=== PATIENT | male | born 1945 | race Caucasian/White ===

== ENCOUNTER 2017-08-29 02:26 | Inpatient (IN) | payer OTHER, BC ==
--- OUTSIDE RECORDS SUMMARY | 2017-08-29 02:30 | XMS REPORT | Clinical Summary ---
:1945 Author Organization [facility] Address [address] [place] [address] Phone Care Team Providers Name Role Phone Unavailable Primary Care Provider Unavailable Allergies Active Allergy Reactions Severity Noted Date Comments Latex Itching, Rash Medium 02/16/2013 Current Medications Prescription Sig. Disp. Refills Start Date End Date Status spironolactone Take 25 mg by Active (ALDACTONE) 25 MG mouth daily. tablet levothyroxine Take 50 mcg by Active (SYNTHROID, mouth Every LEVOTHROID) 50 MCG morning on an tablet empty stomach. atorvastatin Take 40 mg by Active (LIPITOR) 40 MG mouth daily. tablet amiodarone Take 200 mg by Active (PACERONE) 200 MG mouth daily. tablet gabapentin Take 100 mg by Active (NEURONTIN) 100 MG mouth 2 (two) capsule times daily Pt takes only once daily, prescribed twice daily. furosemide (LASIX) Take 1 tablet 30 tablet 1 10/07/2016 Active 20 MG tablet (20 mg total) 8 by mouth daily. latanoprost Place 1 drop Active (XALATAN) 0.005 % into both eyes ophthalmic solution nightly. metoprolol Take 50 mg by Active (LOPRESSOR) 50 MG mouth 2 (two) tablet times daily Pt states only takes once daily, prescribed twice daily . UNKNOWN Eye Ointment Active Daily to Both Eyes every Evening . UNKNOWN Dry Eyes Drops Active to Both Eyes 3 times daily . aspirin 81 MG EC Take 1 tablet 360 tablet 0 12/11/2016 Active tablet (81 mg total) 8 by mouth daily. finasteride Take 1 tablet 90 tablet 3 12/11/2016 Active (PROSCAR) 5 mg (5 mg total) by 8 tablet mouth daily. tamsulosin (FLOMAX) Take 1 capsule 90 capsule 3 12/11/2016 Active 0.4 mg Cp24 24 hr (0.4 mg total) capsule by mouth daily. warfarin (COUMADIN) Take 1 tablet 90 tablet 3 12/11/2016 Active 5 MG tablet (5 mg total) by 8 mouth every evening. furosemide (LASIX) Take 40 mg by Discontinued 40 MG tablet mouth daily . 7 metoprolol Take 50 mg by Discontinued (LOPRESSOR) 50 MG mouth 2 (two) 7 tablet times daily. aspirin 81 MG Take 81 mg by Discontinued chewable tablet mouth daily. 7 rivaroxaban Take 20 mg by Discontinued (XARELTO) 20 mg Tab mouth daily. 7 tablet metoprolol Take 1 tablet 90 tablet 1 10/07/2016 Discontinued (LOPRESSOR) 50 MG (50 mg total) 7 tablet by mouth 3 (three) times daily. pantoprazole Take 1 tablet 30 tablet 1 10/07/2016 Discontinued (PROTONIX) 40 MG (40 mg total) 7 tablet by mouth daily. apixaban (ELIQUIS) Take 2.5 mg by Discontinued 2.5 mg Tab tablet mouth daily. 7 erythromycin nightly. Discontinued (SPECTRO-ERYTHROMYC 7 IN) 5 mg/gram (0.5 %) ophthalmic ointment Active Problems Problem Noted Date Atrial fibrillation (HCC) 12/10/2016 A-fib (HCC) 12/10/2016 Anemia 09/29/2016 Acute renal failure (ARF) (HCC) 09/29/2016 Iron deficiency anemia due to chronic blood loss 09/29/2016 Acute upper GI bleed 09/29/2016 CAD (coronary artery disease) 02/17/2013 Chest pain 02/15/2013 SOB (shortness of breath) 02/15/2013 Encounters Date Type Specialty Care Team Description 02/05/2017 [facility] Cardiology Vidal Dunbar Atrial Encounter fibrillation, unspecified type (HCC) 02/05/2017 Orders Only Lab iVdal Dunbar Atrial MD fibrillation, unspecified type (HCC) (Primary Dx) 02/04/2017 Outside Orders Central Scheduling Vidal Dunbar Atrial MD fibrillation, unspecified type (HCC) (Primary Dx) 12/10/2016 - Hospital Cardiology Vidal Dunbar, Acute kidney 12/11/2016 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 Procedure Pass 12/10/2016 Surgery Vidal Dunbar, LEFT ATRIAL MD APPENDAGE CLOSURE W/ IMPLANT MCR - IP PROC ONLY 12/10/2016 Procedure Pass 12/08/2016 Hospital Vidal Dunbar, Encounter MD 11/19/2016 Hospital Vidal Dunbar, Acute renal Encounter MD failure, unspecified acute renal failure type (HCC) 11/19/2016 Anesthesia Event Garland Mendoza AA 11/19/2016 Orders Only General Internal Medicine 10/06/2016 Anesthesia Event Gastroenterology Latoya Metz MD 10/06/2016 Procedure Pass Gastroenterology 10/06/2016 Surgery Gastroenterology Julia Sage ENTEROSCOPY,BALLOO Mena N OVERTUBE SMALL INTESTINE-UPPER 10/03/2016 Procedure Pass Gastroenterology 10/03/2016 Surgery Gastroenterology Curtis Rey ENDOSCOPY,CAPSULE MD Suze 10/02/2016 Procedure Pass Gastroenterology 10/02/2016 Surgery GastroenterCurtis Marshall COLONOSCOPY MD Suze 10/01/2016 Anesthesia Event Gastroenterology Kulwant Hudson MD 09/29/2016 - Hospital General Internal Dewey, Juan R Atrial 10/08/2016 Encounter Medicine MD Araseli fibrillation, Nishant Akins, unspecified type MD (HCC) (Primary Dx);Acute renal failure, unspecified acute renal failure type (HCC);Acute upper GI bleed;Iron deficiency anemia due to chronic blood loss 09/29/2016 Anesthesia Event GastroenterLatoya Narayan MD 09/29/2016 Procedure Pass Gastroenterology 09/29/2016 Surgery GastroenterCurtis Marshall UPPER ENDOSCOPY MD Suze 09/29/2016 Orders Only General Internal Medicine after 08/28/2016 Family History Medical History Relation Name Comments Cancer Brother lung Cancer Father lung Relation Name Status Comments Brother Father Social History Tobacco Use Types Packs/Day Years Used Date Never Smoker Smokeless Tobacco: Never Used Alcohol Use Drinks/Week oz/Week Comments No Sex Assigned at Date Recorded Not on file Last Filed Vital Signs Vital Sign Reading Time Taken Blood Pressure 99/66 02/05/2017 3:35 PM WET MACHINE TENDER Pulse 94 02/05/2017 3:35 PM WET MACHINE TENDER Temperature 36.6 C (97.9 F) 12/11/2016 4:57 PM CDT Respiratory Rate 18 02/05/2017 3:35 PM WET MACHINE TENDER Oxygen Saturation 99% 02/05/2017 3:35 PM WET MACHINE TENDER Inhaled Oxygen Concentration - - Weight 117.7 kg (259 lb 8 oz) 12/11/2016 9:00 AM CDT Height 180.3 cm (5' 11") 12/10/2016 8:12 AM CDT Body Mass Index 36.19 12/11/2016 9:00 AM CDT Plan of Treatment Not on file Implants Implanted Type Area Vibrator Operator Device Expiration Model / Identifier Date Serial / Lot Watchman Cardiovascular [place] 04/09/2019 [id number] / Implanted: Qty: 1 on 12/10/2016 by Vidal Dunbar MD [employer] / [id number] Promus Premier HEMLOCK 05/23/2015 [id number] / Implanted: Qty: 1 on 12/12/2014 [employer] / [id number] Procedures Procedure Name Priority Date/Time Associated Diagnosis Comments LEFT ATRIAL APPENDAGE 12/10/2016 10:04 AM Atrial flutter, CLOSURE W/ IMPLANT CDT unspecified type (HCC) MCR - IP PROC ONLY Case Notes POP6 WATCHMAN /CV ANES /VICTORIANO DURING ENTEROSCOPY,BALLOON OVERTUBE SMALL 10/06/2016 10:57 AM CDT gi bleed INTESTINE-UPPER ENTEROSCOPY,COAGULATION 10/06/2016 10:57 AM CDT gi bleed ENDOSCOPY,CAPSULE 10/03/2016 10:00 AM CDT GI BLEED COLONOSCOPY 10/02/2016 9:00 AM CDT GI BLEED UPPER ENDOSCOPY 09/29/2016 2:01 PM CDT GI BLEED Case Notes EGD WITH ANES Special Needs EGD WITH ANES after 08/28/2016 Results ECHOCARDIOGRAM REPORT - SCAN (02/26/2017 7:50 AM)Only the most recent of3 resultswithin the time period is included.Transesophageal echo (02/05/2017 2: 43 PM)Only the most recent of3 resultswithin the time period is included. Component Value Ref Range Ejection Fraction Specimen Performing Laboratory [facility] ECHO HEARTLAB MKCKESSON CPACS Narrative Transesophageal Echocardiography Report (VICTORIANO) Demographics Patient Name SHEFALI HERNANDEZ Date of Study02/05/2017 MAGO [id number] Male Visit Number [id number] Unknown [id number] Room Number Number Date of Birth1945Referring PhysicianManjinder Drake MD Age71 year(s)Manager Sales Training Interpreting Betsy Mcdermott MD Physician Fellow IVANNA Fan Procedure Type of Study VICTORIANO procedure:TRANSESOPHAGEAL ECHO (Routine) Height: 71 inches Weight: 117.48 kg (259 lbs) BSA: 2.35 m^2 BMI: 36.12 kg/m^2 BP: 113/70 mmHg VICTORIANO Performed By: the attending and the fellow Type of Anesthesia: Moderate sedation Summary Normal overall left ventricular systolic function. LA is enlarged but severity assessment is unreliable due to know VICTORIANO sector size limitation. LA appendage procedures consistent with prior LA appendage exclusion device implantation (device-Watchman) . No residual LA-to-LA appendage communications visualized. Mild mitral regurgitation. A trace of aortic regurgitation. Lipomatous hypertrophy of the interatrial septum is present. IV saline contrast injection was negative for a PFO (patent foramen ovale) at rest . Grade 3 plaque (atheroma < 5) . Signature Findings Technical Quality: Technically adequate exam. Rhythm/BPAtrial fibrillation with controlled ventricular response. Left Ventricle Normal left ventricular chamber size. Normal wall thickness. Normal overall left ventricular systolic function. No apparent segmental wall motion abnormalities. Left AtriumLA is enlarged but severity assessment is unreliable due to know VICTORIANO sector size limitation. LA appendage procedures consistent with prior LA appendage exclusion device implantation (device-Watchman) . No residual LA-to-LA appendage communications visualized. Right VentricleRV is not well visualized. Right Atrium RA cavity size is normal . Atrial SeptumLipomatous hypertrophy of the interatrial septum is present. IV saline contrast injection was negative for a PFO (patent foramen ovale) at rest . Aortic Valve A trace of aortic regurgitation. Normal AoV structure. Mitral Valve Mild mitral regurgitation. Normal MV structure. Tricuspid ValveNormal TV structure and function by available views and Doppler. Pulmonic Valve Normal PV structure and function by limited views and Doppler. AortaGrade 3 plaque (atheroma < 5) . PericardiumNo pericardial effusion is visualized. IVC/SVC/PA/PV/PleuralThe pulmonary veins appear normal. Procedure Note Interface, External Ris In - 02/05/2017 4:52 PM WET MACHINE TENDER Transesophageal Echocardiography Report (VICTORIANO) Demographics Patient Name SHEFALI HERNANDEZ Date of Study 02/05/2017 MAGO Gender Male Visit Number [id number] Race Unknown Room Number Number Date of 1945 Referring Physician Manjinder Drake MD Age 71 year(s) Manager Sales Training Interpreting Betsy Mcdermott MD Physician Fellow IVANNA Fan Procedure Type of Study VICTORIANO procedure:TRANSESOPHAGEAL ECHO (Routine) Height: 71 inches Weight: 117.48 kg (259 lbs) BSA: 2.35 m^2 BMI: 36.12 kg/m^2 BP: 113/70 mmHg VICTORIANO Performed By: the attending and the fellow Type of Anesthesia: Moderate sedation Summary Normal overall left ventricular systolic function. LA is enlarged but severity assessment is unreliable due to know VICTORIANO sector size limitation. LA appendage procedures consistent with prior LA appendage exclusion device implantation (device-Watchman) . No residual LA-to-LA appendage communications visualized. Mild mitral regurgitation. A trace of aortic regurgitation. Lipomatous hypertrophy of the interatrial septum is present. IV saline contrast injection was negative for a PFO (patent foramen ovale) at rest . Grade 3 plaque (atheroma < 5) . Signature Findings Technical Quality: Technically adequate exam. Rhythm/BP Atrial fibrillation with controlled ventricular response. Left Ventricle Normal left ventricular chamber size. Normal wall thickness. Normal overall left ventricular systolic function. No apparent segmental wall motion abnormalities. Left Atrium LA is enlarged but severity assessment is unreliable due to know VICTORIANO sector size limitation. LA appendage procedures consistent with prior LA appendage exclusion device implantation (device-Watchman) . No residual LA-to-LA appendage communications visualized. Right Ventricle RV is not well visualized. Right Atrium RA cavity size is normal . Atrial Septum Lipomatous hypertrophy of the interatrial septum is present. IV saline contrast injection was negative for a PFO (patent foramen ovale) at rest . Aortic Valve A trace of aortic regurgitation. Normal AoV structure. Mitral Valve Mild mitral regurgitation. Normal MV structure. Tricuspid Valve Normal TV structure and function by available views and Doppler. Pulmonic Valve Normal PV structure and function by limited views and Doppler. Aorta Grade 3 plaque (atheroma < 5) . Pericardium No pericardial effusion is visualized. IVC/SVC/PA/PV/Pleural The pulmonary veins appear normal. PT/aPTT (02/05/2017 11:38 AM)Only the most recent of2 resultswithin the time period is included. Component Value Ref Range Protime 30.3 (H) 11.7 - 14.7 seconds INR 2.9 <=5.9 PTT 41.5 (H) 22.5 - 36.0 seconds Specimen Performing Laboratory Blood [facility] [address] [address] Narrative RECOMMENDED COUMADIN/WARFARIN INR THERAPY RANGES STANDARD DOSE: 2.0 - 3.0 Includes: PROPHYLAXIS for venous thrombosis, systemic embolization; TREATMENT for venous thrombosis and/or pulmonary embolus. HIGH RISK: Target INR is 2.5-3.5 for patients with mechanical heart valves. CBC (Hemogram only) (02/05/2017 11:38 AM)Only the most recent of2 resultswithin the time period is included. Component Value Ref Range WBC 7.0 3.5 - 10.5 K/L RBC 5.09 4.63 - 6.08 M/L Hemoglobin 12.5 (L) 13.7 - 17.5 GM/DL Hematocrit 41.6 40.1 - 51.0 % MCV 81.7 79.0 - 92.2 fL MCH 24.6 (L) 25.7 - 32.2 pg MCHC 30.0 (L) 32.3 - 36.5 GM/DL RDW 21.0 (H) 11.6 - 14.4 % Platelets 218 150 - 450 K/CU MM MPV 10.8 9.4 - 12.4 fL nRBC 0 0 - 0 /100 WBC Specimen Performing Laboratory Blood [address] [address] Basic Metabolic Panel (02/05/2017 11:38 AM)Only the most recent of13 resultswithin the time period is included. Component Value Ref Range Sodium 142 136 - 145 meq/L Potassium 4.5 3.5 - 5.1 meq/L Chloride 106 98 - 107 meq/L CO2 28 22 - 29 meq/L BUN 14 7 - 21 mg/dL Creatinine 1.45 (H) 0.57 - 1.25 mg/dL Glucose 99 70 - 105 mg/dL Calcium 8.9 8.4 - 10.2 mg/dL EGFR 48Comment: ESTIMATED GFR IS NOT ACCURATE mL/min/1.73 sq m CREATININE CLEARANCE IN PREDICTING GLOMERULAR FILTRATION RATE. ESTIMATED GFR IS NOT APPLICABLE FOR DIALYSIS PATIENTS. Specimen Performing Laboratory Blood [address] [address] RHYTHM STRIP - SCAN (12/19/2016 1:30 PM)Only the most recent of4 resultswithin the time period is included.CARDIAC CATH REPORT - SCAN (12/14/2016 3:50 PM) TRANSFUSION SERVICE REPORT - SCAN (12/13/2016 5:42 PM)Only the most recent of3 resultswithin the time period is included.Prepare Leuko-Red RBC (12/12/2016 11: 54 PM)Only the most recent of3 resultswithin the time period is included. Component Value Ref Range CROSSMATCH COMPATIBLE Unit ABO O Pos UNIT NUMBER [id number] Status TRANSFUSED Blood Bank Product RED BLOOD CELLS PRODUCT CODE S3624D11 CROSSMATCH COMPATIBLE Unit ABO O Pos UNIT NUMBER [id number] Status TRANSFUSED Blood Bank Product RED BLOOD CELLS PRODUCT CODE X2335F12 Specimen Performing Laboratory Other [facility] [place] CBC with platelet count + automated diff (12/11/2016 5:45 PM)Only the most recent of14 resultswithin the time period is included. Component Value Ref Range WBC 6.3 3.5 - 10.5 K/L RBC 3.84 (L) 4.63 - 6.08 M/L Hemoglobin 9.6 (L) 13.7 - 17.5 GM/DL Hematocrit 31.6 (L) 40.1 - 51.0 % MCV 82.3 79.0 - 92.2 fL MCH 25.0 (L) 25.7 - 32.2 pg MCHC 30.4 (L) 32.3 - 36.5 GM/DL RDW 18.0 (H) 11.6 - 14.4 % Platelets 176 150 - 450 K/CU MM MPV 10.1 9.4 - 12.4 fL nRBC 0 0 - 0 /100 WBC % Neutros 72 % % Lymphs 15 % % Monos 10 % % Eos 2 % % Baso 1 % # Neutros 4.56 1.78 - 5.38 K/L # Lymphs 0.96 (L) 1.32 - 3.57 K/L # Monos 0.60 0.30 - 0.82 K/L # Eos 0.14 0.04 - 0.54 K/L # Baso 0.05 0.01 - 0.08 K/L Immature Granulocytes-Relative 0 0 - 1 % Specimen Performing Laboratory Blood - Arm, [address] [address] CBC with platelet count + automated diff (12/11/2016 5:45 PM)Only the most recent of14 resultswithin the time period is included. Specimen Performing Laboratory Blood Narrative The following orders were created for panel order CBC with platelet count + automated diff. Procedure Abnormality Status --------- ------ CBC with platelet count ...[[id number]]AbnormalFinal result Please view results for these tests on the individual orders. Transfuse Leuko-Red RBC (12/11/2016 4:59 PM)Only the most recent of7 resultswithin the time period is included.XR chest 1 view portable / bedside ( 11:17 AM) Specimen Performing Laboratory GE RIS Narrative FINAL REPORT Chest one view compared to February 15, 2013 Discussion: Bilateral lung granulomas and mediastinal calcified nodes are noted. Heart size normal. No focal infiltrate or convincing cardiac failure. No effusion or pneumothorax. Signed: Yandel Duke MD Report Verified Date/Time:12/11/2016 11:49:16 Reading Location: [facility] Radiology Reading Room Procedure Note Interface, External Ris In - 12/11/2016 11:51 AM CDT FINAL REPORT Chest one view compared to February 15, 2013 Discussion: Bilateral lung granulomas and mediastinal calcified nodes are noted. Heart size normal. No focal infiltrate or convincing cardiac failure. No effusion or pneumothorax. Signed: Yandel Duke MD Report Verified Date/Time: 12/11/2016 11:49:16 Reading Location: [facility] Radiology Reading Room Limited 2D Echocardiogram (12/11/2016 8:30 AM) Component Value Ref Range Ejection Fraction Specimen Performing Laboratory [facility] ECHO HEARTLAB MKCKESSON CPACS Narrative Transthoracic Echocardiography Report (TTE) Demographics Patient Name Gayle HERNANDEZ of Study 12/11/2016 MAGO [id number] GenderMale Visit Number [id number] Race Unknown [id number] Number [id number] Number Date of Birth1945 Referring Physician IVANNA Cortez Age71 year(s) Manager Sales Training Anahy Armstrong [facility] AnalystAlex ZadeInterpreting Marshal Mata MD Physician Procedure Type of Study TTE procedure:LIMITED 2D ECHOCARDIOGRAM (STAT) Clinical History HGB 7.6 HCT 26.5 % A-fib CHF CAD HTN Cancer ARF s/p LIZ closure (12/10/2016) Height: 70.87 inches Weight: 114 kg (251.33 lbs) BSA: 2.32 m^2 BMI: 35.19 kg/m^2 HR: 58 bpm BP: 131/59 mmHg Summary Limited 2D echo, to assess pericardial effusion. The left ventricle is chamber size (by PSLAX dimension) is normal (male - LVIDd 4.2-5.8cm) . Mild concentric LV hypertrophy. All of the LV segments contract normally . LVEF by quantitative assessment is normal (55-60%) , Normal right ventricle structure and function. Aortic root size (SInus of Valsalva diameter) is normal . No pericardial effusion is visualized. Signature Findings Technical Quality: Technically adequate exam. Left Ventricle The left ventricle is chamber size (by PSLAX dimension) is normal (male - LVIDd 4.2-5.8cm) . Mild concentric LV hypertrophy. All of the LV segments contract normally . LVEF by quantitative assessment is normal (55-60%) , Left AtriumLA size is severely (>48 ml/m2) . Right VentricleNormal right ventricle structure and function. Right Atrium Normal right atrium. Aortic Valve Mild AoV cusp thickening. Mild AoV cusp calcification. Mitral Valve Mild MV leaflet thickening. Mild mitral annular calcification. Tricuspid ValveTV structure is normal. Pulmonic Valve PV is not well visualized. AortaAortic root size (SInus of Valsalva diameter) is normal . PericardiumNo pericardial effusion is visualized. IVC/SVC/PA/PV/PleuralThe estimated RA pressure by IVC dynamics 0-5mmHg . Chambers/Structures Left Atrium LA Dimension: 4.74 cm LA Area: 36.4 cm^2 LA Volume: 143.45 ml LA Vol. Index: 62 ml/m^2 Left Ventricle LVIDd: 5.55 cm LVEDV 2D:150.72 ml LV Septum Diastolic: 1.15 cm LV PW Diastolic: 1.12 cm Aorta Ao Root S of Mago.: 3.31 cm Procedure Note Interface, External Ris In - 12/11/2016 11:03 AM CDT Transthoracic Echocardiography Report (TTE) Demographics Patient Name SHEFALI HERNANDEZ Date of Study 12/11/2016 MAGO Gender Male Visit Number [id number] Race Unknown Room Number C631 Number Date of 1945 Referring Physician IVANNA Cortez Age 71 year(s) Manager Sales Training Anahy Armstrong, [facility] Business Support Administrator Harinder Jennings Interpreting Marshla Mata MD Physician Procedure Type of Study TTE procedure:LIMITED 2D ECHOCARDIOGRAM (STAT) Clinical History HGB 7.6 HCT 26.5 % A-fib CHF CAD HTN Cancer ARF s/p LIZ closure (12/10/2016) Height: 70.87 inches Weight: 114 kg (251.33 lbs) BSA: 2.32 m^2 BMI: 35.19 kg/m^2 HR: 58 bpm BP: 131/59 mmHg Summary Limited 2D echo, to assess pericardial effusion. The left ventricle is chamber size (by PSLAX dimension) is normal (male - LVIDd 4.2-5.8cm) . Mild concentric LV hypertrophy. All of the LV segments contract normally . LVEF by quantitative assessment is normal (55-60%) , Normal right ventricle structure and function. Aortic root size (SInus of Valsalva diameter) is normal . No pericardial effusion is visualized. Signature Findings Technical Quality: Technically adequate exam. Left Ventricle The left ventricle is chamber size (by PSLAX dimension) is normal (male - LVIDd 4.2-5.8cm) . Mild concentric LV hypertrophy. All of the LV segments contract normally . LVEF by quantitative assessment is normal (55-60%) , Left Atrium LA size is severely (>48 ml/m2) . Right Ventricle Normal right ventricle structure and function. Right Atrium Normal right atrium. Aortic Valve Mild AoV cusp thickening. Mild AoV cusp calcification. Mitral Valve Mild MV leaflet thickening. Mild mitral annular calcification. Tricuspid Valve TV structure is normal. Pulmonic Valve PV is not well visualized. Aorta Aortic root size (SInus of Valsalva diameter) is normal . Pericardium No pericardial effusion is visualized. IVC/SVC/PA/PV/Pleural The estimated RA pressure by IVC dynamics 0-5mmHg . Chambers/Structures Left Atrium LA Dimension: 4.74 cm LA Area: 36.4 cm^2 LA Volume: 143.45 ml LA Vol. Index: 62 ml/m^2 Left Ventricle LVIDd: 5.55 cm LVEDV 2D:150.72 ml LV Septum Diastolic: 1.15 cm LV PW Diastolic: 1.12 cm Aorta Ao Root S of Mago.: 3.31 cm Daily Prothrombin time/INR while on warfarin (12/11/2016 3:41 AM)Only the most recent of5 resultswithin the time period is included. Component Value Ref Range Protime 15.9 (H) 11.7 - 14.7 seconds INR 1.3 <=5.9 Specimen Performing Laboratory Blood - Arm, Left [address] [address] Narrative RECOMMENDED COUMADIN/WARFARIN INR THERAPY RANGES STANDARD DOSE: 2.0 - 3.0 Includes: PROPHYLAXIS for venous thrombosis, systemic embolization; TREATMENT for venous thrombosis and/or pulmonary embolus. HIGH RISK: Target INR is 2.5-3.5 for patients with mechanical heart valves. While on warfarin. POC ACTIVATED CLOTTING TIME (12/10/2016 1:00 PM)Only the most recent of2 resultswithin the time period is included. Component Value Ref Range Activated Clotting Time 131Comment: TESTED AT [address] [place] [id number] Specimen Performing Laboratory Blood [address] [address] ECG 12 lead (12/10/2016 9:51 AM)Only the most recent of3 resultswithin the time period is included. Specimen Performing Laboratory GE MUSE Narrative Ventricular Rate 51 BPM Atrial Rate 51 BPM P-R Interval 276 ms QRS Duration 96 ms Q-T Interval 496 ms QTC Calculation(Bazett) 457 ms P Logan 46 degrees R Logan -11 degrees T Logan 67 degrees Sinus bradycardia with 1st degree A-V block with Premature supraventricular complexes Moderate voltage criteria for LVH, may be normal variant Nonspecific T wave abnormality Abnormal ECG When compared with ECG of 19-NOV-2016 13:21, No significant change was found Confirmed by MD LATONYA, IHAB ([id number]) on 12/10/2016 2:42:03 PM Procedure Note Interface, External Ris In - 12/10/2016 2:42 PM CDT Ventricular Rate 51 BPM Atrial Rate 51 BPM P-R Interval 276 ms QRS Duration 96 ms Q-T Interval 496 ms QTC Calculation(Bazett) 457 ms P Logan 46 degrees R Logan -11 degrees T Logan 67 degrees Sinus bradycardia with 1st degree A-V block with Premature supraventricular complexes Moderate voltage criteria for LVH, may be normal variant Nonspecific T wave abnormality Abnormal ECG When compared with ECG of 19-NOV-2016 13:21, No significant change was found Confirmed by MD LATONYA, IHAB ([id number]) on 12/10/2016 2:42:03 PM Type and screen, automated (12/10/2016 9:20 AM)Only the most recent of4 resultswithin the time period is included. Component Value Ref Range ABO/RH AUTOMATED (BEAKER) O POSITIVE Ab Scrn NEGATIVE Specimen Performing Laboratory Blood [address] [address] Magnesium (12/10/2016 9:20 AM)Only the most recent of10 resultswithin the time period is included. Component Value Ref Range Magnesium 2.1 1.6 - 2.6 mg/dL Specimen Performing Laboratory Blood [address] [address] Comprehensive metabolic panel (11/19/2016 1:12 PM) Component Value Ref Range Protein, Total 7.2 6.0 - 8.3 gm/dL Albumin 3.7 3.5 - 5.0 g/dL Alkaline Phosphatase 88 40 - 150 U/L Total Bilirubin 0.8 0.2 - 1.2 mg/dL Sodium 142 136 - 145 meq/L Potassium 4.7 3.5 - 5.1 meq/L Chloride 109 (H) 98 - 107 meq/L CO2 24 22 - 29 meq/L BUN 12 7 - 21 mg/dL Creatinine 1.33 (H) 0.57 - 1.25 mg/dL Glucose 92 70 - 105 mg/dL Calcium 9.0 8.4 - 10.2 mg/dL AST 17 5 - 34 U/L ALT 22 6 - 55 U/L EGFR 53Comment: ESTIMATED GFR IS NOT ACCURATE mL/min/1.73 sq m CREATININE CLEARANCE IN PREDICTING GLOMERULAR FILTRATION RATE. ESTIMATED GFR IS NOT APPLICABLE FOR DIALYSIS PATIENTS. Specimen Performing Laboratory Blood [address] [address] EKG-SCANNED (10/09/2016 10:40 AM)Phosphorus (10/08/2016 7:22 AM)Only the most recent of9 resultswithin the time period is included. Component Value Ref Range Phosphorus 3.8Comment: Specimen slightly hemolyzed 2.3 - 4.7 mg/dL Specimen Performing Laboratory Blood - Arm, [address] [address] REPORT OF PROCEDURE - ENDOSCOPY URL (10/06/2016 6:21 PM)Only the most recent of3 resultswithin the time period is included.Vitamin B12 and Folate (2016 11:28 AM)Only the most recent of2 resultswithin the time period is included. Component Value Ref Range Vitamin B12 346 213 - 816 pg/mL Folate 7.9 >=7.0 ng/mL Specimen Performing Laboratory Blood - Arm, [address] [address] Narrative Effective 02/14/2014: Folate Reference Range Change New: >=7.0Previous: >=5.4 C-Reactive Protein (10/03/2016 5:37 AM) Component Value Ref Range CRP 1.01 (H) 0.00 - 0.50 mg/dL Specimen Performing Laboratory Blood [address] [address] Sedimentation rate (10/03/2016 5:37 AM) Component Value Ref Range Sed Rate 38 0 - 40 mm/HR Specimen Performing Laboratory Blood [facility] [address] [address] [address] abdomen & pelvis - enterography (10/02/2016 3:40 PM) Specimen Performing Laboratory GE [facility] Narrative FINAL REPORT CT enterography DATED 10/02/2016 CLINICAL INFORMATION:Small Bowel Bleeding TECHNIQUE:Axial images of the abdomen and pelvis were obtained from diaphragm to the pubic symphysis with GI and intravenous contrast. This exam was performed according to our departmental dose-optimization program, which includes automated exposure control, adjustment of the mA and/or kV according to patient size and/or use of interactive reconstruction technique. COMMENT: Liver and spleen are normal in size. No focal lesion seen in the liver. There is wedge-shaped perfusion defect in the spleen suggesting splenic infarction. Gallbladder is contracted. No gallstone or biliary dilatation is noted. Pancreas and adrenals are unremarkable. Both kidneys are normal in size and functioning. No hydronephrosis, solid or cystic mass is seen in either kidney. The small bowel is normal in caliber. No small bowel dilatation or wall thickening is noted. Diverticular disease is seen in the large bowel. The sigmoid colon is redundant. No diverticulitis is apparent. Appendix is unremarkable. Atherosclerotic calcification is seen in the abdominal aorta splenic, superior mesenteric, and bilateral iliac arteries. The superior mesenteric, splenic, and portal veins are patent. No AV malformation is seen in the mesentery. No mass, adenopathy or ascites is present. IMPRESSION: 1. Diverticulosis without diverticulitis. 2. Splenic infarction. 3. Atherosclerotic disease in the abdominal aorta and branch vessels. Signed: Collin Cruz MD Report Verified Date/Time:10/02/2016 16:56:34 Reading Location: [address] Body Reading Room Procedure Note Interface, External Ris In - 10/02/2016 4:58 PM CDT FINAL REPORT CT enterography DATED 10/02/2016 CLINICAL INFORMATION: Small Bowel Bleeding TECHNIQUE: Axial images of the abdomen and pelvis were obtained from diaphragm to the pubic symphysis with GI and intravenous contrast. This exam was performed according to our departmental dose-optimization program, which includes automated exposure control, adjustment of the mA and/or kV according to patient size and/or use of interactive reconstruction technique. COMMENT: Liver and spleen are normal in size. No focal lesion seen in the liver. There is wedge-shaped perfusion defect in the spleen suggesting splenic infarction. Gallbladder is contracted. No gallstone or biliary dilatation is noted. Pancreas and adrenals are unremarkable. Both kidneys are normal in size and functioning. No hydronephrosis, solid or cystic mass is seen in either kidney. The small bowel is normal in caliber. No small bowel dilatation or wall thickening is noted. Diverticular disease is seen in the large bowel. The sigmoid colon is redundant. No diverticulitis is apparent. Appendix is unremarkable. Atherosclerotic calcification is seen in the abdominal aorta splenic, superior mesenteric, and bilateral iliac arteries. The superior mesenteric, splenic, and portal veins are patent. No AV malformation is seen in the mesentery. No mass, adenopathy or ascites is present. IMPRESSION: 1. Diverticulosis without diverticulitis. 2. Splenic infarction. 3. Atherosclerotic disease in the abdominal aorta and branch vessels. Signed: Collin Cruz MD Report Verified Date/Time: 10/02/2016 16:56:34 Reading Location: [address] Body Reading Room Manual Differential (10/01/2016 5:25 AM) Component Value Ref Range Total Counted WBC Morphology Normal Platelet Morphology Normal Anisocytosis 1+ few Polychromasia 1+ few Tear Drop Cells 1+ few Specimen Performing Laboratory Blood [address] [address] Peripheral Blood Smear - Path Review (10/01/2016 5:25 AM) Component Value Ref Range RBC Morphology Anisocytosis Polychromasia Poikilocytosis WBC Morphology Unremarkable Platelet Morphology Comment: Normal morphology Pathologist Review Cell counts confirmed. RBCs show normocytic normochromic anemia with mild anisopoikilocytosis. No schistocytes are seen. WBCs are unremarkable. Platelets are adequate with rare giant platelets. Pathologist: Radha Velez M.D. (electronic signature) Specimen Performing Laboratory Blood [address] [address] Reticulocyte count (10/01/2016 5:25 AM)Only the most recent of2 resultswithin the time period is included. Component Value Ref Range % Retic 5.8 (H) 0.4 - 2.9 % Specimen Performing Laboratory Blood [facility] [address] [address] [address] brain without IV contrast (09/30/2016 6:15 PM) Specimen Performing Laboratory GE RIS Narrative FINAL REPORT CT, BRAIN, WITHOUT CONTRAST INDICATION: double vision TECHNIQUE: Noncontrast axial imaging was obtained from the vertex to the skull base. Axial images were reconstructed using a bone algorithm. DOSE REDUCTION: Dose modulation, iterative reconstruction, and/or weight-based adjustment of the mA/kV was utilized to reduce the radiation dose to as low as reasonably achievable. COMPARISON: None. FINDINGS: Cerebral parenchyma: Mild volume loss. 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 No acute disruption of the skinner-white distinction. No parenchymal hemorrhage. Midline structures: Normally positioned. Cerebellum and brainstem: Normal. Ventricles: Normal volume. Extra-axial spaces: Unremarkable. Calvarium and skull base: Intact. Paranasal sinuses and mastoid air cells: Scattered mucosal thickening. Orbital contents: Included portions unremarkable. Additional findings: Severe, circumferential atherosclerotic disease in the proximal intracranial internal carotid and vertebral arteries. IMPRESSION: Chronic involutional changes without acute intracranial abnormality. If there is persistent clinical concern for intracranial pathology, MR examination is recommended for further characterization. Signed: JR Castro Robert MD Report Verified Date/Time:09/30/2016 18:33:54 Reading Location: [address] Reading Room Procedure Note Interface, External Ris In - 09/30/2016 6:36 PM CDT FINAL REPORT CT, BRAIN, WITHOUT CONTRAST INDICATION: double vision TECHNIQUE: Noncontrast axial imaging was obtained from the vertex to the skull base. Axial images were reconstructed using a bone algorithm. DOSE REDUCTION: Dose modulation, iterative reconstruction, and/or weight-based adjustment of the mA/kV was utilized to reduce the radiation dose to as low as reasonably achievable. COMPARISON: None. FINDINGS: Cerebral parenchyma: Mild volume loss. 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 No acute disruption of the skinner-white distinction. No parenchymal hemorrhage. Midline structures: Normally positioned. Cerebellum and brainstem: Normal. Ventricles: Normal volume. Extra-axial spaces: Unremarkable. Calvarium and skull base: Intact. Paranasal sinuses and mastoid air cells: Scattered mucosal thickening. Orbital contents: Included portions unremarkable. Additional findings: Severe, circumferential atherosclerotic disease in the proximal intracranial internal carotid and vertebral arteries. IMPRESSION: Chronic involutional changes without acute intracranial abnormality. If there is persistent clinical concern for intracranial pathology, MR examination is recommended for further characterization. Signed: JR Matthew, Naldo MAS Report Verified Date/Time: 09/30/2016 18:33:54 Reading Location: [address] Reading Room doppler (09/30/2016 5:31 PM) Specimen Performing Laboratory [facility] Narrative FINAL REPORT Ultrasound of the Abdomen and Doppler evaluation Clinical History:Portal hypertension Discussion: Sonographic evaluation of the abdomen is performed. In addition, color Doppler and spectral wave form analysis evaluations of the abdominal vasculature are performed. Liver: Measures 18.2 cm in length at the right midclavicular line. No mass.Main portal vein diameter measures 1 cm. Mildly increased echogenicity. Biliary tree:Common duct measures 4 mm.No biliary dilatation. Gallbladder: Nonmobile 5 mm polypoid echogenic structure within the gallbladder lumen, possibly a polyp.No wall thickening, and no pericholecystic fluid. Negativesonographic Olmedo's sign. Pancreas: Not well seen.. Ascites:None seen Spleen:Measures 13.1 cm in length. Kidneys: Right kidney measures 10.2 x 4.8 x 5.2 cm.Left kidney measures 11.8 x 5.9 x 5.7 cm.Normal cortical echogenicity.No mass.No shadowing calculus.No hydronephrosis. IVC/Aorta:Segments partially seen.Unremarkable Doppler: The peak systolic velocity of the main portal vein is measures 27.7 cm/sec, within normal limits. The main portal, right portal, and left portal veins demonstrate normal direction of flow, hepatopetal. The splenic vein is visualized at the portal venous confluence and demonstrates normal direction of flow, hepatopetal. The proper hepatic and left hepatic arteries demonstrate normal arterial wave forms. The right hepatic artery is not seen. The resistive indices of the proper and left hepatic arteries are minimally elevated, measuring 0.77 and 0.68. Segments of the right hepatic, middle hepatic, and left hepatic veins visualized demonstrate flow and phasic venous waveforms. Impression: 1. Hepatomegaly and mildly increased echogenicity of the hepatic parenchyma, a nonspecific finding which can be seen in steatosis. 2. The right hepatic artery is not assessed on this exam. The resistive indices of the proper and left hepatic arteries are minimally elevated as above. Otherwise, hepatic vasculature is within normal limits. The portal and hepatic veins are patent. 3. Spleen is enlarged measuring 13.1 cm. 4. The 5 mm polypoid structure in the gallbladder may represent a gallbladder polyp. Suggest follow-up ultrasound in six months to ensure stability. Signed: Yogi Villanueva MD Report Verified Date/Time:09/30/2016 18:54:08 Reading Location: [facility] C013Y CT Body Reading Room Procedure Note Interface, External Ris In - 09/30/2016 6:56 PM CDT FINAL REPORT Ultrasound of the Abdomen and Doppler evaluation Clinical History: Portal hypertension Discussion: Sonographic evaluation of the abdomen is performed. In addition, color Doppler and spectral wave form analysis evaluations of the abdominal vasculature are performed. Liver: Measures 18.2 cm in length at the right midclavicular line. No mass. Main portal vein diameter measures 1 cm. Mildly increased echogenicity. Biliary tree: Common duct measures 4 mm. No biliary dilatation. Gallbladder: Nonmobile 5 mm polypoid echogenic structure within the gallbladder lumen, possibly a polyp. No wall thickening, and no pericholecystic fluid. Negativesonographic Olmedo's sign. Pancreas: Not well seen.. Ascites: None seen Spleen: Measures 13.1 cm in length. Kidneys: Right kidney measures 10.2 x 4.8 x 5.2 cm. Left kidney measures 11.8 x 5.9 x 5.7 cm. Normal cortical echogenicity. No mass. No shadowing calculus. No hydronephrosis. IVC/Aorta: Segments partially seen. Unremarkable Doppler: The peak systolic velocity of the main portal vein is measures 27.7 cm/sec, within normal limits. The main portal, right portal, and left portal veins demonstrate normal direction of flow, hepatopetal. The splenic vein is visualized at the portal venous confluence and demonstrates normal direction of flow, hepatopetal. The proper hepatic and left hepatic arteries demonstrate normal arterial wave forms. The right hepatic artery is not seen. The resistive indices of the proper and left hepatic arteries are minimally elevated, measuring 0.77 and 0.68. Segments of the right hepatic, middle hepatic, and left hepatic veins visualized demonstrate flow and phasic venous waveforms. Impression: 1. Hepatomegaly and mildly increased echogenicity of the hepatic parenchyma, a nonspecific finding which can be seen in steatosis. 2. The right hepatic artery is not assessed on this exam. The resistive indices of the proper and left hepatic arteries are minimally elevated as above. Otherwise, hepatic vasculature is within normal limits. The portal and hepatic veins are patent. 3. Spleen is enlarged measuring 13.1 cm. 4. The 5 mm polypoid structure in the gallbladder may represent a gallbladder polyp. Suggest follow-up ultrasound in six months to ensure stability. Signed: Yogi Villanueva MD Report Verified Date/Time: 09/30/2016 18:54:08 Reading Location: [facility] C013Y CT Body Reading Room abdomen complete (09/30/2016 5:31 PM) Specimen Performing Laboratory [facility] Narrative FINAL REPORT Ultrasound of the Abdomen and Doppler evaluation Clinical History:Portal hypertension Discussion: Sonographic evaluation of the abdomen is performed. In addition, color Doppler and spectral wave form analysis evaluations of the abdominal vasculature are performed. Liver: Measures 18.2 cm in length at the right midclavicular line. No mass.Main portal vein diameter measures 1 cm. Mildly increased echogenicity. Biliary tree:Common duct measures 4 mm.No biliary dilatation. Gallbladder: Nonmobile 5 mm polypoid echogenic structure within the gallbladder lumen, possibly a polyp.No wall thickening, and no pericholecystic fluid. Negativesonographic Olmedo's sign. Pancreas: Not well seen.. Ascites:None seen Spleen:Measures 13.1 cm in length. Kidneys: Right kidney measures 10.2 x 4.8 x 5.2 cm.Left kidney measures 11.8 x 5.9 x 5.7 cm.Normal cortical echogenicity.No mass.No shadowing calculus.No hydronephrosis. IVC/Aorta:Segments partially seen.Unremarkable Doppler: The peak systolic velocity of the main portal vein is measures 27.7 cm/sec, within normal limits. The main portal, right portal, and left portal veins demonstrate normal direction of flow, hepatopetal. The splenic vein is visualized at the portal venous confluence and demonstrates normal direction of flow, hepatopetal. The proper hepatic and left hepatic arteries demonstrate normal arterial wave forms. The right hepatic artery is not seen. The resistive indices of the proper and left hepatic arteries are minimally elevated, measuring 0.77 and 0.68. Segments of the right hepatic, middle hepatic, and left hepatic veins visualized demonstrate flow and phasic venous waveforms. Impression: 1. Hepatomegaly and mildly increased echogenicity of the hepatic parenchyma, a nonspecific finding which can be seen in steatosis. 2. The right hepatic artery is not assessed on this exam. The resistive indices of the proper and left hepatic arteries are minimally elevated as above. Otherwise, hepatic vasculature is within normal limits. The portal and hepatic veins are patent. 3. Spleen is enlarged measuring 13.1 cm. 4. The 5 mm polypoid structure in the gallbladder may represent a gallbladder polyp. Suggest follow-up ultrasound in six months to ensure stability. Signed: Yogi Villanueva MD Report Verified Date/Time:09/30/2016 18:54:08 Reading Location: [address] Body Reading Room Procedure Note Interface, External Ris In - 09/30/2016 6:56 PM CDT FINAL REPORT Ultrasound of the Abdomen and Doppler evaluation Clinical History: Portal hypertension Discussion: Sonographic evaluation of the abdomen is performed. In addition, color Doppler and spectral wave form analysis evaluations of the abdominal vasculature are performed. Liver: Measures 18.2 cm in length at the right midclavicular line. No mass. Main portal vein diameter measures 1 cm. Mildly increased echogenicity. Biliary tree: Common duct measures 4 mm. No biliary dilatation. Gallbladder: Nonmobile 5 mm polypoid echogenic structure within the gallbladder lumen, possibly a polyp. No wall thickening, and no pericholecystic fluid. Negativesonographic Olmedo's sign. Pancreas: Not well seen.. Ascites: None seen Spleen: Measures 13.1 cm in length. Kidneys: Right kidney measures 10.2 x 4.8 x 5.2 cm. Left kidney measures 11.8 x 5.9 x 5.7 cm. Normal cortical echogenicity. No mass. No shadowing calculus. No hydronephrosis. IVC/Aorta: Segments partially seen. Unremarkable Doppler: The peak systolic velocity of the main portal vein is measures 27.7 cm/sec, within normal limits. The main portal, right portal, and left portal veins demonstrate normal direction of flow, hepatopetal. The splenic vein is visualized at the portal venous confluence and demonstrates normal direction of flow, hepatopetal. The proper hepatic and left hepatic arteries demonstrate normal arterial wave forms. The right hepatic artery is not seen. The resistive indices of the proper and left hepatic arteries are minimally elevated, measuring 0.77 and 0.68. Segments of the right hepatic, middle hepatic, and left hepatic veins visualized demonstrate flow and phasic venous waveforms. Impression: 1. Hepatomegaly and mildly increased echogenicity of the hepatic parenchyma, a nonspecific finding which can be seen in steatosis. 2. The right hepatic artery is not assessed on this exam. The resistive indices of the proper and left hepatic arteries are minimally elevated as above. Otherwise, hepatic vasculature is within normal limits. The portal and hepatic veins are patent. 3. Spleen is enlarged measuring 13.1 cm. 4. The 5 mm polypoid structure in the gallbladder may represent a gallbladder polyp. Suggest follow-up ultrasound in six months to ensure stability. Signed: Yogi Villanueva MD Report Verified Date/Time: 09/30/2016 18:54:08 Reading Location: [address] Body Reading Room testicular (scrotum) (09/30/2016 4:49 PM) Specimen Performing Laboratory [facility] Narrative FINAL REPORT Scrotal ultrasound. Clinical History: Right testicular swelling Discussion: Sonographic evaluation of the scrotal contents is performed. In addition, color Doppler and spectral waveform analysis evaluations of the scrotal contents are obtained. The testes have homogeneous echotexture, without focal mass. The right testis measures 4.4 x 2.2 x 2.5. The left testis measures 3.9 x 2.1 x 2.2. On color Doppler evaluation, there is symmetric blood flow to both testes. The right epididymis measures 1 x 1.9 x 1.1 cm. The left epididymis is not seen . Large bilateral hydroceles. Small amount of debris is seen within the right-sided hydrocele. Impression: Large mildly complex bilateral hydroceles. No intratesticular or extratesticular mass. Signed: Yogi Villanueva MD Report Verified Date/Time:09/30/2016 18:57:44 Reading Location: [facility] C0[place] CT Body Reading Room Procedure Note Interface, External Ris In - 09/30/2016 6:59 PM CDT FINAL REPORT Scrotal ultrasound. Clinical History: Right testicular swelling Discussion: Sonographic evaluation of the scrotal contents is performed. In addition, color Doppler and spectral waveform analysis evaluations of the scrotal contents are obtained. The testes have homogeneous echotexture, without focal mass. The right testis measures 4.4 x 2.2 x 2.5. The left testis measures 3.9 x 2.1 x 2.2. On color Doppler evaluation, there is symmetric blood flow to both testes. The right epididymis measures 1 x 1.9 x 1.1 cm. The left epididymis is not seen . Large bilateral hydroceles. Small amount of debris is seen within the right-sided hydrocele. Impression: Large mildly complex bilateral hydroceles. No intratesticular or extratesticular mass. Signed: Yogi Villanueva MD Report Verified Date/Time: 09/30/2016 18:57:44 Reading Location: [facility] C013Y CT Body Reading Room (09/29/2016 5:17 PM) Component Value Ref Range TSH 2.79 0.35 - 4.94 uIU/mL Specimen Performing Laboratory Blood [address] [address] POC-Glucose meter (09/29/2016 5:12 PM)Only the most recent of2 resultswithin the time period is included. Component Value Ref Range POC-Glucose Meter 98Comment: TESTED AT [address] 70 - 110 mg/dL [address] Specimen Performing Laboratory Blood [address] [address] 2D Echo W/Doppler(CW/PW/Color) (09/29/2016 10:23 AM) Specimen Performing Laboratory [facility] Echocardiography Laboratory [address] [place] [address] Voice:[phone] Transthoracic Echocardiogram Pat.Name:SHEFALI HERNANDEZ.ID:[id number] St.Date: 09/29/2016Refer.MD:JUAN R DEWEY Exam Time: 10:23:00 AM Study Type:Echo Complete Height:72inWeight: 257lb BSA: 2.37 m2 DOBAge:1945,71Y Sex: MALEBP:146/54 HR:54 bpmSonogrphr: Dayan Gonzalez [facility] Pat. Stat.:Inpatient Room:7212 Reason for Study:Acute Chest Pain / Suspected CAD History / Clinical:Anemia, Atrial fibrillation/flutter, Congestive Heart Failure, Coronary artery disease, Hyperlipidemia, Hypertension, Myocardial infarction, Shortness of breath, Sleep Apnea Procedures:2D ECHO W/ DOPPLER (CW/PW/COLOR), M-mode, Definity contrast done Race: SUMMARY: LV endocardium is adequately visualized withIV contrast. Left ventricular chamber size (by vol index) is normal (male - LVED vol - 34-74 ml/m2). The following segment(s) appears hypokinetic: basal inferior.. The other segments contract normally. LVEF by quantitative assessment is normal (55-60%). LA size is moderately enlarged. The right ventricular chamber size and systolic function are within normal limits. Unable to estimate peak systolic PA pressure; inadequate TR velocity signal. Aortic root size (Sinus of Valsalva diameter) is normal. No pericardial effusion is visualized. The estimated RA pressure by IVC dynamics 0-5 mmHg. FINDINGS: LV: Global LV systolic function is normal. Left ventricular chambersize (by vol index) is normal (male - LVED vol - 34-74ml/m2). Mild concentric LV hypertrophy. LVEF by quantitativeassessment is normal (55-60%). Grade 1 diastolicdysfunction (impaired relaxation and low- normal LApressure). LV endocardium is adequately visualized with IVcontrast. The following segment(s) appears hypokinetic: basalinferior.. The other segments contract normally. LA: LA size is moderately enlarged. RV: The right ventricular chamber size and systolic function are withinnormal limits. RA: RA cavity size is normal. AV: Mild AoV cusp thickening. MV: Mild MV leaflet thickening. Mild mitral regurgitation. Mild mitralannular calcification. TV: A trace of tricuspid regurgitation. Unable to estimate peak systolicPA pressure; inadequate TR velocity signal. PV: Normal PV structure appears normal by available views. AO: Aortic root size (Sinus of Valsalva diameter) is normal. Pericard: No pericardial effusion is visualized. Systemic Veins: The estimated RA pressure by IVC dynamics 0-5 mmHg. Comparison: No prior exam available for comparison. MEASUREMENTS: 2D LV Sng Plane LV Ad 36.9 cm2(9.5-22.3)* LngAxd 8.64 cm [id number] ml (65-193) Index56.6 ml/m2 LA Sng Plane LA Vol 110 mlIndex 46.3 ml/m2 LA Area 30.6 cm2(8.8-23.4)* LVOT Stroke Vol & Cardiac Out LVOT 2.1 cm Parasternal Long [place] Ao An2.1 cm (1.4-2.6) LVPWd 1.14 cm Ao Rtd3.66 cm LA Ds 4.84 cm (2.3-3.9)* IVSd1.18 cmLV Wmn1.16 cm LVIDd 5.45 cm (4.3-5.1)* DOPPLER LVOT Stroke Vol & Cardiac Out LVOT VTI20.9 cmLVOT CO 3.89 l/min LVOT SV 72.3 mlLVOT CI 1.64 l/min/m2 Aortic Valve SVi (LVOT)30.5 Signed 09/29/2016 05:36 PM Jerzy Stokes M.D. Procedure Note Interface, External Ris In - 09/29/2016 5:36 PM CDT Echocardiography Laboratory [address] [place] [address] Voice: [phone] Transthoracic Echocardiogram Pat.Name: SHEFALI HERNANDEZ Pat.ID: [id number] St.Date: 09/29/2016 Refer.MD: JUAN R DEWEY Exam Time: 10:23:00 AM Study Type:Echo Complete Height: 72in Weight: 257lb BSA: 2.37 m2 Age: 2 1945,71Y Sex: MALE BP: 146/54 HR: 54 bpm Sonogrphr: Dayan Gonzalez [facility] Pat. Stat.:Inpatient Room: [facility] Reason for Study:Acute Chest Pain / Suspected CAD History / Clinical:Anemia, Atrial fibrillation/flutter, Congestive Heart Failure, Coronary artery disease, Hyperlipidemia, Hypertension, Myocardial infarction, Shortness of breath, Sleep Apnea Procedures:2D ECHO W/ DOPPLER (CW/PW/COLOR), M-mode, Definity contrast done Race: SUMMARY: LV endocardium is adequately visualized with IV contrast. Left ventricular chamber size (by vol index) is normal (male - LVED vol - 34-74 ml/m2). The following segment(s) appears hypokinetic: basal inferior.. The other segments contract normally. LVEF by quantitative assessment is normal (55-60%). LA size is moderately enlarged. The right ventricular chamber size and systolic function are within normal limits. Unable to estimate peak systolic PA pressure; inadequate TR velocity signal. Aortic root size (Sinus of Valsalva diameter) is normal. No pericardial effusion is visualized. The estimated RA pressure by IVC dynamics 0-5 mmHg. FINDINGS: LV: Global LV systolic function is normal. Left ventricular chamber size (by vol index) is normal (male - LVED vol - 34-74 ml/m2). Mild concentric LV hypertrophy. LVEF by quantitative assessment is normal (55-60%). Grade 1 diastolic dysfunction (impaired relaxation and low-normal LA pressure). LV endocardium is adequately visualized with IV contrast. The following segment(s) appears hypokinetic: basal inferior.. The other segments contract normally. LA: LA size is moderately enlarged. RV: The right ventricular chamber size and systolic function are within normal limits. RA: RA cavity size is normal. AV: Mild AoV cusp thickening. MV: Mild MV leaflet thickening. Mild mitral regurgitation. Mild mitral annular calcification. TV: A trace of tricuspid regurgitation. Unable to estimate peak systolic PA pressure; inadequate TR velocity signal. PV: Normal PV structure appears normal by available views. AO: Aortic root size (Sinus of Valsalva diameter) is normal. Pericard: No pericardial effusion is visualized. Systemic Veins: The estimated RA pressure by IVC dynamics 0-5 mmHg. Comparison: No prior exam available for comparison. MEASUREMENTS: 2D LV Sng Plane LV Ad 36.9 cm2 (9.5-22.3)* LngAxd 8.64 cm LVEDV 134 ml (65-193) Index 56.6 ml/m2 LA Sng Plane LA Vol 110 ml Index 46.3 ml/m2 LA Area 30.6 cm2 (8.8-23.4)* LVOT Stroke Vol & Cardiac Out LVOT 2.1 cm Parasternal Long [place] Ao An 2.1 cm (1.4-2.6) LVPWd 1.14 cm Ao Rtd 3.66 cm LA Ds 4.84 cm (2.3-3.9)* IVSd 1.18 cm LV Wmn 1.16 cm LVIDd 5.45 cm (4.3-5.1)* DOPPLER LVOT Stroke Vol & Cardiac Out LVOT VTI 20.9 cm LVOT CO 3.89 l/min LVOT SV 72.3 ml LVOT CI 1.64 l/min/m2 Aortic Valve SVi (LVOT) 30.5 Signed 09/29/2016 05:36 PM Jerzy Stokes M.D. Troponin I (09/29/2016 9:54 AM)Only the most recent of2 resultswithin the time period is included. Component Value Ref Range Troponin I 0.01 0.00 - 0.03 ng/mL Specimen Performing Laboratory Blood [address] [address] Narrative Effective 02/14/2014: Reference Range Change New: 0.00-0.03 Previous 0.00-0.15 Troponin I (TnI) levels must be interpreted in the context of the presenting symptoms and the clinical findings. Elevated TnI levels indicate myocardial damage, but are not specific for ischemic heart disease. Elevated TnI levels are seen in patients with other cardiac conditions (including myocarditis and congestive heart failure), and slight TnI elevations occur in patients with other conditions, including sepsis, renal failure, acidosis, acute neurological disease, and persistent tachyarrhythmia. Creatine Kinase (CK), Total and MB (09/29/2016 9:54 AM)Only the most recent of2 resultswithin the time period is included. Component Value Ref Range Total CK 35 29 - 200 U/L CK-MB 0.7 0.0 - 6.6 ng/mL MB Relative Index 2.0 % Specimen Performing Laboratory Blood [address] [address] Narrative Effective 02/14/2014: CK-MB Reference Range Change New: 0.0-6.6Previous: 0.0-4.9 CK-MB Reference Range: <6.7Normal 6.7-10.0Borderline >10.0 Abnormal Heparin Assay - Low Molecular Weight (09/29/2016 9:50 AM) Component Value Ref Range Anti 10A-Lovenox >2.00 (HH) 0.60 - 2.00 u/ml Specimen Performing Laboratory Blood [address] [address] Narrative Effective 02/04/2016: Reference Range Change New: 0.60-2.00Previous: 0.60-1.99 Anti-Factor 10A Level (Heparin Assay for Low Molecular Weight Heparin) Monitoring Guidelines: Blood samples should be obtained 4 hours post subcutaneous injection (time of Peak level) Therapeutic Peak Levels: 0.6-1.0 units/mLtwice daily enoxaparin 1.0-2.0 units/mLonce daily enoxaparin aPTT (09/29/2016 9:50 AM) Component Value Ref Range PTT 38.8 (H) 22.5 - 36.0 seconds Specimen Performing Laboratory Blood [address] [address] Haptoglobin (09/29/2016 5:01 AM) Component Value Ref Range Haptoglobin 196 14 - 258 mg/dL Specimen Performing Laboratory Blood [address] [address] Narrative Effective 02/14/2014: Reference Range Change New: 14-258 Previous: 36-195 Iron, TIBC, % sat. (without ferritin) (09/29/2016 1:55 AM) Component Value Ref Range Iron 26 (L) 40 - 160 ug/dL TIBC 373 250 - 450 ug/dL Iron % Saturation 7 (L) 20 - 55 % Specimen Performing Laboratory Blood - Line, Venous [address] [address] Lactic acid, venous, whole blood (09/29/2016 1:55 AM) Component Value Ref Range Lactate, Venous 1.5 0.5 - 2.2 mmol/L Specimen Performing Laboratory Blood - Line, Venous [address] [address] Narrative Effective 08/01/2015: Units/Reference Range Change New: 0.5-2.2 mmol/LPrevious: 5-20 mg/dL Lactate dehydrogenase (LDH) (09/29/2016 1:55 AM) Component Value Ref Range LDH 187 125 - 220 U/L Specimen Performing Laboratory Blood - Line, Venous [address] [address] Ferritin (09/29/2016 1:55 AM) Component Value Ref Range Ferritin 15 5 - 275 ng/mL Specimen Performing Laboratory Blood - Line, Venous [address] [address] Narrative Effective 02/14/2014: Reference Range Change New: Male 5-275Previous: Male 22-322 Female 5-275Female 10-291 Hepatic function panel (09/29/2016 1:55 AM) Component Value Ref Range Protein, Total 6.2 6.0 - 8.3 gm/dL Albumin 3.4 (L) 3.5 - 5.0 g/dL Total Bilirubin 0.8 0.2 - 1.2 mg/dL Bilirubin, Direct 0.4 0.1 - 0.5 mg/dL Alkaline Phosphatase 64 40 - 150 U/L AST 12 5 - 34 U/L ALT 17 6 - 55 U/L Specimen Performing Laboratory Blood - Line, Venous [address] [address] after 08/28/2016
--- OUTSIDE RECORDS SUMMARY | 2017-08-29 02:31 | XMS REPORT ---
:1945 [facility] Organization [facility] Address [address] [place] [id number] Care Team Providers Name Role Phone BOLA CHAPMAN Unavailable Unavailable JEFERSON DEWEY Unavailable Unavailable Problems This patient has no known problems. Allergies, Adverse Reactions, Alerts This patient has no known allergies or adverse reactions. Medications This patient has no known medications. Results Test Description Test Time Test Comments Text Results Atomic Results Result Comments CBC (HEMOGRAM ONLY) 2017-02-05 12:21:00 Test Item Value Reference Range Comments WHITE BLOOD CELL COUNT (BEAKER) (test pnqe=407) 7.0 K/ L 3.5-10.5 RED BLOOD CELL COUNT (BEAKER) (test towh=558) 5.09 M/ L 4.63-6.08 HEMOGLOBIN (BEAKER) (test uedr=562) 12.5 GM/DL 13.7-17.5 HEMATOCRIT (BEAKER) (test liqq=173) 41.6 % 40.1-51.0 MEAN CORPUSCULAR VOLUME (BEAKER) (test utuz=218) 81.7 fL 79.0-92.2 MEAN CORPUSCULAR HEMOGLOBIN (BEAKER) (test aghc=068) 24.6 pg 25.7-32.2 MEAN CORPUSCULAR HEMOGLOBIN CONC (BEAKER) (test thcw=415) 30.0 GM/DL 32.3- 36.5 RED CELL DISTRIBUTION WIDTH (BEAKER) (test zwko=956) 21.0 % 11.6-14.4 PLATELET COUNT (BEAKER) (test samy=978) 218 K/CU MM 150-450 MEAN PLATELET VOLUME (BEAKER) (test lbkc=459) 10.8 fL 9.4-12.4 NUCLEATED RED BLOOD CELLS (BEAKER) (test nqje=922) 0 /100 WBC 0-0 BASIC METABOLIC [id number] 12:20:00 Test Item Value Reference Range Comments SODIUM (BEAKER) (test 142 meq/L 136-145 suae=286) POTASSIUM (BEAKER) (test 4.5 meq/L 3.5-5.1 bxsx=951) CHLORIDE (BEAKER) (test 106 meq/L 98-107 fmya=047) CO2 (BEAKER) (test 28 meq/L 22-29 aapf=109) BLOOD UREA NITROGEN 14 mg/dL 7-21 (BEAKER) (test ipvr=163) CREATININE (BEAKER) (test 1.45 mg/dL 0.57-1.25 vaqg=116) GLUCOSE RANDOM (BEAKER) 99 mg/dL 70-105 (test dwjj=462) CALCIUM (BEAKER) (test 8.9 mg/dL 8.4-10.2 aoos=353) EGFR (BEAKER) (test 48 mL/min/1.73 sq m ESTIMATED GFR IS NOT jefo=5511) ACCURATE CREATININE CLEARANCE IN PREDICTING GLOMERULAR FILTRATION RATE. ESTIMATED GFR IS NOT APPLICABLE FOR DIALYSIS PATIENTS. [id number] 12:12:00 Test Item Value Reference Range Comments PROTIME (BEAKER) (test xtax=604) 30.3 seconds 11.7-14.7 INR (BEAKER) (test kzjb=447) 2.9 <=5.9 PARTIAL THROMBOPLASTIN TIME (BEAKER) (test 41.5 seconds 22.5-36.0 lkcu=989) RECOMMENDED COUMADIN/WARFARIN INR THERAPY RANGESSTANDARD DOSE: 2.0 - 3.0 Includes: PROPHYLAXIS forvenous thrombosis, systemic embolization; TREATMENT for venous thrombosis and/or pulmonary embolus.HIGH RISK: Target INR is 2.5-3.5 for patients with mechanical heart valves.CBC W/PLT COUNT & AUTO [id number] 17:54:00 Test Item Value Reference Range Comments WHITE BLOOD CELL COUNT (BEAKER) (test yrbh=282) 6.3 K/ L 3.5-10.5 RED BLOOD CELL COUNT (BEAKER) (test wuux=687) 3.84 M/ L 4.63-6.08 HEMOGLOBIN (BEAKER) (test fzpl=924) 9.6 GM/DL 13.7-17.5 HEMATOCRIT (BEAKER) (test ubql=501) 31.6 % 40.1-51.0 MEAN CORPUSCULAR VOLUME (BEAKER) (test eoaf=228) 82.3 fL 79.0-92.2 MEAN CORPUSCULAR HEMOGLOBIN (BEAKER) (test 25.0 pg 25.7-32.2 oogf=269) MEAN CORPUSCULAR HEMOGLOBIN CONC (BEAKER) (test 30.4 GM/DL 32.3-36.5 fvud=745) RED CELL DISTRIBUTION WIDTH (BEAKER) (test 18.0 % 11.6-14.4 ffpe=878) PLATELET COUNT (BEAKER) (test uisg=633) 176 K/CU MM 150-450 MEAN PLATELET VOLUME (BEAKER) (test fbqx=300) 10.1 fL 9.4-12.4 NUCLEATED RED BLOOD CELLS (BEAKER) (test 0 /100 WBC 0-0 bsuo=800) NEUTROPHILS RELATIVE PERCENT (BEAKER) (test 72 % pbzq=566) LYMPHOCYTES RELATIVE PERCENT (BEAKER) (test 15 % zasr=352) MONOCYTES RELATIVE PERCENT (BEAKER) (test 10 % hrim=534) EOSINOPHILS RELATIVE PERCENT (BEAKER) (test 2 % kdvv=198) BASOPHILS RELATIVE PERCENT (BEAKER) (test 1 % lita=991) NEUTROPHILS ABSOLUTE COUNT (BEAKER) (test 4.56 K/ L 1.78-5.38 mruh=316) LYMPHOCYTES ABSOLUTE COUNT (BEAKER) (test 0.96 K/ L 1.32-3.57 kbyr=837) MONOCYTES ABSOLUTE COUNT (BEAKER) (test 0.60 K/ L 0.30-0.82 wuwp=073) EOSINOPHILS ABSOLUTE COUNT (BEAKER) (test 0.14 K/ L 0.04-0.54 ewyu=012) BASOPHILS ABSOLUTE COUNT (BEAKER) (test 0.05 K/ L 0.01-0.08 wzkl=105) IMMATURE GRANULOCYTES-RELATIVE PERCENT (BEAKER) 0 % 0-1 (test ksuu=5229) RAD, CHEST, 1 VIEW, NON [id number] 11:49:00Reason for exam:->SOBShould this be performed at the bedside?->YesFINAL REPORT Chest one view compared to February 15, 2013 Discussion: Bilateral lung granulomas and mediastinal calcified nodes are noted. Heart size normal. No focal infiltrate or convincing cardiac failure. No effusion or pneumothorax. Signed: Nisbet, Yandel MDReport Verified Date/Time: 12/11/2016 11:49:16 Reading Location: [facility] Radiology Reading Room BASIC METABOLIC [id number] 04:31: 00 Test Item Value Reference Range Comments SODIUM (BEAKER) (test 141 meq/L 136-145 jxku=634) POTASSIUM (BEAKER) (test 3.8 meq/L 3.5-5.1 kxqk=588) CHLORIDE (BEAKER) (test 108 meq/L 98-107 fvec=598) CO2 (BEAKER) (test 24 meq/L 22-29 hzlc=693) BLOOD UREA NITROGEN 13 mg/dL 7-21 (BEAKER) (test ldvz=605) CREATININE (BEAKER) (test 1.33 mg/dL 0.57-1.25 bris=324) GLUCOSE RANDOM (BEAKER) 106 mg/dL 70-105 (test vnby=057) CALCIUM (BEAKER) (test 8.2 mg/dL 8.4-10.2 advr=806) EGFR (BEAKER) (test 53 mL/min/1.73 sq m ESTIMATED GFR IS NOT gvga=8503) ACCURATE CREATININE CLEARANCE IN PREDICTING GLOMERULAR FILTRATION RATE. ESTIMATED GFR IS NOT APPLICABLE FOR DIALYSIS PATIENTS. PROTHROMBIN [id number] 04:22:00 Test Item Value Reference Range Comments PROTIME (BEAKER) (test lzun=302) 15.9 seconds 11.7-14.7 INR (BEAKER) (test ialv=165) 1.3 <=5.9 RECOMMENDED COUMADIN/WARFARIN INR THERAPY RANGESSTANDARD DOSE: 2.0 - 3.0 Includes: PROPHYLAXIS forvenous thrombosis, systemic embolization; TREATMENT for venous thrombosis and/or pulmonary embolus.HIGH RISK: Target INR is 2.5-3.5 for patients with mechanical heart valves.While on warfarin.CBC (HEMOGRAM ONLY) 2016-12-11 04:21:00 Test Item Value Reference Range Comments WHITE BLOOD CELL COUNT (BEAKER) (test tywc=467) 6.0 K/ L 3.5-10.5 RED BLOOD CELL COUNT (BEAKER) (test umyl=698) 3.25 M/ L 4.63-6.08 HEMOGLOBIN (BEAKER) (test lbkc=196) 7.6 GM/DL 13.7-17.5 HEMATOCRIT (BEAKER) (test hlkw=799) 26.5 % 40.1-51.0 MEAN CORPUSCULAR VOLUME (BEAKER) (test inls=870) 81.5 fL 79.0-92.2 MEAN CORPUSCULAR HEMOGLOBIN (BEAKER) (test 23.4 pg 25.7-32.2 qila=629) MEAN CORPUSCULAR HEMOGLOBIN CONC (BEAKER) (test 28.7 GM/DL 32.3-36.5 ekyc=581) RED CELL DISTRIBUTION WIDTH (BEAKER) (test 18.0 % 11.6-14.4 wbcr=969) PLATELET COUNT (BEAKER) (test cbwk=345) 172 K/CU MM 150-450 MEAN PLATELET VOLUME (BEAKER) (test vhyu=413) 11.3 fL 9.4-12.4 NUCLEATED RED BLOOD CELLS (BEAKER) (test 0 /100 WBC 0-0 zeaw=270) PROTHROMBIN [id number] 21:03:00 Test Item Value Reference Range Comments PROTIME (BEAKER) (test aqfd=418) 15.9 seconds 11.7-14.7 INR (BEAKER) (test jkbc=825) 1.3 <=5.9 RECOMMENDED COUMADIN/WARFARIN INR THERAPY RANGESSTANDARD DOSE: 2.0 - 3.0 Includes: PROPHYLAXIS forvenous thrombosis, systemic embolization; TREATMENT for venous thrombosis and/or pulmonary embolus.HIGH RISK: Target INR is 2.5-3.5 for patients with mechanical heart valves.[id number] 13:06:00 Test Item Value Reference Range Comments ACTIVATED CLOTTING TIME 131 sec TESTED AT [place] [address] [facility] (test kpiq=729) [place] [address] [id number] 12:52:00 Test Item Value Reference Range Comments ACTIVATED CLOTTING TIME 274 sec TESTED AT [place] [address] [place] [facility] (test xqtb=789) [place] [address] [id number] 10:29:00 Test Item Value Reference Range Comments MAGNESIUM (BEAKER) (test majk=148) 2.1 mg/dL 1.6-2.6 BASIC METABOLIC [id number] 10:29:00 Test Item Value Reference Range Comments SODIUM (BEAKER) (test 143 meq/L 136-145 xayp=331) POTASSIUM (BEAKER) (test 3.5 meq/L 3.5-5.1 vhgz=337) CHLORIDE (BEAKER) (test 106 meq/L 98-107 sjtf=242) CO2 (BEAKER) (test 29 meq/L 22-29 oszv=980) BLOOD UREA NITROGEN 12 mg/dL 7-21 (BEAKER) (test oemb=069) CREATININE (BEAKER) (test 1.47 mg/dL 0.57-1.25 rsyi=943) GLUCOSE RANDOM (BEAKER) 95 mg/dL 70-105 (test bsbp=422) CALCIUM (BEAKER) (test 8.7 mg/dL 8.4-10.2 vxfr=945) EGFR (BEAKER) (test 47 mL/min/1.73 sq m ESTIMATED GFR IS NOT hjse=0423) ACCURATE CREATININE CLEARANCE IN PREDICTING GLOMERULAR FILTRATION RATE. ESTIMATED GFR IS NOT APPLICABLE FOR DIALYSIS PATIENTS. CBC W/PLT COUNT & AUTO [id number] 10:04:00 Test Item Value Reference Range Comments WHITE BLOOD CELL COUNT (BEAKER) (test tuxj=418) 6.5 K/ L 3.5-10.5 RED BLOOD CELL COUNT (BEAKER) (test slxf=198) 3.74 M/ L 4.63-6.08 HEMOGLOBIN (BEAKER) (test ojxg=304) 8.6 GM/DL 13.7-17.5 HEMATOCRIT (BEAKER) (test xqzk=192) 30.1 % 40.1-51.0 MEAN CORPUSCULAR VOLUME (BEAKER) (test bise=804) 80.5 fL 79.0-92.2 MEAN CORPUSCULAR HEMOGLOBIN (BEAKER) (test 23.0 pg 25.7-32.2 ygnr=351) MEAN CORPUSCULAR HEMOGLOBIN CONC (BEAKER) (test 28.6 GM/DL 32.3-36.5 qfds=391) RED CELL DISTRIBUTION WIDTH (BEAKER) (test 17.8 % 11.6-14.4 hkqm=144) PLATELET COUNT (BEAKER) (test pddy=520) 225 K/CU MM 150-450 MEAN PLATELET VOLUME (BEAKER) (test hmkf=020) 10.9 fL 9.4-12.4 NUCLEATED RED BLOOD CELLS (BEAKER) (test 0 /100 WBC 0-0 urqx=374) NEUTROPHILS RELATIVE PERCENT (BEAKER) (test 71 % kjex=943) LYMPHOCYTES RELATIVE PERCENT (BEAKER) (test 19 % gxhl=724) MONOCYTES RELATIVE PERCENT (BEAKER) (test 7 % eqay=642) EOSINOPHILS RELATIVE PERCENT (BEAKER) (test 2 % rchu=899) BASOPHILS RELATIVE PERCENT (BEAKER) (test 1 % eahx=631) NEUTROPHILS ABSOLUTE COUNT (BEAKER) (test 4.56 K/ L 1.78-5.38 mwvq=059) LYMPHOCYTES ABSOLUTE COUNT (BEAKER) (test 1.25 K/ L 1.32-3.57 ocdi=269) MONOCYTES ABSOLUTE COUNT (BEAKER) (test 0.47 K/ L 0.30-0.82 wdvr=620) EOSINOPHILS ABSOLUTE COUNT (BEAKER) (test 0.11 K/ L 0.04-0.54 hjsf=706) BASOPHILS ABSOLUTE COUNT (BEAKER) (test 0.05 K/ L 0.01-0.08 nnls=148) IMMATURE GRANULOCYTES-RELATIVE PERCENT (BEAKER) 0 % 0-1 (test qufg=9234) BASIC METABOLIC [id number] 13:40:00 Test Item Value Reference Range Comments SODIUM (BEAKER) (test 140 meq/L 136-145 ltxe=635) POTASSIUM (BEAKER) (test 3.4 meq/L 3.5-5.1 qbzi=931) CHLORIDE (BEAKER) (test 107 meq/L 98-107 kcem=411) CO2 (BEAKER) (test 24 meq/L 22-29 vcyy=486) BLOOD UREA NITROGEN 15 mg/dL 7-21 (BEAKER) (test nokk=959) CREATININE (BEAKER) (test 1.39 mg/dL 0.57-1.25 crlv=523) GLUCOSE RANDOM (BEAKER) 114 mg/dL 70-105 (test nhas=940) CALCIUM (BEAKER) (test 8.7 mg/dL 8.4-10.2 wgkc=622) EGFR (BEAKER) (test 50 mL/min/1.73 sq m ESTIMATED GFR IS NOT ztgh=2875) ACCURATE CREATININE CLEARANCE IN PREDICTING GLOMERULAR FILTRATION RATE. ESTIMATED GFR IS NOT APPLICABLE FOR DIALYSIS PATIENTS. COMPREHENSIVE METABOLIC [id number] 14:02:00 Test Item Value Reference Range Comments TOTAL PROTEIN (BEAKER) 7.2 gm/dL 6.0-8.3 (test lewy=739) ALBUMIN (BEAKER) (test 3.7 g/dL 3.5-5.0 tnpw=6437) ALKALINE PHOSPHATASE 88 U/L 40-150 (BEAKER) (test wffz=844) BILIRUBIN TOTAL (BEAKER) 0.8 mg/dL 0.2-1.2 (test mjar=718) SODIUM (BEAKER) (test 142 meq/L 136-145 hetq=505) POTASSIUM (BEAKER) (test 4.7 meq/L 3.5-5.1 ibdm=234) CHLORIDE (BEAKER) (test 109 meq/L 98-107 shrz=480) CO2 (BEAKER) (test 24 meq/L 22-29 sork=664) BLOOD UREA NITROGEN 12 mg/dL 7-21 (BEAKER) (test ialq=787) CREATININE (BEAKER) (test 1.33 mg/dL 0.57-1.25 bvzc=678) GLUCOSE RANDOM (BEAKER) 92 mg/dL 70-105 (test pbvg=494) CALCIUM (BEAKER) (test 9.0 mg/dL 8.4-10.2 tqzc=369) AST (SGOT) (BEAKER) (test 17 U/L 5-34 whno=040) ALT (SGPT) (BEAKER) (test 22 U/L 6-55 acxh=687) EGFR (BEAKER) (test 53 mL/min/1.73 sq m ESTIMATED GFR IS NOT tpir=2769) ACCURATE CREATININE CLEARANCE IN PREDICTING GLOMERULAR FILTRATION RATE. ESTIMATED GFR IS NOT APPLICABLE FOR DIALYSIS PATIENTS. PROTHROMBIN [id number] 13:39:00 Test Item Value Reference Range Comments PROTIME (BEAKER) (test yife=869) 15.2 seconds 11.7-14.7 INR (BEAKER) (test ikgl=508) 1.2 <=5.9 RECOMMENDED COUMADIN/WARFARIN INR THERAPY RANGESSTANDARD DOSE: 2.0 - 3.0 Includes: PROPHYLAXIS forvenous thrombosis, systemic embolization; TREATMENT for venous thrombosis and/or pulmonary embolus.HIGH RISK: Target INR is 2.5-3.5 for patients with mechanical heart valves.CBC W/PLT COUNT & AUTO [id number] 13:26:00 Test Item Value Reference Range Comments WHITE BLOOD CELL COUNT (BEAKER) (test wbet=580) 6.1 K/ L 3.5-10.5 RED BLOOD CELL COUNT (BEAKER) (test gone=588) 4.02 M/ L 4.63-6.08 HEMOGLOBIN (BEAKER) (test iete=377) 9.5 GM/DL 13.7-17.5 HEMATOCRIT (BEAKER) (test axls=993) 33.9 % 40.1-51.0 MEAN CORPUSCULAR VOLUME (BEAKER) (test womn=613) 84.3 fL 79.0-92.2 MEAN CORPUSCULAR HEMOGLOBIN (BEAKER) (test 23.6 pg 25.7-32.2 wegc=484) MEAN CORPUSCULAR HEMOGLOBIN CONC (BEAKER) (test 28.0 GM/DL 32.3-36.5 uggs=901) RED CELL DISTRIBUTION WIDTH (BEAKER) (test 17.3 % 11.6-14.4 nkpa=671) PLATELET COUNT (BEAKER) (test gqcw=539) 192 K/CU MM 150-450 MEAN PLATELET VOLUME (BEAKER) (test tafg=537) 11.1 fL 9.4-12.4 NUCLEATED RED BLOOD CELLS (BEAKER) (test 0 /100 WBC 0-0 stkc=080) NEUTROPHILS RELATIVE PERCENT (BEAKER) (test 70 % yylj=885) LYMPHOCYTES RELATIVE PERCENT (BEAKER) (test 20 % ibmc=890) MONOCYTES RELATIVE PERCENT (BEAKER) (test 8 % oxqe=055) EOSINOPHILS RELATIVE PERCENT (BEAKER) (test 2 % oved=688) BASOPHILS RELATIVE PERCENT (BEAKER) (test 0 % mhjf=723) NEUTROPHILS ABSOLUTE COUNT (BEAKER) (test 4.26 K/ L 1.78-5.38 uvzv=296) LYMPHOCYTES ABSOLUTE COUNT (BEAKER) (test 1.22 K/ L 1.32-3.57 wzen=631) MONOCYTES ABSOLUTE COUNT (BEAKER) (test 0.49 K/ L 0.30-0.82 lusp=141) EOSINOPHILS ABSOLUTE COUNT (BEAKER) (test 0.12 K/ L 0.04-0.54 wbta=237) BASOPHILS ABSOLUTE COUNT (BEAKER) (test 0.02 K/ L 0.01-0.08 jjxw=338) IMMATURE GRANULOCYTES-RELATIVE PERCENT (BEAKER) 0 % 0-1 (test jqkk=9228) CBC W/PLT COUNT & AUTO [id number] 07:51:00 Test Item Value Reference Range Comments WHITE BLOOD CELL COUNT (BEAKER) (test egia=037) 6.1 K/ L 4.0-10.0 RED BLOOD CELL COUNT (BEAKER) (test dxig=475) 2.60 M/ L 4.20-5.80 HEMOGLOBIN (BEAKER) (test cfko=974) 7.7 GM/DL 13.0-16.8 HEMATOCRIT (BEAKER) (test evlh=219) 23.8 % 40.0-50.0 MEAN CORPUSCULAR VOLUME (BEAKER) (test xnyf=130) 91.5 fL 82.0-98.0 MEAN CORPUSCULAR HEMOGLOBIN (BEAKER) (test 29.7 pg 27.0-33.0 nioy=725) MEAN CORPUSCULAR HEMOGLOBIN CONC (BEAKER) (test 32.4 GM/DL 32.0-36.0 vsbr=303) RED CELL DISTRIBUTION WIDTH (BEAKER) (test 16.9 % 10.3-14.2 oetb=372) PLATELET COUNT (BEAKER) (test cygq=717) 172 K/CU MM 150-430 MEAN PLATELET VOLUME (BEAKER) (test punp=611) 8.7 fL 6.5-10.5 NUCLEATED RED BLOOD CELLS (BEAKER) (test 0 /100 WBC 0-0 rmoq=038) NEUTROPHILS RELATIVE PERCENT (BEAKER) (test 74 % tqvs=617) LYMPHOCYTES RELATIVE PERCENT (BEAKER) (test 15 % kxxx=783) MONOCYTES RELATIVE PERCENT (BEAKER) (test 9 % ezfr=336) EOSINOPHILS RELATIVE PERCENT (BEAKER) (test 2 % thbp=178) BASOPHILS RELATIVE PERCENT (BEAKER) (test 0 % wxpt=763) NEUTROPHILS ABSOLUTE COUNT (BEAKER) (test 4.50 K/ L 1.80-8.00 atwi=980) LYMPHOCYTES ABSOLUTE COUNT (BEAKER) (test 0.89 K/ L 1.48-4.50 lcjg=295) MONOCYTES ABSOLUTE COUNT (BEAKER) (test 0.53 K/ L 0.00-1.30 xxrj=851) EOSINOPHILS ABSOLUTE COUNT (BEAKER) (test 0.13 K/ L 0.00-0.50 qypr=853) BASOPHILS ABSOLUTE COUNT (BEAKER) (test 0.01 K/ L 0.00-0.20 ikrr=137) [id number] 07:48:00 Test Item Value Reference Range Comments MAGNESIUM (BEAKER) (test 1.9 mg/dL 1.6-2.6 Specimen slightly hemolyzed tjaq=485) [id number] 07:48:00 Test Item Value Reference Range Comments PHOSPHORUS (BEAKER) (test 3.8 mg/dL 2.3-4.7 Specimen slightly hemolyzed pdns=543) BASIC METABOLIC [id number] 07:48:00 Test Item Value Reference Range Comments SODIUM (BEAKER) (test 137 meq/L 136-145 upum=257) POTASSIUM (BEAKER) (test 4.1 meq/L 3.5-5.1 Specimen slightly fhkq=160) hemolyzed CHLORIDE (BEAKER) (test 105 meq/L 98-107 zcrg=533) CO2 (BEAKER) (test 25 meq/L 22-29 mgdy=713) BLOOD UREA NITROGEN 14 mg/dL 7-21 (BEAKER) (test wljw=498) CREATININE (BEAKER) (test 1.30 mg/dL 0.57-1.25 Specimen slightly komr=442) hemolyzed GLUCOSE RANDOM (BEAKER) 102 mg/dL 70-105 (test wihy=945) CALCIUM (BEAKER) (test 8.1 mg/dL 8.4-10.2 ivme=408) EGFR (BEAKER) (test 54 mL/min/1.73 sq m ESTIMATED GFR IS NOT piiy=3638) ACCURATE CREATININE CLEARANCE IN PREDICTING GLOMERULAR FILTRATION RATE. ESTIMATED GFR IS NOT APPLICABLE FOR DIALYSIS PATIENTS. CBC W/PLT COUNT & AUTO [id number] 07:00:00 Test Item Value Reference Range Comments WHITE BLOOD CELL COUNT (BEAKER) (test xdwg=273) 6.6 K/ L 4.0-10.0 RED BLOOD CELL COUNT (BEAKER) (test wcqk=934) 2.63 M/ L 4.20-5.80 HEMOGLOBIN (BEAKER) (test rvta=847) 7.7 GM/DL 13.0-16.8 HEMATOCRIT (BEAKER) (test famc=437) 24.0 % 40.0-50.0 MEAN CORPUSCULAR VOLUME (BEAKER) (test ikew=502) 91.5 fL 82.0-98.0 MEAN CORPUSCULAR HEMOGLOBIN (BEAKER) (test 29.3 pg 27.0-33.0 lcgy=600) MEAN CORPUSCULAR HEMOGLOBIN CONC (BEAKER) (test 32.1 GM/DL 32.0-36.0 ppdr=538) RED CELL DISTRIBUTION WIDTH (BEAKER) (test 17.2 % 10.3-14.2 oyck=338) PLATELET COUNT (BEAKER) (test jeti=530) 184 K/CU MM 150-430 MEAN PLATELET VOLUME (BEAKER) (test pkuo=140) 8.6 fL 6.5-10.5 NUCLEATED RED BLOOD CELLS (BEAKER) (test 0 /100 WBC 0-0 mjsk=333) NEUTROPHILS RELATIVE PERCENT (BEAKER) (test 70 % lxvf=526) LYMPHOCYTES RELATIVE PERCENT (BEAKER) (test 21 % jnex=698) MONOCYTES RELATIVE PERCENT (BEAKER) (test 7 % otva=940) EOSINOPHILS RELATIVE PERCENT (BEAKER) (test 2 % taiq=156) BASOPHILS RELATIVE PERCENT (BEAKER) (test 0 % zugh=011) NEUTROPHILS ABSOLUTE COUNT (BEAKER) (test 4.58 K/ L 1.80-8.00 rqew=265) LYMPHOCYTES ABSOLUTE COUNT (BEAKER) (test 1.40 K/ L 1.48-4.50 fyan=963) MONOCYTES ABSOLUTE COUNT (BEAKER) (test 0.46 K/ L 0.00-1.30 tecd=745) EOSINOPHILS ABSOLUTE COUNT (BEAKER) (test 0.11 K/ L 0.00-0.50 cgwj=749) BASOPHILS ABSOLUTE COUNT (BEAKER) (test 0.01 K/ L 0.00-0.20 lutr=325) [id number] 06:57:00 Test Item Value Reference Range Comments PHOSPHORUS (BEAKER) (test xzeb=947) 4.3 mg/dL 2.3-4.7 [id number] 06:57:00 Test Item Value Reference Range Comments MAGNESIUM (BEAKER) (test weix=486) 2.0 mg/dL 1.6-2.6 BASIC METABOLIC [id number] 06:57:00 Test Item Value Reference Range Comments SODIUM (BEAKER) (test 139 meq/L 136-145 zfgf=832) POTASSIUM (BEAKER) (test 4.3 meq/L 3.5-5.1 ksbb=723) CHLORIDE (BEAKER) (test 108 meq/L 98-107 meav=692) CO2 (BEAKER) (test 25 meq/L 22-29 virf=259) BLOOD UREA NITROGEN 13 mg/dL 7-21 (BEAKER) (test pujo=494) CREATININE (BEAKER) (test 1.34 mg/dL 0.57-1.25 snlp=023) GLUCOSE RANDOM (BEAKER) 93 mg/dL 70-105 (test wmdj=570) CALCIUM (BEAKER) (test 8.3 mg/dL 8.4-10.2 otal=800) EGFR (BEAKER) (test 52 mL/min/1.73 sq m ESTIMATED GFR IS NOT zily=0419) ACCURATE CREATININE CLEARANCE IN PREDICTING GLOMERULAR FILTRATION RATE. ESTIMATED GFR IS NOT APPLICABLE FOR DIALYSIS PATIENTS. [id number] 06:47:00 Test Item Value Reference Range Comments PHOSPHORUS (BEAKER) (test tbuy=851) 3.0 mg/dL 2.3-4.7 [id number] 06:47:00 Test Item Value Reference Range Comments MAGNESIUM (BEAKER) (test idgo=802) 1.9 mg/dL 1.6-2.6 BASIC METABOLIC [id number] 06:47:00 Test Item Value Reference Range Comments SODIUM (BEAKER) (test 141 meq/L 136-145 fntv=240) POTASSIUM (BEAKER) (test 4.3 meq/L 3.5-5.1 gucu=052) CHLORIDE (BEAKER) (test 109 meq/L 98-107 vkja=761) CO2 (BEAKER) (test 25 meq/L 22-29 eiqu=898) BLOOD UREA NITROGEN 13 mg/dL 7-21 (BEAKER) (test eoes=157) CREATININE (BEAKER) (test 1.14 mg/dL 0.57-1.25 yixk=532) GLUCOSE RANDOM (BEAKER) 90 mg/dL 70-105 (test rwit=555) CALCIUM (BEAKER) (test 8.4 mg/dL 8.4-10.2 qfhv=960) EGFR (BEAKER) (test 63 mL/min/1.73 sq m ESTIMATED GFR IS NOT odsv=0551) ACCURATE CREATININE CLEARANCE IN PREDICTING GLOMERULAR FILTRATION RATE. ESTIMATED GFR IS NOT APPLICABLE FOR DIALYSIS PATIENTS. CBC W/PLT COUNT & AUTO [id number] 06:42:00 Test Item Value Reference Range Comments WHITE BLOOD CELL COUNT (BEAKER) (test cfzi=691) 6.5 K/ L 4.0-10.0 RED BLOOD CELL COUNT (BEAKER) (test dvce=723) 2.63 M/ L 4.20-5.80 HEMOGLOBIN (BEAKER) (test asob=750) 8.0 GM/DL 13.0-16.8 HEMATOCRIT (BEAKER) (test aeah=761) 24.6 % 40.0-50.0 MEAN CORPUSCULAR VOLUME (BEAKER) (test kqaj=473) 93.5 fL 82.0-98.0 MEAN CORPUSCULAR HEMOGLOBIN (BEAKER) (test 30.2 pg 27.0-33.0 krnz=560) MEAN CORPUSCULAR HEMOGLOBIN CONC (BEAKER) (test 32.4 GM/DL 32.0-36.0 syxr=475) RED CELL DISTRIBUTION WIDTH (BEAKER) (test 16.2 % 10.3-14.2 zike=071) PLATELET COUNT (BEAKER) (test xoxi=155) 195 K/CU MM 150-430 MEAN PLATELET VOLUME (BEAKER) (test qhjl=515) 8.5 fL 6.5-10.5 NUCLEATED RED BLOOD CELLS (BEAKER) (test 0 /100 WBC 0-0 yfar=519) NEUTROPHILS RELATIVE PERCENT (BEAKER) (test 70 % ubad=688) LYMPHOCYTES RELATIVE PERCENT (BEAKER) (test 19 % euza=235) MONOCYTES RELATIVE PERCENT (BEAKER) (test 8 % mghk=870) EOSINOPHILS RELATIVE PERCENT (BEAKER) (test 2 % djlt=421) BASOPHILS RELATIVE PERCENT (BEAKER) (test 1 % iyxp=601) NEUTROPHILS ABSOLUTE COUNT (BEAKER) (test 4.52 K/ L 1.80-8.00 sjno=169) LYMPHOCYTES ABSOLUTE COUNT (BEAKER) (test 1.26 K/ L 1.48-4.50 fujw=109) MONOCYTES ABSOLUTE COUNT (BEAKER) (test 0.53 K/ L 0.00-1.30 dlow=199) EOSINOPHILS ABSOLUTE COUNT (BEAKER) (test 0.14 K/ L 0.00-0.50 tvbf=257) BASOPHILS ABSOLUTE COUNT (BEAKER) (test 0.04 K/ L 0.00-0.20 iftp=709) 0.00CBC W/PLT COUNT & AUTO [id number] 07:36:00 Test Item Value Reference Range Comments WHITE BLOOD CELL COUNT (BEAKER) (test fwhl=646) 5.4 K/ L 4.0-10.0 RED BLOOD CELL COUNT (BEAKER) (test shcf=723) 2.55 M/ L 4.20-5.80 HEMOGLOBIN (BEAKER) (test ndsj=664) 7.6 GM/DL 13.0-16.8 HEMATOCRIT (BEAKER) (test ffsq=273) 23.6 % 40.0-50.0 MEAN CORPUSCULAR VOLUME (BEAKER) (test iged=601) 92.8 fL 82.0-98.0 MEAN CORPUSCULAR HEMOGLOBIN (BEAKER) (test 29.8 pg 27.0-33.0 pgsf=868) MEAN CORPUSCULAR HEMOGLOBIN CONC (BEAKER) (test 32.1 GM/DL 32.0-36.0 mybk=536) RED CELL DISTRIBUTION WIDTH (BEAKER) (test 16.2 % 10.3-14.2 pleg=354) PLATELET COUNT (BEAKER) (test gshv=835) 182 K/CU MM 150-430 MEAN PLATELET VOLUME (BEAKER) (test orsb=084) 8.6 fL 6.5-10.5 NUCLEATED RED BLOOD CELLS (BEAKER) (test 0 /100 WBC 0-0 ffeb=620) NEUTROPHILS RELATIVE PERCENT (BEAKER) (test 66 % yubb=750) LYMPHOCYTES RELATIVE PERCENT (BEAKER) (test 24 % xsfk=747) MONOCYTES RELATIVE PERCENT (BEAKER) (test 7 % tpvo=209) EOSINOPHILS RELATIVE PERCENT (BEAKER) (test 3 % javq=878) BASOPHILS RELATIVE PERCENT (BEAKER) (test 1 % yfvu=484) NEUTROPHILS ABSOLUTE COUNT (BEAKER) (test 3.51 K/ L 1.80-8.00 izia=016) LYMPHOCYTES ABSOLUTE COUNT (BEAKER) (test 1.29 K/ L 1.48-4.50 sauk=675) MONOCYTES ABSOLUTE COUNT (BEAKER) (test 0.37 K/ L 0.00-1.30 jvhx=903) EOSINOPHILS ABSOLUTE COUNT (BEAKER) (test 0.15 K/ L 0.00-0.50 ayzj=187) BASOPHILS ABSOLUTE COUNT (BEAKER) (test 0.04 K/ L 0.00-0.20 wbek=248) [id number] 06:57:00 Test Item Value Reference Range Comments PHOSPHORUS (BEAKER) (test vpwv=453) 3.4 mg/dL 2.3-4.7 [id number] 06:57:00 Test Item Value Reference Range Comments MAGNESIUM (BEAKER) (test sbol=011) 1.8 mg/dL 1.6-2.6 BASIC METABOLIC [id number] 06:57:00 Test Item Value Reference Range Comments SODIUM (BEAKER) (test 138 meq/L 136-145 tpek=106) POTASSIUM (BEAKER) (test 3.6 meq/L 3.5-5.1 jvnr=155) CHLORIDE (BEAKER) (test 107 meq/L 98-107 kikt=248) CO2 (BEAKER) (test 25 meq/L 22-29 lmyb=074) BLOOD UREA NITROGEN 18 mg/dL 7-21 (BEAKER) (test oxym=952) CREATININE (BEAKER) (test 1.18 mg/dL 0.57-1.25 kxdm=965) GLUCOSE RANDOM (BEAKER) 86 mg/dL 70-105 (test jroe=181) CALCIUM (BEAKER) (test 8.0 mg/dL 8.4-10.2 fmwk=531) EGFR (BEAKER) (test 61 mL/min/1.73 sq m ESTIMATED GFR IS NOT sksu=7712) ACCURATE CREATININE CLEARANCE IN PREDICTING GLOMERULAR FILTRATION RATE. ESTIMATED GFR IS NOT APPLICABLE FOR DIALYSIS PATIENTS. VITAMIN B12 AND [id number] 19:40:00 Test Item Value Reference Range Comments VITAMIN B12 (BEAKER) (test hlhn=691) 346 pg/mL 213-816 FOLATE (BEAKER) (test lbjg=131) 7.9 ng/mL >=7.0 Effective 02/14/2014: Folate Reference Range ChangeNew: >=7.0 Previous: & gt;=5.4CBC W/PLT COUNT & AUTO [id number] 07:29:00 Test Item Value Reference Range Comments WHITE BLOOD CELL COUNT (BEAKER) (test juyj=064) 5.8 K/ L 4.0-10.0 RED BLOOD CELL COUNT (BEAKER) (test dimg=715) 2.27 M/ L 4.20-5.80 HEMOGLOBIN (BEAKER) (test pdqf=587) 6.8 GM/DL 13.0-16.8 HEMATOCRIT (BEAKER) (test mgfq=220) 21.7 % 40.0-50.0 MEAN CORPUSCULAR VOLUME (BEAKER) (test txlp=779) 95.6 fL 82.0-98.0 MEAN CORPUSCULAR HEMOGLOBIN (BEAKER) (test 29.9 pg 27.0-33.0 ybun=362) MEAN CORPUSCULAR HEMOGLOBIN CONC (BEAKER) (test 31.3 GM/DL 32.0-36.0 hhjp=632) RED CELL DISTRIBUTION WIDTH (BEAKER) (test 15.6 % 10.3-14.2 ofeu=828) PLATELET COUNT (BEAKER) (test iogu=597) 184 K/CU MM 150-430 MEAN PLATELET VOLUME (BEAKER) (test cetk=397) 8.5 fL 6.5-10.5 NUCLEATED RED BLOOD CELLS (BEAKER) (test 0 /100 WBC 0-0 inpe=835) NEUTROPHILS RELATIVE PERCENT (BEAKER) (test 62 % qwvg=220) LYMPHOCYTES RELATIVE PERCENT (BEAKER) (test 25 % ilbw=573) MONOCYTES RELATIVE PERCENT (BEAKER) (test 10 % asdo=244) EOSINOPHILS RELATIVE PERCENT (BEAKER) (test 3 % gpfy=226) BASOPHILS RELATIVE PERCENT (BEAKER) (test 1 % kxjn=524) NEUTROPHILS ABSOLUTE COUNT (BEAKER) (test 3.59 K/ L 1.80-8.00 rhda=565) LYMPHOCYTES ABSOLUTE COUNT (BEAKER) (test 1.44 K/ L 1.48-4.50 nkkg=493) MONOCYTES ABSOLUTE COUNT (BEAKER) (test 0.61 K/ L 0.00-1.30 ykid=613) EOSINOPHILS ABSOLUTE COUNT (BEAKER) (test 0.17 K/ L 0.00-0.50 bmic=420) BASOPHILS ABSOLUTE COUNT (BEAKER) (test 0.04 K/ L 0.00-0.20 pzkz=460) [id number] 06:56:00 Test Item Value Reference Range Comments PHOSPHORUS (BEAKER) (test swxx=030) 3.8 mg/dL 2.3-4.7 [id number] 06:56:00 Test Item Value Reference Range Comments MAGNESIUM (BEAKER) (test rfxc=786) 1.9 mg/dL 1.6-2.6 BASIC METABOLIC [id number] 06:56:00 Test Item Value Reference Range Comments SODIUM (BEAKER) (test 141 meq/L 136-145 onyr=223) POTASSIUM (BEAKER) (test 3.3 meq/L 3.5-5.1 umdi=708) CHLORIDE (BEAKER) (test 106 meq/L 98-107 cbfz=341) CO2 (BEAKER) (test 26 meq/L 22-29 gpyv=375) BLOOD UREA NITROGEN 16 mg/dL 7-21 (BEAKER) (test wurg=622) CREATININE (BEAKER) (test 1.32 mg/dL 0.57-1.25 kfdv=745) GLUCOSE RANDOM (BEAKER) 77 mg/dL 70-105 (test omyg=417) CALCIUM (BEAKER) (test 8.1 mg/dL 8.4-10.2 vrbp=595) EGFR (BEAKER) (test 53 mL/min/1.73 sq m ESTIMATED GFR IS NOT hsya=3971) ACCURATE CREATININE CLEARANCE IN PREDICTING GLOMERULAR FILTRATION RATE. ESTIMATED GFR IS NOT APPLICABLE FOR DIALYSIS PATIENTS. SEDIMENTATION [id number] 09:54:00 Test Item Value Reference Range Comments SEDIMENTATION RATE, ERYTHROCYTE (BEAKER) (test 38 mm/HR 0-40 qqvd=963) CBC W/PLT COUNT & AUTO [id number] 07:58:00 Test Item Value Reference Range Comments WHITE BLOOD CELL COUNT (BEAKER) (test mdyt=946) 5.7 K/ L 4.0-10.0 RED BLOOD CELL COUNT (BEAKER) (test grei=635) 2.40 M/ L 4.20-5.80 HEMOGLOBIN (BEAKER) (test pube=964) 7.5 GM/DL 13.0-16.8 HEMATOCRIT (BEAKER) (test gydz=733) 22.9 % 40.0-50.0 MEAN CORPUSCULAR VOLUME (BEAKER) (test enky=367) 95.4 fL 82.0-98.0 MEAN CORPUSCULAR HEMOGLOBIN (BEAKER) (test 31.2 pg 27.0-33.0 cokz=469) MEAN CORPUSCULAR HEMOGLOBIN CONC (BEAKER) (test 32.7 GM/DL 32.0-36.0 dnqd=343) RED CELL DISTRIBUTION WIDTH (BEAKER) (test 15.9 % 10.3-14.2 mxtf=572) PLATELET COUNT (BEAKER) (test xfcx=216) 182 K/CU MM 150-430 MEAN PLATELET VOLUME (BEAKER) (test gjdr=432) 8.3 fL 6.5-10.5 NUCLEATED RED BLOOD CELLS (BEAKER) (test 0 /100 WBC 0-0 sxhs=344) NEUTROPHILS RELATIVE PERCENT (BEAKER) (test 71 % gmym=327) LYMPHOCYTES RELATIVE PERCENT (BEAKER) (test 17 % gsrv=251) MONOCYTES RELATIVE PERCENT (BEAKER) (test 9 % jwhi=897) EOSINOPHILS RELATIVE PERCENT (BEAKER) (test 3 % mptp=734) BASOPHILS RELATIVE PERCENT (BEAKER) (test 1 % niph=614) NEUTROPHILS ABSOLUTE COUNT (BEAKER) (test 4.00 K/ L 1.80-8.00 iyxr=350) LYMPHOCYTES ABSOLUTE COUNT (BEAKER) (test 0.96 K/ L 1.48-4.50 jlzn=914) MONOCYTES ABSOLUTE COUNT (BEAKER) (test 0.51 K/ L 0.00-1.30 nwxs=029) EOSINOPHILS ABSOLUTE COUNT (BEAKER) (test 0.15 K/ L 0.00-0.50 rkej=974) BASOPHILS ABSOLUTE COUNT (BEAKER) (test 0.03 K/ L 0.00-0.20 ipha=898) [id number] 07:38:00 Test Item Value Reference Range Comments PHOSPHORUS (BEAKER) (test gtgp=278) 3.2 mg/dL 2.3-4.7 [id number] 07:38:00 Test Item Value Reference Range Comments MAGNESIUM (BEAKER) (test korq=008) 1.7 mg/dL 1.6-2.6 BASIC METABOLIC [id number] 07:38:00 Test Item Value Reference Range Comments SODIUM (BEAKER) (test 138 meq/L 136-145 wwmr=055) POTASSIUM (BEAKER) (test 3.5 meq/L 3.5-5.1 zjcf=627) CHLORIDE (BEAKER) (test 104 meq/L 98-107 yvgu=832) CO2 (BEAKER) (test 25 meq/L 22-29 gxue=811) BLOOD UREA NITROGEN 12 mg/dL 7-21 (BEAKER) (test qnua=026) CREATININE (BEAKER) (test 1.30 mg/dL 0.57-1.25 pxml=763) GLUCOSE RANDOM (BEAKER) 85 mg/dL 70-105 (test jtlw=453) CALCIUM (BEAKER) (test 8.1 mg/dL 8.4-10.2 qepw=221) EGFR (BEAKER) (test 54 mL/min/1.73 sq m ESTIMATED GFR IS NOT wcof=6122) ACCURATE CREATININE CLEARANCE IN PREDICTING GLOMERULAR FILTRATION RATE. ESTIMATED GFR IS NOT APPLICABLE FOR DIALYSIS PATIENTS. C-REACTIVE [id number] 07:38:00 Test Item Value Reference Range Comments C-REACTIVE PROTEIN (BEAKER) (test wfhy=681) 1.01 mg/dL 0.00-0.50 CBC W/PLT COUNT & AUTO [id number] 08:08:00 Test Item Value Reference Range Comments WHITE BLOOD CELL COUNT (BEAKER) (test untq=179) 6.3 K/ L 4.0-10.0 RED BLOOD CELL COUNT (BEAKER) (test anim=394) 2.44 M/ L 4.20-5.80 HEMOGLOBIN (BEAKER) (test xsbz=205) 7.4 GM/DL 13.0-16.8 HEMATOCRIT (BEAKER) (test vajr=710) 23.2 % 40.0-50.0 MEAN CORPUSCULAR VOLUME (BEAKER) (test vxhf=372) 95.1 fL 82.0-98.0 MEAN CORPUSCULAR HEMOGLOBIN (BEAKER) (test 30.2 pg 27.0-33.0 zswz=526) MEAN CORPUSCULAR HEMOGLOBIN CONC (BEAKER) (test 31.8 GM/DL 32.0-36.0 rzyp=738) RED CELL DISTRIBUTION WIDTH (BEAKER) (test 15.7 % 10.3-14.2 xkqm=258) PLATELET COUNT (BEAKER) (test ynsv=036) 193 K/CU MM 150-430 MEAN PLATELET VOLUME (BEAKER) (test dtjb=770) 8.3 fL 6.5-10.5 NUCLEATED RED BLOOD CELLS (BEAKER) (test 0 /100 WBC 0-0 zssf=894) NEUTROPHILS RELATIVE PERCENT (BEAKER) (test 75 % rtsa=867) LYMPHOCYTES RELATIVE PERCENT (BEAKER) (test 15 % lemp=374) MONOCYTES RELATIVE PERCENT (BEAKER) (test 7 % hjeo=056) EOSINOPHILS RELATIVE PERCENT (BEAKER) (test 2 % irhp=629) BASOPHILS RELATIVE PERCENT (BEAKER) (test 0 % vuwa=367) NEUTROPHILS ABSOLUTE COUNT (BEAKER) (test 4.68 K/ L 1.80-8.00 gkdy=206) LYMPHOCYTES ABSOLUTE COUNT (BEAKER) (test 0.96 K/ L 1.48-4.50 nxqv=687) MONOCYTES ABSOLUTE COUNT (BEAKER) (test 0.46 K/ L 0.00-1.30 ohli=843) EOSINOPHILS ABSOLUTE COUNT (BEAKER) (test 0.14 K/ L 0.00-0.50 qins=600) BASOPHILS ABSOLUTE COUNT (BEAKER) (test 0.02 K/ L 0.00-0.20 mxmw=264) [id number] 07:08:00 Test Item Value Reference Range Comments PHOSPHORUS (BEAKER) (test ugik=775) 2.3 mg/dL 2.3-4.7 [id number] 07:08:00 Test Item Value Reference Range Comments MAGNESIUM (BEAKER) (test rrto=021) 1.8 mg/dL 1.6-2.6 BASIC METABOLIC [id number] 07:08:00 Test Item Value Reference Range Comments SODIUM (BEAKER) (test 141 meq/L 136-145 fggp=668) POTASSIUM (BEAKER) (test 3.9 meq/L 3.5-5.1 gipi=672) CHLORIDE (BEAKER) (test 108 meq/L 98-107 qbzw=573) CO2 (BEAKER) (test 23 meq/L 22-29 txlu=519) BLOOD UREA NITROGEN 16 mg/dL 7-21 (BEAKER) (test fnzh=489) CREATININE (BEAKER) (test 1.20 mg/dL 0.57-1.25 uznj=259) GLUCOSE RANDOM (BEAKER) 111 mg/dL 70-105 (test orqp=172) CALCIUM (BEAKER) (test 8.4 mg/dL 8.4-10.2 ttqz=458) EGFR (BEAKER) (test 60 mL/min/1.73 sq m ESTIMATED GFR IS NOT vvly=8697) ACCURATE CREATININE CLEARANCE IN PREDICTING GLOMERULAR FILTRATION RATE. ESTIMATED GFR IS NOT APPLICABLE FOR DIALYSIS PATIENTS. PERIPHERAL BLOOD SMEAR - PATHOLOGIST [id number] 15:04:00 Test Item Value Reference Range Comments RBC MORPHOLOGY (BEAKER) Anisocytosis (test bgym=9710) RBC MORPHOLOGY (BEAKER) Polychromasia (test naer=23280) RBC MORPHOLOGY (BEAKER) Poikilocytosis (test jcol=44293) WBC MORPHOLOGY (BEAKER) Unremarkable (test kzvg=2943) PLT MORPHOLOGY (BEAKER) Normal morphology (test gkpl=7093) PERIPHERAL SMR REVIEW Cell counts confirmed. RBCs (BEAKER) (test show normocytic tluf=5904) normochromic anemia with mild anisopoikilocytosis. No schistocytes are seen. WBCs are unremarkable. Platelets are adequate with rare giant platelets. [id number] Radha Velez, (BEAKER) (test M.D. (electronic signature) mppy=8829) CBC W/PLT COUNT & AUTO [id number] 09:05:00 Test Item Value Reference Range Comments WHITE BLOOD CELL COUNT (BEAKER) (test rplm=503) 7.3 K/ L 4.0-10.0 RED BLOOD CELL COUNT (BEAKER) (test kgld=671) 2.71 M/ L 4.20-5.80 HEMOGLOBIN (BEAKER) (test zsvr=265) 8.6 GM/DL 13.0-16.8 HEMATOCRIT (BEAKER) (test svdp=543) 25.4 % 40.0-50.0 MEAN CORPUSCULAR VOLUME (BEAKER) (test fywu=036) 93.7 fL 82.0-98.0 MEAN CORPUSCULAR HEMOGLOBIN (BEAKER) (test 31.6 pg 27.0-33.0 pduq=146) MEAN CORPUSCULAR HEMOGLOBIN CONC (BEAKER) (test 33.7 GM/DL 32.0-36.0 glzi=758) RED CELL DISTRIBUTION WIDTH (BEAKER) (test 15.4 % 10.3-14.2 qlid=618) PLATELET COUNT (BEAKER) (test ilzu=453) 149 K/CU MM 150-430 MEAN PLATELET VOLUME (BEAKER) (test cpeb=493) 9.0 fL 6.5-10.5 NUCLEATED RED BLOOD CELLS (BEAKER) (test 0 /100 WBC 0-0 wzct=750) NEUTROPHILS RELATIVE PERCENT (BEAKER) (test 66 % dqrz=789) LYMPHOCYTES RELATIVE PERCENT (BEAKER) (test 23 % yipb=247) MONOCYTES RELATIVE PERCENT (BEAKER) (test 8 % lxyr=478) EOSINOPHILS RELATIVE PERCENT (BEAKER) (test 2 % ymlj=022) BASOPHILS RELATIVE PERCENT (BEAKER) (test 0 % pkhp=378) NEUTROPHILS ABSOLUTE COUNT (BEAKER) (test 4.81 K/ L 1.80-8.00 vuml=620) LYMPHOCYTES ABSOLUTE COUNT (BEAKER) (test 1.67 K/ L 1.48-4.50 yipk=150) MONOCYTES ABSOLUTE COUNT (BEAKER) (test 0.59 K/ L 0.00-1.30 ozns=111) EOSINOPHILS ABSOLUTE COUNT (BEAKER) (test 0.18 K/ L 0.00-0.50 acpt=047) BASOPHILS ABSOLUTE COUNT (BEAKER) (test 0.02 K/ L 0.00-0.20 hfxe=421) 0.00(MANUAL DIFFERENTIAL)2016-10-01 09:05:00 Test Item Value Reference Range Comments TOTAL COUNTED (BEAKER) (test oekr=4319) WBC MORPHOLOGY (BEAKER) (test jnsh=909) Normal PLT MORPHOLOGY (BEAKER) (test jpji=387) Normal ANISOCYTOSIS (BEAKER) (test yeic=124) 1+ few POLYCHROMATOPHILLIC RBCS(BEAKER) (test atjp=349) 1+ few TEAR DROP CELLS (BEAKER) (test pmqv=761) 1+ few [id number] 07:22:00 Test Item Value Reference Range Comments MAGNESIUM (BEAKER) (test 2.1 mg/dL 1.6-2.6 Specimen slightly hemolyzed dtkl=693) [id number] 07:22:00 Test Item Value Reference Range Comments PHOSPHORUS (BEAKER) (test 3.3 mg/dL 2.3-4.7 Specimen slightly hemolyzed azqv=215) BASIC METABOLIC [id number] 07:22:00 Test Item Value Reference Range Comments SODIUM (BEAKER) (test 141 meq/L 136-145 gtbv=586) POTASSIUM (BEAKER) (test 4.3 meq/L 3.5-5.1 Specimen slightly hzdb=944) hemolyzed CHLORIDE (BEAKER) (test 109 meq/L 98-107 bxlk=825) CO2 (BEAKER) (test 21 meq/L 22-29 mcbs=966) BLOOD UREA NITROGEN 17 mg/dL 7-21 (BEAKER) (test dccj=613) CREATININE (BEAKER) (test 1.35 mg/dL 0.57-1.25 Specimen slightly kqxr=380) hemolyzed GLUCOSE RANDOM (BEAKER) 99 mg/dL 70-105 (test fmkj=989) CALCIUM (BEAKER) (test 8.3 mg/dL 8.4-10.2 ybqt=983) EGFR (BEAKER) (test 52 mL/min/1.73 sq m ESTIMATED GFR IS NOT saco=9399) ACCURATE CREATININE CLEARANCE IN PREDICTING GLOMERULAR FILTRATION RATE. ESTIMATED GFR IS NOT APPLICABLE FOR DIALYSIS PATIENTS. RETICULOCYTE [id number] 07:21:00 Test Item Value Reference Range Comments RETICULOCYTE COUNT PCT (BEAKER) (test rrnf=146) 5.8 % 0.4-2.9 CBC W/PLT COUNT & AUTO [id number] 03:48:00 Test Item Value Reference Range Comments WHITE BLOOD CELL COUNT (BEAKER) (test flnk=472) 6.3 K/ L 4.0-10.0 RED BLOOD CELL COUNT (BEAKER) (test bzfn=792) 2.67 M/ L 4.20-5.80 HEMOGLOBIN (BEAKER) (test lvse=527) 8.4 GM/DL 13.0-16.8 HEMATOCRIT (BEAKER) (test avmy=798) 24.9 % 40.0-50.0 MEAN CORPUSCULAR VOLUME (BEAKER) (test kdcj=876) 93.3 fL 82.0-98.0 MEAN CORPUSCULAR HEMOGLOBIN (BEAKER) (test 31.6 pg 27.0-33.0 zmuz=425) MEAN CORPUSCULAR HEMOGLOBIN CONC (BEAKER) (test 33.9 GM/DL 32.0-36.0 uszc=379) RED CELL DISTRIBUTION WIDTH (BEAKER) (test 16.6 % 10.3-14.2 mxta=675) PLATELET COUNT (BEAKER) (test dnoe=786) 183 K/CU MM 150-430 MEAN PLATELET VOLUME (BEAKER) (test uqpm=736) 8.2 fL 6.5-10.5 NUCLEATED RED BLOOD CELLS (BEAKER) (test 0 /100 WBC 0-0 loyx=224) NEUTROPHILS RELATIVE PERCENT (BEAKER) (test 69 % jxob=154) LYMPHOCYTES RELATIVE PERCENT (BEAKER) (test 18 % zpeb=718) MONOCYTES RELATIVE PERCENT (BEAKER) (test 10 % gsnj=164) EOSINOPHILS RELATIVE PERCENT (BEAKER) (test 2 % zkdw=902) BASOPHILS RELATIVE PERCENT (BEAKER) (test 1 % vksp=640) NEUTROPHILS ABSOLUTE COUNT (BEAKER) (test 4.34 K/ L 1.80-8.00 xjkf=964) LYMPHOCYTES ABSOLUTE COUNT (BEAKER) (test 1.15 K/ L 1.48-4.50 uegu=344) MONOCYTES ABSOLUTE COUNT (BEAKER) (test 0.65 K/ L 0.00-1.30 ylfq=782) EOSINOPHILS ABSOLUTE COUNT (BEAKER) (test 0.14 K/ L 0.00-0.50 unuw=956) BASOPHILS ABSOLUTE COUNT (BEAKER) (test 0.03 K/ L 0.00-0.20 mtis=419) [id number] 18:03:00 Test Item Value Reference Range Comments THYROID STIMULATING HORMONE (BEAKER) (test 2.79 uIU/mL 0.35-4.94 mlqg=167) POCT-GLUCOSE [id number] 17:47:00 Test Item Value Reference Range Comments POC-GLUCOSE METER (BEAKER) 98 mg/dL 70-110 TESTED AT [facility] [address] [facility] (test nfzz=5614) [facility] [address] HEPARIN ASSAY - LOW MOLECULAR [id number] 12:53:00 Test Item Value Reference Range Comments LOVENOX-ANTI 10A (BEAKER) (test vtbj=5865) > u/ml 0.60-2.00 Effective 02/04/2016: Reference Range ChangeNew: 0.60-2.00 Previous: 0.60- 1.99Anti-Factor 10A Level(Heparin Assay for Low Molecular Weight Heparin) Monitoring Guidelines: Blood samples should be obtained 4 hours post subcutaneous injection (time of Peak level) Therapeutic Peak Levels: 0.6-1.0 units/mL twice daily enoxaparin 1.0-2.0 units/mL once daily enoxaparinPOCT-GLUCOSE [id number] 11:47:00 Test Item Value Reference Range Comments POC-GLUCOSE METER (BEAKER) 103 mg/dL 70-110 TESTED AT [facility] [address] [facility] (test iylx=8558) [facility] [address] PROTHROMBIN TIME/[id number] 11:16:00 Test Item Value Reference Range Comments PROTIME (BEAKER) (test tfha=213) 28.4 seconds 11.7-14.7 INR (BEAKER) (test fhzt=719) 2.7 <=5.9 RECOMMENDED COUMADIN/WARFARIN INR THERAPY RANGESSTANDARD DOSE: 2.0 - 3.0 Includes: PROPHYLAXIS forvenous thrombosis, systemic embolization; TREATMENT for venous thrombosis and/or pulmonary embolus.HIGH RISK: Target INR is 2.5-3.5 for patients with mechanical heart valves.[id number] 11:16:00 Test Item Value Reference Range Comments PARTIAL THROMBOPLASTIN TIME (BEAKER) (test 38.8 seconds 22.5-36.0 iwgt=465) CREATINE KINASE (CK), TOTAL AND [id number] 10:35:00 Test Item Value Reference Range Comments CREATINE KINASE TOTAL (BEAKER) (test njav=548) 35 U/L 29-200 CREATINE KINASE-MB (BEAKER) (test eoxs=600) 0.7 ng/mL 0.0-6.6 CREATINE KINASE-MB INDEX (BEAKER) (test jdmb=523) 2.0 % Effective 02/14/2014: CK-MB Reference Range ChangeNew: 0.0-6.6 Previous: 0.0- 4.9CK-MB Reference Range:<6.7 Normal6.7-10.0 Borderline>10.0 AbnormalTROPONIN [id number] 10:35:00 Test Item Value Reference Range Comments TROPONIN I (BEAKER) (test magg=270) 0.01 ng/mL 0.00-0.03 Effective 02/14/2014: Reference Range ChangeNew: 0.00-0.03 Previous 0.00- 0.15Troponin I (TnI) levels must be interpreted in the context of the presenting symptoms and the clinical findings. Elevated TnI levels indicate myocardial damage, but are not specific for ischemic heart disease. Elevated TnI levels are seen in patients with other cardiac conditions (including myocarditis and congestive heartfailure), and slight TnI elevations occur in patients with other conditions, including sepsis, renalfailure, acidosis, acute neurological disease, and persistent tachyarrhythmia.LACTATE DEHYDROGENASE (LDH) 2016-09-29 07:14:00 Test Item Value Reference Range Comments LACTATE DEHYDROGENASE (BEAKER) (test misx=726) 187 U/L 125-220 [id number] 06:53:00 Test Item Value Reference Range Comments HAPTOGLOBIN (BEAKER) (test oojl=583) 196 mg/dL 14-258 Effective 02/14/2014: Reference Range ChangeNew: 14-258 Previous: 36-195CBC W/ PLT COUNT & AUTO [id number] 05:30:00 Test Item Value Reference Range Comments WHITE BLOOD CELL COUNT (BEAKER) (test ango=848) 7.1 K/ L 4.0-10.0 RED BLOOD CELL COUNT (BEAKER) (test boim=720) 2.22 M/ L 4.20-5.80 HEMOGLOBIN (BEAKER) (test lnut=831) 6.9 GM/DL 13.0-16.8 HEMATOCRIT (BEAKER) (test ndoq=574) 20.8 % 40.0-50.0 MEAN CORPUSCULAR VOLUME (BEAKER) (test gyli=558) 93.9 fL 82.0-98.0 MEAN CORPUSCULAR HEMOGLOBIN (BEAKER) (test 31.2 pg 27.0-33.0 yjfd=690) MEAN CORPUSCULAR HEMOGLOBIN CONC (BEAKER) (test 33.2 GM/DL 32.0-36.0 eujh=501) RED CELL DISTRIBUTION WIDTH (BEAKER) (test 15.2 % 10.3-14.2 tcyy=344) PLATELET COUNT (BEAKER) (test aano=217) 184 K/CU MM 150-430 MEAN PLATELET VOLUME (BEAKER) (test tmrg=192) 8.0 fL 6.5-10.5 NUCLEATED RED BLOOD CELLS (BEAKER) (test 0 /100 WBC 0-0 bstu=187) NEUTROPHILS RELATIVE PERCENT (BEAKER) (test 74 % sfdi=811) LYMPHOCYTES RELATIVE PERCENT (BEAKER) (test 17 % lqqe=794) MONOCYTES RELATIVE PERCENT (BEAKER) (test 8 % xwhv=951) EOSINOPHILS RELATIVE PERCENT (BEAKER) (test 1 % aznm=482) BASOPHILS RELATIVE PERCENT (BEAKER) (test 1 % aepa=017) NEUTROPHILS ABSOLUTE COUNT (BEAKER) (test 5.21 K/ L 1.80-8.00 qrrx=937) LYMPHOCYTES ABSOLUTE COUNT (BEAKER) (test 1.22 K/ L 1.48-4.50 beur=572) MONOCYTES ABSOLUTE COUNT (BEAKER) (test 0.55 K/ L 0.00-1.30 qfjx=774) EOSINOPHILS ABSOLUTE COUNT (BEAKER) (test 0.05 K/ L 0.00-0.50 jzvm=202) BASOPHILS ABSOLUTE COUNT (BEAKER) (test 0.04 K/ L 0.00-0.20 simc=331) [id number] 03:21:00 Test Item Value Reference Range Comments FERRITIN (BEAKER) (test zfrg=661) 15 ng/mL 5-275 Effective 02/14/2014: Reference Range ChangeNew: Male 5-275 Previous: Male 22-322 Female 5-275 Female 10-291VITAMIN B12 AND [id number] 03:21:00 Test Item Value Reference Range Comments VITAMIN B12 (BEAKER) (test vloi=445) 322 pg/mL 213-816 FOLATE (BEAKER) (test dyzb=221) 7.5 ng/mL >=7.0 Effective 02/14/2014: Folate Reference Range ChangeNew: >=7.0 Previous: & gt;=5.4IRON, TIBC, % SAT. (WITHOUT FERRITIN)2016-09-29 02:47:00 Test Item Value Reference Range Comments IRON (BEAKER) (test qtbf=296) 26 ug/dL 40-160 TOTAL IRON BINDING CAPACITY (BEAKER) (test 373 ug/dL 250-450 peay=563) IRON % SATURATION (2) (BEAKER) (test aqwt=4639) 7 % 20-55 [id number] 02:30:00 Test Item Value Reference Range Comments PHOSPHORUS (BEAKER) (test msbr=237) 3.7 mg/dL 2.3-4.7 [id number] 02:30:00 Test Item Value Reference Range Comments MAGNESIUM (BEAKER) (test xbny=691) 2.1 mg/dL 1.6-2.6 LACTIC ACID, VENOUS, WHOLE [id number] 02:28:00 Test Item Value Reference Range Comments LACTATE BLOOD VENOUS (2) (BEAKER) (test 1.5 mmol/L 0.5-2.2 fbbg=3973) Effective 08/01/2015: Units/Reference Range ChangeNew: 0.5-2.2 mmol/L Previous: 5 -20 mg/dLPT/[id number] 02:27:00 Test Item Value Reference Range Comments PROTIME (BEAKER) (test ywxd=821) 34.3 seconds 11.7-14.7 INR (BEAKER) (test wuns=407) 3.4 <=5.9 PARTIAL THROMBOPLASTIN TIME (BEAKER) (test 33.0 seconds 22.5-36.0 igfv=150) RECOMMENDED COUMADIN/WARFARIN INR THERAPY RANGESSTANDARD DOSE: 2.0 - 3.0 Includes: PROPHYLAXIS forvenous thrombosis, systemic embolization; TREATMENT for venous thrombosis and/or pulmonary embolus.HIGH RISK: Target INR is 2.5-3.5 for patients with mechanical heart valves.PROTHROMBIN TIME/[id number] 02:26: 00 Test Item Value Reference Range Comments PROTIME (BEAKER) (test avfh=850) 34.3 seconds 11.7-14.7 INR (BEAKER) (test dlgs=341) 3.4 <=5.9 RECOMMENDED COUMADIN/WARFARIN INR THERAPY RANGESSTANDARD DOSE: 2.0 - 3.0 Includes: PROPHYLAXIS forvenous thrombosis, systemic embolization; TREATMENT for venous thrombosis and/or pulmonary embolus.HIGH RISK: Target INR is 2.5-3.5 for patients with mechanical heart valves.CREATINE KINASE (CK), TOTAL AND [id number] 02:23:00 Test Item Value Reference Range Comments CREATINE KINASE TOTAL (BEAKER) (test prpj=756) 44 U/L 29-200 CREATINE KINASE-MB (BEAKER) (test swtq=862) 0.6 ng/mL 0.0-6.6 CREATINE KINASE-MB INDEX (BEAKER) (test dtct=854) 1.4 % Effective 02/14/2014: CK-MB Reference Range ChangeNew: 0.0-6.6 Previous: 0.0- 4.9CK-MB Reference Range:<6.7 Normal6.7-10.0 Borderline>10.0 AbnormalTROPONIN [id number] 02:23:00 Test Item Value Reference Range Comments TROPONIN I (BEAKER) (test dxmg=685) 0.01 ng/mL 0.00-0.03 Effective 02/14/2014: Reference Range ChangeNew: 0.00-0.03 Previous 0.00- 0.15Troponin I (TnI) levels must be interpreted in the context of the presenting symptoms and the clinical findings. Elevated TnI levels indicate myocardial damage, but are not specific for ischemic heart disease. Elevated TnI levels are seen in patients with other cardiac conditions (including myocarditis and congestive heartfailure), and slight TnI elevations occur in patients with other conditions, including sepsis, renalfailure, acidosis, acute neurological disease, and persistent tachyarrhythmia.HEPATIC FUNCTION [id number] 02:17:00 Test Item Value Reference Range Comments TOTAL PROTEIN (BEAKER) (test wfzt=700) 6.2 gm/dL 6.0-8.3 ALBUMIN (BEAKER) (test igsz=0926) 3.4 g/dL 3.5-5.0 BILIRUBIN TOTAL (BEAKER) (test xenp=792) 0.8 mg/dL 0.2-1.2 BILIRUBIN DIRECT (BEAKER) (test jwbk=236) 0.4 mg/dL 0.1-0.5 ALKALINE PHOSPHATASE (BEAKER) (test vfhy=717) 64 U/L 40-150 AST (SGOT) (BEAKER) (test hivi=895) 12 U/L 5-34 ALT (SGPT) (BEAKER) (test ecst=876) 17 U/L 6-55 BASIC METABOLIC [id number] 02:17:00 Test Item Value Reference Range Comments SODIUM (BEAKER) (test 141 meq/L 136-145 dwsd=007) POTASSIUM (BEAKER) (test 3.6 meq/L 3.5-5.1 mzuw=241) CHLORIDE (BEAKER) (test 108 meq/L 98-107 kfga=841) CO2 (BEAKER) (test 23 meq/L 22-29 vrwt=839) BLOOD UREA NITROGEN 20 mg/dL 7-21 (BEAKER) (test qptr=102) CREATININE (BEAKER) (test 1.37 mg/dL 0.57-1.25 ehey=006) GLUCOSE RANDOM (BEAKER) 91 mg/dL 70-105 (test fcyh=339) CALCIUM (BEAKER) (test 8.4 mg/dL 8.4-10.2 nmww=033) EGFR (BEAKER) (test 51 mL/min/1.73 sq m ESTIMATED GFR IS NOT vsul=3167) ACCURATE CREATININE CLEARANCE IN PREDICTING GLOMERULAR FILTRATION RATE. ESTIMATED GFR IS NOT APPLICABLE FOR DIALYSIS PATIENTS. RETICULOCYTE [id number] 02:12:00 Test Item Value Reference Range Comments RETICULOCYTE COUNT PCT (BEAKER) (test rspy=974) 6.2 % 0.4-2.9 CBC W/PLT COUNT & AUTO [id number] 02:10:00 Test Item Value Reference Range Comments WHITE BLOOD CELL COUNT (BEAKER) (test jieb=567) 8.0 K/ L 4.0-10.0 RED BLOOD CELL COUNT (BEAKER) (test ntwl=565) 2.35 M/ L 4.20-5.80 HEMOGLOBIN (BEAKER) (test orqr=158) 7.4 GM/DL 13.0-16.8 HEMATOCRIT (BEAKER) (test tgvb=437) 22.2 % 40.0-50.0 MEAN CORPUSCULAR VOLUME (BEAKER) (test wckm=553) 94.2 fL 82.0-98.0 MEAN CORPUSCULAR HEMOGLOBIN (BEAKER) (test 31.3 pg 27.0-33.0 poin=771) MEAN CORPUSCULAR HEMOGLOBIN CONC (BEAKER) (test 33.2 GM/DL 32.0-36.0 fcwm=798) RED CELL DISTRIBUTION WIDTH (BEAKER) (test 15.1 % 10.3-14.2 hcvq=277) PLATELET COUNT (BEAKER) (test ylhj=200) 200 K/CU MM 150-430 MEAN PLATELET VOLUME (BEAKER) (test opug=023) 7.9 fL 6.5-10.5 NUCLEATED RED BLOOD CELLS (BEAKER) (test 0 /100 WBC 0-0 uqea=437) NEUTROPHILS RELATIVE PERCENT (BEAKER) (test 74 % tbxw=573) LYMPHOCYTES RELATIVE PERCENT (BEAKER) (test 18 % xbom=114) MONOCYTES RELATIVE PERCENT (BEAKER) (test 8 % puzv=921) EOSINOPHILS RELATIVE PERCENT (BEAKER) (test 1 % vema=801) BASOPHILS RELATIVE PERCENT (BEAKER) (test 0 % eszc=671) NEUTROPHILS ABSOLUTE COUNT (BEAKER) (test 5.88 K/ L 1.80-8.00 rpeo=938) LYMPHOCYTES ABSOLUTE COUNT (BEAKER) (test 1.42 K/ L 1.48-4.50 ibop=526) MONOCYTES ABSOLUTE COUNT (BEAKER) (test 0.62 K/ L 0.00-1.30 yxhp=825) EOSINOPHILS ABSOLUTE COUNT (BEAKER) (test 0.05 K/ L 0.00-0.50 cylu=163) BASOPHILS ABSOLUTE COUNT (BEAKER) (test 0.02 K/ L 0.00-0.20 lakk=807)
[2017-08-29 03:21] LABS: Absolute Lymphocytes (CBC) 0.9 K/uL (0.7-4.9); Absolute Monocytes 0.6 K/uL (0.1-1.3); Absolute Neutrophil 7.1 K/uL (1.8-8.0); Basophils % 0.7 % (0-1.3); Hematocrit 35.4 % (39.6-49.0); Lymphocytes % 10.2 % (15.3-44.8); MCH 27.1 pg (27.0-35.0); MCV 84.3 fL (80-100); MPV 9.4 fL (7.6-11.3); Monocytes % 7.2 % (3.3-12.3)
--- NOTE | 2017-08-29 03:23 | ER ---
Nurse's Notes [facility] Name: Hunter Lassiter Age: 72 yrs Sex: Male : 1945 Arrival Date: 08/29/2017 Time: 02:44 Bed 3 Private MD: Diagnosis: Dyspnea;Obesity, unspecified;Unspecified combined systolic (congestive) and diastolic (congestive) heart failure Presentation: 08/29 02:44 Presenting complaint: EMS states: SHORTNESS OF BREATH. Transition of care: patient was bp not received from another setting of care. Onset of symptoms is unknown. Risk Assessment: Do you want to hurt yourself or someone else? Patient reports no desire to harm self or others. Initial Sepsis Screen: Does the patient meet any 2 criteria? No. Patient's initial sepsis screen is negative. Does the patient have a suspected source of infection? No. Patient's initial sepsis screen is negative. Care prior to arrival: Glucose check: 106 Oxygen administered. via nasal cannula. 02:44 Method Of Arrival: EMS: [facility] bp 02:44 Acuity: TALIB 2 bp Triage Assessment: 03:00 Respiratory: Reports shortness of breath Onset: The symptoms/episode began/occurred at bp an unknown time. the patient has moderate shortness of breath. 03:00 General: Appears distressed, comfortable, obese, Behavior is cooperative, appropriate bp for age, anxious. Historical: - Allergies: 02:49 NKA; bp - Home Meds: 02:49 furosemide 40 mg Oral tab 1 tab once daily [Active]; levothyroxine 50 mcg tab 1 tab bp once daily [Active]; metoprolol tartrate 50 mg Oral tab 1 tab 2 times per day [Active]; atorvastatin 40 mg Oral tab 1 tab once daily [Active]; amiodarone 200 mg Oral tab 1 tab once daily [Active]; gabapentin 100 mg oral cap [Active]; spironolactone 25 mg Oral tab 1 tab 2 times per day [Active]; Eliquis 2.5 mg oral tab 1 tab 2 times per day [Active]; - PMHx: 02:49 Hypothyroidism; Hypertension; High Cholesterol; Atrial Fib; bp - Immunization history:: Adult Immunizations up to date. - Social history:: Smoking status: Patient/guardian denies using tobacco. - Ebola Screening: : Patient negative for fever greater than or equal to 101.5 degrees Fahrenheit, and additional compatible Ebola Virus Disease symptoms Patient denies exposure to infectious person Patient denies travel to an Ebola-affected area in the 21 days before illness onset No symptoms or risks identified at this time. Screenin:58 Abuse screen: Denies threats or abuse. Denies injuries from another. Nutritional bp screening: No deficits noted. Tuberculosis screening: No symptoms or risk factors identified. Fall Risk None identified. Assessment: 02:59 General: Appears distressed, comfortable, obese, Behavior is cooperative, appropriate bp for age, anxious. Pain: Denies pain. Neuro: Level of Consciousness is awake, alert, obeys commands, Oriented to person, place, time, situation, Appropriate for age. Cardiovascular: Rhythm is sinus rhythm. Respiratory: Airway is patent Respiratory effort is even, unlabored, Respiratory pattern is regular, symmetrical, Breath sounds are clear. GI: No signs and/or symptoms were reported involving the gastrointestinal system. : No signs and/or symptoms were reported regarding the genitourinary system. EENT: No deficits noted. Derm: No deficits noted. Musculoskeletal: Circulation, motion, and sensation intact. Range of motion: intact in all extremities. 04:00 Reassessment: ADMIT MD AT B/S. bp 05:00 Reassessment: ALL CURRENT ORDERS COMPLETED, ADMIT IN PROCESS, VS STABLE ON MONITOR. bp 06:00 Reassessment: PT TO CT. ADMIT PROCESSED, XFER PENDING FOR DAY SHIFT. bp 07:01 Reassessment: Patient appears in no apparent distress at this time. Patient and/or hb family updated on plan of care and expected duration. Pain level reassessed. Patient is alert, oriented x 3, equal unlabored respirations, skin warm/dry/pink. 07:34 Reassessment: Admission ordered, room assignment 408, attempted to call report to hb floor, receiving nurse unavailable. Vital Signs: 02:49 BP 146 / 76; Pulse 66; Resp 16; Temp 97.6; Pulse Ox 97% ; Weight 127.01 kg; bp 04:00 BP 134 / 98; Pulse 68; Resp 18; Pulse Ox 98% on NC; bp 05:30 BP 126 / 77; Pulse 73; Resp 18; Pulse Ox 96% on NC; bp 06:00 BP 126 / 83; Pulse 102; Resp 16; Pulse Ox 97% on NC; bp 07:36 BP 124 / 82; Pulse 100; Resp 20; Pulse Ox 98% on 2 lpm NC; Pain 0/10; hb ED Course: 02:44 Patient arrived in ED. bp 02:45 Triage completed. bp 02:50 Arm band placed on. bp 02:57 Elan Murillo, RN is Primary Nurse. bp 02:57 Inserted saline lock: 22 gauge in left forearm, using aseptic technique. Blood bp collected. 03:00 Patient has correct armband on for positive identification. Placed in gown. Bed in low bp position. Call light in reach. Side rails up X2. 03:03 Tony Orta MD is Attending Physician. hao 03:08 X-ray completed. Portable x-ray completed in exam room. Patient tolerated procedure kc2 well. 03:09 XRAY Chest (1 view) In Process Unspecified. EDMS 03:22 April Wick MD is Hospitalizing Provider. hao 05:[address] via stretcher. kw1 06:21 No provider procedures requiring assistance completed. Patient admitted, IV remains in bp place. 06:29 CT completed. Patient tolerated procedure well. Patient moved back from CT. kw1 Administered Medications: No medications were administered Outcome: 03:23 Decision to Hospitalize by Provider. hao 08:00 Admitted to Med/surg accompanied by nurse, via stretcher, room 408, with oxygen, with hb chart, Report called to RICCO Nunez 08:00 Condition: stable 08:00 Instructed on the need for admit, Demonstrated understanding of instructions. 08:35 Patient left the ED. hb Signatures: Dispatcher [employer] EDPR Tony Orta MD MD cha Baxter, Heather, RN RN hb Carr, Kelsie kc2 Elan Murillo RN RN Landy Chang kw1 Corrections: (The following items were deleted from the chart) 06:23 00:00 Respiratory: Reports shortness of breath Onset: The symptoms/episode bp began/occurred at an unknown time. the patient has moderate shortness of breath bp 06:23 00:00 General: Appears distressed, bp bp
--- NOTE | 2017-08-29 03:23 | EDPHYS ---
Physician Documentation [facility] Name: Hunter Lassiter Age: 72 yrs Sex: Male : 1945 Arrival Date: 08/29/2017 Time: 02:44 Bed 3 Private MD: ED Physician Tony Orta HPI: 08/29 03:18 This 72 yrs old Male presents to ER via EMS with complaints of Shortness Of hao Breath. 03:18 The patient has shortness of breath with light activity. Onset: The symptoms/episode hao began/occurred just prior to arrival, this morning. Duration: The symptoms are continuous, and are steadily getting worse. The patient's shortness of breath has no apparent modifying factors. Associated signs and symptoms: The patient has no apparent associated signs or symptoms. Severity of symptoms: At their worst the symptoms were mild moderate in the emergency department the symptoms have improved moderately. The patient has experienced similar episodes in the past, multiple times. Historical: - Allergies: 02:49 NKA; bp - Home Meds: 02:49 furosemide 40 mg Oral tab 1 tab once daily [Active]; levothyroxine 50 mcg tab 1 tab bp once daily [Active]; metoprolol tartrate 50 mg Oral tab 1 tab 2 times per day [Active]; atorvastatin 40 mg Oral tab 1 tab once daily [Active]; amiodarone 200 mg Oral tab 1 tab once daily [Active]; gabapentin 100 mg oral cap [Active]; spironolactone 25 mg Oral tab 1 tab 2 times per day [Active]; Eliquis 2.5 mg oral tab 1 tab 2 times per day [Active]; - PMHx: 02:49 Hypothyroidism; Hypertension; High Cholesterol; Atrial Fib; bp - Immunization history:: Adult Immunizations up to date. - Social history:: Smoking status: Patient/guardian denies using tobacco. - Ebola Screening: : Patient negative for fever greater than or equal to 101.5 degrees Fahrenheit, and additional compatible Ebola Virus Disease symptoms Patient denies exposure to infectious person Patient denies travel to an Ebola-affected area in the 21 days before illness onset No symptoms or risks identified at this time. ROS: 03:19 Constitutional: Negative for fever, chills, and weight loss, Eyes: Negative for injury, hao pain, redness, and discharge, ENT: Negative for injury, pain, and discharge, Neck: Negative for injury, pain, and swelling, Cardiovascular: Negative for chest pain, palpitations, and edema, Abdomen/GI: Negative for abdominal pain, nausea, vomiting, diarrhea, and constipation, Back: Negative for injury and pain, : Negative for injury, bleeding, discharge, and swelling, MS/Extremity: Negative for injury and deformity, Skin: Negative for injury, rash, and discoloration, Neuro: Negative for headache, weakness, numbness, tingling, and seizure, Psych: Negative for depression, anxiety, suicide ideation, homicidal ideation, and hallucinations, Allergy/Immunology: Negative for hives, rash, and allergies, Endocrine: Negative for neck swelling, polydipsia, polyuria, polyphagia, and marked weight changes, Hematologic/Lymphatic: Negative for swollen nodes, abnormal bleeding, and unusual bruising. 03:19 Respiratory: Positive for cough, shortness of breath, at rest. Exam: 03:19 Constitutional: This is a well developed, well nourished patient who is awake, alert, hao and in no acute distress. Head/Face: Normocephalic, atraumatic. Eyes: Pupils equal round and reactive to light, extra-ocular motions intact. Lids and lashes normal. Conjunctiva and sclera are non-icteric and not injected. Cornea within normal limits. Periorbital areas with no swelling, redness, or edema. ENT: Nares patent. No nasal discharge, no septal abnormalities noted. Tympanic membranes are normal and external auditory canals are clear. Oropharynx with no redness, swelling, or masses, exudates, or evidence of obstruction, uvula midline. Mucous membranes moist. Neck: Trachea midline, no thyromegaly or masses palpated, and no cervical lymphadenopathy. Supple, full range of motion without nuchal rigidity, or vertebral point tenderness. No Meningismus. Chest/axilla: Normal chest wall appearance and motion. Nontender with no deformity. No lesions are appreciated. Cardiovascular: Regular rate and rhythm with a normal S1 and S2. No gallops, murmurs, or rubs. Normal PMI, no JVD. No pulse deficits. Respiratory: Lungs have equal breath sounds bilaterally, clear to auscultation and percussion. No rales, rhonchi or wheezes noted. No increased work of breathing, no retractions or nasal flaring. Abdomen/GI: Soft, non-tender, with normal bowel sounds. No distension or tympany. No guarding or rebound. No evidence of tenderness throughout. Back: No spinal tenderness. No costovertebral tenderness. Full range of motion. Male : Normal genitalia with no discharge or lesions. Skin: Warm, dry with normal turgor. Normal color with no rashes, no lesions, and no evidence of cellulitis. MS/ Extremity: Pulses equal, no cyanosis. Neurovascular intact. Full, normal range of motion. Neuro: Awake and alert, GCS 15, oriented to person, place, time, and situation. Cranial nerves II-XII grossly intact. Motor strength 5/5 in all extremities. Sensory grossly intact. Cerebellar exam normal. Normal gait. Psych: Awake, alert, with orientation to person, place and time. Behavior, mood, and affect are within normal limits. 03:21 Musculoskeletal/extremity: DVT Exam: No signs of deep vein thrombosis. no pain, no hao swelling, no tenderness, negative Homans' sign noted on exam, no appreciated bluish discoloration, no erythema, no increased warmth. Vital Signs: 02:49 BP 146 / 76; Pulse 66; Resp 16; Temp 97.6; Pulse Ox 97% ; Weight 127.01 kg; bp 04:00 BP 134 / 98; Pulse 68; Resp 18; Pulse Ox 98% on NC; bp 05:30 BP 126 / 77; Pulse 73; Resp 18; Pulse Ox 96% on NC; bp 06:00 BP 126 / 83; Pulse 102; Resp 16; Pulse Ox 97% on NC; bp 07:36 BP 124 / 82; Pulse 100; Resp 20; Pulse Ox 98% on 2 lpm NC; Pain 0/10; hb MDM: 03:03 Patient medically screened. hao 03:20 Data reviewed: vital signs, nurses notes, lab test result(s), EKG, radiologic studies, hao plain films. 08/29 02:50 Order name: Basic Metabolic Panel; Complete Time: 05:36 bp 08/29 02:50 Order name: BNP; Complete Time: 05:36 bp 08/29 02:50 Order name: CBC with Diff; Complete Time: 05:36 bp 08/29 02:50 Order name: Ckmb; Complete Time: 05:36 bp 08/29 02:50 Order name: CPK; Complete Time: 05:36 bp 06/02 02:50 Order name: LFT's; Complete Time: 05:36 bp 02 02:50 Order name: Magnesium; Complete Time: 05:36 bp 02 02:50 Order name: PT-INR; Complete Time: 05:36 bp 02 02:50 Order name: Ptt, Activated; Complete Time: 05:36 bp 02 02:50 Order name: Troponin (emerg Dept Use Only); Complete Time: 05:36 bp 02 02:50 Order name: D-Dimer; Complete Time: 05:36 bp 02 03:18 Order name: Blood Culture Adult (2[facility] 08/29 03:21 Order name: ABG: room air; Complete Time: 05:36 hao 08/29 06:57 Order name: Urine Dipstick--Ancillary (enter results) em1 08/29 02:50 Order name: XRAY Chest (1 view) bp 08/29 02:50 Order name: EKG; Complete Time: 02:51 bp 08/29 02:50 Order name: Cardiac monitoring; Complete Time: 02:58 bp 08/29 02:50 Order name: EKG - Nurse/Tech; Complete Time: 03:29 bp 02 02:50 Order name: IV Saline Lock; Complete Time: 02:58 bp 08/29 02:50 Order name: Labs collected and sent; Complete Time: 02:58 bp 02 02:50 Order name: O2 Per Protocol; Complete Time: 02:58 bp 08/29 02:50 Order name: O2 Sat Monitoring; Complete Time: 02:58 bp 08/29 02:50 Order name: Urine Dipstick-Ancillary (obtain specimen); Complete Time: 06:55 bp 02 03:27 Order name: CONS Physician Consult EDMS 08/29 05:38 Order name: CT Chest For PE Angio [facility] 08/29 07:23 Order name: Urine Dipstick-Ancillary EDMS Administered Medications: No medications were administered Disposition: 08/29/17 03:23 Hospitalization ordered by April Wick for Observation. Preliminary diagnosis are Dyspnea, Obesity, unspecified, Unspecified combined systolic (congestive) and diastolic (congestive) heart failure. - Bed requested for Telemetry/MedSurg (Inpatient). - Status is Observation. hb - Condition is Fair. - Problem is new. - Symptoms have improved. UTI on Admission? No Signatures: Dispatcher [employer] EDMS Landy Mancini RN RN Tony Russo MD MD cha Baxter, Heather, RICCO RN Elan Murillo RN RN bp Corrections: (The following items were deleted from the chart) 03:27 03:23 Hospitalization Ordered by April Wick MD for Observation. Preliminary hao diagnosis is Dyspnea; Obesity, unspecified. Bed requested for Telemetry/MedSurg (Inpatient). Status is Observation. Condition is Fair. Problem is new. Symptoms have improved. UTI on Admission? No. hao 06:13 03:27 08/29/2017 03:23 Hospitalization Ordered by April Wick MD for Observation. kl Preliminary diagnosis is Dyspnea; Obesity, unspecified; Unspecified combined systolic (congestive) and diastolic (congestive) heart failure. Bed requested for Telemetry/MedSurg (Inpatient). Status is Observation. Condition is Fair. Problem is new. Symptoms have improved. UTI on Admission? No. hao 08:35 06:13 08/29/2017 03:23 Hospitalization Ordered by April Wick MD for Observation. hb Preliminary diagnosis is Dyspnea; Obesity, unspecified; Unspecified combined systolic (congestive) and diastolic (congestive) heart failure. Bed requested for Telemetry/MedSurg (Inpatient). Status is Observation. Condition is Fair. Problem is new. Symptoms have improved. UTI on Admission? No. jessica
[2017-08-29 03:26] LABS: Protime INR 1.24
[2017-08-29 03:39] LABS: Potassium 4.1 mEq/L (3.6-5.0)
[2017-08-29 03:45] LABS: Albumin 3.4 g/dL (3.2-5.5); Bilirubin Direct 0.2 mg/dL (0-0.2); Bilirubin Total 1.1 mg/dL (0.3-1.2); Magnesium 1.9 mg/dL (1.8-2.5)
[2017-08-29 03:46] LABS: Arterial Blood Carboxyhemoglob 1.4 % (0-1.5); Blood Gas Oxyhemoglobin 91.6 % (94-97); Blood O2 Saturation 93.9 % (92-98.5)
[2017-08-29 03:48] LABS: CKMB Creatine Kinase MB 1.1 ng/ml (0.3-4.0)
[2017-08-29] MEDS ORDERED: FUROSEMIDE 40 MG/4 ML VIAL IV ONE (04:20)
--- NOTE | 2017-08-29 04:33 | P.HP ---
Certification for Inpatient Patient admitted to: Observation With expected LOS: <2 Midnights Practitioner: I am a practitioner with admitting privileges, knowledge of patient current condition, hospital course, and medical plan of care. Services: Services provided to patient in accordance with Admission requirements found in Title 42 Section 412.3 of the Code of Federal Regulations Patient History Date of Service: 08/29/17 Reason for admission: dyspnea History of Present Illness: Mr Lassiter is a 72 years old male with history of A.Fib, DVT s/p IVC filter placement, anticoagulated with Eliquis, Severe pulmonary HTN, CAD, chronic combined systolic and diastolic CHF, came to ED complaining of SOB. His symptoms started yesterday morning, and were worsening during the day. He denied any chest pain, fever or chills. He states that has chronic dry cough, and has not been changed recently. His SOB got worse with ambulation. At arrival the patient is afebrile, O2 Sat is 97% on RA. CXR with possible venous congestion, formal reading is pending. Allergies No Known Allergies Allergy (Uncoded 12/16/16 17:47) Unknown Unable to obtain Allergy (Uncoded 09/29/16 00:20) Unknown Home Medications: Atorvastatin Calcium [Lipitor] 40 mg PO BEDTIME 10/25/14 Furosemide [Lasix*] 20 mg PO DAILY 10/25/14 Metoprolol Succinate [Toprol Xl*] 50 mg PO BID 10/25/14 Amiodarone HCl [Pacerone] 200 mg PO BID 05/28/16 Levothyroxine [Synthroid*] 50 mcg PO DAILY 05/28/16 Ondansetron HCl [Zofran] 4 mg PO Q6H #50 tablet 05/31/16 traMADol HCL [Ultram] 50 mg PO Q6H PRN #60 tab 05/31/16 Finasteride [Proscar] 5 mg PO DAILY 12/17/16 Gabapentin [Neurontin] 100 mg PO DAILY 12/17/16 Spironolactone 25 mg PO DAILY 12/17/16 Tamsulosin [Flomax] 0.4 mg PO BEDTIME 12/17/16 Warfarin Sodium 5 mg PO DAILY 12/17/16 Cefuroxime [Ceftin] 250 mg PO BID #14 tab 12/18/16 Metronidazole [Flagyl] 500 mg PO Q8H #21 tablet 12/18/16 - Past Medical/Surgical History Diabetic: No -: MT -: HYPERLIPIDEMIA -: HTN -: Atrial fibrillation -: History all of presumed sleep apnea -: DVT -: HEART STENT X4 -: IVC filter placement - Family History Father -: Cancer Brother -: Cancer - Social History Smoking Status: Never smoker Alcohol use: No CD- Drugs: No Caffeine use: No Place of Residence: Home Review of Systems 10-point ROS is otherwise unremarkable Physical Examination - Physical Exam General: Alert, In no apparent distress HEENT: Atraumatic, PERRLA, Mucous membr. moist/pink, EOMI, Sclerae nonicteric Neck: Supple, 2+ carotid pulse no bruit, No LAD, Without JVD or thyroid abnormality Respiratory: Diminished, Crackles/rales (bibasilar rales) Cardiovascular: Regular rate/rhythm, Normal S1 S2 Gastrointestinal: Normal bowel sounds, No tenderness Musculoskeletal: No tenderness, Swelling (LE edema 1+ bilateral) Integumentary: No rashes Neurological: Normal speech, Normal strength at 5/5 x4 extr, Normal tone, Normal affect Lymphatics: No axilla or inguinal lymphadenopathy - Studies Laboratory Data (last 24 hrs) 08/29/17 03:00: PT 14.7 H, INR 1.24, APTT 28.2 08/29/17 03:00: WBC 8.9, Hgb 11.4 L, Hct 35.4 L, Plt Count 176 08/29/17 03:00: B-Natriuretic Peptide 200 H 08/29/17 03:00: Sodium 138, Potassium 4.1, BUN 13, Creatinine 1.25 H, Glucose 113, Magnesium 1.9, Total Bilirubin 1.1, AST 22, ALT 23, Alkaline Phosphatase 73 Assessment and Plan - Problems (Diagnosis) (1) Acute on chronic combined systolic (congestive) and diastolic (congestive) heart failure Current Visit: Yes Status: Acute (2) Presence of IVC filter Onset Date: 12/18/16 Current Visit: No Status: Acute (3) Atrial fibrillation Onset Date: 12/18/16 Current Visit: No Status: Chronic Qualifiers: Atrial fibrillation type: paroxysmal Qualified Code(s): I48.0 - Paroxysmal atrial fibrillation (4) Pulmonary hypertension, moderate to severe Current Visit: No Status: Chronic (5) Sleep apnea Current Visit: No Status: Chronic Qualifiers: Sleep apnea type: unspecified type Qualified Code(s): G47.30 - Sleep apnea , unspecified - Plan #1 acute combined chronic systolic and diastolic CHF: Will give IV Lasix, will order new ECHO, cardiology consult. #2 history of A.Fib: current EKG shows normal SR at 66 bpm. He is on amiodarone and beta blockers at home. #3 history of DVT: S/P IVC filter, anticoagulated, PE at this point is unlikely. #4 severe pulmonary HTN: will consult propellant charge loader for evaluation and recommendations. - Advance Directives Does patient have a Living Will: No Does patient have a Durable POA for Healthcare: No - Code Status/Comfort Care Code Status Assessed: Yes Code Status: Full Code
--- NOTE | 2017-08-29 06:46 | EKG ---
Test Date: 2017-08-29 Test Time: 03:29:07 Dialysis Biomed Technician: DEWEY MEASUREMENT RESULTS: Intervals: Rate: 68 OR: 312 QRSD: 88 QT: 462 QTc: 491 [place]: P: 56 OR: 312 QRS: -7 T: 31 INTERPRETIVE STATEMENTS: Sinus rhythm with 1st degree AV block Cannot rule out Anterior infarct, age undetermined Abnormal ECG Compared to ECG 12/16/2016 13:58:45 Possible myocardial infarct finding now present Sinus bradycardia no longer present Left ventricular hypertrophy no longer present Prolonged QT interval no longer present Electronically Signed On 08-29-17 06:45:39 CDT by Eduardo Rocha
[2017-08-29 07:23] LABS: Urine Blood NEGATIVE (NEG); Urine Glucose NEGATIVE (NEG); Urine Protein NEGATIVE (NEG); Urine Specific Gravity 1.015 (1.005-1.030)
[2017-08-29] MEDS ORDERED: ONDANSETRON 4 MG/2 ML VIAL IV PRN (08:46)
[2017-08-29] MEDS ORDERED: ACETAMINOPHEN 500 MG TAB PO PRN (08:46)
[2017-08-29] MEDS ORDERED: APIXABAN 2.5 MG TABLET PO SCH (09:00)
[2017-08-29] MEDS ORDERED: APIXABAN 5 MG TABLET PO SCH (10:00)
--- NOTE | 2017-08-29 10:18 | RAD REPORT ---
EXAM DESCRIPTION: CT - Chest For Pe Angio - 08/29/2017 6:33 am CLINICAL HISTORY: Dyspnea, shortness of breath A preliminary written report was provided at the time of the study, and the report was reviewed prio r to final dictation. COMPARISON: CT April 2016 and April 2015 TECHNIQUE: Dynamically enhanced 3 mm thick images of the chest were obtained during administration o f approximately 150mL Isovue 370 IV contrast. Coronal and oblique reconstruction images were generate d and reviewed. Exam utilizes a protocol to evaluate the pulmonary arterial tree. All CT scans are performed using dose optimization technique as appropriate and may include automated exposure control or mA/KV adjustment according to patient size. FINDINGS: No pulmonary emboli are identified. Far peripheral branch assessment is limited secondary to motion motion. Likelihood of far peripheral pulmonary embolism is felt to be low. The aorta as imaged shows no acute or suspicious finding. No pericardial thickening or effusion. Small bilateral pleural effusions are present. Lung base atelectasis is present. Interstitial marking s overall are prominent and may well be from a mild CHF or volume overload. Numerous granulomatous ca lcifications are present. No pneumothorax. No large pleural based mass. In the anterior lower right l jorge alberto field a lobulated low-density mass is present approximately 5.9 x 3.1 cm. Margins are irregular. Anterior calcification is present though this is probably an unrelated granuloma contained within the overall mass. This is not a new finding but does measure larger when comparing back to April. No mediastinal or hilar suspicious masses. No chest wall masses or abnormal axillary lymphadenopathy. Prominent coronary artery calcifications are present. Mild bilateral gynecomastia is seen. Prominent disc and bony degenerative changes are present. IMPRESSION: No pulmonary emboli identified. Far peripheral branch assessment is limited due to motio n. Likelihood of far peripheral embolic disease is felt to be low. Approximately 5.9 x 3.1 centimeter irregular mass in the anterior lower right lung field. This is not new from prior imaging but does measure larger in transverse dimension.It is unknown if there has be en a full workup of this finding. Malignancy cannot be excluded in the presence of growth and PET-CT imaging may be helpful to assess metabolic activity. Small bilateral pleural effusions and suspected failure.
--- NOTE | 2017-08-29 10:36 | RAD REPORT ---
EXAM DESCRIPTION: RAD - Chest Single View - 08/29/2017 3:10 am CLINICAL HISTORY: Shortness of breath COMPARISON: November 2016 TECHNIQUE: AP portable chest image was obtained 0259 hours . FINDINGS: No peripheral mass or consolidation. Heart size is upper normal. Vasculature and lung andrew ings are mildly prominent. Trachea is midline. No pneumothorax or large pleural effusion. No gross amy ny abnormality seen. No acute aortic findings suspected. Multiple small calcified granulomas are pres ent and stable. IMPRESSION: Limited portable imaging. Mild failure or volume overload suspected.
[2017-08-29] MEDS: METOPROLOL TAR 50 MG TAB PO SCH ×2 (10:58→21:04)
[2017-08-29] MEDS: AMIODARONE HCL 200 MG TAB PO SCH (10:59)
[2017-08-29] MEDS: FUROSEMIDE 40 MG/4 ML VIAL IV SCH ×2 (10:59→17:37)
--- NOTE | 2017-08-29 11:11 | P.CNS ---
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 history of snoring excessive daytime somnolence history of congestive heart failure coronary artery disease no prior smoking history no history of alcohol abuse Allergies No Allergy Information Allergy (Uncoded 08/29/17 08:39) Unknown No Known Allergies Allergy (Uncoded 12/16/16 17:47) Unknown Unable to obtain Allergy (Uncoded 09/29/16 00:20) Unknown - Past Medical/Surgical History Diabetic: No -: AR -: HYPERLIPIDEMIA -: HTN -: Atrial fibrillation -: History all of presumed sleep apnea -: DVT -: HEART STENT X4 -: IVC filter placement - Family History Father Medical History: Cancer Brother Medical History: Cancer - Social History Smoking Status: Never smoker Alcohol use: No CD- Drugs: No Caffeine use: No Place of Residence: Home Review of Systems 10-point ROS is otherwise unremarkable Respiratory: Shortness of Breath Physical Examination Temp Pulse Resp BP Pulse Ox 97.6 F 100 H 20 124/82 08/29/17 02:49 08/29/17 10:59 08/29/17 07:36 08/29/17 10:59 General: Alert, Oriented x3 HEENT: Atraumatic Neck: Supple Respiratory: Clear to auscultation bilaterally Cardiovascular: No edema, Regular rate/rhythm, Normal S1 S2 Gastrointestinal: Normal bowel sounds, Soft and benign Musculoskeletal: No clubbing Integumentary: No rashes, No breakdown Laboratory Data (last 24 hrs) 08/29/17 03:00: PT 14.7 H, INR 1.24, APTT 28.2 08/29/17 03:00: WBC 8.9, Hgb 11.4 L, Hct 35.4 L, Plt Count 176 08/29/17 03:00: B-Natriuretic Peptide 200 H 08/29/17 03:00: Sodium 138, Potassium 4.1, BUN 13, Creatinine 1.25 H, Glucose 113, Magnesium 1.9, Total Bilirubin 1.1, AST 22, ALT 23, Alkaline Phosphatase 73 - Problems (1) CHF exacerbation Onset Date: 02/12/15 Current Visit: No Status: Acute Plan: Patient is 72 years of age admitted with 3 day history of shortness of breath suspect he has CHF exacerbation oxygenation satisfactory no evidence of sepsis no thromboemboli he is already anti coagulated patient has is oblong shaped mass in the right lung which did not present for the past few years maybe slightly increased in size I suspect is a loculated effusion patient has never smoked no prior history of malignancies although he has had a GI bleed before a DVT and IVC filter placed mild renal insufficiency probably has underlying sleep apnea and needs a sleep study as an outpatient previous echo shows severe pulmonary hypertension I suspect is secondary will need to repeat his echo takes 40 mg of Lasix at home continue with b.i.d. Lasix abnormalities to be followed up by serial CT scans Qualifiers: Heart failure type: combined systolic and diastolic Qualified Code(s): I50.43 - Acute on chronic combined systolic (congestive) and diastolic ( congestive) heart failure
--- NOTE | 2017-08-29 11:37 | CON ---
Identification: He is a 72-year-old man. Chief Complaint: Shortness of breath. History Of Present Illness: Mr. Lassiter has severe underlying chronic medical problems. He is short o f breath nearly all the time, but he has noticed that he is usually able to walk about 50 feet withou t trouble; now, he gets short of breath at 25 feet. He has some orthopnea. It is mostly dyspnea on exertion. There does not seem to be pain, pressure, or tightness. He is known to have depressed eje ction fraction. The last time we measured it was 6 years ago, so not very recent at all, but the eje ction fraction then was in the 40s. He is known to have lung disease with pulmonary hypertension ronnie t has not been tested in our hospital recently. He is known to have paroxysmal AFib. He is in sinus rhythm presently. About 3 months ago, he had a stroke. Also about 3 months ago, he had a WATCHMAN device placed in the left atrial appendage. He was initially on Coumadin and then about a month ago, he was switched to Eliquis 2.5 b.i.d., which would actually be an under dosing. Based on his weight , creatinine clearance, and age, his dose should be 5 b.i.d. We will make that change presently. He has been on amiodarone for more than [address] 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 He has not been on any particular medicines for his lungs. He does not u se tobacco. He had stents put in his heart, but it was more than 10 years ago. Medications: His outpatient medications have been metoprolol, amiodarone, Eliquis, Lasix, and amioda leonardo. He has had numerous medication changes. He finds them confusing, thus difficult to relay all the recent change. He does not think, he has had any more chest pain in the last several months. He does not think, he has had any bleeding. At one point, he had GI bleeding, it was treated with some kind of electrocaut phillip procedure and since then, he has been able to tolerate anticoagulants without GI bleeding. His m ost recent EKG showed sinus rhythm that was from today in the emergency room. He is completely unawa re how much he has AFib. The usual thing that people do after a WATCHMAN device is to have complete anticoagulation for 4 months, after which time they will get a transesophageal echo or a cardiac CT t o make sure the device has seated properly and is appropriately occluding the left atrial appendage, so the patient can be switched to aspirin, Plavix, and then later aspirin alone. He has not followed through with that. He thinks it may be just 3 months since he did put the WATCHMAN device. Physical Examination: General: He is alert, oriented, pleasant, appears to be older than his stated age of 71 years, very obese, not in respiratory distress now. Lungs: Reveal crackles. Heart: Reveals a regular rate and rhythm. No significant murmur. Pulmonic component of the second heart tone does not seem to be particularly loud. There is no diastolic murmur. Abdomen: Soft. Extremities: mild edema. The EKG shows sinus rhythm, no infarction, injury or ischemia. Impression: The patient has pulmonary edema, which showed on x-ray and physical exam. More diuresis will help him breathe better. We will have him continue taking the amiodarone for now to keep him i n sinus rhythm. The issue is whether he has pulmonary toxicity or not is probably incompletely evalu ated, but we do not have any records from that. It is probably all up at [facility] and they have elected to keep him on amiodarone, so I think it is prudent for us to continue that presently. I thi nk the only thing he really needs to get well enough to be discharged and resume care with his outpat ient physicians is diuresis. SAMMY/KATELYN Voice ID: [id number] Report ID: [id number]
[2017-08-29] MEDS: SPIRONOLACTONE 25 MG TABLET PO SCH (13:34)
[2017-08-29] MEDS: CLOPIDOGREL 75 MG TABLET PO SCH (13:34)
[2017-08-29] MEDS: TAMSULOSIN 0.4 MG SR CAP PO SCH (13:34)
[2017-08-29] MEDS: Enoxaparin 120 MG/0.8 ML SYR SQ SCH (17:36)
[2017-08-29] MEDS: ATORVASTATIN 80 MG TAB PO SCH (21:04)
[2017-08-30] MEDS: LEVOTHYROXINE SOD 0.05 MG TABLET PO SCH (05:43)
[2017-08-30 05:57] LABS: Absolute Lymphocytes (CBC) 1.4 K/uL (0.7-4.9); Absolute Monocytes 0.8 K/uL (0.1-1.3); Absolute Neutrophil 4.3 K/uL (1.8-8.0); Basophils % 1.2 % (0-1.3); Hematocrit 36.1 % (39.6-49.0); Lymphocytes % 20.4 % (15.3-44.8); MCH 27.5 pg (27.0-35.0); MCV 83.7 fL (80-100); MPV 9.1 fL (7.6-11.3); Monocytes % 11.5 % (3.3-12.3); RBC Red Blood Cell Count 4.32 M/uL (4.33-5.43)
[2017-08-30 06:24] LABS: Potassium 3.8 mEq/L (3.6-5.0)
[2017-08-30] MEDS ORDERED: POTASSIUM CL SA 10 MEQ TAB PO ONE (06:50)
[2017-08-30] MEDS: Enoxaparin 120 MG/0.8 ML SYR SQ SCH (09:00)
[2017-08-30] MEDS ORDERED: TAMSULOSIN 0.4 MG SR CAP PO SCH (09:00)
[2017-08-30] MEDS: SPIRONOLACTONE 25 MG TABLET PO SCH (09:11)
[2017-08-30] MEDS: METOPROLOL TAR 50 MG TAB PO SCH ×2 (09:11→21:30)
[2017-08-30] MEDS: TAMSULOSIN 0.4 MG SR CAP PO SCH (09:11)
[2017-08-30] MEDS: AMIODARONE HCL 200 MG TAB PO SCH (09:12)
[2017-08-30] MEDS: CLOPIDOGREL 75 MG TABLET PO SCH (09:12)
[2017-08-30] MEDS: FUROSEMIDE 40 MG/4 ML VIAL IV SCH ×2 (09:12→18:35)
--- NOTE | 2017-08-30 11:29 | PN ---
Mr. Lassiter is breathing much better. He has had a significant diuresis. Dr. Wren is interested i n , not let him go home tomorrow. I think that is fine. Alternatively, he could be discha rged and do outpatient testing. A lung biopsy apparently is planned tomorrow and the patient is stay ing and we will do an echocardiogram tomorrow as well to see what his PA pressure is. I think the pa tient is very symptomatic when he is in AFib. His amiodarone is not controlling the AFib he is in AFib at the time of this dictation and I think he should have an AFib ablation, perhaps a co mplete AV node ablation and a pacemaker and/or defibrillator. We will get an echo tomorrow, probably a lung biopsy tomorrow and proceed from there. SAMMY/KATELYN Voice ID: [id number] Report ID: [id number]
--- NOTE | 2017-08-30 12:15 | RAD REPORT ---
EXAM DESCRIPTION: Rosemary Pa And Lat (2 Views)08/30/2017 11:52 am CLINICAL HISTORY: Cough COMPARISON: August 29 FINDINGS: Mild bilateral pulmonary opacities have resolved. Calcified lung granulomas are seen. . Th e heart is mildly enlarged IMPRESSION: Resolution mild CHF
--- NOTE | 2017-08-30 17:56 | PN ---
Subjective: The patient currently lying in bed. He looks comfortable. He did have orthostatic epis ode downstairs when he was going to have x-ray. No chest pain. No abdominal pain. No palpitation. He is little bit irritated about the plan of care. He does not believe he would need cardiac ablati on. Review of Systems: Otherwise, negative. Physical Examination: Current Vital Signs: Blood pressure 121/81, respiratory rate 16, pulse 93, temperature 97.3. General: The patient is alert and oriented x3. Does not look in any distress. HEENT: Atraumatic, normocephalic. PERRLA. Oral mucosa is moist. Neck: Supple. No JVD. No carotid bruits. Heart: Regular rate and rhythm. No gallop or murmur. Abdomen: Soft, nontender, no masses, obese. Positive bowel sounds. Chest: Decreased breath sound at bases. Extremities: No clubbing, cyanosis. No calf tenderness. He has trace edema. Neurologic: Grossly intact. Cranial exam 2 through 12 intact. Normal sensation. Normal reflexes. Normal muscle strength. Assessment And Plan: 1.Pulmonary edema secondary to acute on chronic congestive heart failure. Better continue Lasix 40 b.i.d. and aldactone. 2.Atrial fibrillation. Rate control with metoprolol 50 twice a day. Amiodarone [address] Rocha recommended? ablation to be done in [place], which apparently patient does not agree wit h. Echocardiogram to be done in the morning. 3.CAT scan with the right lung mass 5.9 x 3.1 cm. We will proceed with a CT-guided biopsy tomorrow to rule out malignancy. The patient's anticoagulation switched to Lovenox that will be held 12 hours before procedure today to proceed with biopsy tomorrow. 4.Pleural effusion most likely secondary to congestive heart failure. 5.Anemia, multifactorial, most likely secondary to chronic disease. 6.Renal insufficiency ? chronic versus acute secondary to diuresis. We will observe for now and may be decrease Lasix in a.m., if patient's renal insufficiency continues to get worse. ORVILLE/JAZIELL Voice ID: [id number] Report ID: [id number]
[2017-08-30] MEDS: ATORVASTATIN 80 MG TAB PO SCH (21:31)
--- NOTE | 2017-08-31 00:21 | P.PN ---
Date of Service: 08/30/17 The patient was in the commode when suddenly become unresponsive, pale and had agonal breathing, according to staff who was witnessed the episode. Code 99 was called. At arrival the patient was breathing in his own, and gradually become alert. Subsequently the patient become agitated, and did not allow us to perform physical exam, take vitals signs or do any lab test. This was probably a vasovagal episode. Early I was reported that the patient had documented orthostatic hypotension. Before I left the room, the patient was able to sit up and repositioned in the bed by himself.
[2017-08-31 06:09] VITALS: BMI 39.2
--- NOTE | 2017-08-31 08:52 | P.PN ---
Subjective Date of Service: 08/31/17 Primary Care Provider: none Chief Complaint: dyspnea Subjective: Other (Patient doing better this morning. Patient had orthostatics hypotension episode last night while going to the bathroom.) Physical Examination - Vital Signs Temperature: 97.0 F Blood Pressure: 141/77 Pulse: 81 Respirations: 20 Pulse Ox (%): 98 - Physical Exam General: Alert, In no apparent distress, Oriented x3, Cooperative HEENT: Atraumatic, Mucous membr. moist/pink Neck: Supple Respiratory: Clear to auscultation bilaterally, Normal air movement Cardiovascular: Irregular heart rate/rhythm (Atrial fibrillation, rate controlled) Gastrointestinal: Normal bowel sounds, Soft and benign, Non-distended, No tenderness, No masses, No rebound, No guarding Musculoskeletal: No erythema, No tenderness, No warmth Integumentary: No tenderness/swelling, No erythema, No warmth, No cyanosis Neurological: Normal speech, Normal strength at 5/5 x4 extr, Normal tone, Normal affect - Studies Medications List Reviewed: Yes Assessment & Plan - Problems (Diagnosis) (1) Pulmonary hypertension, moderate to severe Onset Date: 08/31/17 Current Visit: Yes Status: Chronic Plan: Will continue with diuresis. Patient be taught a 1500 cc per day fluid restriction. Case discussed with pulmonology and Cardiology. From a pulmonology as perspective no need for biopsy of lung mass. Patient will need repeat CT scan in 3 months to further assess the lung mass. From a cardiac standpoint patient will need to follow up with electrophysiology as an outpatient as the patient may require cardiac ablation. (2) CHF (congestive heart failure) Onset Date: 05/07/15 Current Visit: No Status: Acute Plan: Combined acute on chronic systolic and diastolic CHF noted. Will change Lasix IV to oral. Will continue 1500 cc per day fluid restriction. Will continue monitor closely. Patient had orthostatics changes last night. Will physical therapy ambulate. Once blood pressures are better stabilize in the patient can be discharged home. Case discussed with pulmonology and Cardiology. Patient may require home health and physical therapy at discharge. (3) Lung mass Current Visit: No Status: Chronic Plan: Case discussed with pulmonology. Patient will need repeat CT scan in 3 months. This is been present for over 2 years. No significant change noted as per pulmonology and radiology. If the patient requires biopsy in the future, this will have to be done at a higher level care center as recommended by radiology. Pulmonology recommends to repeat CT scan and monitor closely. (4) Atrial fibrillation Onset Date: 12/18/16 Current Visit: No Status: Chronic Plan: Case discussed with cardiology. Patient will continue with amiodarone and medication. Patient will continue with Eliquis 5 mg 1 pill twice daily. Patient will need to follow up with electrophysiology as an outpatient as the patient may require cardiac ablation. This be done as an outpatient. Qualifiers: Atrial fibrillation type: paroxysmal Qualified Code(s): I48.0 - Paroxysmal atrial fibrillation (5) Hypertension Current Visit: Yes Status: Chronic Plan: Will continue with medication. May need to adjust blood pressure medication Qualifiers: Hypertension type: essential hypertension Qualified Code(s): I10 - Essential (primary) hypertension (6) Obstructive sleep apnea Current Visit: Yes Status: Suspected Plan: Pulmonology recommends sleep study to be done as an outpatient as patient may require CPAP at night. (7) Chronic renal disease Current Visit: Yes Status: Chronic Plan: Mild renal disease noted. Diuretic therapy adjusted. This can be monitored closely as an outpatient. Qualifiers: Chronic kidney disease stage: stage 2 (mild) Qualified Code(s): N18.2 - Chronic kidney disease, stage 2 (mild) (8) Anemia Current Visit: Yes Status: Chronic Plan: This is likely of chronic disease. Patient with history of GI bleed in the past. Will monitor closely. Patient on chronic anti coagulation therapy Qualifiers: Anemia type: other cause Other causes of anemia: chronic disease, other Qualified Code(s): D63.8 - Anemia in other chronic diseases classified elsewhere (9) Hypothyroidism Current Visit: Yes Status: Chronic Plan: Will continue with his medication. Qualifiers: Hypothyroidism type: unspecified Qualified Code(s): E03.9 - Hypothyroidism , unspecified (10) Orthostatic hypotension Current Visit: Yes Status: Acute Plan: Will change IV Lasix to oral. What physical therapy ambulate. Will teach on orthostatic hypotension. May need to adjust blood pressure medication. Patient may be discharged once blood pressures are better stabilized. (11) Obesity Current Visit: Yes Status: Chronic Plan: Will teach on lifestyle modification education. Qualifiers: Obesity type: due to excess calories Obesity classification: adult class 2 (BMI 35 - 39.9) Serious obesity comorbidity presence: with serious comorbidity Body mass index: BMI 39.0-39.9 Qualified Code(s): E66.01 - Morbid (severe) obesity due to excess calories; Z68.39 - Body mass index (BMI) 39.0-39.9, adult Discharge Plan: Home Plan to discharge in: 24 Hours Time Spent Managing Pts Care (In Minutes): 55
[2017-08-31] MEDS ORDERED: FUROSEMIDE 40 MG TABLET PO SCH (09:00)
[2017-08-31] MEDS: METOPROLOL TAR 50 MG TAB PO SCH (09:06)
[2017-08-31] MEDS: CLOPIDOGREL 75 MG TABLET PO SCH (09:09)
[2017-08-31] MEDS: AMIODARONE HCL 200 MG TAB PO SCH (09:09)
[2017-08-31] MEDS: TAMSULOSIN 0.4 MG SR CAP PO SCH (09:09)
[2017-08-31] MEDS: APIXABAN 5 MG TABLET PO SCH ×2 (09:10→21:32)
[2017-08-31] MEDS: SPIRONOLACTONE 25 MG TABLET PO SCH (09:10)
[2017-08-31] MEDS: LEVOTHYROXINE SOD 0.05 MG TABLET PO SCH (09:10)
--- NOTE | 2017-08-31 12:39 | ECHO ---
HEIGHT: 5 ft 8 in WEIGHT: 258 lb 3.2 oz DATE OF STUDY: 08/31/[address]: Matt Wren MD 2-DIMENSIONAL: YES M.MODE: YES DOPPLER: YES COLOR FLOW: YES TDS: NO PORTABLE: NO DEFINITY: NO BUBBLE STUDY: NO DIAGNOSIS: CONGESTIVE HEART FAILURE, SEVERE PULMONARY HYPERTENSION CARDIAC HISTORY: CATHERIZATION: SURGERY: PROSTHETIC VALVE: PACEMAKER: MEASUREMENTS (cm) DIASTOLIC (NORMALS) SYSTOLIC (NORMALS) IVSd 1.4 (0.6-1.2) LA Diam 4.6 (1.9-4.0) LVEF 60-69% LVIDd 5.1 (3.5-5.7) LVIDs 2.8 (2.0-3.5) %FS 45% LVPWd 1.4 (0.6-1.2) Ao Diam 3.6 (2.0-3.7) 2 DIMENSIONAL ASSESSMENT: RIGHT ATRIUM: DILATED LEFT ATRIUM: DILATED RIGHT VENTRICLE: NORMAL LEFT VENTRICLE: LEFT VENTRICULAR HYPERTROPHY TRICUSPID VALVE: NORMAL MITRAL VALVE: NORMAL PULMONIC VALVE: NORMAL AORTIC VALVE: MILD SCLEROSIS PERICARDIAL EFFUSION: NONE AORTIC ROOT: NORMAL LEFT VENTRICULAR WALL MOTION: NORAML DOPPLER/COLOR FLOW: MILD AORTIC AND MITRAL REGURGITATION. NO AORTIC STENOSIS. COMMENTS: NORMAL LEFT VENTRICULAR EJECTION FRACTION. LEFT VENTRICULAR HYPERTROPHY. DILATED LEFT AND RIGHT ATRIUM. MILD AORTIC SCLEROSIS WITH NO AORTIC STENOSIS. UNABLE TO ESTIMATE RIGHT VENTRICULAR SYSTOLIC PRESSURE. MILD AORTIC AND MITRAL REGURGITATION. TECHNOLOGIST: Dennis MONTOYA
[2017-08-31] MEDS: METOPROLOL TAR 25 MG TAB PO SCH ×2 (14:00→21:00)
[2017-08-31] MEDS: ATORVASTATIN 80 MG TAB PO SCH (21:32)
[2017-09-01] MEDS: LEVOTHYROXINE SOD 0.05 MG TABLET PO SCH (05:25)
--- NOTE | 2017-09-01 08:25 | P.PN ---
Subjective Date of Service: 09/01/17 Primary Care Provider: none Chief Complaint: dyspnea Subjective: Other (Patient had episodes of orthostatics changes yesterday.) Physical Examination - Vital Signs Temperature: 97 F Blood Pressure: 119/64 Pulse: 97 Respirations: 14 Pulse Ox (%): 94 - Physical Exam General: Alert, In no apparent distress, Cooperative HEENT: Atraumatic Neck: Supple Respiratory: Clear to auscultation bilaterally, Normal air movement Cardiovascular: Irregular heart rate/rhythm (Atrial fibrillation, rate controlled) Gastrointestinal: Normal bowel sounds, Soft and benign, Non-distended Musculoskeletal: No erythema, No tenderness, No warmth Integumentary: No tenderness/swelling, No erythema, No warmth, No cyanosis Neurological: Normal speech, Normal strength at 5/5 x4 extr, Normal tone, Normal affect - Studies Medications List Reviewed: Yes Assessment & Plan - Problems (Diagnosis) (1) Pulmonary hypertension, moderate to severe Onset Date: 08/31/17 Current Visit: Yes Status: Chronic Plan: Case discussed at length with cardiology. Lasix adjusted yesterday due to orthostatics changes. Will discontinue Flomax. Will hold metoprolol if patient still orthostatics. Once orthostatics are stable then will discharge home. From a cardiology perspective, the patient will need to follow up with electrophysiology for cardiac ablation and pacemaker placement. From a pulmonology perspective the patient will need to have a repeat CT scan in 3 months to monitor lung mass. Radiology reported that the mass was close to the heart, therefore if a biopsy is needed in the future this will have to be done at a higher level of care center. This was discussed at length with the patient. (2) CHF (congestive heart failure) Onset Date: 05/07/15 Current Visit: No Status: Acute Plan: Combined acute on chronic systolic and diastolic CHF noted. Lasix was discontinue yesterday due to orthostatics changes. Patient on Aldactone. Will continue with above plan of care to maintain adequate blood pressure stability. Once stable the patient can be discharged home. (3) Lung mass Current Visit: No Status: Chronic Plan: Case discussed with pulmonology and radiology. Patient will need repeat CT scan in 3 months. There has been no significant change in the mass in over 2 years. Radiology mentioned that if a biopsy is required in the future this will have to be done at a higher level of care center since the mass is close to the heart. This was addressed in detail to the patient. Patient seems to understand. Had to address this multiple times to the patient. (4) Atrial fibrillation Onset Date: 12/18/16 Current Visit: No Status: Chronic Plan: Case discussed with cardiology. Patient will continue with amiodarone and anti coagulation therapy. This includes Eliquis 5 mg 1 pill twice daily. Patient will need to see electrophysiology as an outpatient for cardiac ablation and pacemaker placement. This will be done as an outpatient. This was addressed in detail multiple times with the patient. He seems to understand this. Cardiology also recommended that he choose only 1 tube bending machine operator to complete this process. Cardiology mentions that the patient has multiple cardiologists therefore making it difficult for him to complete the process of cardiac ablation. Qualifiers: Atrial fibrillation type: paroxysmal Qualified Code(s): I48.0 - Paroxysmal atrial fibrillation (5) Hypertension Current Visit: Yes Status: Chronic Plan: Medication had been adjusted. Will discontinue metoprolol since the patient is orthostatic. Once blood pressure stable then the patient can be discharged home. Qualifiers: Hypertension type: essential hypertension Qualified Code(s): I10 - Essential (primary) hypertension (6) Obstructive sleep apnea Current Visit: Yes Status: Suspected Plan: Pulmonology recommends sleep study to be done as an outpatient as patient may require CPAP at night. (7) Chronic renal disease Current Visit: Yes Status: Chronic Plan: Mild renal disease noted. Diuretic therapy adjusted. This can be monitored closely as an outpatient. Qualifiers: Chronic kidney disease stage: stage 2 (mild) Qualified Code(s): N18.2 - Chronic kidney disease, stage 2 (mild) (8) Anemia Current Visit: Yes Status: Chronic Plan: This is likely of chronic disease. Patient with history of GI bleed in the past. Will monitor closely. Patient on chronic anti coagulation therapy Qualifiers: Anemia type: other cause Other causes of anemia: chronic disease, other Qualified Code(s): D63.8 - Anemia in other chronic diseases classified elsewhere (9) Hypothyroidism Current Visit: Yes Status: Chronic Plan: Will continue with his medication. Qualifiers: Hypothyroidism type: unspecified Qualified Code(s): E03.9 - Hypothyroidism , unspecified (10) Orthostatic hypotension Current Visit: Yes Status: Acute Plan: Lasix has been discontinued. Metoprolol and Flomax also discontinued. Will continue to monitor blood pressure off medication. Once stable the patient can be discharged home. (11) Obesity Current Visit: Yes Status: Chronic Plan: Will teach on lifestyle modification education. Qualifiers: Obesity type: due to excess calories Obesity classification: adult class 2 (BMI 35 - 39.9) Serious obesity comorbidity presence: with serious comorbidity Body mass index: BMI 39.0-39.9 Qualified Code(s): E66.01 - Morbid (severe) obesity due to excess calories; Z68.39 - Body mass index (BMI) 39.0-39.9, adult Discharge Plan: Home Plan to discharge in: 24 Hours Time Spent Managing Pts Care (In Minutes): 55
[2017-09-01] MEDS ORDERED: FUROSEMIDE 40 MG TABLET PO SCH (09:00)
[2017-09-01] MEDS: APIXABAN 5 MG TABLET PO SCH ×2 (09:59→21:42)
[2017-09-01] MEDS: CLOPIDOGREL 75 MG TABLET PO SCH (09:59)
[2017-09-01] MEDS: AMIODARONE HCL 200 MG TAB PO SCH (09:59)
[2017-09-01] MEDS: SPIRONOLACTONE 25 MG TABLET PO SCH (09:59)
[2017-09-01] MEDS: SODIUM CHLORIDE 1 GM TAB PO SCH (17:55)
[2017-09-01] MEDS: ATORVASTATIN 80 MG TAB PO SCH (21:42)
--- NOTE | 2017-09-01 23:58 | PN ---
Date of Progress Note: 09/01/2017 History: Mr. Lassiter was admitted with hypotension. He has a history of congestive heart failure, atr ial fibrillation. He is status post Watchman's procedure. He apparently also takes Flomax for benig n prostatic hypertrophy. He remains on amiodarone. 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 Coleman at [facility] and Dr. Quintero in [place], but what is worth, he remains on amiodarone and still has lots of breakthrough atrial fi brillation. He was being diuresed gently while watching his blood pressure. My suggestion is that anyi lopes can go home from my standpoint. I think he needs to be on Lasix. I think we definitely need to st op his Flomax. Personally, I think his amiodarone needs to be stopped and he should probably have a more definitive treatment for his atrial fibrillation such as ablation and a pacemaker as he is still having breakthrough on amiodarone, for me that his amiodarone is causing all his problems. He was o ffered to follow up with me if he chose that he will hopefully be seen Dr. Quintero in the near future. The case was discussed with Dr. Mares. JULIO CESAR/KATELYN Voice ID: [id number] Report ID: [id number]
[2017-09-02] MEDS: LEVOTHYROXINE SOD 0.05 MG TABLET PO SCH (05:54)
[2017-09-02] MEDS: AMIODARONE HCL 200 MG TAB PO SCH (10:03)
[2017-09-02] MEDS: CLOPIDOGREL 75 MG TABLET PO SCH (10:03)
[2017-09-02] MEDS: SPIRONOLACTONE 25 MG TABLET PO SCH (10:03)
[2017-09-02] MEDS: APIXABAN 5 MG TABLET PO SCH ×2 (10:04→20:19)
[2017-09-02] MEDS: SODIUM CHLORIDE 1 GM TAB PO SCH ×2 (10:07→17:39)
--- NOTE | 2017-09-02 14:30 | RAD REPORT ---
EXAM DESCRIPTION: TORRI - ANTONELLA - 09/02/2017 2:02 pm CLINICAL HISTORY: Syncope, orthostatic hypotension COMPARISON: None. TECHNIQUE: Real-time sonographic evaluation of both carotid systems was performed. Doppler interroga tion was performed with waveform tracing bilaterally. FINDINGS: Normal high resistance waveforms are noted in both external carotid arteries. The common c arotid arteries and internal carotid arteries show normal low resistance waveforms. Calcified plaquing changes are present in each internal carotid artery. Plaquing changes do not appea r to significantly narrow a vessel lumen. Peak systolic and end diastolic velocity values and the ICA /CCA ratios are in the non-hemodynamically significant range. Antegrade flow seen in both vertebral arteries. Velocity values and ratios were recorded and are retained in the patient's imaging records. IMPRESSION: Bilateral bulb and ICA calcified plaquing changes are present. Currently plaquing changes do not cause a significant degree of stenosis. No evidence of a hemodynamically significant stenosis.
--- NOTE | 2017-09-02 14:50 | PN ---
Date of Progress Note: 09/02/2017 Subjective: The patient is seen and examined. Chart reviewed and case discussed with RN and Dr. Monroe gutierrez. The patient complaining about his blood pressure being low when he sits up or stands up. Review of Systems: Negative except as above. Medications: Reviewed. Physical Examination: Vital Signs: Temperature 97.4, heart rate 102, blood pressure 138/77, respirations 18, O2 100% on ro om air. Orthostatic vital signs; blood pressure sitting 107/63, blood pressure standing 57/49. General: Awake, alert, oriented x3, in no distress. Elderly male, morbidly obese. CV: S1, S2, irregularly irregular. Peripheral pulses present. Respiratory: Moving air well bilaterally. No wheezing. Gastrointestinal: Abdomen is soft, nontender, and nondistended. Positive bowel sounds. Extremities: No clubbing, cyanosis, edema. Neurologic: Nonfocal. Laboratory Data: Labs pending at this time. Blood cultures, no growth to date. Assessment And Plan: 1.Pulmonary hypertension, [id number]. 2.Acute on chronic systolic and diastolic heart failure. Lasix discontinued due to orthostatic marin ges. Continue Aldactone. 3.Lung mass, chronic. The patient will need repeat CT scan in 3 months. No significant change of t he mass over 2 years. If biopsy is required per Radiology, this will have to be done at a tertiary [facility] center as the mass is too close to the heart and unable to be performed here at this hospital. T he patient understands. 4.Atrial fibrillation with controlled ventricular rate. The patient is on Eliquis 5 mg twice a day. The patient will need to see hand potter and will probably need cardiac ablation and pacema ker placement. The patient has been going to multiple cardiologists, therefore unable to complete th is process of cardiac ablation. The patient was recommended to choose 1 safety relief valve technician and stick with one physician in order to complete the process because of the option of second opinion. 5.Essential hypertension. Medications adjusted due to orthostatic hypotension. Metoprolol has been discontinued. 6.Obstructive sleep apnea. The patient will need a sleep study done as an outpatient. May require CPAP at night. 7.Chronic kidney disease, stage 2. Continue to monitor creatinine. 8.Anemia of chronic disease. The patient does have a history of GI bleeding in the past. We will m onitor for any signs of acute bleed. Continue on chronic anticoagulation. The patient understands r isks versus benefit analysis. 9.Hypothyroidism. Continue medications. 10.Orthostatic hypotension. Lasix, metoprolol, and Flomax have been discontinued. The patient was started on salt tablets yesterday; however, still orthostatic. We will initiate fludrocortisone and monitor. The patient currently getting very dizzy and has a fall risk; however, declines going to a group home facility. 11.Obesity, BMI 39.3. Counseled. 12.Gastrointestinal and deep venous thrombosis prophylaxis with PPI and Eliquis. We will continue t o monitor closely. FROY Voice ID: [id number] Report ID: [id number]
[2017-09-02] MEDS: FLUDROCORTISONE 0.1 MG TAB PO SCH (17:39)
[2017-09-02] MEDS: ATORVASTATIN 80 MG TAB PO SCH (20:19)
[2017-09-03] MEDS: LEVOTHYROXINE SOD 0.05 MG TABLET PO SCH (06:00)
[2017-09-03] MEDS: SODIUM CHLORIDE 1 GM TAB PO SCH ×2 (09:36→19:15)
[2017-09-03] MEDS: AMIODARONE HCL 200 MG TAB PO SCH (09:36)
[2017-09-03] MEDS: APIXABAN 5 MG TABLET PO SCH ×2 (09:36→21:17)
[2017-09-03] MEDS: FLUDROCORTISONE 0.1 MG TAB PO SCH (09:36)
[2017-09-03] MEDS: CLOPIDOGREL 75 MG TABLET PO SCH (09:37)
[2017-09-03] MEDS: SPIRONOLACTONE 25 MG TABLET PO SCH (09:37)
[2017-09-03 20:05] LABS: Absolute Lymphocytes (CBC) 1.3 K/uL (0.7-4.9); Absolute Monocytes 0.6 K/uL (0.1-1.3); Basophils % 1.2 % (0-1.3); Eosinophils % 2.3 % (0-4.4); Hematocrit 37.4 % (39.6-49.0); Lymphocytes % 18.3 % (15.3-44.8); MCH 27.1 pg (27.0-35.0); MCV 83.9 fL (80-100); MPV 9.1 fL (7.6-11.3); Monocytes % 7.9 % (3.3-12.3); RBC Red Blood Cell Count 4.46 M/uL (4.33-5.43)
[2017-09-03 20:17] VITALS: O2SAT 97
[2017-09-03 20:19] LABS: Magnesium 2.2 mg/dL (1.8-2.5); Potassium 4.7 mEq/L (3.6-5.0)
[2017-09-03] MEDS: ATORVASTATIN 80 MG TAB PO SCH (21:17)
[2017-09-04] MEDS: LEVOTHYROXINE SOD 0.05 MG TABLET PO SCH (05:54)
[2017-09-04] MEDS: APIXABAN 5 MG TABLET PO SCH (09:39)
[2017-09-04] MEDS: CLOPIDOGREL 75 MG TABLET PO SCH (09:40)
[2017-09-04] MEDS: AMIODARONE HCL 200 MG TAB PO SCH (09:40)
[2017-09-04] MEDS: SODIUM CHLORIDE 1 GM TAB PO SCH (09:40)
[2017-09-04] MEDS: FLUDROCORTISONE 0.1 MG TAB PO SCH (09:40)
[2017-09-04 11:53] VITALS: BP 130/89; TEMP 97
--- NOTE | 2017-09-04 12:15 | P.DS ---
Admission Date: 08/30/17 Discharge Date: 09/04/17 Primary Care Provider: none Disposition: ROUTINE DISCHARGE Discharge Condition: GOOD Reason for Admission: dyspnea Consultations: Cardiology-Dr. Llanos Procedures: ECHO: Ejection fraction 60%. Normal left ventricular ejection fraction. Left ventricular hypertrophy. Dilated left and right atrium. Mild aortic sclerosis without stenosis. Carotid Doppler call mild plaque noted no significant stenosis noted. CT scan: FINDINGS: No pulmonary emboli are identified. Far peripheral branch assessment is limited secondary to motion motion. Likelihood of far peripheral pulmonary embolism is felt to be low. The aorta as imaged shows no acute or suspicious finding. No pericardial thickening or effusion. Small bilateral pleural effusions are present. Lung base atelectasis is present. Interstitial markings overall are prominent and may well be from a mild CHF or volume overload. Numerous granulomatous calcifications are present. No pneumothorax. No large pleural based mass. In the anterior lower right lung field a lobulated low-density mass is present approximately 5.9 x 3.1 cm. Margins are irregular. Anterior calcification is present though this is probably an unrelated granuloma contained within the overall mass. This is not a new finding but does measure larger when comparing back to April. No mediastinal or hilar suspicious masses. No chest wall masses or abnormal axillary lymphadenopathy. Prominent coronary artery calcifications are present. Mild bilateral gynecomastia is seen. Prominent disc and bony degenerative changes are present. IMPRESSION: No pulmonary emboli identified. Far peripheral branch assessment is limited due to motion. Likelihood of far peripheral embolic disease is felt to be low. Approximately 5.9 x 3.1 centimeter irregular mass in the anterior lower right lung field. This is not new from prior imaging but does measure larger in transverse dimension.It is unknown if there has been a full workup of this finding. Malignancy cannot be excluded in the presence of growth and PET-CT imaging may be helpful to assess metabolic activity. - Problems (1) Pulmonary hypertension, moderate to severe Onset Date: 08/31/17 Current Visit: Yes Status: Chronic (2) CHF (congestive heart failure) Onset Date: 05/07/15 Current Visit: No Status: Acute (3) Lung mass Current Visit: No Status: Chronic (4) Atrial fibrillation Onset Date: 12/18/16 Current Visit: No Status: Chronic Qualifiers: Atrial fibrillation type: paroxysmal Qualified Code(s): I48.0 - Paroxysmal atrial fibrillation (5) Hypertension Current Visit: Yes Status: Chronic Qualifiers: Hypertension type: essential hypertension Qualified Code(s): I10 - Essential (primary) hypertension (6) Obstructive sleep apnea Current Visit: Yes Status: Suspected (7) Chronic renal disease Current Visit: Yes Status: Chronic Qualifiers: Chronic kidney disease stage: stage 2 (mild) Qualified Code(s): N18.2 - Chronic kidney disease, stage 2 (mild) (8) Anemia Current Visit: Yes Status: Chronic Qualifiers: Anemia type: other cause Other causes of anemia: chronic disease, other Qualified Code(s): D63.8 - Anemia in other chronic diseases classified elsewhere (9) Hypothyroidism Current Visit: Yes Status: Chronic Qualifiers: Hypothyroidism type: unspecified Qualified Code(s): E03.9 - Hypothyroidism , unspecified (10) Orthostatic hypotension Current Visit: Yes Status: Acute (11) Obesity Current Visit: Yes Status: Chronic Qualifiers: Obesity type: due to excess calories Obesity classification: adult class 2 (BMI 35 - 39.9) Serious obesity comorbidity presence: with serious comorbidity Body mass index: BMI 39.0-39.9 Qualified Code(s): E66.01 - Morbid (severe) obesity due to excess calories; Z68.39 - Body mass index (BMI) 39.0-39.9, adult Brief History of Present Illness: 72-year-old male presented emergency room with shortness of breath. Patient with history of atrial fibrillation on chronic anti coagulation therapy , combined CHF, hypothyroidism. Hospital Course: Patient presented with shortness of breath. Patient with combined systolic and diastolic CHF. Ejection fraction was reviewed with cardiology. Medications have been adjusted due to orthostatic hypotension. At discharge, Patient will continue with Aldactone 25 mg 1 pill once daily. Patient has been taken off Lasix. Recommendation is to continue a 1500 cc per day fluid restriction. This may need to be adjusted if the patient is orthostatic. Patient will need a follow up with cardiology in 1-2 weeks to follow up this hospitalization. Patient has atrial fibrillation on chronic anti coagulation therapy. Patient will continue with amiodarone 200 mg daily and Eliquis 5 mg 1 pill twice daily. Patient evaluated by Cardiology. Recommendation is for the patient to follow up with cardiology. Cardiology recommends that the patient be evaluated as an outpatient by electrophysiology for cardiac ablation and possible pacemaker placement. This can be done as an outpatient. Patient had orthostatic hypotension during his stay. Medications have been adjusted. Patient will no longer take Flomax, Lasix, and metoprolol. At discharge patient will continue with Florinef 0.1 mg daily and sodium chloride 1 pill twice daily. Patient is to monitor blood pressures. Patient will need to move slowly to prevent orthostatics hypotension. Education has been provided. Patient has hypothyroidism. Patient continue with Levoxyl 50 mcg daily. Patient has abnormal lesion to the lung. This has not changed since 2015. This was reviewed with radiology and pulmonology. Recommendation is the patient follow up with pulmonology in 1-2 weeks. Patient will need repeat serial CT scan scans every 3 months to monitor closely. If the patient requires biopsy in the future this will have to be done at a higher level of care center. Vital Signs/Physical Exam: Temp Pulse Resp BP Pulse Ox 97 F 99 H 18 130/89 97 09/04/17 11:53 09/04/17 11:53 09/04/17 11:53 09/04/17 11:53 09/04/17 11:53 General: Alert, In no apparent distress, Oriented x3, Cooperative HEENT: Atraumatic Neck: Supple Respiratory: Clear to auscultation bilaterally, Normal air movement Cardiovascular: Irregular heart rate/rhythm (Atrial fibrillation, rate controlled) Gastrointestinal: Normal bowel sounds, Soft and benign, Non-distended, No tenderness, No masses, No rebound, No guarding Musculoskeletal: No erythema, No tenderness, No warmth Integumentary: No tenderness/swelling, No erythema, No warmth, No cyanosis Neurological: Normal speech, Normal strength at 5/5 x4 extr, Normal tone, Normal affect Lymphatics: No axilla or inguinal lymphadenopathy Laboratory Data at Discharge: WBC 7.1 K/uL (4.3-10.9) 09/03/17 19:38 Hgb 12.1 g/dL (13.6-17.9) L 09/03/17 19:38 Hct 37.4 % (39.6-49.0) L 09/03/17 19:38 Plt Count 202 K/uL (152-406) 09/03/17 19:38 PT 14.7 SECONDS (9.5-12.5) H 08/29/17 03:00 INR 1.24 08/29/17 03:00 APTT 28.2 SECONDS (24.3-36.9) 08/29/17 03:00 Sodium 137 mEq/L (135-145) 09/03/17 19:38 Potassium 4.7 mEq/L (3.6-5.0) 09/03/17 19:38 BUN 16 mg/dL (6-20) 09/03/17 19:38 Creatinine 1.18 mg/dL (0.61-1.24) 09/03/17 19:38 Glucose 113 mg/dL (65-120) 09/03/17 19:38 Magnesium 2.2 mg/dL (1.8-2.5) 09/03/17 19:38 Total Bilirubin 1.1 mg/dL (0.3-1.2) 08/29/17 03:00 AST 22 IU/L (10-42) 08/29/17 03:00 ALT 23 IU/L (10-60) 08/29/17 03:00 Alkaline Phosphatase 73 IU/L (42-121) 08/29/17 03:00 Troponin I < 0.03 ng/mL (<0.03) 08/30/17 00:51 B-Natriuretic Peptide 200 pg/ml (<=100) H 08/29/17 03:00 Home Medications: Amiodarone HCl [Cordarone*] 200 mg PO DAILY 08/29/17 Apixaban [Eliquis] 5 mg PO BID 08/29/17 Atorvastatin Calcium [Lipitor] 80 mg PO BEDTIME 08/29/17 Clopidogrel Bisulfate [Plavix*] 75 mg PO DAILY 08/29/17 Levothyroxine Sodium 50 mcg PO DAILY 08/29/17 Spironolactone [Aldactone*] 25 mg PO DAILY 08/29/17 Fludrocortisone [Florinef *] 0.1 mg PO DAILY #30 tab 09/04/17 Sodium Chloride Tab [Sodium Chloride*] 1 gm PO BIDWM #60 tab 09/04/17 New Medications: Fludrocortisone [Florinef *] 0.1 mg PO DAILY #30 tab Sodium Chloride Tab [Sodium Chloride*] 1 gm PO BIDWM #60 tab Patient Discharge Instructions: 1. Patient will need a follow up with his PCP in 1 week to follow up this hospitalization. 2. Patient presented with shortness of breath. Patient with combined CHF. Medications have been adjusted. Patient will no longer take Lasix due to orthostatic hypotension. Patient will continue with Aldactone 25 mg 1 pill once daily. Recommendation is to continue a 1500 cc per day fluid restriction. This may need to be adjusted if the patient is orthostatic. Patient will need a follow up with cardiology in 1-2 weeks to follow up this hospitalization. 3. Patient has atrial fibrillation on chronic anti coalition therapy. Patient will continue with amiodarone 200 mg daily and Eliquis 5 mg 1 pill twice daily. Recommendation is for the patient to follow up with cardiology. Cardiology recommends that the patient be evaluated as an outpatient by electrophysiology for cardiac ablation and possible pacemaker placement. This can be done as an outpatient. 4. Patient had orthostatic hypotension. Medications have been adjusted. Patient will no longer take Flomax, Lasix, and metoprolol. At discharge patient will continue with Florinef 0.1 mg daily and sodium chloride 1 pill twice daily. Patient is to monitor blood pressures. Patient will need to move slowly to prevent orthostatics hypotension. Education has been provided. 5. Patient has hypothyroidism. Patient continue with Levoxyl 50 mcg daily. 6. Patient has abnormal lesion to the lung. This has not changed since 2016. This was reviewed with radiology and pulmonology. Recommendation is the patient follow up with pulmonology in 1-2 weeks. Patient will need repeat serial CT scan scans every 3 months to monitor closely. If the patient requires biopsy in the future this will have to be done at a higher level of care center. Diet: AHA Activity: Fall precautions Time spent managing pt's care (in minutes): 55
--- NOTE | 2017-09-07 09:50 | PN ---
Date of Progress Note: 09/03/2017 Subjective: The patient is seen and examined. Chart reviewed and case discussed with RN. The patient feeling better. BP improved Review of Systems: Negative except as above. Medications: Reviewed. Physical Examination: Vital Signs: Temperature 97.1, heart rate 92, blood pressure 118/60, respirations 16, O2 97% on room air. General: Awake, alert, oriented x3, in no distress. Ill-appearing male. Obese , BMI 39.9. CV: S1, S2, irregularly irregular. Peripheral pulses present. No murmurs. Respiratory: Moving air well bilaterally. No wheezing. Gastrointestinal: Abdomen is soft, nontender, and nondistended. Positive bowel sounds. Extremities: No clubbing, cyanosis, edema. Neurologic: Nonfocal. Laboratory Data: The patient has refused labs for the past several days. Carotid artery ultrasound shows bilateral bulb and ICA calcified plaquing changes are present. Currently changes do not cause a significant degree of stenosis and no evidence of a hemodynamically significant stenosis. Assessment And Plan: A 72-year-old male with: 1. Pulmonary hypertension, [id number]. 2. Acute on chronic systolic and diastolic heart failure, improved. Continue Aldactone. No beta-jose c due to orthostatic hypotension. Lasix also discontinued. We will continue fluid restriction. Monitor I's and O's. 3. Pulmonary nodule. We will need repeat CT scan in 3 months. No significant change of the mass over 2 years. Biopsy is required per Radiology and have to be done at tertiary care center as the mass is too close to the heart and unable to be performed at this facility. The patient was understanding. 4. Atrial fibrillation with controlled ventricular rate. Continue Eliquis for anticoagulation. The patient needs to see small equipment operator for cardiac ablation and pacemaker placement and needs to choose. Was seen by 3 different cardiologists. Explained in detail. 5. Essential hypertension. Medications adjusted. Metoprolol discontinued. Stable. 6. Obstructive sleep apnea. The patient will need sleep study as an outpatient, may require CPAP at night. 7. Chronic kidney disease, stage 2. As the patient is refusing labs, unable to monitor the creatinine. Urine output is stable. 8. Anemia of chronic disease. Does have a history of GI bleed in the past. Continue chronic anticoagulation. No signs of bleeding. 9. Hypothyroidism. Continue medications. 10. Orthostatic hypotension, likely secondary to medication side effect. Metoprolol and Flomax have been discontinued. Lasix on hold. Fludrocortisone was added. Orthostatic blood pressure is improved. Continue to monitor. Refusing care home facility placement. 11. Obesity, BMI 39.9. 12. Gastrointestinal and deep venous thrombosis prophylaxis with PPI and Eliquis. Plan: Likely discharge in the a.m. once blood pressure is improved. /KATELYN Voice ID: [id number] Report ID: [id number] MTDD
== END 2017-09-04 14:18 | disposition home or self-care (01) | DRG 291 ==
LOC: ER 02:26 → ERHOLD 03:25 → 4TH 08:33 → OBSVTOIN 08-30 16:19
PROVIDERS: ADMIT Internal Medicine; ATTEND Internal Medicine
DX: I13.0 Hypertensive heart and chronic kidney disease with heart failure and stage 1 through stage 4 chronic kidney disease, or unspecified chronic kidney disease (principal); I50.43 Acute on chronic combined systolic (congestive) and diastolic (congestive) heart failure; N18.2 Chronic kidney disease, stage 2 (mild); G47.30 Sleep apnea, unspecified; I48.0 Paroxysmal atrial fibrillation; I27.20 Pulmonary hypertension, unspecified; E78.5 Hyperlipidemia, unspecified; I25.10 Atherosclerotic heart disease of native coronary artery without angina pectoris; D64.9 Anemia, unspecified; R91.8 Other nonspecific abnormal finding of lung field; E03.9 Hypothyroidism, unspecified; E66.01 Morbid (severe) obesity due to excess calories; Z68.39 Body mass index [BMI] 39.0-39.9, adult; I95.1 Orthostatic hypotension; G47.33 Obstructive sleep apnea (adult) (pediatric); Z79.01 Long term (current) use of anticoagulants; Z95.5 Presence of coronary angioplasty implant and graft; Z86.718 Personal history of other venous thrombosis and embolism
CPT/HCPCS: 36415; 71045; 71046; 71275; 80048; 80076; 81003; 82550; 82553; 82805; 83735; 83880; 84443; 84484; 85025; 85379; 85610; 85730; 87040; 93005; 93306; 93880; 94760; 99285; J1650; Q9967

== ENCOUNTER 2017-11-19 08:05 | Inpatient (IN) | payer OTHER, BC ==
--- OUTSIDE RECORDS SUMMARY | 2017-11-19 08:07 | XMS REPORT | Clinical Summary ---
:1945 Author Organization [facility] Address [address] [place] [address] Phone Care Team Providers Name Role Phone [...] takes only once daily, prescribed twice daily. latanoprost Place 1 drop Active (XALATAN) [...] 8 mouth every evening. furosemide (LASIX) Take 1 tablet 30 tablet 1 10/07/2016 20 MG tablet (20 mg total) 8 by mouth daily. metoprolol Take 1 tablet 90 tablet 1 [...] Noted Date Atrial fibrillation (HCC) 12/10/2016 A-fib ([facility]) 12/10/2016 Anemia 09/29/2016 Acute renal failure (ARF) ([facility]) 09/29/2016 Iron deficiency anemia due to chronic blood loss 09/29/2016 Acute upper GI bleed 09/29/2016 CAD (coronary artery disease) 02/17/2013 Chest pain 02/15/2013 SOB (shortness of breath) 02/15/2013 Encounters Date Type Specialty Care Team Description 02/05/2017 Hospital Encounter Cardiology Vidal Dunbar Atrial fibrillation, MD unspecified type (HCC) 02/05/2017 Orders Only Lab Vidal Dubnar Atrial fibrillation, MD unspecified type (HCC) (Primary Dx) 02/04/2017 Outside Orders Central Scheduling Vidal Dunbar Atrial fibrillation, MD unspecified type (HCC) (Primary Dx) 12/10/2016 - Hospital Encounter Cardiology Vidal Dunbar, Acute kidney failure 12/11/2016 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 Procedure Pass 12/10/2016 Surgery Vidal Dunbar LEFT ATRIAL APPENDAGE CLOSURE W/ IMPLANT MCR - IP PROC ONLY 12/10/2016 Procedure Pass 12/08/2016 Hospital Encounter Vidal Dunbar MD 11/19/2016 Hospital Encounter Vidal Dunbar, Acute renal failureMD unspecified acute renal failure type (HCC) 11/19/2016 Anesthesia Event Kelly Garland EDUARDO Caldera 11/19/2016 Orders Only General Internal Medicine after 11/18/2016 Family History Medical History Relation Name Comments Cancer Brother lung Cancer Father lung Relation Name Status Comments Brother Father Social History Tobacco Use Types Packs/Day Years Used Date Never Smoker Smokeless Tobacco: Never Used Alcohol Use Drinks/Week oz/Week Comments No Sex Assigned at Date Recorded Not on file Last Filed Vital Signs Vital Sign Reading Time Taken Blood Pressure 99/66 02/05/2017 3:35 PM [employer] Pulse 94 02/05/2017 3:35 PM [employer] Temperature 36.6 C (97.9 F) 12/11/2016 4:57 PM CDT Respiratory Rate 18 02/05/2017 3:35 PM [employer] Oxygen Saturation 99% 02/05/2017 3:35 PM [employer] Inhaled Oxygen Concentration - - Weight 117.7 kg (259 lb 8 oz) 12/11/2016 9:00 AM CDT Height 180.3 cm (5' 11") 12/10/2016 8:12 AM CDT Body Mass Index 36.19 12/11/2016 9:00 AM CDT Plan of Treatment Not on file Implants Implanted Type Area Client Relations Associate Device Expiration Model / Identifier Date Serial / Lot Watchman Cardiovascular TOWNSEND 04/09/2019 [id number] / Implanted: Qty: 1 on 12/10/2016 by Vidal Dunbar MD [employer] / [id number] Promus Premier TOWNSEND 05/23/2015 [id number] / Implanted: Qty: 1 on 12/12/2014 [employer] / [id number] Procedures Procedure Name Priority Date/Time Associated Diagnosis Comments LEFT ATRIAL APPENDAGE 12/10/2016 10:04 AM Atrial flutter, CLOSURE W/ IMPLANT CDT unspecified type (HCC) MCR - IP PROC ONLY Case Notes POP6 WATCHMAN /CV ANES /VICTORIANO DURING after 11/18/2016 Results ECHOCARDIOGRAM REPORT - SCAN (02/26/2017 7:50 AM)Only the most recent of3 resultswithin the time period is included.Transesophageal echo (02/05/2017 2: 43 PM)Only the most recent of2 resultswithin the time period is included. Component Value Ref Range Ejection Fraction Specimen Performing Laboratory [facility] MKCKESSON CPACS Narrative Transesophageal Echocardiography Report (VICTORIANO) Demographics Patient Name SHEFALI HERNANDEZ Date of Study02/05/2017 MAGO [id number] Male Visit Number [id number] Unknown [id number] Room Number Number Date of Birth1945Referring PhysicianManjinder Drake MD Age71 year(s)Nurse Private Duty Interpreting Betsy Mcdermott MD Physician Fellow IVANNA [...] External Ris In - 02/05/2017 4:52 PM [employer] Transesophageal Echocardiography Report (VICTORIANO) Demographics Patient Name SHEFALI HERNANDEZ Date of Study 02/05/2017 MAGO Gender Male Visit Number [id number] Race Unknown Room Number Number Date of 1945 Referring Physician Manjinder Drake MD Age 71 year(s) Nurse Private Duty Interpreting Betsy Mcdermott MD Physician Fellow IVANNA [...] pulmonary veins appear normal. PT/aPTT (02/05/2017 11:38 AM) Component Value Ref Range Protime 30.3 (H) 11.7 - 14.7 seconds INR 2.9 <=5.9 PTT 41.5 (H) 22.5 - 36.0 seconds Specimen Performing Laboratory Blood [facility] [address] [address] Narrative RECOMMENDED COUMADIN/WARFARIN INR THERAPY RANGES STANDARD [...] 0 /100 WBC Specimen Performing Laboratory Blood [address] [address] Basic Metabolic Panel (02/05/2017 11:38 AM)Only the most recent of4 resultswithin the [...] FOR DIALYSIS PATIENTS. Specimen Performing Laboratory Blood [address] [address] RHYTHM STRIP - SCAN (12/19/2016 1:30 PM)Only the most recent of2 resultswithin the time period is included.CARDIAC CATH REPORT - SCAN (12/14/2016 3:50 PM) TRANSFUSION SERVICE REPORT - SCAN (12/13/2016 5:42 PM)Only the most recent of3 resultswithin the time period is included.Prepare Leuko-Red RBC (12/12/2016 11: 54 PM) Component Value Ref Range CROSSMATCH COMPATIBLE Unit ABO O Pos UNIT NUMBER [id number] Status TRANSFUSED Blood Bank Product RED BLOOD CELLS PRODUCT CODE [id number] CROSSMATCH COMPATIBLE Unit ABO O Pos UNIT NUMBER [id number] Status TRANSFUSED Blood Bank Product RED BLOOD CELLS PRODUCT CODE [id number] Specimen Performing Laboratory Other [facility] CBC with platelet count + automated diff (12/11/2016 5:45 PM)Only the most recent of3 resultswithin the [...] % Specimen Performing Laboratory Blood - Arm, [address] [address] CBC with platelet count + automated diff (12/11/2016 5:45 PM)Only the most recent of3 resultswithin the time period is included. Specimen Performing Laboratory Blood Narrative The following orders were created for panel order CBC with platelet count + automated diff. Procedure Abnormality Status --------- ------ CBC with platelet count ...[[id number]]AbnormalFinal result Please view results for these tests on the individual orders. Transfuse Leuko-Red RBC (12/11/2016 4:59 PM)Only the most recent of3 resultswithin the time period is included.XR chest [...] MD Report Verified Date/Time:12/11/2016 11:49:16 Reading Location: [facility] Radiology Reading Room Procedure Note Interface, External Ris In - 12/11/2016 11:51 AM CDT FINAL REPORT Chest one view compared to February 15, 2013 Discussion: Bilateral lung granulomas and mediastinal calcified nodes are noted. Heart size normal. No focal infiltrate or convincing cardiac failure. No effusion or pneumothorax. Signed: Yandel Duke MD Report Verified Date/Time: 12/11/2016 11:49:16 Reading Location: [facility] Radiology Reading Room Limited 2D Echocardiogram (12/11/2016 8:30 AM) Component Value Ref Range Ejection Fraction Specimen Performing Laboratory [facility]CHO [facility]ART[facility]ESS[facility] CPACS Narrative Transthoracic Echocardiography Report (TTE) Demographics Patient Name Gayle HERNANDEZ of Study 12/11/2016 MAGO [id number] GenderMale Visit Number [id number] Race Unknown [id number] Number [id number] Number Date of Birth1945 Referring Physician IVANNA Cortez Age71 year(s) Nurse Private Duty Anahy Armstrong [facility] AnalystAlex ZadeInterpreting Marshal Mata MD Physician Procedure [...] Study 12/11/2016 MAGO Gender Male Visit Number [id number] Race Unknown Room Number C631 Number Date of 1945 Referring Physician IVANNA Cortez Age 71 year(s) Nurse Private Duty Anahy Armstrong, [facility] [employer] Harinder Jennings Interpreting Marshal Mata MD Physician Procedure Type of [...] warfarin (12/11/2016 3:41 AM)Only the most recent of3 resultswithin the time period is included. Component Value Ref Range Protime 15.9 (H) 11.7 - 14.7 seconds INR 1.3 <=5.9 Specimen Performing Laboratory Blood - Arm, Left [address] [address] Narrative RECOMMENDED COUMADIN/WARFARIN INR THERAPY RANGES STANDARD [...] Range Activated Clotting Time 131Comment: TESTED AT [address] sec [address] Specimen Performing Laboratory Blood [address] [place] [address] ECG 12 lead (12/10/2016 9:51 AM)Only the most recent of2 resultswithin the time period is included. Specimen Performing Laboratory GE MUSE Narrative Ventricular Rate 51 BPM Atrial Rate 51 BPM P-R Interval 276 ms QRS Duration 96 ms Q-T Interval 496 ms QTC Calculation(Bazett) 457 ms P [place] 46 degrees R [place] -11 degrees T [place] 67 degrees Sinus bradycardia with 1st degree [...] 496 ms QTC Calculation(Bazett) 457 ms P [place] 46 degrees R [place] -11 degrees T [place] 67 degrees Sinus bradycardia with 1st degree A-V block with Premature supraventricular complexes Moderate voltage criteria for LVH, may be normal variant Nonspecific T wave abnormality Abnormal ECG When compared with ECG of 19-NOV-2016 13:21, No significant change was found Confirmed by MD LATONYA, IHAB ([id number]) on 12/10/2016 2:42:03 PM Type and screen, automated (12/10/2016 9:20 AM)Only the most recent of2 resultswithin the time period is included. Component Value Ref Range ABO/RH AUTOMATED (BEAKER) O POSITIVE Ab Scrn NEGATIVE Specimen Performing Laboratory Blood [address] [address] Magnesium (12/10/2016 9:20 AM) Component Value Ref Range Magnesium 2.1 1.6 - 2.6 mg/dL Specimen Performing Laboratory Blood [address] [address] Comprehensive metabolic panel (11/19/2016 1:12 PM) Component [...] FOR DIALYSIS PATIENTS. Specimen Performing Laboratory Blood [facility] [address] [address] after 11/18/2016
--- OUTSIDE RECORDS SUMMARY | 2017-11-19 08:09 | XMS REPORT ---
:1945 [facility] Address [address] [place] [id number] Care Team Providers Name Role Phone BOLA [...] Comments WHITE BLOOD CELL COUNT (BEAKER) (test jgkq=366) 7.0 K/ L 3.5-10.5 RED BLOOD CELL COUNT (BEAKER) (test ozqi=877) 5.09 M/ L 4.63-6.08 HEMOGLOBIN (BEAKER) (test rrfr=209) 12.5 GM/DL 13.7-17.5 HEMATOCRIT (BEAKER) (test alhn=533) 41.6 % 40.1-51.0 MEAN CORPUSCULAR VOLUME (BEAKER) (test zbbq=815) 81.7 fL 79.0-92.2 MEAN CORPUSCULAR HEMOGLOBIN (BEAKER) (test ogbj=176) 24.6 pg 25.7-32.2 MEAN CORPUSCULAR HEMOGLOBIN CONC (BEAKER) (test wfsq=198) 30.0 GM/DL 32.3- 36.5 RED CELL DISTRIBUTION WIDTH (BEAKER) (test iada=545) 21.0 % 11.6-14.4 PLATELET COUNT (BEAKER) (test awxw=073) 218 K/CU MM 150-450 MEAN PLATELET VOLUME (BEAKER) (test uose=020) 10.8 fL 9.4-12.4 NUCLEATED RED BLOOD CELLS (BEAKER) (test vrqw=699) 0 /100 WBC 0-0 BASIC METABOLIC [id number] 12:20:00 Test Item Value Reference Range Comments SODIUM (BEAKER) (test 142 meq/L 136-145 qwgc=321) POTASSIUM (BEAKER) (test 4.5 meq/L 3.5-5.1 zahm=665) CHLORIDE (BEAKER) (test 106 meq/L 98-107 ebzm=745) CO2 (BEAKER) (test 28 meq/L 22-29 sutp=020) BLOOD UREA NITROGEN 14 mg/dL 7-21 (BEAKER) (test onzg=150) CREATININE (BEAKER) (test 1.45 mg/dL 0.57-1.25 fwvj=099) GLUCOSE RANDOM (BEAKER) 99 mg/dL 70-105 (test dsof=256) CALCIUM (BEAKER) (test 8.9 mg/dL 8.4-10.2 nqxr=450) EGFR (BEAKER) (test 48 mL/min/1.73 sq m ESTIMATED GFR IS NOT yqiw=5342) ACCURATE CREATININE CLEARANCE IN PREDICTING GLOMERULAR FILTRATION RATE. ESTIMATED GFR IS NOT APPLICABLE FOR DIALYSIS PATIENTS. PT/[id number] 12:12:00 Test Item Value Reference Range Comments PROTIME (BEAKER) (test boxx=241) 30.3 seconds 11.7-14.7 INR (BEAKER) (test ksyw=145) 2.9 <=5.9 PARTIAL THROMBOPLASTIN TIME (BEAKER) (test 41.5 seconds 22.5-36.0 pbdc=179) RECOMMENDED COUMADIN/WARFARIN INR THERAPY RANGESSTANDARD DOSE: 2.0 - 3.0 Includes: PROPHYLAXIS forvenous thrombosis, systemic embolization; TREATMENT for venous thrombosis and/or pulmonary embolus.HIGH RISK: Target INR is 2.5-3.5 for patients with mechanical heart valves.CBC W/PLT COUNT & AUTO [id number] 17:54:00 Test Item Value Reference Range Comments WHITE BLOOD CELL COUNT (BEAKER) (test udid=057) 6.3 K/ L 3.5-10.5 RED BLOOD CELL COUNT (BEAKER) (test npna=587) 3.84 M/ L 4.63-6.08 HEMOGLOBIN (BEAKER) (test ujuj=961) 9.6 GM/DL 13.7-17.5 HEMATOCRIT (BEAKER) (test wlzm=348) 31.6 % 40.1-51.0 MEAN CORPUSCULAR VOLUME (BEAKER) (test rmfy=634) 82.3 fL 79.0-92.2 MEAN CORPUSCULAR HEMOGLOBIN (BEAKER) (test 25.0 pg 25.7-32.2 gscl=235) MEAN CORPUSCULAR HEMOGLOBIN CONC (BEAKER) (test 30.4 GM/DL 32.3-36.5 srmu=971) RED CELL DISTRIBUTION WIDTH (BEAKER) (test 18.0 % 11.6-14.4 cvwf=583) PLATELET COUNT (BEAKER) (test srpb=350) 176 K/CU MM 150-450 MEAN PLATELET VOLUME (BEAKER) (test nhpr=923) 10.1 fL 9.4-12.4 NUCLEATED RED BLOOD CELLS (BEAKER) (test 0 /100 WBC 0-0 iiji=452) NEUTROPHILS RELATIVE PERCENT (BEAKER) (test 72 % jemy=741) LYMPHOCYTES RELATIVE PERCENT (BEAKER) (test 15 % sapk=019) MONOCYTES RELATIVE PERCENT (BEAKER) (test 10 % bzav=106) EOSINOPHILS RELATIVE PERCENT (BEAKER) (test 2 % zjmv=680) BASOPHILS RELATIVE PERCENT (BEAKER) (test 1 % qhlh=670) NEUTROPHILS ABSOLUTE COUNT (BEAKER) (test 4.56 K/ L 1.78-5.38 ywcy=007) LYMPHOCYTES ABSOLUTE COUNT (BEAKER) (test 0.96 K/ L 1.32-3.57 qwfd=349) MONOCYTES ABSOLUTE COUNT (BEAKER) (test 0.60 K/ L 0.30-0.82 eijs=496) EOSINOPHILS ABSOLUTE COUNT (BEAKER) (test 0.14 K/ L 0.04-0.54 eqgd=847) BASOPHILS ABSOLUTE COUNT (BEAKER) (test 0.05 K/ L 0.01-0.08 yevu=170) IMMATURE GRANULOCYTES-RELATIVE PERCENT (BEAKER) 0 % 0-1 (test idww=[id number]) RAD, CHEST, 1 VIEW, NON [id number] 11:49:00Reason for exam:->SOBShould this be performed at the bedside?->YesFINAL REPORT Chest one view compared to February 15, 2013 Discussion: Bilateral lung granulomas and mediastinal calcified nodes are noted. Heart size normal. No focal infiltrate or convincing cardiac failure. No effusion or pneumothorax. Signed: Nisbet, Yandel MDReport Verified Date/Time: 12/11/2016 11:49:16 Reading Location: [facility] Radiology Reading Room BASIC METABOLIC [id number] 04:31: 00 Test Item Value Reference Range Comments SODIUM (BEAKER) (test 141 meq/L 136-145 tesj=189) POTASSIUM (BEAKER) (test 3.8 meq/L 3.5-5.1 ygde=493) CHLORIDE (BEAKER) (test 108 meq/L 98-107 ekca=277) CO2 (BEAKER) (test 24 meq/L 22-29 tyye=238) BLOOD UREA NITROGEN 13 mg/dL 7-21 (BEAKER) (test hfnr=590) CREATININE (BEAKER) (test 1.33 mg/dL 0.57-1.25 rbcv=429) GLUCOSE RANDOM (BEAKER) 106 mg/dL 70-105 (test ajdd=721) CALCIUM (BEAKER) (test 8.2 mg/dL 8.4-10.2 alrw=995) EGFR (BEAKER) (test 53 mL/min/1.73 sq m ESTIMATED GFR IS NOT fdeo=0810) ACCURATE CREATININE CLEARANCE IN PREDICTING GLOMERULAR FILTRATION RATE. ESTIMATED GFR IS NOT APPLICABLE FOR DIALYSIS PATIENTS. PROTHROMBIN [id number] 04:22:00 Test Item Value Reference Range Comments PROTIME (BEAKER) (test ohcv=330) 15.9 seconds 11.7-14.7 INR (BEAKER) (test pnkj=786) 1.3 <=5.9 RECOMMENDED COUMADIN/WARFARIN INR THERAPY RANGESSTANDARD DOSE: 2.0 - 3.0 Includes: PROPHYLAXIS forvenous thrombosis, systemic embolization; TREATMENT for venous thrombosis and/or pulmonary embolus.HIGH RISK: Target INR is 2.5-3.5 for patients with mechanical heart valves.While on warfarin.CBC (HEMOGRAM ONLY) 2016-12-11 04:21:00 Test Item Value Reference Range Comments WHITE BLOOD CELL COUNT (BEAKER) (test wjoa=765) 6.0 K/ L 3.5-10.5 RED BLOOD CELL COUNT (BEAKER) (test fgch=135) 3.25 M/ L 4.63-6.08 HEMOGLOBIN (BEAKER) (test pksg=560) 7.6 GM/DL 13.7-17.5 HEMATOCRIT (BEAKER) (test hpuj=648) 26.5 % 40.1-51.0 MEAN CORPUSCULAR VOLUME (BEAKER) (test eeal=830) 81.5 fL 79.0-92.2 MEAN CORPUSCULAR HEMOGLOBIN (BEAKER) (test 23.4 pg 25.7-32.2 bevj=292) MEAN CORPUSCULAR HEMOGLOBIN CONC (BEAKER) (test 28.7 GM/DL 32.3-36.5 obbq=826) RED CELL DISTRIBUTION WIDTH (BEAKER) (test 18.0 % 11.6-14.4 xtqz=338) PLATELET COUNT (BEAKER) (test smvn=401) 172 K/CU MM 150-450 MEAN PLATELET VOLUME (BEAKER) (test ntrc=518) 11.3 fL 9.4-12.4 NUCLEATED RED BLOOD CELLS (BEAKER) (test 0 /100 WBC 0-0 jics=790) PROTHROMBIN [id number] 21:03:00 Test Item Value Reference Range Comments PROTIME (BEAKER) (test nxkp=091) 15.9 seconds 11.7-14.7 INR (BEAKER) (test zupj=145) 1.3 <=5.9 RECOMMENDED COUMADIN/WARFARIN INR THERAPY RANGESSTANDARD DOSE: 2.0 - 3.0 Includes: PROPHYLAXIS forvenous thrombosis, systemic embolization; TREATMENT for venous thrombosis and/or pulmonary embolus.HIGH RISK: Target INR is 2.5-3.5 for patients with mechanical heart valves.[id number] 13:06:00 Test Item Value Reference Range Comments ACTIVATED CLOTTING TIME 131 sec TESTED AT [place] [address] [email or web address] (test hdys=601) [place] [address] [id number] 12:52:00 Test Item Value Reference Range Comments ACTIVATED CLOTTING TIME 274 sec TESTED AT [place] [address] [facility] ([employer] (test inwt=308) [place] [address] [id number] 10:29:00 Test Item Value Reference Range Comments MAGNESIUM (BEAKER) (test zvpz=033) 2.1 mg/dL 1.6-2.6 BASIC METABOLIC [id number] 10:29:00 Test Item Value Reference Range Comments SODIUM (BEAKER) (test 143 meq/L 136-145 xupl=695) POTASSIUM (BEAKER) (test 3.5 meq/L 3.5-5.1 aarg=478) CHLORIDE (BEAKER) (test 106 meq/L 98-107 rorp=813) CO2 (BEAKER) (test 29 meq/L 22-29 oozm=521) BLOOD UREA NITROGEN 12 mg/dL 7-21 (BEAKER) (test buxr=869) CREATININE (BEAKER) (test 1.47 mg/dL 0.57-1.25 cvid=103) GLUCOSE RANDOM (BEAKER) 95 mg/dL 70-105 (test zbhq=923) CALCIUM (BEAKER) (test 8.7 mg/dL 8.4-10.2 bhvj=142) EGFR (BEAKER) (test 47 mL/min/1.73 sq m ESTIMATED GFR IS NOT dlyt=6706) ACCURATE CREATININE CLEARANCE IN PREDICTING GLOMERULAR FILTRATION RATE. ESTIMATED GFR IS NOT APPLICABLE FOR DIALYSIS PATIENTS. CBC W/PLT COUNT & AUTO [id number] 10:04:00 Test Item Value Reference Range Comments WHITE BLOOD CELL COUNT (BEAKER) (test jxzf=056) 6.5 K/ L 3.5-10.5 RED BLOOD CELL COUNT (BEAKER) (test icjb=040) 3.74 M/ L 4.63-6.08 HEMOGLOBIN (BEAKER) (test yuqn=307) 8.6 GM/DL 13.7-17.5 HEMATOCRIT (BEAKER) (test lsbv=823) 30.1 % 40.1-51.0 MEAN CORPUSCULAR VOLUME (BEAKER) (test kpwk=173) 80.5 fL 79.0-92.2 MEAN CORPUSCULAR HEMOGLOBIN (BEAKER) (test 23.0 pg 25.7-32.2 viyy=408) MEAN CORPUSCULAR HEMOGLOBIN CONC (BEAKER) (test 28.6 GM/DL 32.3-36.5 esfo=367) RED CELL DISTRIBUTION WIDTH (BEAKER) (test 17.8 % 11.6-14.4 nmzl=200) PLATELET COUNT (BEAKER) (test rsqx=209) 225 K/CU MM 150-450 MEAN PLATELET VOLUME (BEAKER) (test mjxw=984) 10.9 fL 9.4-12.4 NUCLEATED RED BLOOD CELLS (BEAKER) (test 0 /100 WBC 0-0 pipi=424) NEUTROPHILS RELATIVE PERCENT (BEAKER) (test 71 % uqkn=978) LYMPHOCYTES RELATIVE PERCENT (BEAKER) (test 19 % ttoj=525) MONOCYTES RELATIVE PERCENT (BEAKER) (test 7 % tpyk=931) EOSINOPHILS RELATIVE PERCENT (BEAKER) (test 2 % gnxl=778) BASOPHILS RELATIVE PERCENT (BEAKER) (test 1 % iuqq=301) NEUTROPHILS ABSOLUTE COUNT (BEAKER) (test 4.56 K/ L 1.78-5.38 cojq=884) LYMPHOCYTES ABSOLUTE COUNT (BEAKER) (test 1.25 K/ L 1.32-3.57 cmlf=704) MONOCYTES ABSOLUTE COUNT (BEAKER) (test 0.47 K/ L 0.30-0.82 ttwr=457) EOSINOPHILS ABSOLUTE COUNT (BEAKER) (test 0.11 K/ L 0.04-0.54 hszl=472) BASOPHILS ABSOLUTE COUNT (BEAKER) (test 0.05 K/ L 0.01-0.08 iyar=668) IMMATURE GRANULOCYTES-RELATIVE PERCENT (BEAKER) 0 % 0-1 (test gvmq=1497) BASIC METABOLIC [id number] 13:40:00 Test Item Value Reference Range Comments SODIUM (BEAKER) (test 140 meq/L 136-145 qtyj=996) POTASSIUM (BEAKER) (test 3.4 meq/L 3.5-5.1 yprf=967) CHLORIDE (BEAKER) (test 107 meq/L 98-107 kkmo=838) CO2 (BEAKER) (test 24 meq/L 22-29 ffgu=114) BLOOD UREA NITROGEN 15 mg/dL 7-21 (BEAKER) (test ogzo=513) CREATININE (BEAKER) (test 1.39 mg/dL 0.57-1.25 zxgq=090) GLUCOSE RANDOM (BEAKER) 114 mg/dL 70-105 (test vtlc=774) CALCIUM (BEAKER) (test 8.7 mg/dL 8.4-10.2 bqst=750) EGFR (BEAKER) (test 50 mL/min/1.73 sq m ESTIMATED GFR IS NOT ytnx=5840) ACCURATE CREATININE CLEARANCE IN PREDICTING GLOMERULAR FILTRATION RATE. ESTIMATED GFR IS NOT APPLICABLE FOR DIALYSIS PATIENTS. COMPREHENSIVE METABOLIC [id number] 14:02:00 Test Item Value Reference Range Comments TOTAL PROTEIN (BEAKER) 7.2 gm/dL 6.0-8.3 (test majp=792) ALBUMIN (BEAKER) (test 3.7 g/dL 3.5-5.0 xrtn=3320) ALKALINE PHOSPHATASE 88 U/L 40-150 (BEAKER) (test fchn=588) BILIRUBIN TOTAL (BEAKER) 0.8 mg/dL 0.2-1.2 (test vfae=647) SODIUM (BEAKER) (test 142 meq/L 136-145 cogw=667) POTASSIUM (BEAKER) (test 4.7 meq/L 3.5-5.1 kvla=384) CHLORIDE (BEAKER) (test 109 meq/L 98-107 zpsn=575) CO2 (BEAKER) (test 24 meq/L 22-29 jdvh=044) BLOOD UREA NITROGEN 12 mg/dL 7-21 (BEAKER) (test olgz=010) CREATININE (BEAKER) (test 1.33 mg/dL 0.57-1.25 ytho=928) GLUCOSE RANDOM (BEAKER) 92 mg/dL 70-105 (test xvrg=922) CALCIUM (BEAKER) (test 9.0 mg/dL 8.4-10.2 aqfj=665) AST (SGOT) (BEAKER) (test 17 U/L 5-34 phrz=680) ALT (SGPT) (BEAKER) (test 22 U/L 6-55 wcjt=203) EGFR (BEAKER) (test 53 mL/min/1.73 sq m ESTIMATED GFR IS NOT qmmh=8240) ACCURATE CREATININE CLEARANCE IN PREDICTING GLOMERULAR FILTRATION RATE. ESTIMATED GFR IS NOT APPLICABLE FOR DIALYSIS PATIENTS. PROTHROMBIN TIME/[id number] 13:39:00 Test Item Value Reference Range Comments PROTIME (BEAKER) (test vnwg=762) 15.2 seconds 11.7-14.7 INR (BEAKER) (test gzgf=438) 1.2 <=5.9 RECOMMENDED COUMADIN/WARFARIN INR THERAPY RANGESSTANDARD DOSE: 2.0 - 3.0 Includes: PROPHYLAXIS forvenous thrombosis, systemic embolization; TREATMENT for venous thrombosis and/or pulmonary embolus.HIGH RISK: Target INR is 2.5-3.5 for patients with mechanical heart valves.CBC W/PLT COUNT & AUTO [id number] 13:26:00 Test Item Value Reference Range Comments WHITE BLOOD CELL COUNT (BEAKER) (test yjyx=318) 6.1 K/ L 3.5-10.5 RED BLOOD CELL COUNT (BEAKER) (test xnrg=390) 4.02 M/ L 4.63-6.08 HEMOGLOBIN (BEAKER) (test ahqy=112) 9.5 GM/DL 13.7-17.5 HEMATOCRIT (BEAKER) (test npwp=287) 33.9 % 40.1-51.0 MEAN CORPUSCULAR VOLUME (BEAKER) (test qthf=097) 84.3 fL 79.0-92.2 MEAN CORPUSCULAR HEMOGLOBIN (BEAKER) (test 23.6 pg 25.7-32.2 mpfy=926) MEAN CORPUSCULAR HEMOGLOBIN CONC (BEAKER) (test 28.0 GM/DL 32.3-36.5 kmbh=997) RED CELL DISTRIBUTION WIDTH (BEAKER) (test 17.3 % 11.6-14.4 kyeu=771) PLATELET COUNT (BEAKER) (test idbi=841) 192 K/CU MM 150-450 MEAN PLATELET VOLUME (BEAKER) (test jcjt=971) 11.1 fL 9.4-12.4 NUCLEATED RED BLOOD CELLS (BEAKER) (test 0 /100 WBC 0-0 cskw=397) NEUTROPHILS RELATIVE PERCENT (BEAKER) (test 70 % xjtv=792) LYMPHOCYTES RELATIVE PERCENT (BEAKER) (test 20 % hsda=693) MONOCYTES RELATIVE PERCENT (BEAKER) (test 8 % pofg=579) EOSINOPHILS RELATIVE PERCENT (BEAKER) (test 2 % jddz=992) BASOPHILS RELATIVE PERCENT (BEAKER) (test 0 % ldrc=960) NEUTROPHILS ABSOLUTE COUNT (BEAKER) (test 4.26 K/ L 1.78-5.38 gkyd=338) LYMPHOCYTES ABSOLUTE COUNT (BEAKER) (test 1.22 K/ L 1.32-3.57 zlmo=033) MONOCYTES ABSOLUTE COUNT (BEAKER) (test 0.49 K/ L 0.30-0.82 zkdp=164) EOSINOPHILS ABSOLUTE COUNT (BEAKER) (test 0.12 K/ L 0.04-0.54 defj=071) BASOPHILS ABSOLUTE COUNT (BEAKER) (test 0.02 K/ L 0.01-0.08 zzmr=939) IMMATURE GRANULOCYTES-RELATIVE PERCENT (BEAKER) 0 % 0-1 (test mfio=8158) CBC W/PLT COUNT & AUTO [id number] 07:51:00 Test Item Value Reference Range Comments WHITE BLOOD CELL COUNT (BEAKER) (test cqtg=125) 6.1 K/ L 4.0-10.0 RED BLOOD CELL COUNT (BEAKER) (test zzhp=968) 2.60 M/ L 4.20-5.80 HEMOGLOBIN (BEAKER) (test okgm=260) 7.7 GM/DL 13.0-16.8 HEMATOCRIT (BEAKER) (test ybmn=598) 23.8 % 40.0-50.0 MEAN CORPUSCULAR VOLUME (BEAKER) (test vzhy=067) 91.5 fL 82.0-98.0 MEAN CORPUSCULAR HEMOGLOBIN (BEAKER) (test 29.7 pg 27.0-33.0 cykw=601) MEAN CORPUSCULAR HEMOGLOBIN CONC (BEAKER) (test 32.4 GM/DL 32.0-36.0 gdio=072) RED CELL DISTRIBUTION WIDTH (BEAKER) (test 16.9 % 10.3-14.2 scgb=781) PLATELET COUNT (BEAKER) (test wboi=292) 172 K/CU MM 150-430 MEAN PLATELET VOLUME (BEAKER) (test cttp=780) 8.7 fL 6.5-10.5 NUCLEATED RED BLOOD CELLS (BEAKER) (test 0 /100 WBC 0-0 hsfw=736) NEUTROPHILS RELATIVE PERCENT (BEAKER) (test 74 % lmnd=104) LYMPHOCYTES RELATIVE PERCENT (BEAKER) (test 15 % ssrs=317) MONOCYTES RELATIVE PERCENT (BEAKER) (test 9 % gsvn=782) EOSINOPHILS RELATIVE PERCENT (BEAKER) (test 2 % lper=765) BASOPHILS RELATIVE PERCENT (BEAKER) (test 0 % mmnu=704) NEUTROPHILS ABSOLUTE COUNT (BEAKER) (test 4.50 K/ L 1.80-8.00 azhx=351) LYMPHOCYTES ABSOLUTE COUNT (BEAKER) (test 0.89 K/ L 1.48-4.50 rsep=074) MONOCYTES ABSOLUTE COUNT (BEAKER) (test 0.53 K/ L 0.00-1.30 xozi=832) EOSINOPHILS ABSOLUTE COUNT (BEAKER) (test 0.13 K/ L 0.00-0.50 yqbf=548) BASOPHILS ABSOLUTE COUNT (BEAKER) (test 0.01 K/ L 0.00-0.20 sqoa=086) [id number] 07:48:00 Test Item Value Reference Range Comments MAGNESIUM (BEAKER) (test 1.9 mg/dL 1.6-2.6 Specimen slightly hemolyzed qkdi=048) [id number] 07:48:00 Test Item Value Reference Range Comments PHOSPHORUS (BEAKER) (test 3.8 mg/dL 2.3-4.7 Specimen slightly hemolyzed gzdo=130) BASIC METABOLIC [id number] 07:48:00 Test Item Value Reference Range Comments SODIUM (BEAKER) (test 137 meq/L 136-145 eomx=248) POTASSIUM (BEAKER) (test 4.1 meq/L 3.5-5.1 Specimen slightly riwn=265) hemolyzed CHLORIDE (BEAKER) (test 105 meq/L 98-107 wqpz=327) CO2 (BEAKER) (test 25 meq/L 22-29 rhtr=587) BLOOD UREA NITROGEN 14 mg/dL 7-21 (BEAKER) (test inif=099) CREATININE (BEAKER) (test 1.30 mg/dL 0.57-1.25 Specimen slightly bxwh=091) hemolyzed GLUCOSE RANDOM (BEAKER) 102 mg/dL 70-105 (test aavp=647) CALCIUM (BEAKER) (test 8.1 mg/dL 8.4-10.2 qsey=051) EGFR (BEAKER) (test 54 mL/min/1.73 sq m ESTIMATED GFR IS NOT bcjz=7993) ACCURATE CREATININE CLEARANCE IN PREDICTING GLOMERULAR FILTRATION RATE. ESTIMATED GFR IS NOT APPLICABLE FOR DIALYSIS PATIENTS. CBC W/PLT COUNT & AUTO [id number] 07:00:00 Test Item Value Reference Range Comments WHITE BLOOD CELL COUNT (BEAKER) (test jymm=877) 6.6 K/ L 4.0-10.0 RED BLOOD CELL COUNT (BEAKER) (test achi=696) 2.63 M/ L 4.20-5.80 HEMOGLOBIN (BEAKER) (test svzy=876) 7.7 GM/DL 13.0-16.8 HEMATOCRIT (BEAKER) (test knvr=650) 24.0 % 40.0-50.0 MEAN CORPUSCULAR VOLUME (BEAKER) (test ulow=024) 91.5 fL 82.0-98.0 MEAN CORPUSCULAR HEMOGLOBIN (BEAKER) (test 29.3 pg 27.0-33.0 okle=084) MEAN CORPUSCULAR HEMOGLOBIN CONC (BEAKER) (test 32.1 GM/DL 32.0-36.0 wrel=818) RED CELL DISTRIBUTION WIDTH (BEAKER) (test 17.2 % 10.3-14.2 pbsd=326) PLATELET COUNT (BEAKER) (test bmow=210) 184 K/CU MM 150-430 MEAN PLATELET VOLUME (BEAKER) (test gjkq=620) 8.6 fL 6.5-10.5 NUCLEATED RED BLOOD CELLS (BEAKER) (test 0 /100 WBC 0-0 icso=733) NEUTROPHILS RELATIVE PERCENT (BEAKER) (test 70 % pztq=112) LYMPHOCYTES RELATIVE PERCENT (BEAKER) (test 21 % gmzf=026) MONOCYTES RELATIVE PERCENT (BEAKER) (test 7 % vfih=602) EOSINOPHILS RELATIVE PERCENT (BEAKER) (test 2 % xixi=925) BASOPHILS RELATIVE PERCENT (BEAKER) (test 0 % kxqn=602) NEUTROPHILS ABSOLUTE COUNT (BEAKER) (test 4.58 K/ L 1.80-8.00 hbkr=297) LYMPHOCYTES ABSOLUTE COUNT (BEAKER) (test 1.40 K/ L 1.48-4.50 ldfh=587) MONOCYTES ABSOLUTE COUNT (BEAKER) (test 0.46 K/ L 0.00-1.30 cgcl=933) EOSINOPHILS ABSOLUTE COUNT (BEAKER) (test 0.11 K/ L 0.00-0.50 xvjv=535) BASOPHILS ABSOLUTE COUNT (BEAKER) (test 0.01 K/ L 0.00-0.20 sqgy=383) [id number] 06:57:00 Test Item Value Reference Range Comments PHOSPHORUS (BEAKER) (test xwly=725) 4.3 mg/dL 2.3-4.7 [id number] 06:57:00 Test Item Value Reference Range Comments MAGNESIUM (BEAKER) (test ehch=438) 2.0 mg/dL 1.6-2.6 BASIC METABOLIC [id number] 06:57:00 Test Item Value Reference Range Comments SODIUM (BEAKER) (test 139 meq/L 136-145 cjkv=623) POTASSIUM (BEAKER) (test 4.3 meq/L 3.5-5.1 ciep=019) CHLORIDE (BEAKER) (test 108 meq/L 98-107 mfwt=685) CO2 (BEAKER) (test 25 meq/L 22-29 rcyb=104) BLOOD UREA NITROGEN 13 mg/dL 7-21 (BEAKER) (test uilt=122) CREATININE (BEAKER) (test 1.34 mg/dL 0.57-1.25 sicz=319) GLUCOSE RANDOM (BEAKER) 93 mg/dL 70-105 (test kpkg=311) CALCIUM (BEAKER) (test 8.3 mg/dL 8.4-10.2 mens=414) EGFR (BEAKER) (test 52 mL/min/1.73 sq m ESTIMATED GFR IS NOT jupm=3117) ACCURATE CREATININE CLEARANCE IN PREDICTING GLOMERULAR FILTRATION RATE. ESTIMATED GFR IS NOT APPLICABLE FOR DIALYSIS PATIENTS. [id number] 06:47:00 Test Item Value Reference Range Comments PHOSPHORUS (BEAKER) (test yucd=124) 3.0 mg/dL 2.3-4.7 [id number] 06:47:00 Test Item Value Reference Range Comments MAGNESIUM (BEAKER) (test jqbq=212) 1.9 mg/dL 1.6-2.6 BASIC METABOLIC [id number] 06:47:00 Test Item Value Reference Range Comments SODIUM (BEAKER) (test 141 meq/L 136-145 gmbm=310) POTASSIUM (BEAKER) (test 4.3 meq/L 3.5-5.1 zkae=177) CHLORIDE (BEAKER) (test 109 meq/L 98-107 kjfo=401) CO2 (BEAKER) (test 25 meq/L 22-29 pyfn=494) BLOOD UREA NITROGEN 13 mg/dL 7-21 (BEAKER) (test rtfb=299) CREATININE (BEAKER) (test 1.14 mg/dL 0.57-1.25 hdms=942) GLUCOSE RANDOM (BEAKER) 90 mg/dL 70-105 (test qime=080) CALCIUM (BEAKER) (test 8.4 mg/dL 8.4-10.2 leyj=324) EGFR (BEAKER) (test 63 mL/min/1.73 sq m ESTIMATED GFR IS NOT yohi=2407) ACCURATE CREATININE CLEARANCE IN PREDICTING GLOMERULAR FILTRATION RATE. ESTIMATED GFR IS NOT APPLICABLE FOR DIALYSIS PATIENTS. CBC W/PLT COUNT & AUTO [id number] 06:42:00 Test Item Value Reference Range Comments WHITE BLOOD CELL COUNT (BEAKER) (test yugk=086) 6.5 K/ L 4.0-10.0 RED BLOOD CELL COUNT (BEAKER) (test tjzb=106) 2.63 M/ L 4.20-5.80 HEMOGLOBIN (BEAKER) (test vafx=543) 8.0 GM/DL 13.0-16.8 HEMATOCRIT (BEAKER) (test tmgm=840) 24.6 % 40.0-50.0 MEAN CORPUSCULAR VOLUME (BEAKER) (test dcdj=702) 93.5 fL 82.0-98.0 MEAN CORPUSCULAR HEMOGLOBIN (BEAKER) (test 30.2 pg 27.0-33.0 sqrj=708) MEAN CORPUSCULAR HEMOGLOBIN CONC (BEAKER) (test 32.4 GM/DL 32.0-36.0 lnpy=850) RED CELL DISTRIBUTION WIDTH (BEAKER) (test 16.2 % 10.3-14.2 pzxa=667) PLATELET COUNT (BEAKER) (test puil=309) 195 K/CU MM 150-430 MEAN PLATELET VOLUME (BEAKER) (test yqcd=870) 8.5 fL 6.5-10.5 NUCLEATED RED BLOOD CELLS (BEAKER) (test 0 /100 WBC 0-0 xpor=732) NEUTROPHILS RELATIVE PERCENT (BEAKER) (test 70 % ozch=609) LYMPHOCYTES RELATIVE PERCENT (BEAKER) (test 19 % hcrw=774) MONOCYTES RELATIVE PERCENT (BEAKER) (test 8 % uimj=775) EOSINOPHILS RELATIVE PERCENT (BEAKER) (test 2 % jwmj=314) BASOPHILS RELATIVE PERCENT (BEAKER) (test 1 % lsja=296) NEUTROPHILS ABSOLUTE COUNT (BEAKER) (test 4.52 K/ L 1.80-8.00 bunu=223) LYMPHOCYTES ABSOLUTE COUNT (BEAKER) (test 1.26 K/ L 1.48-4.50 keme=429) MONOCYTES ABSOLUTE COUNT (BEAKER) (test 0.53 K/ L 0.00-1.30 xjho=400) EOSINOPHILS ABSOLUTE COUNT (BEAKER) (test 0.14 K/ L 0.00-0.50 dsyg=003) BASOPHILS ABSOLUTE COUNT (BEAKER) (test 0.04 K/ L 0.00-0.20 evni=928) 0.00CBC W/PLT COUNT & AUTO [id number] 07:36:00 Test Item Value Reference Range Comments WHITE BLOOD CELL COUNT (BEAKER) (test zmzc=188) 5.4 K/ L 4.0-10.0 RED BLOOD CELL COUNT (BEAKER) (test rccq=463) 2.55 M/ L 4.20-5.80 HEMOGLOBIN (BEAKER) (test qayb=808) 7.6 GM/DL 13.0-16.8 HEMATOCRIT (BEAKER) (test znkw=339) 23.6 % 40.0-50.0 MEAN CORPUSCULAR VOLUME (BEAKER) (test vogh=431) 92.8 fL 82.0-98.0 MEAN CORPUSCULAR HEMOGLOBIN (BEAKER) (test 29.8 pg 27.0-33.0 xunb=180) MEAN CORPUSCULAR HEMOGLOBIN CONC (BEAKER) (test 32.1 GM/DL 32.0-36.0 xrjd=015) RED CELL DISTRIBUTION WIDTH (BEAKER) (test 16.2 % 10.3-14.2 kvuq=817) PLATELET COUNT (BEAKER) (test zgvi=456) 182 K/CU MM 150-430 MEAN PLATELET VOLUME (BEAKER) (test ayjk=563) 8.6 fL 6.5-10.5 NUCLEATED RED BLOOD CELLS (BEAKER) (test 0 /100 WBC 0-0 ivik=282) NEUTROPHILS RELATIVE PERCENT (BEAKER) (test 66 % bovj=578) LYMPHOCYTES RELATIVE PERCENT (BEAKER) (test 24 % wpds=403) MONOCYTES RELATIVE PERCENT (BEAKER) (test 7 % mdmg=934) EOSINOPHILS RELATIVE PERCENT (BEAKER) (test 3 % tupm=939) BASOPHILS RELATIVE PERCENT (BEAKER) (test 1 % kzav=197) NEUTROPHILS ABSOLUTE COUNT (BEAKER) (test 3.51 K/ L 1.80-8.00 gxhj=775) LYMPHOCYTES ABSOLUTE COUNT (BEAKER) (test 1.29 K/ L 1.48-4.50 dewa=953) MONOCYTES ABSOLUTE COUNT (BEAKER) (test 0.37 K/ L 0.00-1.30 iydm=817) EOSINOPHILS ABSOLUTE COUNT (BEAKER) (test 0.15 K/ L 0.00-0.50 jsqi=618) BASOPHILS ABSOLUTE COUNT (BEAKER) (test 0.04 K/ L 0.00-0.20 bzxr=254) [id number] 06:57:00 Test Item Value Reference Range Comments PHOSPHORUS (BEAKER) (test tyxn=561) 3.4 mg/dL 2.3-4.7 [id number] 06:57:00 Test Item Value Reference Range Comments MAGNESIUM (BEAKER) (test itsc=516) 1.8 mg/dL 1.6-2.6 BASIC METABOLIC [id number] 06:57:00 Test Item Value Reference Range Comments SODIUM (BEAKER) (test 138 meq/L 136-145 foob=907) POTASSIUM (BEAKER) (test 3.6 meq/L 3.5-5.1 glqm=926) CHLORIDE (BEAKER) (test 107 meq/L 98-107 jetf=543) CO2 (BEAKER) (test 25 meq/L 22-29 tjwy=078) BLOOD UREA NITROGEN 18 mg/dL 7-21 (BEAKER) (test kxwt=430) CREATININE (BEAKER) (test 1.18 mg/dL 0.57-1.25 eeqj=503) GLUCOSE RANDOM (BEAKER) 86 mg/dL 70-105 (test lijg=230) CALCIUM (BEAKER) (test 8.0 mg/dL 8.4-10.2 wfqk=557) EGFR (BEAKER) (test 61 mL/min/1.73 sq m ESTIMATED GFR IS NOT krtm=6262) ACCURATE CREATININE CLEARANCE IN PREDICTING GLOMERULAR FILTRATION RATE. ESTIMATED GFR IS NOT APPLICABLE FOR DIALYSIS PATIENTS. VITAMIN B12 AND [id number] 19:40:00 Test Item Value Reference Range Comments VITAMIN B12 (BEAKER) (test igml=126) 346 pg/mL 213-816 FOLATE (BEAKER) (test jilp=149) 7.9 ng/mL >=7.0 Effective 02/14/2014: Folate Reference Range ChangeNew: >=7.0 Previous: & gt;=5.4CBC W/PLT COUNT & AUTO [id number] 07:29:00 Test Item Value Reference Range Comments WHITE BLOOD CELL COUNT (BEAKER) (test trso=693) 5.8 K/ L 4.0-10.0 RED BLOOD CELL COUNT (BEAKER) (test yrtv=010) 2.27 M/ L 4.20-5.80 HEMOGLOBIN (BEAKER) (test twoz=950) 6.8 GM/DL 13.0-16.8 HEMATOCRIT (BEAKER) (test qdjv=339) 21.7 % 40.0-50.0 MEAN CORPUSCULAR VOLUME (BEAKER) (test ahms=765) 95.6 fL 82.0-98.0 MEAN CORPUSCULAR HEMOGLOBIN (BEAKER) (test 29.9 pg 27.0-33.0 ehou=054) MEAN CORPUSCULAR HEMOGLOBIN CONC (BEAKER) (test 31.3 GM/DL 32.0-36.0 ikll=430) RED CELL DISTRIBUTION WIDTH (BEAKER) (test 15.6 % 10.3-14.2 losl=519) PLATELET COUNT (BEAKER) (test fgla=994) 184 K/CU MM 150-430 MEAN PLATELET VOLUME (BEAKER) (test eqfe=445) 8.5 fL 6.5-10.5 NUCLEATED RED BLOOD CELLS (BEAKER) (test 0 /100 WBC 0-0 dxux=251) NEUTROPHILS RELATIVE PERCENT (BEAKER) (test 62 % yqym=966) LYMPHOCYTES RELATIVE PERCENT (BEAKER) (test 25 % urdy=733) MONOCYTES RELATIVE PERCENT (BEAKER) (test 10 % rxbi=684) EOSINOPHILS RELATIVE PERCENT (BEAKER) (test 3 % iltw=528) BASOPHILS RELATIVE PERCENT (BEAKER) (test 1 % uwgx=857) NEUTROPHILS ABSOLUTE COUNT (BEAKER) (test 3.59 K/ L 1.80-8.00 vkln=231) LYMPHOCYTES ABSOLUTE COUNT (BEAKER) (test 1.44 K/ L 1.48-4.50 sjzd=864) MONOCYTES ABSOLUTE COUNT (BEAKER) (test 0.61 K/ L 0.00-1.30 zzuo=170) EOSINOPHILS ABSOLUTE COUNT (BEAKER) (test 0.17 K/ L 0.00-0.50 ppxh=412) BASOPHILS ABSOLUTE COUNT (BEAKER) (test 0.04 K/ L 0.00-0.20 dcwc=292) [id number] 06:56:00 Test Item Value Reference Range Comments PHOSPHORUS (BEAKER) (test gtmo=992) 3.8 mg/dL 2.3-4.7 [id number] 06:56:00 Test Item Value Reference Range Comments MAGNESIUM (BEAKER) (test zjcg=081) 1.9 mg/dL 1.6-2.6 BASIC METABOLIC [id number] 06:56:00 Test Item Value Reference Range Comments SODIUM (BEAKER) (test 141 meq/L 136-145 gwgi=969) POTASSIUM (BEAKER) (test 3.3 meq/L 3.5-5.1 wdpz=660) CHLORIDE (BEAKER) (test 106 meq/L 98-107 jbvr=260) CO2 (BEAKER) (test 26 meq/L 22-29 xpqg=954) BLOOD UREA NITROGEN 16 mg/dL 7-21 (BEAKER) (test gzoa=615) CREATININE (BEAKER) (test 1.32 mg/dL 0.57-1.25 dvex=888) GLUCOSE RANDOM (BEAKER) 77 mg/dL 70-105 (test lvpb=414) CALCIUM (BEAKER) (test 8.1 mg/dL 8.4-10.2 ruiv=711) EGFR (BEAKER) (test 53 mL/min/1.73 sq m ESTIMATED GFR IS NOT sakw=9648) ACCURATE CREATININE CLEARANCE IN PREDICTING GLOMERULAR FILTRATION RATE. ESTIMATED GFR IS NOT APPLICABLE FOR DIALYSIS PATIENTS. SEDIMENTATION [id number] 09:54:00 Test Item Value Reference Range Comments SEDIMENTATION RATE, ERYTHROCYTE (BEAKER) (test 38 mm/HR 0-40 uisn=941) CBC W/PLT COUNT & AUTO [id number] 07:58:00 Test Item Value Reference Range Comments WHITE BLOOD CELL COUNT (BEAKER) (test zcix=103) 5.7 K/ L 4.0-10.0 RED BLOOD CELL COUNT (BEAKER) (test ygpc=353) 2.40 M/ L 4.20-5.80 HEMOGLOBIN (BEAKER) (test grjb=533) 7.5 GM/DL 13.0-16.8 HEMATOCRIT (BEAKER) (test itbi=969) 22.9 % 40.0-50.0 MEAN CORPUSCULAR VOLUME (BEAKER) (test hbpx=098) 95.4 fL 82.0-98.0 MEAN CORPUSCULAR HEMOGLOBIN (BEAKER) (test 31.2 pg 27.0-33.0 lbwj=686) MEAN CORPUSCULAR HEMOGLOBIN CONC (BEAKER) (test 32.7 GM/DL 32.0-36.0 ftjs=183) RED CELL DISTRIBUTION WIDTH (BEAKER) (test 15.9 % 10.3-14.2 vaoc=305) PLATELET COUNT (BEAKER) (test odbl=783) 182 K/CU MM 150-430 MEAN PLATELET VOLUME (BEAKER) (test rtle=614) 8.3 fL 6.5-10.5 NUCLEATED RED BLOOD CELLS (BEAKER) (test 0 /100 WBC 0-0 cest=337) NEUTROPHILS RELATIVE PERCENT (BEAKER) (test 71 % fxae=467) LYMPHOCYTES RELATIVE PERCENT (BEAKER) (test 17 % yjxr=686) MONOCYTES RELATIVE PERCENT (BEAKER) (test 9 % jmsh=368) EOSINOPHILS RELATIVE PERCENT (BEAKER) (test 3 % pdsw=965) BASOPHILS RELATIVE PERCENT (BEAKER) (test 1 % mgdu=054) NEUTROPHILS ABSOLUTE COUNT (BEAKER) (test 4.00 K/ L 1.80-8.00 hkkp=989) LYMPHOCYTES ABSOLUTE COUNT (BEAKER) (test 0.96 K/ L 1.48-4.50 pqbm=469) MONOCYTES ABSOLUTE COUNT (BEAKER) (test 0.51 K/ L 0.00-1.30 bhbk=654) EOSINOPHILS ABSOLUTE COUNT (BEAKER) (test 0.15 K/ L 0.00-0.50 tpcn=366) BASOPHILS ABSOLUTE COUNT (BEAKER) (test 0.03 K/ L 0.00-0.20 ipas=023) [id number] 07:38:00 Test Item Value Reference Range Comments PHOSPHORUS (BEAKER) (test bwoy=216) 3.2 mg/dL 2.3-4.7 [id number] 07:38:00 Test Item Value Reference Range Comments MAGNESIUM (BEAKER) (test zman=258) 1.7 mg/dL 1.6-2.6 BASIC METABOLIC [id number] 07:38:00 Test Item Value Reference Range Comments SODIUM (BEAKER) (test 138 meq/L 136-145 yhti=899) POTASSIUM (BEAKER) (test 3.5 meq/L 3.5-5.1 tbqp=015) CHLORIDE (BEAKER) (test 104 meq/L 98-107 kyws=952) CO2 (BEAKER) (test 25 meq/L 22-29 xtfl=136) BLOOD UREA NITROGEN 12 mg/dL 7-21 (BEAKER) (test dpol=179) CREATININE (BEAKER) (test 1.30 mg/dL 0.57-1.25 tgit=711) GLUCOSE RANDOM (BEAKER) 85 mg/dL 70-105 (test nbdb=538) CALCIUM (BEAKER) (test 8.1 mg/dL 8.4-10.2 osht=845) EGFR (BEAKER) (test 54 mL/min/1.73 sq m ESTIMATED GFR IS NOT neor=7702) ACCURATE CREATININE CLEARANCE IN PREDICTING GLOMERULAR FILTRATION RATE. ESTIMATED GFR IS NOT APPLICABLE FOR DIALYSIS PATIENTS. C-REACTIVE [id number] 07:38:00 Test Item Value Reference Range Comments C-REACTIVE PROTEIN (BEAKER) (test itla=070) 1.01 mg/dL 0.00-0.50 CBC W/PLT COUNT & AUTO [id number] 08:08:00 Test Item Value Reference Range Comments WHITE BLOOD CELL COUNT (BEAKER) (test bctu=594) 6.3 K/ L 4.0-10.0 RED BLOOD CELL COUNT (BEAKER) (test upzl=795) 2.44 M/ L 4.20-5.80 HEMOGLOBIN (BEAKER) (test mher=750) 7.4 GM/DL 13.0-16.8 HEMATOCRIT (BEAKER) (test vfvi=950) 23.2 % 40.0-50.0 MEAN CORPUSCULAR VOLUME (BEAKER) (test hiiz=809) 95.1 fL 82.0-98.0 MEAN CORPUSCULAR HEMOGLOBIN (BEAKER) (test 30.2 pg 27.0-33.0 hksx=409) MEAN CORPUSCULAR HEMOGLOBIN CONC (BEAKER) (test 31.8 GM/DL 32.0-36.0 kisg=415) RED CELL DISTRIBUTION WIDTH (BEAKER) (test 15.7 % 10.3-14.2 xxlz=932) PLATELET COUNT (BEAKER) (test vvrw=090) 193 K/CU MM 150-430 MEAN PLATELET VOLUME (BEAKER) (test ziqx=895) 8.3 fL 6.5-10.5 NUCLEATED RED BLOOD CELLS (BEAKER) (test 0 /100 WBC 0-0 cwvw=271) NEUTROPHILS RELATIVE PERCENT (BEAKER) (test 75 % lcof=912) LYMPHOCYTES RELATIVE PERCENT (BEAKER) (test 15 % ufiu=958) MONOCYTES RELATIVE PERCENT (BEAKER) (test 7 % sfaz=585) EOSINOPHILS RELATIVE PERCENT (BEAKER) (test 2 % cnrg=775) BASOPHILS RELATIVE PERCENT (BEAKER) (test 0 % yuql=125) NEUTROPHILS ABSOLUTE COUNT (BEAKER) (test 4.68 K/ L 1.80-8.00 mxyd=192) LYMPHOCYTES ABSOLUTE COUNT (BEAKER) (test 0.96 K/ L 1.48-4.50 bugt=449) MONOCYTES ABSOLUTE COUNT (BEAKER) (test 0.46 K/ L 0.00-1.30 txgq=815) EOSINOPHILS ABSOLUTE COUNT (BEAKER) (test 0.14 K/ L 0.00-0.50 pmmk=489) BASOPHILS ABSOLUTE COUNT (BEAKER) (test 0.02 K/ L 0.00-0.20 pyxr=835) [id number] 07:08:00 Test Item Value Reference Range Comments PHOSPHORUS (BEAKER) (test pdlj=714) 2.3 mg/dL 2.3-4.7 [id number] 07:08:00 Test Item Value Reference Range Comments MAGNESIUM (BEAKER) (test axxw=663) 1.8 mg/dL 1.6-2.6 BASIC METABOLIC [id number] 07:08:00 Test Item Value Reference Range Comments SODIUM (BEAKER) (test 141 meq/L 136-145 tbzy=434) POTASSIUM (BEAKER) (test 3.9 meq/L 3.5-5.1 qwgq=069) CHLORIDE (BEAKER) (test 108 meq/L 98-107 wibw=064) CO2 (BEAKER) (test 23 meq/L 22-29 psia=529) BLOOD UREA NITROGEN 16 mg/dL 7-21 (BEAKER) (test emug=439) CREATININE (BEAKER) (test 1.20 mg/dL 0.57-1.25 xztm=193) GLUCOSE RANDOM (BEAKER) 111 mg/dL 70-105 (test xisx=586) CALCIUM (BEAKER) (test 8.4 mg/dL 8.4-10.2 uqxx=417) EGFR (BEAKER) (test 60 mL/min/1.73 sq m ESTIMATED GFR IS NOT riha=2119) ACCURATE CREATININE CLEARANCE IN PREDICTING GLOMERULAR FILTRATION RATE. ESTIMATED GFR IS NOT APPLICABLE FOR DIALYSIS PATIENTS. PERIPHERAL BLOOD SMEAR - PATHOLOGIST [id number] 15:04:00 Test Item Value Reference Range Comments RBC MORPHOLOGY (BEAKER) Anisocytosis (test idft=5102) RBC MORPHOLOGY (BEAKER) Polychromasia (test idcm=50557) RBC MORPHOLOGY (BEAKER) Poikilocytosis (test exfk=46220) WBC MORPHOLOGY (BEAKER) Unremarkable (test sovz=3254) PLT MORPHOLOGY (BEAKER) Normal morphology (test uujy=4315) PERIPHERAL SMR REVIEW Cell counts confirmed. RBCs (BEAKER) (test show normocytic cneu=0847) normochromic anemia with mild anisopoikilocytosis. No schistocytes are seen. WBCs are unremarkable. Platelets are adequate with rare giant platelets. [id number] Radha Velez, (BEAKER) (test M.D. (electronic signature) kkpu=8767) CBC W/PLT COUNT & AUTO [id number] 09:05:00 Test Item Value Reference Range Comments WHITE BLOOD CELL COUNT (BEAKER) (test dkxm=614) 7.3 K/ L 4.0-10.0 RED BLOOD CELL COUNT (BEAKER) (test xjee=942) 2.71 M/ L 4.20-5.80 HEMOGLOBIN (BEAKER) (test fhsb=063) 8.6 GM/DL 13.0-16.8 HEMATOCRIT (BEAKER) (test snzn=001) 25.4 % 40.0-50.0 MEAN CORPUSCULAR VOLUME (BEAKER) (test flzl=835) 93.7 fL 82.0-98.0 MEAN CORPUSCULAR HEMOGLOBIN (BEAKER) (test 31.6 pg 27.0-33.0 ezsz=205) MEAN CORPUSCULAR HEMOGLOBIN CONC (BEAKER) (test 33.7 GM/DL 32.0-36.0 mrem=111) RED CELL DISTRIBUTION WIDTH (BEAKER) (test 15.4 % 10.3-14.2 fzdn=060) PLATELET COUNT (BEAKER) (test ceys=272) 149 K/CU MM 150-430 MEAN PLATELET VOLUME (BEAKER) (test cuqt=259) 9.0 fL 6.5-10.5 NUCLEATED RED BLOOD CELLS (BEAKER) (test 0 /100 WBC 0-0 lkxy=187) NEUTROPHILS RELATIVE PERCENT (BEAKER) (test 66 % nciu=766) LYMPHOCYTES RELATIVE PERCENT (BEAKER) (test 23 % ngug=223) MONOCYTES RELATIVE PERCENT (BEAKER) (test 8 % twgg=777) EOSINOPHILS RELATIVE PERCENT (BEAKER) (test 2 % uucx=080) BASOPHILS RELATIVE PERCENT (BEAKER) (test 0 % tvxe=907) NEUTROPHILS ABSOLUTE COUNT (BEAKER) (test 4.81 K/ L 1.80-8.00 dqrv=390) LYMPHOCYTES ABSOLUTE COUNT (BEAKER) (test 1.67 K/ L 1.48-4.50 qhyr=554) MONOCYTES ABSOLUTE COUNT (BEAKER) (test 0.59 K/ L 0.00-1.30 fnxs=903) EOSINOPHILS ABSOLUTE COUNT (BEAKER) (test 0.18 K/ L 0.00-0.50 klrz=477) BASOPHILS ABSOLUTE COUNT (BEAKER) (test 0.02 K/ L 0.00-0.20 okgs=308) 0.00(MANUAL DIFFERENTIAL)2016-10-01 09:05:00 Test Item Value Reference Range Comments TOTAL COUNTED (BEAKER) (test afhg=2314) WBC MORPHOLOGY (BEAKER) (test ivnj=011) Normal PLT MORPHOLOGY (BEAKER) (test ucpx=661) Normal ANISOCYTOSIS (BEAKER) (test tcrm=180) 1+ few POLYCHROMATOPHILLIC RBCS(BEAKER) (test vzxv=014) 1+ few TEAR DROP CELLS (BEAKER) (test nnfy=024) 1+ few [id number] 07:22:00 Test Item Value Reference Range Comments MAGNESIUM (BEAKER) (test 2.1 mg/dL 1.6-2.6 Specimen slightly hemolyzed cqrd=560) [id number] 07:22:00 Test Item Value Reference Range Comments PHOSPHORUS (BEAKER) (test 3.3 mg/dL 2.3-4.7 Specimen slightly hemolyzed kipe=564) BASIC METABOLIC [id number] 07:22:00 Test Item Value Reference Range Comments SODIUM (BEAKER) (test 141 meq/L 136-145 ywae=089) POTASSIUM (BEAKER) (test 4.3 meq/L 3.5-5.1 Specimen slightly dfcd=184) hemolyzed CHLORIDE (BEAKER) (test 109 meq/L 98-107 fenq=335) CO2 (BEAKER) (test 21 meq/L 22-29 votq=798) BLOOD UREA NITROGEN 17 mg/dL 7-21 (BEAKER) (test vxrv=771) CREATININE (BEAKER) (test 1.35 mg/dL 0.57-1.25 Specimen slightly kmln=422) hemolyzed GLUCOSE RANDOM (BEAKER) 99 mg/dL 70-105 (test dbaw=643) CALCIUM (BEAKER) (test 8.3 mg/dL 8.4-10.2 hgbo=912) EGFR (BEAKER) (test 52 mL/min/1.73 sq m ESTIMATED GFR IS NOT zvvl=5631) ACCURATE CREATININE CLEARANCE IN PREDICTING GLOMERULAR FILTRATION RATE. ESTIMATED GFR IS NOT APPLICABLE FOR DIALYSIS PATIENTS. RETICULOCYTE [id number] 07:21:00 Test Item Value Reference Range Comments RETICULOCYTE COUNT PCT (BEAKER) (test jspx=222) 5.8 % 0.4-2.9 CBC W/PLT COUNT & AUTO [id number] 03:48:00 Test Item Value Reference Range Comments WHITE BLOOD CELL COUNT (BEAKER) (test dtxp=933) 6.3 K/ L 4.0-10.0 RED BLOOD CELL COUNT (BEAKER) (test tylp=202) 2.67 M/ L 4.20-5.80 HEMOGLOBIN (BEAKER) (test rijo=810) 8.4 GM/DL 13.0-16.8 HEMATOCRIT (BEAKER) (test epaf=927) 24.9 % 40.0-50.0 MEAN CORPUSCULAR VOLUME (BEAKER) (test vbuj=665) 93.3 fL 82.0-98.0 MEAN CORPUSCULAR HEMOGLOBIN (BEAKER) (test 31.6 pg 27.0-33.0 ztns=525) MEAN CORPUSCULAR HEMOGLOBIN CONC (BEAKER) (test 33.9 GM/DL 32.0-36.0 yxxl=870) RED CELL DISTRIBUTION WIDTH (BEAKER) (test 16.6 % 10.3-14.2 nboc=419) PLATELET COUNT (BEAKER) (test stbk=516) 183 K/CU MM 150-430 MEAN PLATELET VOLUME (BEAKER) (test uirx=823) 8.2 fL 6.5-10.5 NUCLEATED RED BLOOD CELLS (BEAKER) (test 0 /100 WBC 0-0 amtx=768) NEUTROPHILS RELATIVE PERCENT (BEAKER) (test 69 % urgi=196) LYMPHOCYTES RELATIVE PERCENT (BEAKER) (test 18 % wkvh=500) MONOCYTES RELATIVE PERCENT (BEAKER) (test 10 % mxhs=699) EOSINOPHILS RELATIVE PERCENT (BEAKER) (test 2 % mbpl=400) BASOPHILS RELATIVE PERCENT (BEAKER) (test 1 % tytk=565) NEUTROPHILS ABSOLUTE COUNT (BEAKER) (test 4.34 K/ L 1.80-8.00 eojd=581) LYMPHOCYTES ABSOLUTE COUNT (BEAKER) (test 1.15 K/ L 1.48-4.50 uzqs=293) MONOCYTES ABSOLUTE COUNT (BEAKER) (test 0.65 K/ L 0.00-1.30 vnlb=770) EOSINOPHILS ABSOLUTE COUNT (BEAKER) (test 0.14 K/ L 0.00-0.50 ugpo=040) BASOPHILS ABSOLUTE COUNT (BEAKER) (test 0.03 K/ L 0.00-0.20 codg=364) [id number] 18:03:00 Test Item Value Reference Range Comments THYROID STIMULATING HORMONE (BEAKER) (test 2.79 uIU/mL 0.35-4.94 sfqh=107) POCT-GLUCOSE [id number] 17:47:00 Test Item Value Reference Range Comments POC-GLUCOSE METER (BEAKER) 98 mg/dL 70-110 TESTED AT [facility] [address] [facility] (test fjof=6864) [facility] [address] HEPARIN ASSAY - LOW MOLECULAR [id number] 12:53:00 Test Item Value Reference Range Comments LOVENOX-ANTI 10A (BEAKER) (test vkcn=2963) > u/ml 0.60-2.00 Effective 02/04/2016: Reference Range ChangeNew: 0.60-2.00 Previous: 0.60- 1.99Anti-Factor 10A Level(Heparin Assay for Low Molecular Weight Heparin) Monitoring Guidelines: Blood samples should be obtained 4 hours post subcutaneous injection (time of Peak level) Therapeutic Peak Levels: 0.6-1.0 units/mL twice daily enoxaparin 1.0-2.0 units/mL once daily enoxaparinPOCT-GLUCOSE [id number] 11:47:00 Test Item Value Reference Range Comments POC-GLUCOSE METER (BEAKER) 103 mg/dL 70-110 TESTED AT [facility] [address] [facility] (test cqzy=1953) [facility] [address] PROTHROMBIN TIME/[id number] 11:16:00 Test Item Value Reference Range Comments PROTIME (BEAKER) (test ekrg=382) 28.4 seconds 11.7-14.7 INR (BEAKER) (test gnvq=088) 2.7 <=5.9 RECOMMENDED COUMADIN/WARFARIN INR THERAPY RANGESSTANDARD DOSE: 2.0 - 3.0 Includes: PROPHYLAXIS forvenous thrombosis, systemic embolization; TREATMENT for venous thrombosis and/or pulmonary embolus.HIGH RISK: Target INR is 2.5-3.5 for patients with mechanical heart valves.[id number] 11:16:00 Test Item Value Reference Range Comments PARTIAL THROMBOPLASTIN TIME (BEAKER) (test 38.8 seconds 22.5-36.0 hxvn=123) CREATINE KINASE (CK), TOTAL AND [id number] 10:35:00 Test Item Value Reference Range Comments CREATINE KINASE TOTAL (BEAKER) (test icab=158) 35 U/L 29-200 CREATINE KINASE-MB (BEAKER) (test xrht=636) 0.7 ng/mL 0.0-6.6 CREATINE KINASE-MB INDEX (BEAKER) (test fjbx=492) 2.0 % Effective 02/14/2014: CK-MB Reference Range ChangeNew: 0.0-6.6 Previous: 0.0- 4.9CK-MB Reference Range:<6.7 Normal6.7-10.0 Borderline>10.0 AbnormalTROPONIN [id number] 10:35:00 Test Item Value Reference Range Comments TROPONIN I (BEAKER) (test lgvw=940) 0.01 ng/mL 0.00-0.03 Effective 02/14/2014: Reference Range [...] Reference Range Comments LACTATE DEHYDROGENASE (BEAKER) (test bysy=029) 187 U/L 125-220 [id number] 06:53:00 Test Item Value Reference Range Comments HAPTOGLOBIN (BEAKER) (test isjr=470) 196 mg/dL 14-258 Effective 02/14/2014: Reference Range ChangeNew: 14-258 Previous: 36-195CBC W/ PLT COUNT & AUTO [id number] 05:30:00 Test Item Value Reference Range Comments WHITE BLOOD CELL COUNT (BEAKER) (test qsfr=539) 7.1 K/ L 4.0-10.0 RED BLOOD CELL COUNT (BEAKER) (test bnts=695) 2.22 M/ L 4.20-5.80 HEMOGLOBIN (BEAKER) (test loet=396) 6.9 GM/DL 13.0-16.8 HEMATOCRIT (BEAKER) (test hvjb=151) 20.8 % 40.0-50.0 MEAN CORPUSCULAR VOLUME (BEAKER) (test kblo=021) 93.9 fL 82.0-98.0 MEAN CORPUSCULAR HEMOGLOBIN (BEAKER) (test 31.2 pg 27.0-33.0 gbqj=963) MEAN CORPUSCULAR HEMOGLOBIN CONC (BEAKER) (test 33.2 GM/DL 32.0-36.0 ecsb=213) RED CELL DISTRIBUTION WIDTH (BEAKER) (test 15.2 % 10.3-14.2 xcio=570) PLATELET COUNT (BEAKER) (test vfpk=335) 184 K/CU MM 150-430 MEAN PLATELET VOLUME (BEAKER) (test bvfa=583) 8.0 fL 6.5-10.5 NUCLEATED RED BLOOD CELLS (BEAKER) (test 0 /100 WBC 0-0 nvpi=862) NEUTROPHILS RELATIVE PERCENT (BEAKER) (test 74 % prlj=643) LYMPHOCYTES RELATIVE PERCENT (BEAKER) (test 17 % fxls=588) MONOCYTES RELATIVE PERCENT (BEAKER) (test 8 % dxmb=130) EOSINOPHILS RELATIVE PERCENT (BEAKER) (test 1 % pzfb=794) BASOPHILS RELATIVE PERCENT (BEAKER) (test 1 % vgeh=122) NEUTROPHILS ABSOLUTE COUNT (BEAKER) (test 5.21 K/ L 1.80-8.00 scbe=612) LYMPHOCYTES ABSOLUTE COUNT (BEAKER) (test 1.22 K/ L 1.48-4.50 ytjx=932) MONOCYTES ABSOLUTE COUNT (BEAKER) (test 0.55 K/ L 0.00-1.30 tpob=283) EOSINOPHILS ABSOLUTE COUNT (BEAKER) (test 0.05 K/ L 0.00-0.50 sgpm=271) BASOPHILS ABSOLUTE COUNT (BEAKER) (test 0.04 K/ L 0.00-0.20 urvs=869) [id number] 03:21:00 Test Item Value Reference Range Comments FERRITIN (BEAKER) (test axno=652) 15 ng/mL 5-275 Effective 02/14/2014: Reference Range ChangeNew: Male 5-275 Previous: Male 22-322 Female 5-275 Female 10-291VITAMIN B12 AND [id number] 03:21:00 Test Item Value Reference Range Comments VITAMIN B12 (BEAKER) (test wnxc=569) 322 pg/mL 213-816 FOLATE (BEAKER) (test pmqs=846) 7.5 ng/mL >=7.0 Effective 02/14/2014: Folate Reference Range ChangeNew: >=7.0 Previous: & gt;=5.4IRON, TIBC, % SAT. (WITHOUT FERRITIN)2016-09-29 02:47:00 Test Item Value Reference Range Comments IRON (BEAKER) (test kmyd=344) 26 ug/dL 40-160 TOTAL IRON BINDING CAPACITY (BEAKER) (test 373 ug/dL 250-450 siae=124) IRON % SATURATION (2) (BEAKER) (test vzso=3811) 7 % 20-55 [id number] 02:30:00 Test Item Value Reference Range Comments PHOSPHORUS (BEAKER) (test ttck=412) 3.7 mg/dL 2.3-4.7 [id number] 02:30:00 Test Item Value Reference Range Comments MAGNESIUM (BEAKER) (test gcrt=160) 2.1 mg/dL 1.6-2.6 LACTIC ACID, VENOUS, WHOLE [id number] 02:28:00 Test Item Value Reference Range Comments LACTATE BLOOD VENOUS (2) (BEAKER) (test 1.5 mmol/L 0.5-2.2 rrct=6833) Effective 08/01/2015: Units/Reference Range ChangeNew: 0.5-2.2 mmol/L Previous: 5 -20 mg/dLPT/[id number] 02:27:00 Test Item Value Reference Range Comments PROTIME (BEAKER) (test ddwt=818) 34.3 seconds 11.7-14.7 INR (BEAKER) (test tuqd=332) 3.4 <=5.9 PARTIAL THROMBOPLASTIN TIME (BEAKER) (test 33.0 seconds 22.5-36.0 qkqe=250) RECOMMENDED COUMADIN/WARFARIN INR THERAPY RANGESSTANDARD DOSE: 2.0 - 3.0 Includes: PROPHYLAXIS forvenous thrombosis, systemic embolization; TREATMENT for venous thrombosis and/or pulmonary embolus.HIGH RISK: Target INR is 2.5-3.5 for patients with mechanical heart valves.PROTHROMBIN TIME/[id number] 02:26: 00 Test Item Value Reference Range Comments PROTIME (BEAKER) (test qjbt=936) 34.3 seconds 11.7-14.7 INR (BEAKER) (test qcik=769) 3.4 <=5.9 RECOMMENDED COUMADIN/WARFARIN INR THERAPY RANGESSTANDARD DOSE: 2.0 - 3.0 Includes: PROPHYLAXIS forvenous thrombosis, systemic embolization; TREATMENT for venous thrombosis and/or pulmonary embolus.HIGH RISK: Target INR is 2.5-3.5 for patients with mechanical heart valves.CREATINE KINASE (CK), TOTAL AND [id number] 02:23:00 Test Item Value Reference Range Comments CREATINE KINASE TOTAL (BEAKER) (test izgr=719) 44 U/L 29-200 CREATINE KINASE-MB (BEAKER) (test mjjz=679) 0.6 ng/mL 0.0-6.6 CREATINE KINASE-MB INDEX (BEAKER) (test lvvw=882) 1.4 % Effective 02/14/2014: CK-MB Reference Range ChangeNew: 0.0-6.6 Previous: 0.0- 4.9CK-MB Reference Range:<6.7 Normal6.7-10.0 Borderline>10.0 AbnormalTROPONIN [id number] 02:23:00 Test Item Value Reference Range Comments TROPONIN I (BEAKER) (test gszi=467) 0.01 ng/mL 0.00-0.03 Effective 02/14/2014: Reference Range [...] acute neurological disease, and persistent tachyarrhythmia.HEPATIC FUNCTION [id number] 02:17:00 Test Item Value Reference Range Comments TOTAL PROTEIN (BEAKER) (test qqww=758) 6.2 gm/dL 6.0-8.3 ALBUMIN (BEAKER) (test ovsm=3852) 3.4 g/dL 3.5-5.0 BILIRUBIN TOTAL (BEAKER) (test htva=856) 0.8 mg/dL 0.2-1.2 BILIRUBIN DIRECT (BEAKER) (test zkrl=965) 0.4 mg/dL 0.1-0.5 ALKALINE PHOSPHATASE (BEAKER) (test lkvv=889) 64 U/L 40-150 AST (SGOT) (BEAKER) (test hgcc=379) 12 U/L 5-34 ALT (SGPT) (BEAKER) (test ktbn=442) 17 U/L 6-55 BASIC METABOLIC [id number] 02:17:00 Test Item Value Reference Range Comments SODIUM (BEAKER) (test 141 meq/L 136-145 obyf=511) POTASSIUM (BEAKER) (test 3.6 meq/L 3.5-5.1 jpvd=030) CHLORIDE (BEAKER) (test 108 meq/L 98-107 fgsz=121) CO2 (BEAKER) (test 23 meq/L 22-29 vyxj=978) BLOOD UREA NITROGEN 20 mg/dL 7-21 (BEAKER) (test xkql=499) CREATININE (BEAKER) (test 1.37 mg/dL 0.57-1.25 ohfp=377) GLUCOSE RANDOM (BEAKER) 91 mg/dL 70-105 (test pkyp=487) CALCIUM (BEAKER) (test 8.4 mg/dL 8.4-10.2 tefk=116) EGFR (BEAKER) (test 51 mL/min/1.73 sq m ESTIMATED GFR IS NOT flsk=7947) ACCURATE CREATININE CLEARANCE IN PREDICTING GLOMERULAR FILTRATION RATE. ESTIMATED GFR IS NOT APPLICABLE FOR DIALYSIS PATIENTS. RETICULOCYTE [id number] 02:12:00 Test Item Value Reference Range Comments RETICULOCYTE COUNT PCT (BEAKER) (test unvc=292) 6.2 % 0.4-2.9 CBC W/PLT COUNT & AUTO [id number] 02:10:00 Test Item Value Reference Range Comments WHITE BLOOD CELL COUNT (BEAKER) (test rbzy=397) 8.0 K/ L 4.0-10.0 RED BLOOD CELL COUNT (BEAKER) (test tccu=780) 2.35 M/ L 4.20-5.80 HEMOGLOBIN (BEAKER) (test tgrv=926) 7.4 GM/DL 13.0-16.8 HEMATOCRIT (BEAKER) (test rozi=264) 22.2 % 40.0-50.0 MEAN CORPUSCULAR VOLUME (BEAKER) (test pboz=315) 94.2 fL 82.0-98.0 MEAN CORPUSCULAR HEMOGLOBIN (BEAKER) (test 31.3 pg 27.0-33.0 suuw=115) MEAN CORPUSCULAR HEMOGLOBIN CONC (BEAKER) (test 33.2 GM/DL 32.0-36.0 vmsp=442) RED CELL DISTRIBUTION WIDTH (BEAKER) (test 15.1 % 10.3-14.2 picv=039) PLATELET COUNT (BEAKER) (test kszl=245) 200 K/CU MM 150-430 MEAN PLATELET VOLUME (BEAKER) (test nmgo=251) 7.9 fL 6.5-10.5 NUCLEATED RED BLOOD CELLS (BEAKER) (test 0 /100 WBC 0-0 pfvi=751) NEUTROPHILS RELATIVE PERCENT (BEAKER) (test 74 % vfjr=675) LYMPHOCYTES RELATIVE PERCENT (BEAKER) (test 18 % rygj=564) MONOCYTES RELATIVE PERCENT (BEAKER) (test 8 % lwyn=612) EOSINOPHILS RELATIVE PERCENT (BEAKER) (test 1 % vwds=122) BASOPHILS RELATIVE PERCENT (BEAKER) (test 0 % fuww=779) NEUTROPHILS ABSOLUTE COUNT (BEAKER) (test 5.88 K/ L 1.80-8.00 bpes=359) LYMPHOCYTES ABSOLUTE COUNT (BEAKER) (test 1.42 K/ L 1.48-4.50 zoch=107) MONOCYTES ABSOLUTE COUNT (BEAKER) (test 0.62 K/ L 0.00-1.30 wthu=062) EOSINOPHILS ABSOLUTE COUNT (BEAKER) (test 0.05 K/ L 0.00-0.50 vvgo=805) BASOPHILS ABSOLUTE COUNT (BEAKER) (test 0.02 K/ L 0.00-0.20 mkzp=504)
[2017-11-19] MEDS ORDERED: ASPIRIN 325 MG TAB ONE (08:55)
--- NOTE | 2017-11-19 10:23 | RAD REPORT ---
EXAM DESCRIPTION: RAD - Chest Pa And Lat (2 Views) - 11/19/2017 9:38 am CLINICAL HISTORY: Dyspnea, worsening shortness of breath COMPARISON: August 30, 2017 TECHNIQUE: PA and lateral views of the chest were obtained. FINDINGS: The lungs are normal volume. Patient has numerous calcified granulomas scattered throughou t the lung norris. No peripheral consolidation. Interstitial markings are increased over prior imagi ng. Heart size is increased slightly. Upper lobe vasculature is also slightly more pronounced. Left c ostophrenic angle blunting is present. No pneumothorax. No acute bony finding noted. No aortic abnor mality. IMPRESSION: Mild CHF/volume overload findings. Numerous calcified granulomas.
[2017-11-19 11:10] LABS: Absolute Lymphocytes (CBC) 1.1 K/uL (0.7-4.9); Absolute Monocytes 0.6 K/uL (0.1-1.3); Absolute Neutrophil 5.5 K/uL (1.8-8.0); Basophils % 0.8 % (0-1.3); Eosinophils % 1.6 % (0-4.4); Hematocrit 36.3 % (39.6-49.0); Lymphocytes % 14.5 % (15.3-44.8); MCH 27.7 pg (27.0-35.0); MCV 85.7 fL (80-100); MPV 9.5 fL (7.6-11.3); Monocytes % 8.1 % (3.3-12.3); RBC Red Blood Cell Count 4.24 M/uL (4.33-5.43)
[2017-11-19 11:13] LABS: Protime INR 1.14
[2017-11-19 11:24] LABS: Bilirubin Direct 0.2 mg/dL (0-0.2); Bilirubin Total 0.9 mg/dL (0.2-1.0); Magnesium 2.5 mg/dL (1.8-2.4); Potassium 4.3 mmol/L (3.5-5.1); Protein, Total 7.1 g/dL (6.4-8.2)
[2017-11-19] MEDS ORDERED: NITROGLYCERIN 0.4 MG/TAB SL ONE (11:33)
[2017-11-19] MEDS ORDERED: FUROSEMIDE 40 MG/4 ML VIAL ONE (11:52)
[2017-11-19 13:36] LABS: Urine Blood NEGATIVE (NEG); Urine Glucose NEGATIVE (NEG); Urine Protein NEGATIVE (NEG); Urine Specific Gravity 1.025 (1.005-1.030)
--- NOTE | 2017-11-19 13:49 | EDPHYS ---
Physician Documentation [facility] Name: Hunter Lassiter Age: 72 yrs Sex: Male : 1945 Arrival Date: 11/19/2017 Time: 08:10 Bed 6 Private MD: ED Physician Rafael Goldstein HPI: 11/19 08:42 This 72 yrs old Male presents to ER via EMS with complaints of Shortness Of wa Breath. 08:42 The patient has shortness of breath with light activity. Onset: The symptoms/episode wa began/occurred 1 week(s) ago. Duration: The symptoms are continuous, and are steadily getting worse. The patient's shortness of breath is aggravated by exertion, is alleviated by nothing. Associated signs and symptoms: Pertinent positives: productive cough, Pertinent negatives: chest pain, diaphoresis, dizziness, fever, hemoptysis, loss of consciousness, nausea, numbness in extremities, vomiting. Severity of symptoms: At their worst the symptoms were moderate in the emergency department the symptoms are worse mildly. The patient has experienced similar episodes in the past, several times. The patient has not recently seen a physician, [employer] in [place]. Historical: - Allergies: 08:18 NKA; jb4 - Home Meds: 08:20 amiodarone 200 mg Oral tab 1 tab once daily [Active]; metoprolol tartrate 50 mg Oral jb4 tab 1 tab 2 times per day [Active]; levothyroxine 50 mcg tab 1 tab once daily [Active]; furosemide 40 mg Oral tab 1 tab once daily [Active]; spironolactone 25 mg Oral tab 1 tab 2 times per day [Active]; gabapentin 100 mg Oral cap [Active]; Eliquis 2.5 mg Oral tab 1 tab 2 times per day [Active]; atorvastatin 40 mg Oral tab 1 tab once daily [Active]; 08:20 aspirin 81 mg Oral TbEC 1 tab once daily [Active]; jb4 - PMHx: 08:20 Atrial Fib; High Cholesterol; Hypertension; Hypothyroidism; jb4 08:20 CVA; jb4 - PSHx: 08:20 IVC Filter; jb4 - Immunization history:: Adult Immunizations not up to date. - Social history:: Smoking status: Patient/guardian denies using tobacco, never smoked. - Ebola Screening: : No symptoms or risks identified at this time. - Family history:: not pertinent. - Hospitalizations: : No recent hospitalization is reported. ROS: 08:44 Constitutional: Negative for fever, chills, and weight loss, Eyes: Negative for injury, wa pain, redness, and discharge, ENT: Negative for injury, pain, and discharge, Neck: Negative for injury, pain, and swelling, Abdomen/GI: Negative for abdominal pain, nausea, vomiting, diarrhea, and constipation, Back: Negative for injury and pain, : Negative for injury, bleeding, discharge, and swelling, MS/Extremity: Negative for injury and deformity, Skin: Negative for injury, rash, and discoloration, Neuro: Negative for headache, weakness, numbness, tingling, and seizure, Psych: Negative for depression, anxiety, suicide ideation, homicidal ideation, and hallucinations. 08:44 Cardiovascular: Negative for chest pain, edema, orthopnea, palpitations, paroxysmal nocturnal dyspnea. 08:44 Respiratory: Positive for cough, with yellow sputum, dyspnea on exertion, shortness of breath, on exertion. Negative for hemoptysis, orthopnea. Exam: 08:45 Constitutional: This is a well developed, well nourished patient who is awake, alert, wa and in no acute distress. Head/Face: Normocephalic, atraumatic. Eyes: Pupils equal round and reactive to light, extra-ocular motions intact. Lids and lashes normal. Conjunctiva and sclera are non-icteric and not injected. Cornea within normal limits. Periorbital areas with no swelling, redness, or edema. ENT: Nares patent. No nasal discharge, no septal abnormalities noted. Tympanic membranes are normal and external auditory canals are clear. Oropharynx with no redness, swelling, or masses, exudates, or evidence of obstruction, uvula midline. Mucous membranes moist. Neck: Trachea midline, no thyromegaly or masses palpated, and no cervical lymphadenopathy. Supple, full range of motion without nuchal rigidity, or vertebral point tenderness. No Meningismus. Chest/axilla: Normal chest wall appearance and motion. Nontender with no deformity. No lesions are appreciated. Abdomen/GI: Soft, non-tender, with normal bowel sounds. No distension or tympany. No guarding or rebound. No evidence of tenderness throughout. Back: No spinal tenderness. No costovertebral tenderness. Full range of motion. Skin: Warm, dry with normal turgor. Normal color with no rashes, no lesions, and no evidence of cellulitis. MS/ Extremity: Pulses equal, no cyanosis. Neurovascular intact. Full, normal range of motion. Neuro: Awake and alert, GCS 15, oriented to person, place, time, and situation. Cranial nerves II-XII grossly intact. Motor strength 5/5 in all extremities. Sensory grossly intact. Cerebellar exam normal. Normal gait. Psych: Awake, alert, with orientation to person, place and time. Behavior, mood, and affect are within normal limits. 08:45 Cardiovascular: Rate: normal, Rhythm: irregularly irregular, Pulses: no pulse deficits are appreciated, Heart sounds: murmur, not appreciated, Edema: is not appreciated, JVD: is not appreciated. 08:45 ECG was reviewed by the Attending Physician. 08:45 Respiratory: the patient does not display signs of respiratory distress, Respirations: normal, Breath sounds: noted lower lobe crackles bilaterally, Respiratory rate: normal Vital Signs: 08:20 BP 128 / 99; Pulse 88; Resp 19; Temp 97.6(O); Pulse Ox 98% on 2 lpm NC; Weight 117.93 jb4 kg; Height 5 ft. 11 in. (180.34 cm); 09:00 BP 124 / 107; Pulse 90; Resp 22; Pulse Ox 99% on 2 lpm NC; jb4 10:00 BP 136 / 96; Pulse 95; Resp 20 S; Pulse Ox 99% on 2 lpm NC; jb4 11:00 BP 120 / 70; Pulse 90; Resp 18; Pulse Ox 98% on 2 lpm NC; jb4 11:54 BP 122 / 96; Pulse 99; Resp 21; Pulse Ox 96% 2 lpm ; jb4 12:00 BP 130 / 105; Pulse 82; Resp 22; Pulse Ox 96% on 2 lpm NC; jb4 13:33 BP 115 / 94; Pulse 82; Resp 16; Pulse Ox 97% on 2 lpm NC; jb4 14:27 BP 116 / 71; Pulse 90; Resp 15; Pulse Ox 99% on 2 lpm NC; jb4 15:00 BP 110 / 69; Pulse 91; Resp 18; Pulse Ox 100% on 2 lpm NC; jb4 08:20 Body Mass Index 36.26 (117.93 kg, 180.34 xavier) jb4 MDM: 08:14 Patient medically screened. 08:46 Differential diagnosis: Anemia Bronchitis CHF exacerbation, Chronic Obstructive wa Pulmonary Disease Myocardial Infarction pneumonia, pulmonary edema, Pulmonary Embolism Unstable Angina. 08:47 Special discussion: h/o afib. not taking his eloquis. . 13:31 Data reviewed: vital signs, nurses notes. 13:34 Test interpretation: by ED physician or midlevel provider: EKG: HR 101. A fib. diffuse wa ST-T changes. CXR CHF/Volume overload. Anemia. Cr elevated at 1.4. elevated BNP 5027 . 13:36 Response to treatment: the patient's symptoms have markedly improved after treatment. id Physician consultation: Cristofer French MD was called at 13:45. Admission orders: after a detailed discussion of the patient's condition and case, the admit orders are written by me. ED course: received nitro SL. ASA, lasix, and lovenox. improved. will admit. 13:49 Test interpretation: by ED physician or midlevel provider: EKG: HR 101. A fib RVR. id diffuse ST-T changes. 11/19 10:53 Order name: BMP; Complete Time: 11:44 11/19 10:53 Order name: CBC with Diff; Complete Time: 11:44 11/19 10:53 Order name: Magnesium; Complete Time: 11:44 11/19 10:53 Order name: Ptt, Activated; Complete Time: 11:44 11/19 10:53 Order name: Hepatic Function; Complete Time: 11:44 11/19 08:40 Order name: XRAY Chest Pa And Lat (2 Views); Complete Time: 10:24 11/19 08:40 Order name: EKG; Complete Time: 08:41 11/19 08:40 Order name: Cardiac monitoring; Complete Time: 08:45 11/19 08:40 Order name: EKG - Nurse/Tech; Complete Time: 08:45 11/19 08:40 Order name: O2 Per Protocol; Complete Time: 08:45 11/19 10:53 Order name: NT PRO-BNP; Complete Time: 11:44 11/19 10:53 Order name: PT-INR; Complete Time: 11:44 11/19 10:53 Order name: Troponin (emerg Dept Use Only); Complete Time: 11:44 aa5 11/19 11:45 Order name: Diet 2 Gm Sodium; Complete Time: 11:46 jb4 11/19 13:00 Order name: Urine Dipstick--Ancillary (enter results) mb4 11/19 08:40 Order name: O2 Sat Monitoring; Complete Time: 08:45 wa 11/19 08:40 Order name: Urine Dipstick-Ancillary (obtain specimen); Complete Time: 12:42 id Administered Medications: 08:45 Drug: Aspirin 325 mg Route: PO; jb4 09:20 Follow up: Response: No adverse reaction jb4 11:50 Drug: Nitroglycerin 0.4 mg Route: Sublingual; jb4 12:14 Follow up: Response: No adverse reaction jb4 12:00 Drug: Lasix 40 mg Route: IVP; Site: left antecubital; jb4 12:30 Follow up: Response: No adverse reaction jb4 14:20 Not Given (Patient Refused): Lovenox 100 mg Sub-Q once jb4 Disposition: 13:46 Critical Care:. id Disposition: 11/19/17 13:48 Hospitalization ordered by Cristofer French for Observation. Preliminary diagnosis are Acute Dyspnea, CHF exacerbation. - Bed requested for Telemetry/MedSurg (observation). - Status is Observation. jb4 - Condition is Stable. - Problem is new. - Symptoms have improved. UTI on Admission? No Critical care time excluding procedures: 13:46 Critical care time: Bedside Care: 20 minutes, Consultation: 5 minutes, Family id Intervention: 5 minutes. Total time: 30 minutes Signatures: Dispatcher [employer] Eligio Dwyer RN RN jb4 Rafael Goldstein MD MD wa Baxter, [place] mb4 Corrections: (The following items were deleted from the chart) 08:57 08:41 TROPONIN (EMERG DEPT USE ONLY)+C.LAB.BRZ ordered. EDMS EDMS 08:58 08:41 CBC+H.LAB.BRZ ordered. EDMS EDMS 08:59 08:41 BLOOD CULTURE*+BA.LAB.BRZ ordered. EDMS EDMS 08:59 08:41 BASIC METABOLIC PANEL+C.LAB.BRZ ordered. EDMS EDMS 08:59 08:41 HEPATIC FUNCTION+C.LAB.BRZ ordered. EDMS EDMS 08:59 08:41 MAGNESIUM+C.LAB.BRZ ordered. EDMS EDMS 08:59 08:41 PROBNP+C.LAB.BRZ ordered. EDGA EDMS 09:00 08:40 IV Saline Lock ordered. id jb4 09:00 08:40 Labs collected and sent ordered. id jb4 09:00 08:41 PTT, ACTIVATED+COAG.LAB.BRZ ordered. EDMS EDMS 09:00 08:41 PROTIME (+INR)+COAG.LAB.BRZ ordered. EDGA EDMS 14:40 13:48 Hospitalization Ordered by Cristofer French MD for Observation. Preliminary diagnosis mb4 is Acute Dyspnea; CHF exacerbation. Bed requested for Telemetry/MedSurg (observation). Status is Observation. Condition is Stable. Problem is new. Symptoms have improved. UTI on Admission? No. id 15:31 14:40 11/19/2017 13:48 Hospitalization Ordered by Cristofer French MD for Observation. jb4 Preliminary diagnosis is Acute Dyspnea; CHF exacerbation. Bed requested for Telemetry/MedSurg (observation). Status is Observation. Condition is Stable. Problem is new. Symptoms have improved. UTI on Admission? No. mb4
--- NOTE | 2017-11-19 13:49 | ER ---
Nurse's Notes [facility] Name: Hunter Lassiter Age: 72 yrs Sex: Male : 1945 Arrival Date: 11/19/2017 Time: 08:10 Bed 6 Private MD: Diagnosis: Acute Dyspnea;CHF exacerbation Presentation: 11/19 08:14 Presenting complaint: EMS states: "Pt has been complaining of SOB that has been jb4 progressively getting worse for the past 2-3 days.". Transition of care: patient was not received from another setting of care. Onset of symptoms was November 16, 2017. Risk Assessment: Do you want to hurt yourself or someone else? Patient reports no desire to harm self or others. Initial Sepsis Screen: Does the patient meet any 2 criteria? No. Patient's initial sepsis screen is negative. Does the patient have a suspected source of infection? No. Patient's initial sepsis screen is negative. Care prior to arrival: None. 08:14 Method Of Arrival: EMS: [facility] jb4 08:14 Acuity: TALIB 3 jb4 Triage Assessment: 08:20 General: Appears in no apparent distress. comfortable, Behavior is calm, cooperative, jb4 appropriate for age. Pain: Denies pain. Respiratory: Reports shortness of breath Onset: The symptoms/episode began/occurred 2-3 Days ago, the patient has mild shortness of breath. Historical: - Allergies: 08:18 NKA; jb4 - Home Meds: 08:20 amiodarone 200 mg Oral tab 1 tab once daily [Active]; metoprolol tartrate 50 mg Oral jb4 tab 1 tab 2 times per day [Active]; levothyroxine 50 mcg tab 1 tab once daily [Active]; furosemide 40 mg Oral tab 1 tab once daily [Active]; spironolactone 25 mg Oral tab 1 tab 2 times per day [Active]; gabapentin 100 mg Oral cap [Active]; Eliquis 2.5 mg Oral tab 1 tab 2 times per day [Active]; atorvastatin 40 mg Oral tab 1 tab once daily [Active]; 08:20 aspirin 81 mg Oral TbEC 1 tab once daily [Active]; jb4 - PMHx: 08:20 Atrial Fib; High Cholesterol; Hypertension; Hypothyroidism; jb4 08:20 CVA; jb4 - PSHx: 08:20 IVC Filter; jb4 - Immunization history:: Adult Immunizations not up to date. - Social history:: Smoking status: Patient/guardian denies using tobacco, never smoked. - Ebola Screening: : No symptoms or risks identified at this time. - Family history:: not pertinent. - Hospitalizations: : No recent hospitalization is reported. Screenin:41 Abuse screen: Denies threats or abuse. Nutritional screening: No deficits noted. jb4 Tuberculosis screening: No symptoms or risk factors identified. Fall Risk Fall in past 12 months (25 points). Total Linn Fall Scale indicates Low Risk Score (25-44 pts). Fall prevention measures have been instituted. Side Rails Up X 2 Placed close to Nursing Station Frequent Obs/Assesments occuring. Assessment: 08:41 General: Appears in no apparent distress. comfortable, Behavior is calm, cooperative, jb4 appropriate for age. Pain: Denies pain. Neuro: Level of Consciousness is awake, alert, obeys commands, Oriented to person, place, time, situation. Cardiovascular: Denies chest pain, Heart tones S1 S2 present Patient's skin is warm and dry. Rhythm is atrial fibrillation. Respiratory: Reports shortness of breath cough that is productive, Airway is patent Respiratory effort is even, unlabored, Respiratory pattern is regular, symmetrical, Breath sounds are clear in right upper lobe, left upper lobe, left posterior upper lobe and right posterior upper lobe Breath sounds with crackles in right middle lobe, right lower lobe, left posterior lower lobe, right posterior middle lobe and right posterior lower lobe. GI: Abdomen is round Bowel sounds present X 4 quads. Abd is soft and non tender X 4 quads. : No signs and/or symptoms were reported regarding the genitourinary system. EENT: No signs and/or symptoms were reported regarding the EENT system. Derm: Skin is intact, Skin is pink, warm \\T\\ dry. Musculoskeletal: No signs and/or symptoms reported regarding the musculoskeletal system. 08:45 Reassessment: Pt refused IV, \\T\\ blood work. Dr. Goldstein notified. No further orders at [facility] this time. 09:15 Reassessment: Pt wheeled to X-Ray via stretcher. jb4 09:45 Reassessment: Pt back from X-ray. jb4 10:00 Reassessment: Patient appears in no apparent distress at this time. Patient and/or jb4 family updated on plan of care and expected duration. Pain level reassessed. Patient is alert, oriented x 3, equal unlabored respirations, skin warm/dry/pink. 10:30 Reassessment: Pt agreed to IV and blood work. jb4 12:35 Reassessment: Patient and/or family updated on plan of care and expected duration. Pain aa5 level reassessed. Patient is alert, oriented x 3, equal unlabored respirations, skin warm/dry/pink. Pt sitting up in bed eating lunch, pt tolerating well. Awaiting disposition. 13:20 Reassessment: Patient appears in no apparent distress at this time. Patient and/or jb4 family updated on plan of care and expected duration. Pain level reassessed. Patient is alert, oriented x 3, equal unlabored respirations, skin warm/dry/pink. Provider at the bedside updating Pt on POC. 14:20 Reassessment: Patient appears in no apparent distress at this time. Patient and/or jb4 family updated on plan of care and expected duration. Pain level reassessed. Patient is alert, oriented x 3, equal unlabored respirations, skin warm/dry/pink. Pt refused Lovenox injection. Physician notified. Vital Signs: 08:20 BP 128 / 99; Pulse 88; Resp 19; Temp 97.6(O); Pulse Ox 98% on 2 lpm NC; Weight 117.93 jb4 kg; Height 5 ft. 11 in. (180.34 cm); 09:00 BP 124 / 107; Pulse 90; Resp 22; Pulse Ox 99% on 2 lpm NC; jb4 10:00 BP 136 / 96; Pulse 95; Resp 20 S; Pulse Ox 99% on 2 lpm NC; jb4 11:00 BP 120 / 70; Pulse 90; Resp 18; Pulse Ox 98% on 2 lpm NC; jb4 11:54 BP 122 / 96; Pulse 99; Resp 21; Pulse Ox 96% 2 lpm ; jb4 12:00 BP 130 / 105; Pulse 82; Resp 22; Pulse Ox 96% on 2 lpm NC; jb4 13:33 BP 115 / 94; Pulse 82; Resp 16; Pulse Ox 97% on 2 lpm NC; jb4 14:27 BP 116 / 71; Pulse 90; Resp 15; Pulse Ox 99% on 2 lpm NC; jb4 15:00 BP 110 / 69; Pulse 91; Resp 18; Pulse Ox 100% on 2 lpm NC; jb4 08:20 Body Mass Index 36.26 (117.93 kg, 180.34 cm) jb4 ED Course: 08:10 Patient arrived in ED. aa5 08:13 Eligio Bradley, RN is Primary Nurse. jb4 08:14 Rafael Goldstein MD is Attending Physician. wa 08:17 Triage completed. jb4 08:18 EKG done, by technical photographer. reviewed by Rafael Goldstein MD. at1 08:40 Arm band placed on right wrist. jb4 08:41 Patient has correct armband on for positive identification. Placed in gown. Bed in low jb4 position. Call light in reach. Side rails up X2. potline monitor on. Pulse ox on. NIBP on. 09:17 Patient moved to radiology via stretcher. jb2 09:21 X-ray completed. Patient tolerated procedure well. jb2 09:22 XRAY Chest Pa And Lat (2 Views) In Process Unspecified. EDMS 09:40 Patient moved back from radiology. jb2 10:55 Initial lab(s) drawn, by me, sent to lab. Missed attempt(s): 22 gauge in left hand. iw Bleeding controlled, band aid applied, catheter tip intact. 11:00 Inserted saline lock: 20 gauge in left antecubital area, using aseptic technique. vd2 13:47 Cristofer French MD is Hospitalizing Provider. wa 14:53 No provider procedures requiring assistance completed. Patient admitted, IV remains in jb4 place. Administered Medications: 08:45 Drug: Aspirin 325 mg Route: PO; jb4 09:20 Follow up: Response: No adverse reaction jb4 11:50 Drug: Nitroglycerin 0.4 mg Route: Sublingual; jb4 12:14 Follow up: Response: No adverse reaction jb4 12:00 Drug: Lasix 40 mg Route: IVP; Site: left antecubital; jb4 12:30 Follow up: Response: No adverse reaction jb4 14:20 Not Given (Patient Refused): Lovenox 100 mg Sub-Q once jb4 Outcome: 13:48 Decision to Hospitalize by Provider. wa 15:24 Admitted to Med/surg accompanied by cyn, via wheelchair, room 220, with chart, Report jb4 called to RICCO Francois 15:24 Condition: stable 15:24 Instructed on the need for admit, Demonstrated understanding of instructions. 15:31 Patient left the ED. jb4 Signatures: Dispatcher [employer] EDKareem Lemos jb2 Jessica Gonzalez, RN RICCO iw Mickie Oliveros RN RN aa5 Lorrie Cifuentes vd2 Bibi Flowers, salvage grinder EKG Tat1 Eligio Bradley RN RN jb4 Rafael Goldstein MD MD wa
[2017-11-19] MEDS ORDERED: ACETAMINOPHEN 500 MG TAB PO PRN (13:54)
[2017-11-19] MEDS ORDERED: ONDANSETRON 4 MG/2 ML VIAL IV PRN (13:54)
[2017-11-19] MEDS ORDERED: ENOXAPARIN 100 MG/ML SYR SQ ONE (13:57)
--- NOTE | 2017-11-19 16:29 | EKG ---
Test Date: 2017-11-19 Test Time: 08:18:39 Senior Sales Director: MB MEASUREMENT RESULTS: Intervals: Rate: 101 CT: QRSD: 92 QT: 378 QTc: 490 [place]: P: CT: QRS: 19 T: 69 INTERPRETIVE STATEMENTS: Atrial fibrillation with rapid ventricular response Cannot rule out Anterior infarct, age undetermined Abnormal ECG Compared to ECG 08/29/2017 03:29:07 Sinus rhythm no longer present First degree AV block no longer present Myocardial infarct finding still present Electronically Signed On 11-19-17 16:27:24 CDT by Adrian Llanos
[2017-11-19 17:19] VITALS: BMI 33.5
[2017-11-19] MEDS: CARVEDILOL 12.5 MG TAB PO SCH ×2 (17:47→18:00)
[2017-11-19] MEDS: FUROSEMIDE 40 MG/4 ML VIAL IV SCH (17:47)
[2017-11-19] MEDS: ATORVASTATIN 80 MG TAB PO SCH (20:56)
[2017-11-19] MEDS: METOPROLOL XL 50 MG TAB PO SCH (20:56)
--- NOTE | 2017-11-20 01:29 | HP ---
Date of Admission: 11/19/2017 Consultants: Dr. Llanos with Cardiology. Chief Complaint: Shortness of breath. Code status: Full Primary Care Physician: None. History Of Present Illness: The patient is a 72-year-old male with past medical history of atrial fibrillation, no longer taking any Eliquis, DVT status post IVC filter placement, severe pulmonary hypertension, coronary artery disease, chronic combined systolic and diastolic heart failure, noncompliance, history of presumed sleep apnea, comes into the ER for worsening shortness of breath that has been ongoing for the past several weeks. The patient does claim that he is compliant with his medications. He is a very poor historian and he is still unclear about the timeline of his Watchman device and then subsequent anticoagulation. He does have a ground crew chief, Dr. Coleman in [place]. He is unsure when the last time he saw her. The patient at this time does report some worsening shortness of breath with lying down. Does not report any fever, chills. Does have some cough, but no sputum production. The patient states that he is not compliant with his 2 g sodium diet or fluid restricted diet. Due to his worsening symptoms which are constant, moderate, progressively worsening, he came into the ER for further evaluation. Initially , after evaluation by the ER physician, he wished to leave [facility], however, was convinced by the ER physician to stay. His workup revealed a proBNP of 5027. His creatinine was 1.4, which is around baseline. His white count was normal. INR was 1.14. The patient's chest x-ray showed mild CHF, volume overload finding as well as numerous calcified granuloma scattered throughout the lung norris. The patient was given nitroglycerin, IV Lasix, and then referred for admission. When seen in the ER, he was awake, alert, oriented x3, somewhat frustrated as to why he needs to stay in the hospital. Past Medical History: History of [place], hyperlipidemia, hypertension, atrial fibrillation, status post Watchman procedure, history of presumed sleep apnea, history of DVT, status post IVC filter, heart stent x4. Allergies: NO KNOWN DRUG ALLERGIES. Medications: List reviewed. Family History: Father has cancer. Brother also has cancer. Social History: The patient denies any tobacco use, alcohol use, or illicit drug use. Lives at home by himself. Poor social support. Review of Systems: An 11-point system reviewed, negative except as per HPI. Physical Examination: Vital Signs: Temperature 97.6, blood pressure 128/99, pulse 88, respirations 17 , O2 98% on 2 L via nasal cannula. General: Awake, alert, oriented x3. Some mild distress. Elderly male, appears older than his stated age, ill-appearing. HEENT: Normocephalic, atraumatic PERRLA. EOMI. Moist mucous membranes. Oropharynx is clear. Poor dentition. Conjunctiva is anicteric. Neck: Supple. Trachea midline. CV: S1, S2. No murmurs. Peripheral pulses present. Respiratory: Diminished breath sounds. No wheezing. No use of accessory muscles. No stridor. Gastrointestinal: Abdomen is soft, nontender, nondistended. Positive bowel sounds. No guarding or rigidity. Extremities: No clubbing, cyanosis. The patient does have peripheral edema 1+ bilaterally. No calf tenderness. Neuro: Cranial nerves 2 through 12 intact grossly. No focal neurological deficit. Speech is normal. Strength is symmetric bilateral upper and lower extremities. SKIN: No rashes. Normal skin turgor. PSYCH: Mood is somewhat anxious. Affect is congruent with mood. Insight and judgment are poor. Laboratory Data: UA is negative. Sodium 141, potassium 4.3, chloride 109, CO2 25, BUN 14, creatinine 1.4, glucose 93, calcium 8.4, magnesium 2.5. ProBNP 5027. Troponin 0.02. Albumin 3. INR 1.14. WBC 7.3, H and H 11.8/36.3, platelets 193, neutrophils 75%. Chest x-ray shows mild CHF and volume overload findings, numerous calcified granulomas. Assessment: 1. Acute congestive heart failure, combined systolic and diastolic dysfunction. We will continue with diuresis. Continue on NICOL inhibitor, beta- jose c. The patient already taking spironolactone. EF from August of 2017 showed EF of 60% to 69% with left ventricular hypertrophy and pulmonary hypertension. 2. Severe pulmonary hypertension. 3. History of myocardial infarction. 4. Essential hypertension. We will continue home medications as appropriate. 5. Mixed hyperlipidemia. Continue statin. 6. Atrial fibrillation paroxysmal, status post Watchman procedure. The patient no longer taking Eliquis. We will obtain echocardiogram to evaluate Watchman device is working properly. 7. History of deep venous thrombosis status post inferior vena cava filter. 8. Coronary artery disease [place] artery and [place] heart, status post stents without angina. 9. Noncompliance. 10. Obesity, BMI greater than 30. Plan: Admit the patient to [facility], place as observation. The patient has received Lovenox in the ER for a full-dose anticoagulation. We will continue for now. We will obtain echocardiogram and determine if the patient needs to be on anticoagulation going further. We will touch base with Cardiology. FROY Voice ID: [id number] MTDD
[2017-11-20 05:21] LABS: Absolute Lymphocytes (CBC) 1.1 K/uL (0.7-4.9); Absolute Monocytes 0.6 K/uL (0.1-1.3); Absolute Neutrophil 5.3 K/uL (1.8-8.0); Basophils % 1.2 % (0-1.3); Eosinophils % 2.7 % (0-4.4); Hematocrit 35.1 % (39.6-49.0); Lymphocytes % 14.9 % (15.3-44.8); MCV 84.5 fL (80-100); MPV 9.3 fL (7.6-11.3); Monocytes % 8.2 % (3.3-12.3); RBC Red Blood Cell Count 4.16 M/uL (4.33-5.43)
[2017-11-20] MEDS: LEVOTHYROXINE SOD 0.05 MG TABLET PO SCH (05:32)
[2017-11-20 05:38] LABS: Bilirubin Total 1.1 mg/dL (0.2-1.0); Potassium 3.4 mmol/L (3.5-5.1); Protein, Total 6.7 g/dL (6.4-8.2)
[2017-11-20] MEDS: CARVEDILOL 12.5 MG TAB PO SCH ×2 (05:43→17:58)
[2017-11-20] MEDS: METOPROLOL XL 50 MG TAB PO SCH ×2 (08:27→20:33)
[2017-11-20] MEDS: FUROSEMIDE 40 MG/4 ML VIAL IV SCH ×2 (08:28→17:57)
[2017-11-20] MEDS: LISINOPRIL 10 MG TAB PO SCH (08:28)
[2017-11-20] MEDS: ASPIRIN EC 81 MG TAB PO SCH (08:28)
[2017-11-20] MEDS ORDERED: SPIRONOLACTONE 25 MG TABLET PO SCH (09:00)
--- NOTE | 2017-11-20 14:50 | PN ---
Subjective: The patient is seen and examined. Chart reviewed and case discussed with RN and Dr. Rocha. The patient continues to be a very poor historian and unable to tell me, which compensation and benefits manager or senior tax specialist performed his Watchman procedure. He states his breathing is better; however, not back to baseline. Complains of some swelling of his scrotum. Review of Systems: Negative except as above. Medications: List reviewed. Physical Examination: Vital Signs: Temperature 98, heart rate 102, blood pressure 137/80, respirations 18, O2 97% on room air. General: Awake, alert, oriented x3, in some mild distress. Elderly male, ill- appearing, obese, BMI 33.5. CV: S1, S2. No murmurs. Peripheral pulses are present. Respiratory: Diminished breath sounds. No wheezing or stridor. Gastrointestinal: Abdomen is soft, nontender, nondistended. Positive bowel sounds. Extremities: No clubbing, cyanosis. The patient does have peripheral edema. Neurologic: Nonfocal. : The patient has significant scrotal swelling, edema. Laboratory Data: Sodium 142, potassium 3.4, chloride 106, CO2 28, BUN 15, creatinine 1.4, glucose 91, calcium 8, total bilirubin 1.1. WBC 7.2, H and H 11.6 and 35.1, platelets 179. Assessment And Plan: A 72-year-old male with: 1. Acute congestive heart failure, combined systolic and diastolic dysfunction. Continue diuresis with Lasix, NICOL inhibitor, beta-jose c. EF is 60% to 69% from echocardiogram in August. 2. Hypertensive heart disease. 3. Severe pulmonary hypertension. 4. History of myocardial infarction; coronary artery disease, [place] artery and [place] heart, status post stent without angina. 5. Essential hypertension, stable. 6. Mixed hyperlipidemia. Continue statin. 7. Atrial fibrillation, paroxysmal, status post Watchman procedure. Unable to do VICTORIANO at this facility. We will try to reach out to the patient's compensation and benefits manager. In the meantime, we will resume Eliquis. 8. History of deep venous thrombosis, status post IVC filter. 9. Noncompliance. 10. Obesity, BMI 33.5. Plan: We will continue with diuresis, sodium and fluid-restricted diet. Patient refusing daily weights. Follow up with Cardiology recommendations. Repeat chest x-ray in a.m. Wean off oxygen. SA/MODL Voice ID: [id number] Report ID: [id number] MTDD
[2017-11-20] MEDS: ATORVASTATIN 80 MG TAB PO SCH (20:33)
[2017-11-20] MEDS ORDERED: APIXABAN 5 MG TABLET PO SCH (21:00)
[2017-11-21] MEDS: LEVOTHYROXINE SOD 0.05 MG TABLET PO SCH (05:35)
[2017-11-21] MEDS: CARVEDILOL 12.5 MG TAB PO SCH ×2 (05:35→17:40)
[2017-11-21] MEDS: METOPROLOL XL 50 MG TAB PO SCH ×2 (09:00→21:00)
[2017-11-21] MEDS: FUROSEMIDE 40 MG/4 ML VIAL IV SCH ×2 (09:00→17:00)
[2017-11-21] MEDS: Enoxaparin 120 MG/0.8 ML SYR SQ SCH (09:00)
[2017-11-21] MEDS: LISINOPRIL 10 MG TAB PO SCH (09:00)
[2017-11-21] MEDS: ASPIRIN EC 81 MG TAB PO SCH (09:09)
[2017-11-21] MEDS ORDERED: MORPHINE 2 MG/ML SYR IV ONE (10:54)
--- NOTE | 2017-11-21 15:08 | PN ---
Subjective: Currently, the patient lying in bed. He is doing fine. Earlier he had an episode where the blood pressure dropped when he was going to have x-ray. He is in bad mood arguing about all pro cedure, he does not like the food. He is under stress dealing with his son's drug addiction. Subjective: Vital Signs: Currently, blood pressure is 96/64, respiratory rate 18, pulse 88, tempera ture 98.7. General: The patient is alert, oriented x3. Does not look in any distress. HEENT: Atraumatic, normocephalic. PERRLA. Oral mucosa is moist. Neck: Supple. No JVD. No bruits. Chest: Clear to auscultation. Good air entry with fine crackles in the bases. Heart: Regular rate and rhythm. S1, S2 normal. No gallop. Abdomen: Soft. No masses. No hepatosplenomegaly. Positive bowel sounds. Extremities: No clubbing, cyanosis, or edema. No calf tenderness, but +1 edema noted. Exam grossly intact. Laboratory Data: Today also pending as patient refused labs including cardiac enzyme and BMP. Chest x-ray today is pending. Assessment And Plan: 1.Acute congestive heart failure with systolic diastolic dysfunction. The patient on Lasix beta-blo cker, NICOL inhibitor. EF 60-69% and last echocardiogram from August. Repeat chest x-ray is pending. B MP today pending as patient refused labs. 2.Hypotensive episodes? dialysis related. Blood pressure medication on hold. Cardiac consult reque sted and started his home medication. 3.Severe pulmonary hypertension. 4.Hyperlipidemia. Continue statin. 5.History of atrial fibrillation, paroxysmal, status post Watchman procedure, which we could not bud judie by the physician in [place], so we will continue patient on anticoagulation. He is on Lovenox, w hich he is refusing. 6.History of hypothyroidism. He is on Synthroid 50 mcg. 7.Noncompliance. Patient refusing labs, refusing x-ray, being very difficult. I spend extensive ti me discussing with the patient the importance of compliance. 8.History of deep vein thrombosis. The patient to have IVC filter, he is refusing his Lovenox. MT/JAZIELL Voice ID: [id number] Report ID: [id number]
--- NOTE | 2017-11-21 15:19 | RAD REPORT ---
EXAM DESCRIPTION: Rosemary Single View11/21/2017 2:50 pm CLINICAL HISTORY: Shortness of breath COMPARISON: November 19 FINDINGS: A 4 centimeter opacity within the medial mid right lung is without obvious change. Additional bilateral pulmonary opacities have resolved. The heart is mildly enlarged IMPRESSION: Resolution in bilateral pulmonary edema 4 centimeter opacity within the medial mid right lung which may represent pneumonia or mass
[2017-11-21] MEDS: ATORVASTATIN 80 MG TAB PO SCH (21:01)
[2017-11-22] MEDS: LEVOTHYROXINE SOD 0.05 MG TABLET PO SCH (06:09)
[2017-11-22] MEDS: CARVEDILOL 12.5 MG TAB PO SCH (06:09)
[2017-11-22] MEDS: Enoxaparin 120 MG/0.8 ML SYR SQ SCH (09:00)
[2017-11-22 09:31] VITALS: BP 124/84; TEMP 97.7
[2017-11-22] MEDS: LISINOPRIL 10 MG TAB PO SCH (09:48)
[2017-11-22] MEDS: FUROSEMIDE 40 MG/4 ML VIAL IV SCH (09:48)
[2017-11-22] MEDS: ASPIRIN EC 81 MG TAB PO SCH (09:49)
[2017-11-22] MEDS: METOPROLOL XL 50 MG TAB PO SCH (09:49)
[2017-11-22 10:30] VITALS: O2SAT 98
--- NOTE | 2017-11-23 05:53 | DS ---
Date of Discharge: 11/22/2017 Discharge Diagnoses: 1.Noncompliance. 2.Congestive heart failure exacerbation with diastolic and systolic dysfunction. 3.Lung mass. 4.Pulmonary hypertension. 5.Hyperlipidemia. 6.Atrial fibrillation, status post Watchman procedure. 7.Hypothyroidism. 8.Deep venous thrombosis history, status post IVC filter. 9.Hypokalemia. Procedure: None. History Of Present Illness: Please refer to our admission note. Hospital Course: Initially, the patient presented with progressive shortness of breath. Chest x-ray showed volume overload. The patient was started on IV Lasix. Shortness of breath improved. In the meantime, the patient had atrial fibrillation, and he stated that he had Watchman procedure, and he is not on anticoagulation, which we could not verify, so the patient was placed Lovenox. The patient was noncompliant throughout the hospital course. He refused tele, he refused labs. Repeat chest x- ray yesterday showed improvement in pulmonary edema, but questionable mass versus pneumonia. The pat ient refused CAT scan claiming that he had this spot years ago and is nothing. The patient today not willing to have another blood work as well, and he said that he would like to leave AMA, but he is n ot willing to sign the AMA paperwork. So, the patient was left without discharge instructions, medic ations as he refused all medical recommendations. We advised him to come back to the hospital if his shortness of breath gets worse or he starts to have any chest pain or abdominal pain. I strongly ad vised him to follow up with his primary care physician with a CAT scan for his lung mass, that could be lung cancer, which would need immediate attention, otherwise can progress and lead to his . The patient stated that he is not going to follow any of the recommendations, and he is just going to leave the hospital without signing the AMA. Vital signs today, blood pressure is 124/84, respiratory rate 20, pulse 97, temperature 97.7, saturat ing 97% on room air. The patient refused physical exam. ORVILLE/KATELYN Voice ID: [id number] Report ID: [id number]
--- NOTE | 2017-11-23 09:47 | EKG ---
Test Date: 2017-11-21 Test Time: 10:47:40 Director Of Compensation: SARIKA MEASUREMENT RESULTS: Intervals: Rate: 82 [place]: QRSD: 98 QT: 432 QTc: 504 [place]: P: [place]: QRS: -17 T: 95 INTERPRETIVE STATEMENTS: Atrial fibrillation Minimal voltage criteria for LVH, may be normal variant Nonspecific T wave abnormality, probably digitalis effect Prolonged QT Abnormal ECG Compared to ECG 11/21/2017 10:42:32 T-wave abnormality now present ST (T wave) deviation no longer present Electronically Signed On 11-23-17 09:45:54 CDT by Eduardo Rocha
--- NOTE | 2017-11-23 09:47 | EKG ---
Test Date: 2017-11-21 Test Time: 10:42:32 Deadener: SARIKA MEASUREMENT RESULTS: Intervals: Rate: 85 [place]: QRSD: 94 QT: 454 QTc: 540 [place]: P: [place]: QRS: -17 T: 106 INTERPRETIVE STATEMENTS: Atrial fibrillation with a competing junctional pacemaker Moderate voltage criteria for LVH, may be normal variant Nonspecific ST and T wave abnormality, probably digitalis effect Prolonged QT Abnormal ECG Compared to ECG 11/21/2017 10:41:35 Prolonged QT interval now present Atrial flutter no longer present ST (T wave) deviation still present Electronically Signed On 11-23-17 09:46:02 CDT by Eduardo Rocha
--- NOTE | 2017-11-23 09:47 | EKG ---
Test Date: 2017-11-21 Test Time: 10:41:35 Relationship Executive: SARIKA MEASUREMENT RESULTS: Intervals: Rate: 74 [place]: QRSD: 96 QT: 312 QTc: 346 [place]: P: [place]: QRS: -19 T: 195 INTERPRETIVE STATEMENTS: Atrial fibrillation Moderate voltage criteria for LVH, may be normal variant Nonspecific ST and T wave abnormality Abnormal ECG Compared to ECG 11/19/2017 08:18:39 Left ventricular hypertrophy now present ST (T wave) deviation now present Electronically Signed On 11-23-17 09:46:21 CDT by Eduardo Rocha
== END 2017-11-22 11:27 | disposition left against medical advice (07) | DRG 293 ==
LOC: ER 08:05 → ERHOLD 13:51 → 2ND 14:55 → OBSVTOIN 11-20 09:13
PROVIDERS: ADMIT Family Medicine; ATTEND Internal Medicine
DX: I11.0 Hypertensive heart disease with heart failure (principal); I50.43 Acute on chronic combined systolic (congestive) and diastolic (congestive) heart failure; I48.0 Paroxysmal atrial fibrillation; R91.8 Other nonspecific abnormal finding of lung field; I27.20 Pulmonary hypertension, unspecified; E03.9 Hypothyroidism, unspecified; E87.6 Hypokalemia; E66.9 Obesity, unspecified; I25.10 Atherosclerotic heart disease of native coronary artery without angina pectoris; Z68.33 Body mass index [BMI] 33.0-33.9, adult; E78.2 Mixed hyperlipidemia; Z91.19 Patient's noncompliance with other medical treatment and regimen; I25.2 Old myocardial infarction; Z95.5 Presence of coronary angioplasty implant and graft; Z86.718 Personal history of other venous thrombosis and embolism
CPT/HCPCS: 36415; 71045; 71046; 80048; 80053; 80076; 81003; 83735; 83880; 84484; 85025; 85610; 85730; 93005; 94760; 96374; 99285; J1650; J2270

== ENCOUNTER 2018-10-27 10:49 | Inpatient (IN) | payer OTHER, BC ==
--- OUTSIDE RECORDS SUMMARY | 2018-10-27 10:52 | XMS REPORT | Clinical Summary ---
:1945 Author Organization [facility] Address [address] [place] [address] Care Team Providers Name Role Phone Scot Estrada Primary Care Provider Allergies Active Allergy Reactions Severity Noted Date Comments Latex Itching, Rash Medium 02/16/2013 Medications Medication Sig Dispensed Refills Start Date End Date Status spironolactone Take 25 mg by 0 Active (ALDACTONE) 25 MG mouth daily. tablet levothyroxine Take 50 mcg by 0 Active (SYNTHROID, mouth Every LEVOTHROID) 50 MCG morning on an tablet empty stomach. atorvastatin Take 40 mg by 0 Active (LIPITOR) 40 MG mouth daily. tablet amiodarone (PACERONE) Take 200 mg by 0 Active 200 MG tablet mouth daily. gabapentin Take 100 mg by 0 Active (NEURONTIN) 100 MG mouth 2 (two) capsule times daily Pt takes only once daily, prescribed twice daily. latanoprost (XALATAN) Place 1 drop 0 Active 0.005 % ophthalmic into both eyes solution nightly. metoprolol Take 50 mg by 0 Active (LOPRESSOR) 50 MG mouth 2 (two) tablet times daily Pt states only takes once daily, prescribed twice daily . UNKNOWN Eye Ointment 0 Active Daily to Both Eyes every Evening . UNKNOWN Dry Eyes Drops 0 Active to Both Eyes 3 times daily . tamsulosin (FLOMAX) Take 1 capsule 90 capsule 3 12/11/2016 Active 0.4 mg Cp24 24 hr (0.4 mg total) capsule by mouth daily. aspirin 81 MG EC Take 1 tablet 360 tablet 0 12/11/2016 12/11/2017 tablet (81 mg total) by mouth daily. finasteride (PROSCAR) Take 1 tablet (5 90 tablet 3 12/11/2016 12/11/2017 5 mg tablet mg total) by mouth daily. warfarin (COUMADIN) 5 Take 1 tablet (5 90 tablet 3 12/11/2016 12/11/2017 MG tablet mg total) by mouth every evening. Active Problems Problem Noted Date Atrial fibrillation 12/10/2016 A-fib 12/10/2016 Anemia 09/29/2016 Acute renal failure (ARF) 09/29/2016 Iron deficiency anemia due to chronic blood loss 09/29/2016 Acute upper GI bleed 09/29/2016 CAD (coronary artery disease) 02/17/2013 Chest pain 02/15/2013 SOB (shortness of breath) 02/15/2013 Family History Medical History Relation Name Comments Cancer Brother lung Cancer Father lung Relation Name Status Comments Brother Father Social History Tobacco Use Types Packs/Day Years Used Date Never Smoker Smokeless Tobacco: Never Used Alcohol Use Drinks/Week oz/Week Comments No Sex Assigned at Date Recorded Not on file Job Start Date Occupation Industry Not on file Not on file Not on file Travel History Travel Start Travel End No recent travel history available. Last Filed Vital Signs Not on file Plan of Treatment Not on file Implants Implanted Type Area Lining Cleaner Device Shelf Model / Identifier Expiration Serial / Date Lot [facility] [place] 04/09/2019 [id number] / Implanted: Qty: 1 on 12/10/2016 by Vidal Dunbar MD [employer] / [id number] [employer] [place] 05/23/2015 [id number] / Implanted: Qty: 1 on 12/12/2014 [employer] / [id number] Results Not on fileafter 10/26/2017 Insurance Payer Benefit Plan / Subscriber ID Type Phone Address Group MEDICARE MEDICARE A B xxxxxxxxxx Medicare BLUE CROSS/BLUE BCBS INDEMNITY [place] xxxxxxxxxxxx [facility] [phone] [address] [facility] [address] Advance Directives For more information, please contact:[address] [phone] Code Status Date Activated Date Inactivated Comments Full Code 12/10/2016 2:33 PM 12/11/2016 9:25 PM This code status was determined by: Patient Full Code 12/10/2016 8:22 AM 12/10/2016 2:33 PM This code status was determined by: Patient Full Code 10/08/2016 9:05 AM 10/08/2016 9:07 AM This code status was determined by: Patient Full Code 09/29/2016 2:00 AM 10/08/2016 9:05 AM This code status was determined by: Patient Full Code 12/11/2014 11:51 AM 12/13/2014 12:34 PM This code status was determined by: Patient
--- OUTSIDE RECORDS SUMMARY | 2018-10-27 10:54 | XMS REPORT ---
:1945 [facility] [address] [place] [address] Care Team Providers Name Role Phone BOLA CHAPMAN Unavailable Unavailable JEFERSON DEWEY Unavailable Unavailable Problems This patient has no known problems. Allergies, Adverse Reactions, Alerts This patient has no known allergies or adverse reactions. Medications This patient has no known medications. Results Test Description Test Time Test Comments Text Results Atomic Results Result Comments IG Flags 2017-07-29 08:55:07 Test Item Value Reference Range Comments IG (test code=IG) 0.3 % 0.0-5.0 IG Abs (test code=IG Abs) 0 x10 Complete Blood Count with [id number] 08:55:06 Test Item Value Reference Range Comments WBC (test code=WBC) 7.9 x10 4.4-10.5 RBC (test code=RBC) 4.52 x10 4.10-5.70 Hgb (test code=Hgb) 12.4 g/dL 13.4-17.4 MCV (test code=MCV) 93.10 fL 80.00-100.00 Hct (test code=Hct) 42.1 % 38.7-52.0 MCHC (test code=MCHC) 29.50 g/dL 32.00-37.50 MCH (test code=MCH) 27.4 pg 27.0-32.5 RDW CV (test code=RDW CV) 18.4 % 11.5-14.5 Platelets (test 239.0 x10 140.0-440.0 code=Platelets) MPV (test code=MPV) 11.4 fL Slide Review (test code=Slide Auto Auto Result created by Review) GL_SJM_SLIDE_REV_AUTO nRBC (test code=nRBC) 0 NRBC Abs (test code=NRBC Abs) 0.00 x10 Pos Morph XN (test code=Pos A Morph XN) IPF (test code=IPF) 0 % Automated [id number] 08:55:06 Test Item Value Reference Range Comments Neutro Auto (test code=Neutro Auto) 75.6 % 36.0-70.0 Lymph Auto (test code=Lymph Auto) 15.4 % 12.0-44.0 [place] Auto (test code=[place] Auto) 6.1 % 0.0-11.0 Eos, Auto (test code=Eos, Auto) 1.8 % 0.0-7.0 Basophil Auto (test code=Basophil Auto) 0.8 % 0.0-2.0 Neutro Absolute (test code=Neutro Absolute) 6.0 x10 1.6-7.4 Lymph Absolute (test code=Lymph Absolute) 1.2 x10 0.5-4.6 [place] Absolute (test code=[place] Absolute) 0.5 x10 0.0-1.2 Eos Absolute (test code=Eos Absolute) 0.14 x10 0.00-0.74 Baso Absolute (test code=Baso Absolute) 0.06 x10 0.00-0.21 Lipid [id number] 08:06:45 Test Item Value Reference Range Comments Cholesterol Total (test 137 mg/dL 0-200 RISK OF HEART DISEASEPublished code=Cholesterol Total) by [place] [employer] Analyte Optimal Borderline Increased RiskCHOL <200 200-239 >240TRIG <150 150-199 >200HDL Male >60 <40HDL Female >60 <50LDL <100 130-159 >160LDL Near optimal is 100-129 Triglycerides (test 120 mg/dL 9-200 code=Triglycerides) HDL (test code=HDL) 40 mg/dL 40-60 LDL (test code=LDL) 73 mg/dL 0-130 The equation being used in this calculation is LDL=(Chol - HDL) - (Trig / 5) VLDL (test code=VLDL) 24 mg/dL 5-40 The equation being used in this calculation is VLDL=Trig / 5 Chol/HDL (test 3.4 ratio 0.0-5.0 code=Chol/HDL) LDL/HDL Ratio (test 2 The equation being used in this code=LDL/HDL Ratio) calculation is LDL/HDL Ratio=LDL Calc/HDL Chol Pro B Natriuretic [id number] 08:06:45 Test Item Value Reference Range Comments NT-proBNP (test code=NT-proBNP) 1275 pg/mL 0-124 Comprehensive Metabolic [id number] 08:06:44 Test Item Value Reference Range Comments Sodium Level (test code=Sodium Level) 143.0 mmol/L 135.0-145.0 Potassium Level (test code=Potassium Level) 4.0 mmol/L 3.5-5.1 Chloride Level (test code=Chloride Level) 104 mmol/L 98-105 CO2 (test code=CO2) 25 mmol/L 22-29 Anion Gap (test code=Anion Gap) 14 mmol/L 7-16 BUN (test code=BUN) 11.70 mg/dL 8.00-23.00 Creatinine Level (test code=Creatinine Level) 1.40 mg/dL 0.70-1.20 BUN/Creat Ratio (test code=BUN/Creat Ratio) 8 Glucose Level (test code=Glucose Level) 119 mg/dL 70-115 Calcium Level (test code=Calcium Level) 8.7 mg/dL 8.3-10.5 Alk Phos (test code=Alk Phos) 96 U/L 40-129 Bilirubin Total (test code=Bilirubin Total) 0.5 mg/dL 0.1-0.9 Albumin Level (test code=Albumin Level) 4.0 g/dL 3.5-5.2 Protein Total (test code=Protein Total) 6.8 g/dL 6.4-8.3 ALT (test code=ALT) 24 U/L 1-41 AST (test code=AST) 23 U/L 1-40 Globulin (test code=Globulin) 2.8 g/dL 2.9-3.1 A/G Ratio (test code=A/G Ratio) 1.4 ratio Comprehensive Metabolic [id number] 08:06:44 Test Item Value Reference Range Comments Sodium Level (test 143.0 mmol/L 135.0-145.0 code=Sodium Level) Potassium Level (test 4.0 mmol/L 3.5-5.1 code=Potassium Level) Chloride Level (test 104 mmol/L 98-105 code=Chloride Level) CO2 (test code=CO2) 25 mmol/L 22-29 Anion Gap (test 14 mmol/L 7-16 code=Anion Gap) BUN (test code=BUN) 11.70 mg/dL 8.00-23.00 Creatinine Level (test 1.40 mg/dL 0.70-1.20 code=Creatinine Level) BUN/Creat Ratio (test 8 code=BUN/Creat Ratio) Glucose Level (test 119 mg/dL 70-115 code=Glucose Level) Calcium Level (test 8.7 mg/dL 8.3-10.5 code=Calcium Level) Alk Phos (test code=Alk 96 U/L 40-129 Phos) Bilirubin Total (test 0.5 mg/dL 0.1-0.9 code=Bilirubin Total) Albumin Level (test 4.0 g/dL 3.5-5.2 code=Albumin Level) Protein Total (test 6.8 g/dL 6.4-8.3 code=Protein Total) ALT (test code=ALT) 24 U/L 1-41 AST (test code=AST) 23 U/L 1-40 Globulin (test 2.8 g/dL 2.9-3.1 code=Globulin) A/G Ratio (test code=A/G 1.4 ratio Ratio) eGFR AA (test code=eGFR 60 mL/min/1.73 m2 eGFR (estimated Glomerular AA) Filtration Rate) is an estimated value, calculated from the patient's serum creatinine using the MDRD equation. It is NOT the patient's actual GFR. The eGFR provides a more clinically useful measure of kidney disease than serum creatinine alone.This calculation takes sex and race into account, if the information is provided. If the race is not provided, and the patient is -[place], multiply by 1.212. If sex is not provided, and the patient is female, multiply by 0.742. Results for patients <18 years of age have not been validated by the MDRD study and should be interpreted with caution. eGFR Result Interpretation:eGFR > or=60 is in the Normal RangeeGFR < 60 may mean kidney diseaseeGFR < 15 may mean kidney failure Ranges recommended by the National Kidney Foundation, http://nkdep.nih.gov Comprehensive Metabolic [id number] 08:06:44 Test Item Value Reference Range Comments Sodium Level (test 143.0 mmol/L 135.0-145.0 code=Sodium Level) Potassium Level (test 4.0 mmol/L 3.5-5.1 code=Potassium Level) Chloride Level (test 104 mmol/L 98-105 code=Chloride Level) CO2 (test code=CO2) 25 mmol/L 22-29 Anion Gap (test 14 mmol/L 7-16 code=Anion Gap) BUN (test code=BUN) 11.70 mg/dL 8.00-23.00 Creatinine Level (test 1.40 mg/dL 0.70-1.20 code=Creatinine Level) BUN/Creat Ratio (test 8 code=BUN/Creat Ratio) Glucose Level (test 119 mg/dL 70-115 code=Glucose Level) Calcium Level (test 8.7 mg/dL 8.3-10.5 code=Calcium Level) Alk Phos (test code=Alk 96 U/L 40-129 Phos) Bilirubin Total (test 0.5 mg/dL 0.1-0.9 code=Bilirubin Total) Albumin Level (test 4.0 g/dL 3.5-5.2 code=Albumin Level) Protein Total (test 6.8 g/dL 6.4-8.3 code=Protein Total) ALT (test code=ALT) 24 U/L 1-41 AST (test code=AST) 23 U/L 1-40 Globulin (test 2.8 g/dL 2.9-3.1 code=Globulin) A/G Ratio (test code=A/G 1.4 ratio Ratio) eGFR AA (test code=eGFR 60 mL/min/1.73 m2 eGFR (estimated AA) Glomerular Filtration Rate) is an estimated value, calculated from the patient's serum creatinine using the MDRD equation. It is NOT the patient's actual GFR. The eGFR provides a more clinically useful measure of kidney disease than serum creatinine alone.This calculation takes sex and race into account, if the information is provided. If the race is not provided, and the patient is -[place], multiply by 1.212. If sex is not provided, and the patient is female, multiply by 0.742. Results for patients <18 years of age have not been validated by the MDRD study and should be interpreted with caution. eGFR Result Interpretation:eGFR > or=60 is in the Normal RangeeGFR < 60 may mean kidney diseaseeGFR < 15 may mean kidney failure Ranges recommended by the National Kidney Foundation, http://nkdep.nih.gov eGFR Non-AA (test 49.68 mL/min/1.73 eGFR (estimated code=eGFR Non-AA) m2 Glomerular Filtration Rate) is an estimated value, calculated from the patient's serum creatinine using the MDRD equation. It is NOT the patient's actual GFR. The eGFR provides a more clinically useful measure of kidney disease than serum creatinine alone.This calculation takes sex and race into account, if the information is provided. If the race is not provided, and the patient is -[place], multiply by 1.212. If sex is not provided, and the patient is female, multiply by 0.742. Results for patients <18 years of age have not been validated by the MDRD study and should be interpreted with caution. eGFR Result Interpretation:eGFR > or=60 is in the Normal RangeeGFR < 60 may mean kidney diseaseeGFR < 15 may mean kidney failure Ranges recommended by the National Kidney Foundation, http://nkdep.nih.gov CBC (HEMOGRAM ONLY)2017-02-05 12:21:00 Test Item Value Reference Range Comments WHITE BLOOD CELL COUNT (BEAKER) (test btpz=338) 7.0 K/ L 3.5-10.5 RED BLOOD CELL COUNT (BEAKER) (test wiod=853) 5.09 M/ L 4.63-6.08 HEMOGLOBIN (BEAKER) (test azfh=278) 12.5 GM/DL 13.7-17.5 HEMATOCRIT (BEAKER) (test stpj=556) 41.6 % 40.1-51.0 MEAN CORPUSCULAR VOLUME (BEAKER) (test mxxz=814) 81.7 fL 79.0-92.2 MEAN CORPUSCULAR HEMOGLOBIN (BEAKER) (test 24.6 pg 25.7-32.2 kxyh=691) MEAN CORPUSCULAR HEMOGLOBIN CONC (BEAKER) (test 30.0 GM/DL 32.3-36.5 wyln=042) RED CELL DISTRIBUTION WIDTH (BEAKER) (test 21.0 % 11.6-14.4 ntul=147) PLATELET COUNT (BEAKER) (test tnct=091) 218 K/CU MM 150-450 MEAN PLATELET VOLUME (BEAKER) (test uxvp=514) 10.8 fL 9.4-12.4 NUCLEATED RED BLOOD CELLS (BEAKER) (test 0 /100 WBC 0-0 btbt=173) BASIC METABOLIC [id number] 12:20:00 Test Item Value Reference Range Comments SODIUM (BEAKER) (test 142 meq/L 136-145 kpvg=494) POTASSIUM (BEAKER) (test 4.5 meq/L 3.5-5.1 qicl=284) CHLORIDE (BEAKER) (test 106 meq/L 98-107 mlnj=203) CO2 (BEAKER) (test 28 meq/L 22-29 olyy=087) BLOOD UREA NITROGEN 14 mg/dL 7-21 (BEAKER) (test oqun=183) CREATININE (BEAKER) (test 1.45 mg/dL 0.57-1.25 ghst=107) GLUCOSE RANDOM (BEAKER) 99 mg/dL 70-105 (test umsr=728) CALCIUM (BEAKER) (test 8.9 mg/dL 8.4-10.2 jufl=341) EGFR (BEAKER) (test 48 mL/min/1.73 sq m ESTIMATED GFR IS NOT iesg=8028) ACCURATE CREATININE CLEARANCE IN PREDICTING GLOMERULAR FILTRATION RATE. ESTIMATED GFR IS NOT APPLICABLE FOR DIALYSIS PATIENTS. [id number] 12:12:00 Test Item Value Reference Range Comments PROTIME (BEAKER) (test cbvp=289) 30.3 seconds 11.7-14.7 INR (BEAKER) (test ebga=585) 2.9 <=5.9 PARTIAL THROMBOPLASTIN TIME (BEAKER) (test 41.5 seconds 22.5-36.0 flqi=635) RECOMMENDED COUMADIN/WARFARIN INR THERAPY RANGESSTANDARD DOSE: 2.0 - 3.0 Includes: PROPHYLAXIS forvenous thrombosis, systemic embolization; TREATMENT for venous thrombosis and/or pulmonary embolus.HIGH RISK: Target INR is 2.5-3.5 for patients with mechanical heart valves.CBC W/PLT COUNT & AUTO [id number] 17:54:00 Test Item Value Reference Range Comments WHITE BLOOD CELL COUNT (BEAKER) (test aeoy=418) 6.3 K/ L 3.5-10.5 RED BLOOD CELL COUNT (BEAKER) (test wrlo=723) 3.84 M/ L 4.63-6.08 HEMOGLOBIN (BEAKER) (test wfco=685) 9.6 GM/DL 13.7-17.5 HEMATOCRIT (BEAKER) (test egxz=400) 31.6 % 40.1-51.0 MEAN CORPUSCULAR VOLUME (BEAKER) (test agkv=370) 82.3 fL 79.0-92.2 MEAN CORPUSCULAR HEMOGLOBIN (BEAKER) (test 25.0 pg 25.7-32.2 ibeb=528) MEAN CORPUSCULAR HEMOGLOBIN CONC (BEAKER) (test 30.4 GM/DL 32.3-36.5 vcjz=929) RED CELL DISTRIBUTION WIDTH (BEAKER) (test 18.0 % 11.6-14.4 ivtw=028) PLATELET COUNT (BEAKER) (test qqek=003) 176 K/CU MM 150-450 MEAN PLATELET VOLUME (BEAKER) (test xykm=007) 10.1 fL 9.4-12.4 NUCLEATED RED BLOOD CELLS (BEAKER) (test 0 /100 WBC 0-0 mbbs=495) NEUTROPHILS RELATIVE PERCENT (BEAKER) (test 72 % rlgv=111) LYMPHOCYTES RELATIVE PERCENT (BEAKER) (test 15 % koqc=002) MONOCYTES RELATIVE PERCENT (BEAKER) (test 10 % zbka=190) EOSINOPHILS RELATIVE PERCENT (BEAKER) (test 2 % xcsl=876) BASOPHILS RELATIVE PERCENT (BEAKER) (test 1 % igdo=915) NEUTROPHILS ABSOLUTE COUNT (BEAKER) (test 4.56 K/ L 1.78-5.38 klnx=145) LYMPHOCYTES ABSOLUTE COUNT (BEAKER) (test 0.96 K/ L 1.32-3.57 iqrz=089) MONOCYTES ABSOLUTE COUNT (BEAKER) (test 0.60 K/ L 0.30-0.82 zwpp=188) EOSINOPHILS ABSOLUTE COUNT (BEAKER) (test 0.14 K/ L 0.04-0.54 ntlf=715) BASOPHILS ABSOLUTE COUNT (BEAKER) (test 0.05 K/ L 0.01-0.08 jfcd=595) IMMATURE GRANULOCYTES-RELATIVE PERCENT (BEAKER) 0 % 0-1 (test tqwy=1819) RAD, CHEST, 1 VIEW, NON [id number] 11:49:00Reason for exam:->SOBShould this be performed at the bedside?->YesFINAL REPORT Chest one view compared to February 15, 2013 Discussion: Bilateral lung granulomas and mediastinal calcified nodes are noted. Heart size normal. No focal infiltrate or convincing cardiac failure. No effusion or pneumothorax. Signed: Yandel Dukeabbe Verified Date/Time: 12/11/2016 11:49:16 Reading Location: [facility] Radiology Reading Room BASIC METABOLIC [id number] 04:31: 00 Test Item Value Reference Range Comments SODIUM (BEAKER) (test 141 meq/L 136-145 qbjw=613) POTASSIUM (BEAKER) (test 3.8 meq/L 3.5-5.1 pumz=457) CHLORIDE (BEAKER) (test 108 meq/L 98-107 mojr=044) CO2 (BEAKER) (test 24 meq/L 22-29 ecir=335) BLOOD UREA NITROGEN 13 mg/dL 7-21 (BEAKER) (test otyf=786) CREATININE (BEAKER) (test 1.33 mg/dL 0.57-1.25 xppj=477) GLUCOSE RANDOM (BEAKER) 106 mg/dL 70-105 (test lwoo=808) CALCIUM (BEAKER) (test 8.2 mg/dL 8.4-10.2 kxtl=665) EGFR (BEAKER) (test 53 mL/min/1.73 sq m ESTIMATED GFR IS NOT tbhr=2179) ACCURATE CREATININE CLEARANCE IN PREDICTING GLOMERULAR FILTRATION RATE. ESTIMATED GFR IS NOT APPLICABLE FOR DIALYSIS PATIENTS. PROTHROMBIN [id number] 04:22:00 Test Item Value Reference Range Comments PROTIME (BEAKER) (test lcds=974) 15.9 seconds 11.7-14.7 INR (BEAKER) (test sinn=748) 1.3 <=5.9 RECOMMENDED COUMADIN/WARFARIN INR THERAPY RANGESSTANDARD DOSE: 2.0 - 3.0 Includes: PROPHYLAXIS forvenous thrombosis, systemic embolization; TREATMENT for venous thrombosis and/or pulmonary embolus.HIGH RISK: Target INR is 2.5-3.5 for patients with mechanical heart valves.While on warfarin.CBC (HEMOGRAM ONLY) 2016-12-11 04:21:00 Test Item Value Reference Range Comments WHITE BLOOD CELL COUNT (BEAKER) (test qsld=818) 6.0 K/ L 3.5-10.5 RED BLOOD CELL COUNT (BEAKER) (test ydxm=041) 3.25 M/ L 4.63-6.08 HEMOGLOBIN (BEAKER) (test bjzd=276) 7.6 GM/DL 13.7-17.5 HEMATOCRIT (BEAKER) (test vjil=170) 26.5 % 40.1-51.0 MEAN CORPUSCULAR VOLUME (BEAKER) (test boog=697) 81.5 fL 79.0-92.2 MEAN CORPUSCULAR HEMOGLOBIN (BEAKER) (test 23.4 pg 25.7-32.2 atem=177) MEAN CORPUSCULAR HEMOGLOBIN CONC (BEAKER) (test 28.7 GM/DL 32.3-36.5 iiad=002) RED CELL DISTRIBUTION WIDTH (BEAKER) (test 18.0 % 11.6-14.4 xkyx=314) PLATELET COUNT (BEAKER) (test koog=284) 172 K/CU MM 150-450 MEAN PLATELET VOLUME (BEAKER) (test gjgx=380) 11.3 fL 9.4-12.4 NUCLEATED RED BLOOD CELLS (BEAKER) (test 0 /100 WBC 0-0 ugvn=731) PROTHROMBIN [id number] 21:03:00 Test Item Value Reference Range Comments PROTIME (BEAKER) (test fjrx=664) 15.9 seconds 11.7-14.7 INR (BEAKER) (test rihr=313) 1.3 <=5.9 RECOMMENDED COUMADIN/WARFARIN INR THERAPY RANGESSTANDARD DOSE: 2.0 - 3.0 Includes: PROPHYLAXIS forvenous thrombosis, systemic embolization; TREATMENT for venous thrombosis and/or pulmonary embolus.HIGH RISK: Target INR is 2.5-3.5 for patients with mechanical heart valves.[id number] 13:06:00 Test Item Value Reference Range Comments ACTIVATED CLOTTING TIME 131 sec TESTED AT [facility] [address] (BEAKER) (test ycvp=675) [facility] [id number] 12:52:00 Test Item Value Reference Range Comments ACTIVATED CLOTTING TIME 274 sec TESTED AT [facility] [address] (BEAKER) (test anzw=252) [place] [id number] 10:29:00 Test Item Value Reference Range Comments MAGNESIUM (BEAKER) (test cjwb=706) 2.1 mg/dL 1.6-2.6 BASIC METABOLIC [id number] 10:29:00 Test Item Value Reference Range Comments SODIUM (BEAKER) (test 143 meq/L 136-145 khcp=421) POTASSIUM (BEAKER) (test 3.5 meq/L 3.5-5.1 kerp=131) CHLORIDE (BEAKER) (test 106 meq/L 98-107 lvjo=636) CO2 (BEAKER) (test 29 meq/L 22-29 mjdu=698) BLOOD UREA NITROGEN 12 mg/dL 7-21 (BEAKER) (test ygnc=656) CREATININE (BEAKER) (test 1.47 mg/dL 0.57-1.25 ofol=092) GLUCOSE RANDOM (BEAKER) 95 mg/dL 70-105 (test yauk=635) CALCIUM (BEAKER) (test 8.7 mg/dL 8.4-10.2 jsze=338) EGFR (BEAKER) (test 47 mL/min/1.73 sq m ESTIMATED GFR IS NOT zzit=5616) ACCURATE CREATININE CLEARANCE IN PREDICTING GLOMERULAR FILTRATION RATE. ESTIMATED GFR IS NOT APPLICABLE FOR DIALYSIS PATIENTS. CBC W/PLT COUNT & AUTO [id number] 10:04:00 Test Item Value Reference Range Comments WHITE BLOOD CELL COUNT (BEAKER) (test gsme=430) 6.5 K/ L 3.5-10.5 RED BLOOD CELL COUNT (BEAKER) (test ausx=774) 3.74 M/ L 4.63-6.08 HEMOGLOBIN (BEAKER) (test vmet=075) 8.6 GM/DL 13.7-17.5 HEMATOCRIT (BEAKER) (test qxai=197) 30.1 % 40.1-51.0 MEAN CORPUSCULAR VOLUME (BEAKER) (test hfla=241) 80.5 fL 79.0-92.2 MEAN CORPUSCULAR HEMOGLOBIN (BEAKER) (test 23.0 pg 25.7-32.2 awkv=395) MEAN CORPUSCULAR HEMOGLOBIN CONC (BEAKER) (test 28.6 GM/DL 32.3-36.5 ffsu=755) RED CELL DISTRIBUTION WIDTH (BEAKER) (test 17.8 % 11.6-14.4 tycs=516) PLATELET COUNT (BEAKER) (test sxns=541) 225 K/CU MM 150-450 MEAN PLATELET VOLUME (BEAKER) (test ifkx=643) 10.9 fL 9.4-12.4 NUCLEATED RED BLOOD CELLS (BEAKER) (test 0 /100 WBC 0-0 tmog=771) NEUTROPHILS RELATIVE PERCENT (BEAKER) (test 71 % wmih=014) LYMPHOCYTES RELATIVE PERCENT (BEAKER) (test 19 % vhvs=074) MONOCYTES RELATIVE PERCENT (BEAKER) (test 7 % tygr=869) EOSINOPHILS RELATIVE PERCENT (BEAKER) (test 2 % gfgn=475) BASOPHILS RELATIVE PERCENT (BEAKER) (test 1 % iitq=517) NEUTROPHILS ABSOLUTE COUNT (BEAKER) (test 4.56 K/ L 1.78-5.38 asng=543) LYMPHOCYTES ABSOLUTE COUNT (BEAKER) (test 1.25 K/ L 1.32-3.57 bypn=093) MONOCYTES ABSOLUTE COUNT (BEAKER) (test 0.47 K/ L 0.30-0.82 rdjh=026) EOSINOPHILS ABSOLUTE COUNT (BEAKER) (test 0.11 K/ L 0.04-0.54 gnrp=085) BASOPHILS ABSOLUTE COUNT (BEAKER) (test 0.05 K/ L 0.01-0.08 qybk=546) IMMATURE GRANULOCYTES-RELATIVE PERCENT (BEAKER) 0 % 0-1 (test exux=3550) BASIC METABOLIC [id number] 13:40:00 Test Item Value Reference Range Comments SODIUM (BEAKER) (test 140 meq/L 136-145 lqte=517) POTASSIUM (BEAKER) (test 3.4 meq/L 3.5-5.1 gkrf=754) CHLORIDE (BEAKER) (test 107 meq/L 98-107 cheg=925) CO2 (BEAKER) (test 24 meq/L 22-29 fkbm=782) BLOOD UREA NITROGEN 15 mg/dL 7-21 (BEAKER) (test lweg=196) CREATININE (BEAKER) (test 1.39 mg/dL 0.57-1.25 fahv=378) GLUCOSE RANDOM (BEAKER) 114 mg/dL 70-105 (test maaf=753) CALCIUM (BEAKER) (test 8.7 mg/dL 8.4-10.2 gvqc=205) EGFR (BEAKER) (test 50 mL/min/1.73 sq m ESTIMATED GFR IS NOT kenc=9856) ACCURATE CREATININE CLEARANCE IN PREDICTING GLOMERULAR FILTRATION RATE. ESTIMATED GFR IS NOT APPLICABLE FOR DIALYSIS PATIENTS. COMPREHENSIVE METABOLIC [id number] 14:02:00 Test Item Value Reference Range Comments TOTAL PROTEIN (BEAKER) 7.2 gm/dL 6.0-8.3 (test bhcr=531) ALBUMIN (BEAKER) (test 3.7 g/dL 3.5-5.0 lqyb=6859) ALKALINE PHOSPHATASE 88 U/L 40-150 (BEAKER) (test hmec=244) BILIRUBIN TOTAL (BEAKER) 0.8 mg/dL 0.2-1.2 (test jfgc=239) SODIUM (BEAKER) (test 142 meq/L 136-145 wmrv=113) POTASSIUM (BEAKER) (test 4.7 meq/L 3.5-5.1 jcah=496) CHLORIDE (BEAKER) (test 109 meq/L 98-107 tqcr=394) CO2 (BEAKER) (test 24 meq/L 22-29 czvk=278) BLOOD UREA NITROGEN 12 mg/dL 7-21 (BEAKER) (test lcvu=597) CREATININE (BEAKER) (test 1.33 mg/dL 0.57-1.25 cdwd=554) GLUCOSE RANDOM (BEAKER) 92 mg/dL 70-105 (test cdar=369) CALCIUM (BEAKER) (test 9.0 mg/dL 8.4-10.2 qysw=653) AST (SGOT) (BEAKER) (test 17 U/L 5-34 lifx=370) ALT (SGPT) (BEAKER) (test 22 U/L 6-55 vwwh=517) EGFR (BEAKER) (test 53 mL/min/1.73 sq m ESTIMATED GFR IS NOT gfws=8779) ACCURATE CREATININE CLEARANCE IN PREDICTING GLOMERULAR FILTRATION RATE. ESTIMATED GFR IS NOT APPLICABLE FOR DIALYSIS PATIENTS. PROTHROMBIN [id number] 13:39:00 Test Item Value Reference Range Comments PROTIME (BEAKER) (test nugk=833) 15.2 seconds 11.7-14.7 INR (BEAKER) (test xlvg=884) 1.2 <=5.9 RECOMMENDED COUMADIN/WARFARIN INR THERAPY RANGESSTANDARD DOSE: 2.0 - 3.0 Includes: PROPHYLAXIS forvenous thrombosis, systemic embolization; TREATMENT for venous thrombosis and/or pulmonary embolus.HIGH RISK: Target INR is 2.5-3.5 for patients with mechanical heart valves.CBC W/PLT COUNT & AUTO [id number] 13:26:00 Test Item Value Reference Range Comments WHITE BLOOD CELL COUNT (BEAKER) (test kzah=163) 6.1 K/ L 3.5-10.5 RED BLOOD CELL COUNT (BEAKER) (test ljrm=202) 4.02 M/ L 4.63-6.08 HEMOGLOBIN (BEAKER) (test ccjo=731) 9.5 GM/DL 13.7-17.5 HEMATOCRIT (BEAKER) (test dqcr=471) 33.9 % 40.1-51.0 MEAN CORPUSCULAR VOLUME (BEAKER) (test ecwg=601) 84.3 fL 79.0-92.2 MEAN CORPUSCULAR HEMOGLOBIN (BEAKER) (test 23.6 pg 25.7-32.2 deme=161) MEAN CORPUSCULAR HEMOGLOBIN CONC (BEAKER) (test 28.0 GM/DL 32.3-36.5 tdkd=644) RED CELL DISTRIBUTION WIDTH (BEAKER) (test 17.3 % 11.6-14.4 tgfi=917) PLATELET COUNT (BEAKER) (test mkgu=741) 192 K/CU MM 150-450 MEAN PLATELET VOLUME (BEAKER) (test difo=957) 11.1 fL 9.4-12.4 NUCLEATED RED BLOOD CELLS (BEAKER) (test 0 /100 WBC 0-0 uhyd=029) NEUTROPHILS RELATIVE PERCENT (BEAKER) (test 70 % ovqc=576) LYMPHOCYTES RELATIVE PERCENT (BEAKER) (test 20 % nzfs=477) MONOCYTES RELATIVE PERCENT (BEAKER) (test 8 % bydk=315) EOSINOPHILS RELATIVE PERCENT (BEAKER) (test 2 % eeax=973) BASOPHILS RELATIVE PERCENT (BEAKER) (test 0 % qzox=506) NEUTROPHILS ABSOLUTE COUNT (BEAKER) (test 4.26 K/ L 1.78-5.38 pwgp=950) LYMPHOCYTES ABSOLUTE COUNT (BEAKER) (test 1.22 K/ L 1.32-3.57 mjzb=941) MONOCYTES ABSOLUTE COUNT (BEAKER) (test 0.49 K/ L 0.30-0.82 laoa=215) EOSINOPHILS ABSOLUTE COUNT (BEAKER) (test 0.12 K/ L 0.04-0.54 lgvd=469) BASOPHILS ABSOLUTE COUNT (BEAKER) (test 0.02 K/ L 0.01-0.08 ahjw=494) IMMATURE GRANULOCYTES-RELATIVE PERCENT (BEAKER) 0 % 0-1 (test jizg=4680) CBC W/PLT COUNT & AUTO [id number] 07:51:00 Test Item Value Reference Range Comments WHITE BLOOD CELL COUNT (BEAKER) (test sddm=265) 6.1 K/ L 4.0-10.0 RED BLOOD CELL COUNT (BEAKER) (test ixga=470) 2.60 M/ L 4.20-5.80 HEMOGLOBIN (BEAKER) (test jgrm=350) 7.7 GM/DL 13.0-16.8 HEMATOCRIT (BEAKER) (test joby=954) 23.8 % 40.0-50.0 MEAN CORPUSCULAR VOLUME (BEAKER) (test zdlh=040) 91.5 fL 82.0-98.0 MEAN CORPUSCULAR HEMOGLOBIN (BEAKER) (test 29.7 pg 27.0-33.0 kvpo=369) MEAN CORPUSCULAR HEMOGLOBIN CONC (BEAKER) (test 32.4 GM/DL 32.0-36.0 eywz=935) RED CELL DISTRIBUTION WIDTH (BEAKER) (test 16.9 % 10.3-14.2 nyzu=545) PLATELET COUNT (BEAKER) (test uurn=908) 172 K/CU MM 150-430 MEAN PLATELET VOLUME (BEAKER) (test mlyx=263) 8.7 fL 6.5-10.5 NUCLEATED RED BLOOD CELLS (BEAKER) (test 0 /100 WBC 0-0 jksg=758) NEUTROPHILS RELATIVE PERCENT (BEAKER) (test 74 % flfk=740) LYMPHOCYTES RELATIVE PERCENT (BEAKER) (test 15 % ysjj=854) MONOCYTES RELATIVE PERCENT (BEAKER) (test 9 % ngqh=622) EOSINOPHILS RELATIVE PERCENT (BEAKER) (test 2 % nuqd=202) BASOPHILS RELATIVE PERCENT (BEAKER) (test 0 % vqsk=994) NEUTROPHILS ABSOLUTE COUNT (BEAKER) (test 4.50 K/ L 1.80-8.00 lizd=830) LYMPHOCYTES ABSOLUTE COUNT (BEAKER) (test 0.89 K/ L 1.48-4.50 klpm=008) MONOCYTES ABSOLUTE COUNT (BEAKER) (test 0.53 K/ L 0.00-1.30 rxiz=623) EOSINOPHILS ABSOLUTE COUNT (BEAKER) (test 0.13 K/ L 0.00-0.50 swez=439) BASOPHILS ABSOLUTE COUNT (BEAKER) (test 0.01 K/ L 0.00-0.20 jupz=738) [id number] 07:48:00 Test Item Value Reference Range Comments MAGNESIUM (BEAKER) (test 1.9 mg/dL 1.6-2.6 Specimen slightly hemolyzed fens=454) [id number] 07:48:00 Test Item Value Reference Range Comments PHOSPHORUS (BEAKER) (test 3.8 mg/dL 2.3-4.7 Specimen slightly hemolyzed yfol=307) BASIC METABOLIC [id number] 07:48:00 Test Item Value Reference Range Comments SODIUM (BEAKER) (test 137 meq/L 136-145 rvhr=563) POTASSIUM (BEAKER) (test 4.1 meq/L 3.5-5.1 Specimen slightly iwcl=112) hemolyzed CHLORIDE (BEAKER) (test 105 meq/L 98-107 quse=769) CO2 (BEAKER) (test 25 meq/L 22-29 jlfj=074) BLOOD UREA NITROGEN 14 mg/dL 7-21 (BEAKER) (test syfv=552) CREATININE (BEAKER) (test 1.30 mg/dL 0.57-1.25 Specimen slightly nzyt=810) hemolyzed GLUCOSE RANDOM (BEAKER) 102 mg/dL 70-105 (test qlsp=831) CALCIUM (BEAKER) (test 8.1 mg/dL 8.4-10.2 ywrm=985) EGFR (BEAKER) (test 54 mL/min/1.73 sq m ESTIMATED GFR IS NOT saof=3959) ACCURATE CREATININE CLEARANCE IN PREDICTING GLOMERULAR FILTRATION RATE. ESTIMATED GFR IS NOT APPLICABLE FOR DIALYSIS PATIENTS. CBC W/PLT COUNT & AUTO [id number] 07:00:00 Test Item Value Reference Range Comments WHITE BLOOD CELL COUNT (BEAKER) (test mwih=043) 6.6 K/ L 4.0-10.0 RED BLOOD CELL COUNT (BEAKER) (test tnta=406) 2.63 M/ L 4.20-5.80 HEMOGLOBIN (BEAKER) (test fzms=149) 7.7 GM/DL 13.0-16.8 HEMATOCRIT (BEAKER) (test ivil=486) 24.0 % 40.0-50.0 MEAN CORPUSCULAR VOLUME (BEAKER) (test wlsu=412) 91.5 fL 82.0-98.0 MEAN CORPUSCULAR HEMOGLOBIN (BEAKER) (test 29.3 pg 27.0-33.0 cuss=909) MEAN CORPUSCULAR HEMOGLOBIN CONC (BEAKER) (test 32.1 GM/DL 32.0-36.0 czvh=188) RED CELL DISTRIBUTION WIDTH (BEAKER) (test 17.2 % 10.3-14.2 qduc=581) PLATELET COUNT (BEAKER) (test ppzv=499) 184 K/CU MM 150-430 MEAN PLATELET VOLUME (BEAKER) (test roll=341) 8.6 fL 6.5-10.5 NUCLEATED RED BLOOD CELLS (BEAKER) (test 0 /100 WBC 0-0 thti=349) NEUTROPHILS RELATIVE PERCENT (BEAKER) (test 70 % riuh=543) LYMPHOCYTES RELATIVE PERCENT (BEAKER) (test 21 % xqln=235) MONOCYTES RELATIVE PERCENT (BEAKER) (test 7 % tjho=935) EOSINOPHILS RELATIVE PERCENT (BEAKER) (test 2 % ssai=477) BASOPHILS RELATIVE PERCENT (BEAKER) (test 0 % ojon=034) NEUTROPHILS ABSOLUTE COUNT (BEAKER) (test 4.58 K/ L 1.80-8.00 aqoe=934) LYMPHOCYTES ABSOLUTE COUNT (BEAKER) (test 1.40 K/ L 1.48-4.50 xuij=810) MONOCYTES ABSOLUTE COUNT (BEAKER) (test 0.46 K/ L 0.00-1.30 gohc=971) EOSINOPHILS ABSOLUTE COUNT (BEAKER) (test 0.11 K/ L 0.00-0.50 grqv=010) BASOPHILS ABSOLUTE COUNT (BEAKER) (test 0.01 K/ L 0.00-0.20 ptta=852) [id number] 06:57:00 Test Item Value Reference Range Comments PHOSPHORUS (BEAKER) (test xrco=463) 4.3 mg/dL 2.3-4.7 [id number] 06:57:00 Test Item Value Reference Range Comments MAGNESIUM (BEAKER) (test lzmz=463) 2.0 mg/dL 1.6-2.6 BASIC METABOLIC [id number] 06:57:00 Test Item Value Reference Range Comments SODIUM (BEAKER) (test 139 meq/L 136-145 ifoj=226) POTASSIUM (BEAKER) (test 4.3 meq/L 3.5-5.1 cyws=587) CHLORIDE (BEAKER) (test 108 meq/L 98-107 wkma=537) CO2 (BEAKER) (test 25 meq/L 22-29 ruki=923) BLOOD UREA NITROGEN 13 mg/dL 7-21 (BEAKER) (test vpyy=443) CREATININE (BEAKER) (test 1.34 mg/dL 0.57-1.25 dyxa=619) GLUCOSE RANDOM (BEAKER) 93 mg/dL 70-105 (test clqq=423) CALCIUM (BEAKER) (test 8.3 mg/dL 8.4-10.2 gmmi=853) EGFR (BEAKER) (test 52 mL/min/1.73 sq m ESTIMATED GFR IS NOT veof=5652) ACCURATE CREATININE CLEARANCE IN PREDICTING GLOMERULAR FILTRATION RATE. ESTIMATED GFR IS NOT APPLICABLE FOR DIALYSIS PATIENTS. [id number] 06:47:00 Test Item Value Reference Range Comments PHOSPHORUS (BEAKER) (test burn=546) 3.0 mg/dL 2.3-4.7 [id number] 06:47:00 Test Item Value Reference Range Comments MAGNESIUM (BEAKER) (test posm=783) 1.9 mg/dL 1.6-2.6 BASIC METABOLIC [id number] 06:47:00 Test Item Value Reference Range Comments SODIUM (BEAKER) (test 141 meq/L 136-145 jzqh=526) POTASSIUM (BEAKER) (test 4.3 meq/L 3.5-5.1 wgim=346) CHLORIDE (BEAKER) (test 109 meq/L 98-107 cvwv=889) CO2 (BEAKER) (test 25 meq/L 22-29 qgje=227) BLOOD UREA NITROGEN 13 mg/dL 7-21 (BEAKER) (test xnce=797) CREATININE (BEAKER) (test 1.14 mg/dL 0.57-1.25 tssp=499) GLUCOSE RANDOM (BEAKER) 90 mg/dL 70-105 (test wcxy=690) CALCIUM (BEAKER) (test 8.4 mg/dL 8.4-10.2 fbdb=528) EGFR (BEAKER) (test 63 mL/min/1.73 sq m ESTIMATED GFR IS NOT arpp=1868) ACCURATE CREATININE CLEARANCE IN PREDICTING GLOMERULAR FILTRATION RATE. ESTIMATED GFR IS NOT APPLICABLE FOR DIALYSIS PATIENTS. CBC W/PLT COUNT & AUTO [id number] 06:42:00 Test Item Value Reference Range Comments WHITE BLOOD CELL COUNT (BEAKER) (test gzwb=811) 6.5 K/ L 4.0-10.0 RED BLOOD CELL COUNT (BEAKER) (test vcwj=610) 2.63 M/ L 4.20-5.80 HEMOGLOBIN (BEAKER) (test slpb=850) 8.0 GM/DL 13.0-16.8 HEMATOCRIT (BEAKER) (test ezcp=341) 24.6 % 40.0-50.0 MEAN CORPUSCULAR VOLUME (BEAKER) (test xygu=190) 93.5 fL 82.0-98.0 MEAN CORPUSCULAR HEMOGLOBIN (BEAKER) (test 30.2 pg 27.0-33.0 woro=209) MEAN CORPUSCULAR HEMOGLOBIN CONC (BEAKER) (test 32.4 GM/DL 32.0-36.0 zizz=340) RED CELL DISTRIBUTION WIDTH (BEAKER) (test 16.2 % 10.3-14.2 hlhh=395) PLATELET COUNT (BEAKER) (test gsas=330) 195 K/CU MM 150-430 MEAN PLATELET VOLUME (BEAKER) (test vlno=117) 8.5 fL 6.5-10.5 NUCLEATED RED BLOOD CELLS (BEAKER) (test 0 /100 WBC 0-0 yhbc=955) NEUTROPHILS RELATIVE PERCENT (BEAKER) (test 70 % nubs=607) LYMPHOCYTES RELATIVE PERCENT (BEAKER) (test 19 % lpjy=193) MONOCYTES RELATIVE PERCENT (BEAKER) (test 8 % flph=253) EOSINOPHILS RELATIVE PERCENT (BEAKER) (test 2 % vnyb=801) BASOPHILS RELATIVE PERCENT (BEAKER) (test 1 % bumr=637) NEUTROPHILS ABSOLUTE COUNT (BEAKER) (test 4.52 K/ L 1.80-8.00 sczg=650) LYMPHOCYTES ABSOLUTE COUNT (BEAKER) (test 1.26 K/ L 1.48-4.50 saou=491) MONOCYTES ABSOLUTE COUNT (BEAKER) (test 0.53 K/ L 0.00-1.30 nlfn=716) EOSINOPHILS ABSOLUTE COUNT (BEAKER) (test 0.14 K/ L 0.00-0.50 gake=354) BASOPHILS ABSOLUTE COUNT (BEAKER) (test 0.04 K/ L 0.00-0.20 taww=670) 0.00CBC W/PLT COUNT & AUTO [id number] 07:36:00 Test Item Value Reference Range Comments WHITE BLOOD CELL COUNT (BEAKER) (test lpas=493) 5.4 K/ L 4.0-10.0 RED BLOOD CELL COUNT (BEAKER) (test miel=531) 2.55 M/ L 4.20-5.80 HEMOGLOBIN (BEAKER) (test jqun=827) 7.6 GM/DL 13.0-16.8 HEMATOCRIT (BEAKER) (test cnil=377) 23.6 % 40.0-50.0 MEAN CORPUSCULAR VOLUME (BEAKER) (test sbsd=169) 92.8 fL 82.0-98.0 MEAN CORPUSCULAR HEMOGLOBIN (BEAKER) (test 29.8 pg 27.0-33.0 ykdf=844) MEAN CORPUSCULAR HEMOGLOBIN CONC (BEAKER) (test 32.1 GM/DL 32.0-36.0 kbkd=610) RED CELL DISTRIBUTION WIDTH (BEAKER) (test 16.2 % 10.3-14.2 ysxl=823) PLATELET COUNT (BEAKER) (test mrrb=932) 182 K/CU MM 150-430 MEAN PLATELET VOLUME (BEAKER) (test wndg=307) 8.6 fL 6.5-10.5 NUCLEATED RED BLOOD CELLS (BEAKER) (test 0 /100 WBC 0-0 oavz=353) NEUTROPHILS RELATIVE PERCENT (BEAKER) (test 66 % vruw=624) LYMPHOCYTES RELATIVE PERCENT (BEAKER) (test 24 % tktv=230) MONOCYTES RELATIVE PERCENT (BEAKER) (test 7 % oecj=159) EOSINOPHILS RELATIVE PERCENT (BEAKER) (test 3 % wvmz=870) BASOPHILS RELATIVE PERCENT (BEAKER) (test 1 % kptm=909) NEUTROPHILS ABSOLUTE COUNT (BEAKER) (test 3.51 K/ L 1.80-8.00 oxfk=203) LYMPHOCYTES ABSOLUTE COUNT (BEAKER) (test 1.29 K/ L 1.48-4.50 kfse=327) MONOCYTES ABSOLUTE COUNT (BEAKER) (test 0.37 K/ L 0.00-1.30 rrjy=464) EOSINOPHILS ABSOLUTE COUNT (BEAKER) (test 0.15 K/ L 0.00-0.50 cftt=490) BASOPHILS ABSOLUTE COUNT (BEAKER) (test 0.04 K/ L 0.00-0.20 hllv=572) [id number] 06:57:00 Test Item Value Reference Range Comments PHOSPHORUS (BEAKER) (test jzbl=084) 3.4 mg/dL 2.3-4.7 [id number] 06:57:00 Test Item Value Reference Range Comments MAGNESIUM (BEAKER) (test rpbc=677) 1.8 mg/dL 1.6-2.6 BASIC METABOLIC [id number] 06:57:00 Test Item Value Reference Range Comments SODIUM (BEAKER) (test 138 meq/L 136-145 ckqh=917) POTASSIUM (BEAKER) (test 3.6 meq/L 3.5-5.1 avbk=915) CHLORIDE (BEAKER) (test 107 meq/L 98-107 pigg=935) CO2 (BEAKER) (test 25 meq/L 22-29 sfyh=406) BLOOD UREA NITROGEN 18 mg/dL 7-21 (BEAKER) (test mgvs=049) CREATININE (BEAKER) (test 1.18 mg/dL 0.57-1.25 rgdp=988) GLUCOSE RANDOM (BEAKER) 86 mg/dL 70-105 (test tzbr=728) CALCIUM (BEAKER) (test 8.0 mg/dL 8.4-10.2 gyef=166) EGFR (BEAKER) (test 61 mL/min/1.73 sq m ESTIMATED GFR IS NOT ouys=2270) ACCURATE CREATININE CLEARANCE IN PREDICTING GLOMERULAR FILTRATION RATE. ESTIMATED GFR IS NOT APPLICABLE FOR DIALYSIS PATIENTS. VITAMIN B12 AND [id number] 19:40:00 Test Item Value Reference Range Comments VITAMIN B12 (BEAKER) (test xxjy=479) 346 pg/mL 213-816 FOLATE (BEAKER) (test cdcz=742) 7.9 ng/mL >=7.0 Effective 02/14/2014: Folate Reference Range ChangeNew: >=7.0 Previous: & gt;=5.4CBC W/PLT COUNT & AUTO [id number] 07:29:00 Test Item Value Reference Range Comments WHITE BLOOD CELL COUNT (BEAKER) (test znol=289) 5.8 K/ L 4.0-10.0 RED BLOOD CELL COUNT (BEAKER) (test bqzv=165) 2.27 M/ L 4.20-5.80 HEMOGLOBIN (BEAKER) (test ucvq=418) 6.8 GM/DL 13.0-16.8 HEMATOCRIT (BEAKER) (test tmta=857) 21.7 % 40.0-50.0 MEAN CORPUSCULAR VOLUME (BEAKER) (test brhr=037) 95.6 fL 82.0-98.0 MEAN CORPUSCULAR HEMOGLOBIN (BEAKER) (test 29.9 pg 27.0-33.0 rrwu=211) MEAN CORPUSCULAR HEMOGLOBIN CONC (BEAKER) (test 31.3 GM/DL 32.0-36.0 ztdz=906) RED CELL DISTRIBUTION WIDTH (BEAKER) (test 15.6 % 10.3-14.2 aiov=222) PLATELET COUNT (BEAKER) (test amig=159) 184 K/CU MM 150-430 MEAN PLATELET VOLUME (BEAKER) (test pjxh=080) 8.5 fL 6.5-10.5 NUCLEATED RED BLOOD CELLS (BEAKER) (test 0 /100 WBC 0-0 wokq=651) NEUTROPHILS RELATIVE PERCENT (BEAKER) (test 62 % lfgy=638) LYMPHOCYTES RELATIVE PERCENT (BEAKER) (test 25 % jjnp=510) MONOCYTES RELATIVE PERCENT (BEAKER) (test 10 % fvwo=103) EOSINOPHILS RELATIVE PERCENT (BEAKER) (test 3 % qfnf=432) BASOPHILS RELATIVE PERCENT (BEAKER) (test 1 % gtfo=893) NEUTROPHILS ABSOLUTE COUNT (BEAKER) (test 3.59 K/ L 1.80-8.00 angx=380) LYMPHOCYTES ABSOLUTE COUNT (BEAKER) (test 1.44 K/ L 1.48-4.50 bzzt=694) MONOCYTES ABSOLUTE COUNT (BEAKER) (test 0.61 K/ L 0.00-1.30 snjc=503) EOSINOPHILS ABSOLUTE COUNT (BEAKER) (test 0.17 K/ L 0.00-0.50 yiqd=294) BASOPHILS ABSOLUTE COUNT (BEAKER) (test 0.04 K/ L 0.00-0.20 zijs=699) [id number] 06:56:00 Test Item Value Reference Range Comments PHOSPHORUS (BEAKER) (test tmsf=576) 3.8 mg/dL 2.3-4.7 [id number] 06:56:00 Test Item Value Reference Range Comments MAGNESIUM (BEAKER) (test aqjl=244) 1.9 mg/dL 1.6-2.6 BASIC METABOLIC [id number] 06:56:00 Test Item Value Reference Range Comments SODIUM (BEAKER) (test 141 meq/L 136-145 jhft=645) POTASSIUM (BEAKER) (test 3.3 meq/L 3.5-5.1 hatb=478) CHLORIDE (BEAKER) (test 106 meq/L 98-107 ocab=717) CO2 (BEAKER) (test 26 meq/L 22-29 inwe=084) BLOOD UREA NITROGEN 16 mg/dL 7-21 (BEAKER) (test uckp=081) CREATININE (BEAKER) (test 1.32 mg/dL 0.57-1.25 ovlr=150) GLUCOSE RANDOM (BEAKER) 77 mg/dL 70-105 (test xebu=873) CALCIUM (BEAKER) (test 8.1 mg/dL 8.4-10.2 rhto=326) EGFR (BEAKER) (test 53 mL/min/1.73 sq m ESTIMATED GFR IS NOT jrjp=1437) ACCURATE CREATININE CLEARANCE IN PREDICTING GLOMERULAR FILTRATION RATE. ESTIMATED GFR IS NOT APPLICABLE FOR DIALYSIS PATIENTS. SEDIMENTATION [id number] 09:54:00 Test Item Value Reference Range Comments SEDIMENTATION RATE, ERYTHROCYTE (BEAKER) (test 38 mm/HR 0-40 nust=625) CBC W/PLT COUNT & AUTO [id number] 07:58:00 Test Item Value Reference Range Comments WHITE BLOOD CELL COUNT (BEAKER) (test sblu=334) 5.7 K/ L 4.0-10.0 RED BLOOD CELL COUNT (BEAKER) (test wbfm=074) 2.40 M/ L 4.20-5.80 HEMOGLOBIN (BEAKER) (test cnka=165) 7.5 GM/DL 13.0-16.8 HEMATOCRIT (BEAKER) (test ioyz=317) 22.9 % 40.0-50.0 MEAN CORPUSCULAR VOLUME (BEAKER) (test knhp=625) 95.4 fL 82.0-98.0 MEAN CORPUSCULAR HEMOGLOBIN (BEAKER) (test 31.2 pg 27.0-33.0 srve=503) MEAN CORPUSCULAR HEMOGLOBIN CONC (BEAKER) (test 32.7 GM/DL 32.0-36.0 jtnb=808) RED CELL DISTRIBUTION WIDTH (BEAKER) (test 15.9 % 10.3-14.2 niit=888) PLATELET COUNT (BEAKER) (test uxwc=114) 182 K/CU MM 150-430 MEAN PLATELET VOLUME (BEAKER) (test xgou=152) 8.3 fL 6.5-10.5 NUCLEATED RED BLOOD CELLS (BEAKER) (test 0 /100 WBC 0-0 rxgk=406) NEUTROPHILS RELATIVE PERCENT (BEAKER) (test 71 % dfhq=985) LYMPHOCYTES RELATIVE PERCENT (BEAKER) (test 17 % pmry=387) MONOCYTES RELATIVE PERCENT (BEAKER) (test 9 % onne=379) EOSINOPHILS RELATIVE PERCENT (BEAKER) (test 3 % nmhu=119) BASOPHILS RELATIVE PERCENT (BEAKER) (test 1 % smuy=800) NEUTROPHILS ABSOLUTE COUNT (BEAKER) (test 4.00 K/ L 1.80-8.00 droy=435) LYMPHOCYTES ABSOLUTE COUNT (BEAKER) (test 0.96 K/ L 1.48-4.50 rlxc=426) MONOCYTES ABSOLUTE COUNT (BEAKER) (test 0.51 K/ L 0.00-1.30 nveu=963) EOSINOPHILS ABSOLUTE COUNT (BEAKER) (test 0.15 K/ L 0.00-0.50 kkcj=892) BASOPHILS ABSOLUTE COUNT (BEAKER) (test 0.03 K/ L 0.00-0.20 qtyw=114) [id number] 07:38:00 Test Item Value Reference Range Comments PHOSPHORUS (BEAKER) (test jmdo=993) 3.2 mg/dL 2.3-4.7 [id number] 07:38:00 Test Item Value Reference Range Comments MAGNESIUM (BEAKER) (test ugby=840) 1.7 mg/dL 1.6-2.6 BASIC METABOLIC [id number] 07:38:00 Test Item Value Reference Range Comments SODIUM (BEAKER) (test 138 meq/L 136-145 xyqw=241) POTASSIUM (BEAKER) (test 3.5 meq/L 3.5-5.1 bmqy=196) CHLORIDE (BEAKER) (test 104 meq/L 98-107 ttiz=597) CO2 (BEAKER) (test 25 meq/L 22-29 vmbk=328) BLOOD UREA NITROGEN 12 mg/dL 7-21 (BEAKER) (test mehl=869) CREATININE (BEAKER) (test 1.30 mg/dL 0.57-1.25 oddo=883) GLUCOSE RANDOM (BEAKER) 85 mg/dL 70-105 (test biza=634) CALCIUM (BEAKER) (test 8.1 mg/dL 8.4-10.2 eeic=290) EGFR (BEAKER) (test 54 mL/min/1.73 sq m ESTIMATED GFR IS NOT cbha=3312) ACCURATE CREATININE CLEARANCE IN PREDICTING GLOMERULAR FILTRATION RATE. ESTIMATED GFR IS NOT APPLICABLE FOR DIALYSIS PATIENTS. C-REACTIVE [id number] 07:38:00 Test Item Value Reference Range Comments C-REACTIVE PROTEIN (BEAKER) (test dvap=621) 1.01 mg/dL 0.00-0.50 CBC W/PLT COUNT & AUTO [id number] 08:08:00 Test Item Value Reference Range Comments WHITE BLOOD CELL COUNT (BEAKER) (test buir=152) 6.3 K/ L 4.0-10.0 RED BLOOD CELL COUNT (BEAKER) (test fxjz=725) 2.44 M/ L 4.20-5.80 HEMOGLOBIN (BEAKER) (test pnjg=570) 7.4 GM/DL 13.0-16.8 HEMATOCRIT (BEAKER) (test sjxd=282) 23.2 % 40.0-50.0 MEAN CORPUSCULAR VOLUME (BEAKER) (test ojck=821) 95.1 fL 82.0-98.0 MEAN CORPUSCULAR HEMOGLOBIN (BEAKER) (test 30.2 pg 27.0-33.0 euei=899) MEAN CORPUSCULAR HEMOGLOBIN CONC (BEAKER) (test 31.8 GM/DL 32.0-36.0 ooex=447) RED CELL DISTRIBUTION WIDTH (BEAKER) (test 15.7 % 10.3-14.2 zpby=712) PLATELET COUNT (BEAKER) (test dacq=055) 193 K/CU MM 150-430 MEAN PLATELET VOLUME (BEAKER) (test xayh=131) 8.3 fL 6.5-10.5 NUCLEATED RED BLOOD CELLS (BEAKER) (test 0 /100 WBC 0-0 iuvh=651) NEUTROPHILS RELATIVE PERCENT (BEAKER) (test 75 % sirh=238) LYMPHOCYTES RELATIVE PERCENT (BEAKER) (test 15 % ujei=054) MONOCYTES RELATIVE PERCENT (BEAKER) (test 7 % kxex=373) EOSINOPHILS RELATIVE PERCENT (BEAKER) (test 2 % bgtp=759) BASOPHILS RELATIVE PERCENT (BEAKER) (test 0 % mqkl=981) NEUTROPHILS ABSOLUTE COUNT (BEAKER) (test 4.68 K/ L 1.80-8.00 csjn=518) LYMPHOCYTES ABSOLUTE COUNT (BEAKER) (test 0.96 K/ L 1.48-4.50 ckbg=667) MONOCYTES ABSOLUTE COUNT (BEAKER) (test 0.46 K/ L 0.00-1.30 kssi=703) EOSINOPHILS ABSOLUTE COUNT (BEAKER) (test 0.14 K/ L 0.00-0.50 thhe=617) BASOPHILS ABSOLUTE COUNT (BEAKER) (test 0.02 K/ L 0.00-0.20 ssvi=914) [id number] 07:08:00 Test Item Value Reference Range Comments PHOSPHORUS (BEAKER) (test szho=542) 2.3 mg/dL 2.3-4.7 [id number] 07:08:00 Test Item Value Reference Range Comments MAGNESIUM (BEAKER) (test tlxq=101) 1.8 mg/dL 1.6-2.6 BASIC METABOLIC [id number] 07:08:00 Test Item Value Reference Range Comments SODIUM (BEAKER) (test 141 meq/L 136-145 slsr=579) POTASSIUM (BEAKER) (test 3.9 meq/L 3.5-5.1 avqn=319) CHLORIDE (BEAKER) (test 108 meq/L 98-107 topx=630) CO2 (BEAKER) (test 23 meq/L 22-29 jvls=589) BLOOD UREA NITROGEN 16 mg/dL 7-21 (BEAKER) (test wzte=022) CREATININE (BEAKER) (test 1.20 mg/dL 0.57-1.25 gihd=279) GLUCOSE RANDOM (BEAKER) 111 mg/dL 70-105 (test gyqd=621) CALCIUM (BEAKER) (test 8.4 mg/dL 8.4-10.2 fhxz=161) EGFR (BEAKER) (test 60 mL/min/1.73 sq m ESTIMATED GFR IS NOT yqhx=3853) ACCURATE CREATININE CLEARANCE IN PREDICTING GLOMERULAR FILTRATION RATE. ESTIMATED GFR IS NOT APPLICABLE FOR DIALYSIS PATIENTS. PERIPHERAL BLOOD SMEAR - PATHOLOGIST [id number] 15:04:00 Test Item Value Reference Range Comments RBC MORPHOLOGY (BEAKER) Anisocytosis (test mbcr=7486) RBC MORPHOLOGY (BEAKER) Polychromasia (test hptn=23535) RBC MORPHOLOGY (BEAKER) Poikilocytosis (test gpcu=73092) WBC MORPHOLOGY (BEAKER) Unremarkable (test ycbe=2338) PLT MORPHOLOGY (BEAKER) Normal morphology (test gigm=5145) PERIPHERAL SMR REVIEW Cell counts confirmed. RBCs (BEAKER) (test show normocytic mtcd=2664) normochromic anemia with mild anisopoikilocytosis. No schistocytes are seen. WBCs are unremarkable. Platelets are adequate with rare giant platelets. [id number] Radha Velez, (BEAKER) (test M.D. (electronic signature) ovfe=1814) CBC W/PLT COUNT & AUTO [id number] 09:05:00 Test Item Value Reference Range Comments WHITE BLOOD CELL COUNT (BEAKER) (test menx=476) 7.3 K/ L 4.0-10.0 RED BLOOD CELL COUNT (BEAKER) (test fdor=945) 2.71 M/ L 4.20-5.80 HEMOGLOBIN (BEAKER) (test xxno=904) 8.6 GM/DL 13.0-16.8 HEMATOCRIT (BEAKER) (test wgvo=406) 25.4 % 40.0-50.0 MEAN CORPUSCULAR VOLUME (BEAKER) (test qvwl=127) 93.7 fL 82.0-98.0 MEAN CORPUSCULAR HEMOGLOBIN (BEAKER) (test 31.6 pg 27.0-33.0 juii=217) MEAN CORPUSCULAR HEMOGLOBIN CONC (BEAKER) (test 33.7 GM/DL 32.0-36.0 bwbv=271) RED CELL DISTRIBUTION WIDTH (BEAKER) (test 15.4 % 10.3-14.2 xknq=996) PLATELET COUNT (BEAKER) (test evej=085) 149 K/CU MM 150-430 MEAN PLATELET VOLUME (BEAKER) (test nnzz=987) 9.0 fL 6.5-10.5 NUCLEATED RED BLOOD CELLS (BEAKER) (test 0 /100 WBC 0-0 ehyr=220) NEUTROPHILS RELATIVE PERCENT (BEAKER) (test 66 % cpps=990) LYMPHOCYTES RELATIVE PERCENT (BEAKER) (test 23 % wjmu=205) MONOCYTES RELATIVE PERCENT (BEAKER) (test 8 % viyc=852) EOSINOPHILS RELATIVE PERCENT (BEAKER) (test 2 % bomc=041) BASOPHILS RELATIVE PERCENT (BEAKER) (test 0 % hmmy=029) NEUTROPHILS ABSOLUTE COUNT (BEAKER) (test 4.81 K/ L 1.80-8.00 bgmg=823) LYMPHOCYTES ABSOLUTE COUNT (BEAKER) (test 1.67 K/ L 1.48-4.50 lrzq=381) MONOCYTES ABSOLUTE COUNT (BEAKER) (test 0.59 K/ L 0.00-1.30 frbe=945) EOSINOPHILS ABSOLUTE COUNT (BEAKER) (test 0.18 K/ L 0.00-0.50 wjaw=091) BASOPHILS ABSOLUTE COUNT (BEAKER) (test 0.02 K/ L 0.00-0.20 dytw=901) 0.00(MANUAL DIFFERENTIAL)2016-10-01 09:05:00 Test Item Value Reference Range Comments TOTAL COUNTED (BEAKER) (test zkfm=5877) WBC MORPHOLOGY (BEAKER) (test ptvk=389) Normal PLT MORPHOLOGY (BEAKER) (test kkuu=010) Normal ANISOCYTOSIS (BEAKER) (test kjlb=797) 1+ few POLYCHROMATOPHILLIC RBCS(BEAKER) (test qlvn=924) 1+ few TEAR DROP CELLS (BEAKER) (test vozy=736) 1+ few [id number] 07:22:00 Test Item Value Reference Range Comments MAGNESIUM (BEAKER) (test 2.1 mg/dL 1.6-2.6 Specimen slightly hemolyzed eeja=340) [id number] 07:22:00 Test Item Value Reference Range Comments PHOSPHORUS (BEAKER) (test 3.3 mg/dL 2.3-4.7 Specimen slightly hemolyzed ygfb=122) BASIC METABOLIC [id number] 07:22:00 Test Item Value Reference Range Comments SODIUM (BEAKER) (test 141 meq/L 136-145 nfvu=906) POTASSIUM (BEAKER) (test 4.3 meq/L 3.5-5.1 Specimen slightly hhzz=725) hemolyzed CHLORIDE (BEAKER) (test 109 meq/L 98-107 kjlx=239) CO2 (BEAKER) (test 21 meq/L 22-29 pput=664) BLOOD UREA NITROGEN 17 mg/dL 7-21 (BEAKER) (test gamg=397) CREATININE (BEAKER) (test 1.35 mg/dL 0.57-1.25 Specimen slightly cdsr=724) hemolyzed GLUCOSE RANDOM (BEAKER) 99 mg/dL 70-105 (test yjly=209) CALCIUM (BEAKER) (test 8.3 mg/dL 8.4-10.2 udsg=567) EGFR (BEAKER) (test 52 mL/min/1.73 sq m ESTIMATED GFR IS NOT hpad=7812) ACCURATE CREATININE CLEARANCE IN PREDICTING GLOMERULAR FILTRATION RATE. ESTIMATED GFR IS NOT APPLICABLE FOR DIALYSIS PATIENTS. RETICULOCYTE [id number] 07:21:00 Test Item Value Reference Range Comments RETICULOCYTE COUNT PCT (BEAKER) (test sydb=844) 5.8 % 0.4-2.9 CBC W/PLT COUNT & AUTO [id number] 03:48:00 Test Item Value Reference Range Comments WHITE BLOOD CELL COUNT (BEAKER) (test kxfd=450) 6.3 K/ L 4.0-10.0 RED BLOOD CELL COUNT (BEAKER) (test pfur=109) 2.67 M/ L 4.20-5.80 HEMOGLOBIN (BEAKER) (test dzub=281) 8.4 GM/DL 13.0-16.8 HEMATOCRIT (BEAKER) (test boph=138) 24.9 % 40.0-50.0 MEAN CORPUSCULAR VOLUME (BEAKER) (test wdyq=499) 93.3 fL 82.0-98.0 MEAN CORPUSCULAR HEMOGLOBIN (BEAKER) (test 31.6 pg 27.0-33.0 jltg=627) MEAN CORPUSCULAR HEMOGLOBIN CONC (BEAKER) (test 33.9 GM/DL 32.0-36.0 gwgy=390) RED CELL DISTRIBUTION WIDTH (BEAKER) (test 16.6 % 10.3-14.2 gnbw=744) PLATELET COUNT (BEAKER) (test fsvl=184) 183 K/CU MM 150-430 MEAN PLATELET VOLUME (BEAKER) (test fgmh=062) 8.2 fL 6.5-10.5 NUCLEATED RED BLOOD CELLS (BEAKER) (test 0 /100 WBC 0-0 kjqt=056) NEUTROPHILS RELATIVE PERCENT (BEAKER) (test 69 % cuqm=980) LYMPHOCYTES RELATIVE PERCENT (BEAKER) (test 18 % gpzr=536) MONOCYTES RELATIVE PERCENT (BEAKER) (test 10 % ogsc=528) EOSINOPHILS RELATIVE PERCENT (BEAKER) (test 2 % qtzb=030) BASOPHILS RELATIVE PERCENT (BEAKER) (test 1 % oveu=064) NEUTROPHILS ABSOLUTE COUNT (BEAKER) (test 4.34 K/ L 1.80-8.00 hmoj=891) LYMPHOCYTES ABSOLUTE COUNT (BEAKER) (test 1.15 K/ L 1.48-4.50 vnqm=206) MONOCYTES ABSOLUTE COUNT (BEAKER) (test 0.65 K/ L 0.00-1.30 tbii=127) EOSINOPHILS ABSOLUTE COUNT (BEAKER) (test 0.14 K/ L 0.00-0.50 oalz=645) BASOPHILS ABSOLUTE COUNT (BEAKER) (test 0.03 K/ L 0.00-0.20 ynur=682) [id number] 18:03:00 Test Item Value Reference Range Comments THYROID STIMULATING HORMONE (BEAKER) (test 2.79 uIU/mL 0.35-4.94 hafw=967) POCT-GLUCOSE [id number] 17:47:00 Test Item Value Reference Range Comments POC-GLUCOSE METER (BEAKER) 98 mg/dL 70-110 TESTED AT [facility] [address] [facility] (test wrjm=5555) [facility] [address] HEPARIN ASSAY - LOW MOLECULAR [id number] 12:53:00 Test Item Value Reference Range Comments LOVENOX-ANTI 10A (BEAKER) (test qvih=3255) > u/ml 0.60-2.00 Effective 02/04/2016: Reference Range ChangeNew: 0.60-2.00 Previous: 0.60- 1.99Anti-Factor 10A Level(Heparin Assay for Low Molecular Weight Heparin) Monitoring Guidelines: Blood samples should be obtained 4 hours post subcutaneous injection (time of Peak level) Therapeutic Peak Levels: 0.6-1.0 units/mL twice daily enoxaparin 1.0-2.0 units/mL once daily enoxaparinPOCT-GLUCOSE [id number] 11:47:00 Test Item Value Reference Range Comments POC-GLUCOSE METER ([employer]) 103 mg/dL 70-110 TESTED AT [facility] [address] [facility] (test lplw=6362) [facility] [address] PROTHROMBIN [id number] 11:16:00 Test Item Value Reference Range Comments PROTIME (BEAKER) (test xzau=108) 28.4 seconds 11.7-14.7 INR (BEAKER) (test fxtc=365) 2.7 <=5.9 RECOMMENDED COUMADIN/WARFARIN INR THERAPY RANGESSTANDARD DOSE: 2.0 - 3.0 Includes: PROPHYLAXIS forvenous thrombosis, systemic embolization; TREATMENT for venous thrombosis and/or pulmonary embolus.HIGH RISK: Target INR is 2.5-3.5 for patients with mechanical heart valves.[id number] 11:16:00 Test Item Value Reference Range Comments PARTIAL THROMBOPLASTIN TIME (BEAKER) (test 38.8 seconds 22.5-36.0 kien=699) CREATINE KINASE (CK), TOTAL AND [id number] 10:35:00 Test Item Value Reference Range Comments CREATINE KINASE TOTAL (BEAKER) (test sjij=016) 35 U/L 29-200 CREATINE KINASE-MB (BEAKER) (test drqn=834) 0.7 ng/mL 0.0-6.6 CREATINE KINASE-MB INDEX (BEAKER) (test liti=746) 2.0 % Effective 02/14/2014: CK-MB Reference Range ChangeNew: 0.0-6.6 Previous: 0.0- 4.9CK-MB Reference Range:<6.7 Normal6.7-10.0 Borderline>10.0 AbnormalTROPONIN [id number] 10:35:00 Test Item Value Reference Range Comments TROPONIN I (BEAKER) (test bcfs=742) 0.01 ng/mL 0.00-0.03 Effective 02/14/2014: Reference Range [...] Reference Range Comments LACTATE DEHYDROGENASE (BEAKER) (test mpmc=642) 187 U/L 125-220 [id number] 06:53:00 Test Item Value Reference Range Comments HAPTOGLOBIN (BEAKER) (test slns=002) 196 mg/dL 14-258 Effective 02/14/2014: Reference Range ChangeNew: 14-258 Previous: 36-195CBC W/ PLT COUNT & AUTO [id number] 05:30:00 Test Item Value Reference Range Comments WHITE BLOOD CELL COUNT (BEAKER) (test gznz=781) 7.1 K/ L 4.0-10.0 RED BLOOD CELL COUNT (BEAKER) (test acjh=094) 2.22 M/ L 4.20-5.80 HEMOGLOBIN (BEAKER) (test ytdi=161) 6.9 GM/DL 13.0-16.8 HEMATOCRIT (BEAKER) (test dqaw=419) 20.8 % 40.0-50.0 MEAN CORPUSCULAR VOLUME (BEAKER) (test kkzj=666) 93.9 fL 82.0-98.0 MEAN CORPUSCULAR HEMOGLOBIN (BEAKER) (test 31.2 pg 27.0-33.0 uqub=719) MEAN CORPUSCULAR HEMOGLOBIN CONC (BEAKER) (test 33.2 GM/DL 32.0-36.0 mxyj=591) RED CELL DISTRIBUTION WIDTH (BEAKER) (test 15.2 % 10.3-14.2 ziwi=324) PLATELET COUNT (BEAKER) (test ifrr=462) 184 K/CU MM 150-430 MEAN PLATELET VOLUME (BEAKER) (test galp=804) 8.0 fL 6.5-10.5 NUCLEATED RED BLOOD CELLS (BEAKER) (test 0 /100 WBC 0-0 dxir=544) NEUTROPHILS RELATIVE PERCENT (BEAKER) (test 74 % ogdv=512) LYMPHOCYTES RELATIVE PERCENT (BEAKER) (test 17 % jamr=653) MONOCYTES RELATIVE PERCENT (BEAKER) (test 8 % jneh=030) EOSINOPHILS RELATIVE PERCENT (BEAKER) (test 1 % vdez=868) BASOPHILS RELATIVE PERCENT (BEAKER) (test 1 % mnug=879) NEUTROPHILS ABSOLUTE COUNT (BEAKER) (test 5.21 K/ L 1.80-8.00 ptfr=339) LYMPHOCYTES ABSOLUTE COUNT (BEAKER) (test 1.22 K/ L 1.48-4.50 niqq=891) MONOCYTES ABSOLUTE COUNT (BEAKER) (test 0.55 K/ L 0.00-1.30 engm=833) EOSINOPHILS ABSOLUTE COUNT (BEAKER) (test 0.05 K/ L 0.00-0.50 gata=757) BASOPHILS ABSOLUTE COUNT (BEAKER) (test 0.04 K/ L 0.00-0.20 mimc=473) [id number] 03:21:00 Test Item Value Reference Range Comments FERRITIN (BEAKER) (test jbwg=066) 15 ng/mL 5-275 Effective 02/14/2014: Reference Range ChangeNew: Male 5-275 Previous: Male 22-322 Female 5-275 Female 10-291VITAMIN B12 AND [id number] 03:21:00 Test Item Value Reference Range Comments VITAMIN B12 (BEAKER) (test irpp=517) 322 pg/mL 213-816 FOLATE (BEAKER) (test ksaf=290) 7.5 ng/mL >=7.0 Effective 02/14/2014: Folate Reference Range ChangeNew: >=7.0 Previous: & gt;=5.4IRON, TIBC, % SAT. (WITHOUT FERRITIN)2016-09-29 02:47:00 Test Item Value Reference Range Comments IRON (BEAKER) (test ohtv=989) 26 ug/dL 40-160 TOTAL IRON BINDING CAPACITY (BEAKER) (test 373 ug/dL 250-450 bzvp=736) IRON % SATURATION (2) (BEAKER) (test nrhz=1249) 7 % 20-55 [id number] 02:30:00 Test Item Value Reference Range Comments PHOSPHORUS (BEAKER) (test mesg=022) 3.7 mg/dL 2.3-4.7 [id number] 02:30:00 Test Item Value Reference Range Comments MAGNESIUM (BEAKER) (test radq=823) 2.1 mg/dL 1.6-2.6 LACTIC ACID, VENOUS, WHOLE [id number] 02:28:00 Test Item Value Reference Range Comments LACTATE BLOOD VENOUS (2) (BEAKER) (test 1.5 mmol/L 0.5-2.2 jhrf=2359) Effective 08/01/2015: Units/Reference Range ChangeNew: 0.5-2.2 mmol/L Previous: 5 -20 mg/dLPT/[id number] 02:27:00 Test Item Value Reference Range Comments PROTIME (BEAKER) (test oqle=525) 34.3 seconds 11.7-14.7 INR (BEAKER) (test azcc=859) 3.4 <=5.9 PARTIAL THROMBOPLASTIN TIME (BEAKER) (test 33.0 seconds 22.5-36.0 yvqv=093) RECOMMENDED COUMADIN/WARFARIN INR THERAPY RANGESSTANDARD DOSE: 2.0 - 3.0 Includes: PROPHYLAXIS forvenous thrombosis, systemic embolization; TREATMENT for venous thrombosis and/or pulmonary embolus.HIGH RISK: Target INR is 2.5-3.5 for patients with mechanical heart valves.PROTHROMBIN TIME/[id number] 02:26: 00 Test Item Value Reference Range Comments PROTIME (BEAKER) (test uprb=685) 34.3 seconds 11.7-14.7 INR (BEAKER) (test yigc=186) 3.4 <=5.9 RECOMMENDED COUMADIN/WARFARIN INR THERAPY RANGESSTANDARD DOSE: 2.0 - 3.0 Includes: PROPHYLAXIS forvenous thrombosis, systemic embolization; TREATMENT for venous thrombosis and/or pulmonary embolus.HIGH RISK: Target INR is 2.5-3.5 for patients with mechanical heart valves.CREATINE KINASE (CK), TOTAL AND [id number] 02:23:00 Test Item Value Reference Range Comments CREATINE KINASE TOTAL (BEAKER) (test hsad=175) 44 U/L 29-200 CREATINE KINASE-MB (BEAKER) (test kqtk=898) 0.6 ng/mL 0.0-6.6 CREATINE KINASE-MB INDEX (BEAKER) (test gjxe=254) 1.4 % Effective 02/14/2014: CK-MB Reference Range ChangeNew: 0.0-6.6 Previous: 0.0- 4.9CK-MB Reference Range:<6.7 Normal6.7-10.0 Borderline>10.0 AbnormalTROPONIN [id number] 02:23:00 Test Item Value Reference Range Comments TROPONIN I (BEAKER) (test obib=157) 0.01 ng/mL 0.00-0.03 Effective 02/14/2014: Reference Range [...] acute neurological disease, and persistent tachyarrhythmia.HEPATIC FUNCTION [id number] 02:17:00 Test Item Value Reference Range Comments TOTAL PROTEIN (BEAKER) (test czca=154) 6.2 gm/dL 6.0-8.3 ALBUMIN (BEAKER) (test ztwr=0083) 3.4 g/dL 3.5-5.0 BILIRUBIN TOTAL (BEAKER) (test tyrd=286) 0.8 mg/dL 0.2-1.2 BILIRUBIN DIRECT (BEAKER) (test grgx=297) 0.4 mg/dL 0.1-0.5 ALKALINE PHOSPHATASE (BEAKER) (test dctw=763) 64 U/L 40-150 AST (SGOT) (BEAKER) (test dxiy=745) 12 U/L 5-34 ALT (SGPT) (BEAKER) (test wlhl=970) 17 U/L 6-55 BASIC METABOLIC [id number] 02:17:00 Test Item Value Reference Range Comments SODIUM (BEAKER) (test 141 meq/L 136-145 gukw=872) POTASSIUM (BEAKER) (test 3.6 meq/L 3.5-5.1 owxk=764) CHLORIDE (BEAKER) (test 108 meq/L 98-107 zzov=339) CO2 (BEAKER) (test 23 meq/L 22-29 tnlp=534) BLOOD UREA NITROGEN 20 mg/dL 7-21 (BEAKER) (test bnjw=769) CREATININE (BEAKER) (test 1.37 mg/dL 0.57-1.25 kpgt=275) GLUCOSE RANDOM (BEAKER) 91 mg/dL 70-105 (test qvse=312) CALCIUM (BEAKER) (test 8.4 mg/dL 8.4-10.2 pfuj=592) EGFR (BEAKER) (test 51 mL/min/1.73 sq m ESTIMATED GFR IS NOT ynwb=1277) ACCURATE CREATININE CLEARANCE IN PREDICTING GLOMERULAR FILTRATION RATE. ESTIMATED GFR IS NOT APPLICABLE FOR DIALYSIS PATIENTS. RETICULOCYTE [id number] 02:12:00 Test Item Value Reference Range Comments RETICULOCYTE COUNT PCT (BEAKER) (test ptya=957) 6.2 % 0.4-2.9 CBC W/PLT COUNT & AUTO [id number] 02:10:00 Test Item Value Reference Range Comments WHITE BLOOD CELL COUNT (BEAKER) (test dgph=950) 8.0 K/ L 4.0-10.0 RED BLOOD CELL COUNT (BEAKER) (test ksmc=943) 2.35 M/ L 4.20-5.80 HEMOGLOBIN (BEAKER) (test tjbi=368) 7.4 GM/DL 13.0-16.8 HEMATOCRIT (BEAKER) (test vlfy=471) 22.2 % 40.0-50.0 MEAN CORPUSCULAR VOLUME (BEAKER) (test joxv=944) 94.2 fL 82.0-98.0 MEAN CORPUSCULAR HEMOGLOBIN (BEAKER) (test 31.3 pg 27.0-33.0 xker=503) MEAN CORPUSCULAR HEMOGLOBIN CONC (BEAKER) (test 33.2 GM/DL 32.0-36.0 gjql=363) RED CELL DISTRIBUTION WIDTH (BEAKER) (test 15.1 % 10.3-14.2 agoa=429) PLATELET COUNT (BEAKER) (test qsfo=130) 200 K/CU MM 150-430 MEAN PLATELET VOLUME (BEAKER) (test rirn=753) 7.9 fL 6.5-10.5 NUCLEATED RED BLOOD CELLS (BEAKER) (test 0 /100 WBC 0-0 alhz=743) NEUTROPHILS RELATIVE PERCENT (BEAKER) (test 74 % outu=330) LYMPHOCYTES RELATIVE PERCENT (BEAKER) (test 18 % zhae=443) MONOCYTES RELATIVE PERCENT (BEAKER) (test 8 % cbey=788) EOSINOPHILS RELATIVE PERCENT (BEAKER) (test 1 % nusq=001) BASOPHILS RELATIVE PERCENT (BEAKER) (test 0 % xdem=214) NEUTROPHILS ABSOLUTE COUNT (BEAKER) (test 5.88 K/ L 1.80-8.00 udcl=734) LYMPHOCYTES ABSOLUTE COUNT (BEAKER) (test 1.42 K/ L 1.48-4.50 rovm=295) MONOCYTES ABSOLUTE COUNT (BEAKER) (test 0.62 K/ L 0.00-1.30 hraz=140) EOSINOPHILS ABSOLUTE COUNT (BEAKER) (test 0.05 K/ L 0.00-0.50 dbju=562) BASOPHILS ABSOLUTE COUNT (BEAKER) (test 0.02 K/ L 0.00-0.20 qxzs=495)
[2018-10-27 11:24] LABS: Absolute Lymphocytes (CBC) 0.8 K/uL (0.7-4.9); Basophils % 0.9 % (0-1.3); Hematocrit 41.3 % (39.6-49.0); Lymphocytes % 11.9 % (15.3-44.8); RBC Red Blood Cell Count 4.73 M/uL (4.33-5.43)
[2018-10-27 11:28] LABS: Protime INR 1.5
[2018-10-27] MEDS ORDERED: ONDANSETRON 4 MG/2 ML VIAL ONE (11:36)
[2018-10-27] MEDS ORDERED: METOPROLOL TAR 25 MG TAB ONE (11:37)
[2018-10-27 11:41] LABS: Albumin 3.3 g/dL (3.4-5.0); Bilirubin Total 2.3 mg/dL (0.2-1.0); Potassium 3.8 mmol/L (3.5-5.1); Protein, Total 7.7 g/dL (6.4-8.2); Troponin (Emerg Dept Use Only) 0.02 ng/mL (0.0-0.045)
--- NOTE | 2018-10-27 12:13 | RAD REPORT ---
EXAM DESCRIPTION: CT - Abdomen Pelvis Wo Contrast - 10/27/2018 11:58 am CLINICAL HISTORY: Abdominal pain. vomiting COMPARISON: [facility] Protocol dated 12/16/2016 TECHNIQUE: CT imaging of the abdomen and pelvis was performed without contrast. Solid organ, bowel a nd vascular assessment is limited due to lack of IV and oral contrast. All CT scans are performed using dose optimization technique as appropriate and may include automated exposure control or mA/KV adjustment according to patient size. FINDINGS: Small bilateral pleural effusions, slightly larger on the right.The heart is mildly enlarg ed. Trace fluid is seen along the right the hepatic edge. The liver shows no mass or biliary dilatation.T he spleen, pancreas, adrenal glands and kidneys. The gallbladder contains several stones and is mildl y distended. No bowel obstruction, free air, free fluid or abscess. There is subtle inflammation about the sigmoid colon in the right lower quadrant where several diverticula are present. No abscess. The appendix is normal. The osseous structures are within normal limits. IMPRESSION: A subtle/ early right lower quadrant sigmoid diverticulitis is possible. Cholelithiasis with mild gallbladder distention. Gallbladder sonography may be of value for followup assessment. Small bilateral pleural effusions, slightly larger on the right. A limited non-contrast examination was performed as detailed.
--- NOTE | 2018-10-27 12:17 | RAD REPORT ---
EXAM DESCRIPTION: RAD - Chest Single View - 10/27/2018 12:02 pm CLINICAL HISTORY: DYSPNEA Chest pain. COMPARISON: Chest Single View dated 11/21/2017; Chest Pa And Lat (2 Views) dated 11/19/2017; Chest Pa And Lat (2 Views) dated 08/30/2017; Chest Single View dated 08/29/2017; Abdomen Pelvis Wo Contrast date d 10/27/2018 FINDINGS: Portable technique limits examination quality. Calcified granulomata are present bilaterally. Small amount of atelectasis in the medial right lung b ase suspected. Small pleural effusions are likely present. The heart is moderately enlarged.
[2018-10-27] MEDS ORDERED: LIDOCAINE 1% MPF 5 ML VIAL ONE (12:28)
--- NOTE | 2018-10-27 13:15 | ER ---
Nurse's Notes [facility] Name: Hunter Lassiter Age: 73 yrs Sex: Male : 1945 Arrival Date: 10/27/2018 Time: 10:47 Bed 2 Private MD: Diagnosis: Chest pain, unspecified;Dyspnea, unspecified;Unspecified atrial fibrillation Presentation: 10/27 10:53 Presenting complaint: EMS states: Pt called sister c/o chest pain, sister then called EMS, pt's chief complaint for EMS was SOB and that his "functions" weren't working, refused to give medical hx, 12 lead showed A-fib w/ rate 110/120, pt refused IV or interventions, systolic BP 110s, lives at home alone. Transition of care: patient was not received from another setting of care. Onset of symptoms was October 27, 2018. Risk Assessment: Do you want to hurt yourself or someone else? Patient reports no desire to harm self or others. Initial Sepsis Screen: Does the patient meet any 2 criteria? No. Patient's initial sepsis screen is negative. Does the patient have a suspected source of infection? No. Patient's initial sepsis screen is negative. Care prior to arrival: None. 10:53 Method Of Arrival: EMS: [facility] 10:53 Acuity: TALIB 2 ph Historical: - Allergies: 11:03 NKA; ph - Home Meds: 11:03 amiodarone 200 mg Oral tab 1 tab once daily [Active]; aspirin 81 mg Oral TbEC 1 tab ph once daily [Active]; atorvastatin 40 mg Oral tab 1 tab once daily [Active]; Eliquis 2.5 mg Oral tab 1 tab 2 times per day [Active]; furosemide 40 mg Oral tab 1 tab once daily [Active]; gabapentin 100 mg Oral cap [Active]; levothyroxine 50 mcg tab 1 tab once daily [Active]; metoprolol tartrate 50 mg Oral tab 1 tab 2 times per day [Active]; spironolactone 25 mg Oral tab 1 tab 2 times per day [Active]; - PMHx: 11:03 Atrial Fib; CVA; High Cholesterol; Hypertension; Hypothyroidism; ph - PSHx: 11:03 IVC Filter; ph - Immunization history:: Adult Immunizations unknown. - Social history:: Smoking status: unknown. - Family history:: not pertinent. - Ebola Screening: : No symptoms or risks identified at this time. - Hospitalizations: : No recent hospitalization is reported. Screenin:59 Abuse screen: Denies threats or abuse. Denies injuries from another. Nutritional ph screening: No deficits noted. Tuberculosis screening: No symptoms or risk factors identified. Fall Risk None identified. Assessment: 11:04 General: Appears in no apparent distress. ill, unkempt, Behavior is appropriate for ph age, anxious, Denies fever, feeling ill. Pain: Complains of pain in chest. Neuro: Level of Consciousness is awake, alert, obeys commands, Oriented to person, place, time, situation, Speech is normal. Cardiovascular: Reports chest pain, nausea, shortness of breath, Capillary refill < 3 seconds in bilateral fingers Patient's skin is warm and dry. Rhythm is irregular Chest pain is described as mild. Respiratory: Reports shortness of breath at rest Airway is patent Respiratory effort is even, unlabored, Respiratory pattern is regular, symmetrical, Denies cough. GI: Reports nausea, vomiting, Patient currently denies abdominal pain, diarrhea. Derm: Skin is fragile, is thin, Skin is jaundiced, pale. Musculoskeletal: Circulation, motion, and sensation intact. Range of motion: intact in all extremities. 11:32 Reassessment: Patient appears in no apparent distress at this time. Patient is alert, ph oriented x 3, equal unlabored respirations, skin warm/dry/pink. Pt c/o mid back pain, positioned on R side w/ pillow under back, ERP notified of pain, no orders for pain medication at this time, IV nausea medication and PO medication for HR administered, see MAY. Vital Signs: 10:57 BP 120 / 85; Pulse 122; Resp 20; Temp 97.7(TE); Pulse Ox 100% on R/A; Weight 95.25 kg; ph 12:31 BP 107 / 67; Pulse 102; Resp 20; Pulse Ox 99% on R/A; ph 13:30 BP 114 / 94; Pulse 102; Resp 18; Pulse Ox 99% on R/A; ph 14:30 BP 95 / 77; Pulse 104; Resp 16; Temp 97.5(TE); Pulse Ox 98% on R/A; ph 15:30 BP 93 / 78; Pulse 104; Resp 18; Pulse Ox 98% ; sv 16:30 BP 90 / 72; Pulse 98; Resp 22; Pulse Ox 100% ; sv 17:37 BP 90 / 63; Pulse 118; Resp 20; Pulse Ox 99% ; sv 18:30 BP 96 / 63; Pulse 106; Resp 18; Pulse Ox 99% ; sv ED Course: 10:47 Patient arrived in ED. rn 10:48 Tigre Peguero MD is Attending Physician. rn 10:57 Triage completed. ph 10:58 EKG done, by medical administrative technician. reviewed by Tigre Peguero MD. at1 10:59 Arm band placed on Patient placed in an exam room, on a stretcher, on monitor tech, ph on pulse oximetry. 11:00 Patient has correct armband on for positive identification. Placed in gown. Bed in low ph position. Call light in reach. Side rails up X2. telemetry monitor on. Pulse ox on. NIBP on. Door closed. Noise minimized. Warm blanket given. Pillow given. Head of bed elevated. 11:12 Kalyn Ruff, RN is Primary Nurse. ph 11:13 Inserted saline lock: 22 gauge in right antecubital area, using aseptic technique. ph 11:46 X-ray(s) taken. sv 11:58 CT Abd/Pelvis - Without Contrast In Process Unspecified. EDMS 11:59 X-ray completed. Portable x-ray completed in exam room. Patient tolerated procedure mh1 poorly. 12:02 XRAY CXR (1 view) In Process Unspecified. EDMS 12:50 IV discontinued, intact, bleeding controlled. jb1 12:50 Inserted saline lock: 22 gauge in left antecubital area, using aseptic technique. jb1 13:13 Sabina Gonsalez MD is Hospitalizing Provider. rn 14:47 No provider procedures requiring assistance completed. Patient admitted, IV remains in ph place. Administered Medications: 11:31 Drug: Metoprolol 25 mg Route: PO; ph 11:31 Drug: Zofran 4 mg Route: IVP; Site: right antecubital; ph Outcome: 13:14 Decision to Hospitalize by Provider. rn 14:48 Admitted to ER Hold. Please see [facility] for further documentation. ph 14:48 Condition: stable 14:48 Instructed on the need for admit. 21:32 Admitted to accompanied by tech, via stretcher, with chart, Report called to Re harrison nurse for 407 22:28 Patient left the ED. ak1 Signatures: Dispatcher [employer] EDMS Mainor Duke jb1 Ebony Coburn, RN RN Micki Perea 1 Tigre Peguero MD MD rn Bibi Flowers, educational coordinator EKG Tat1 Brooke Light RN RN ak1 Kalyn Ruff RN RN ph
--- NOTE | 2018-10-27 13:16 | EDPHYS ---
Physician Documentation [facility] Name: Hunter Lassiter Age: 73 yrs Sex: Male : 1945 Arrival Date: 10/27/2018 Time: 10:47 Bed 2 Private MD: ED Physician Tigre Peguero HPI: 10/27 10:50 This 73 yrs old Male presents to ER via Unassigned with complaints of sob. rn 10:50 The patient has shortness of breath at rest, with light activity. Onset: The rn symptoms/episode began/occurred at an unknown time. Duration: The symptoms are continuous. The patient's shortness of breath is aggravated by light activity, supine position, talking, walking. Severity of symptoms: At their worst the symptoms were moderate in the emergency department the symptoms are unchanged. The patient has experienced similar episodes in the past. The patient has not recently seen a physician. Reports dyspnea, began either today or yesterday, worse with exertion and movement, also when supine, had a little chest pain today, no fever, + non-productive cough, no fall or trauma. . Historical: - Allergies: 11:03 NKA; ph - Home Meds: 11:03 amiodarone 200 mg Oral tab 1 tab once daily [Active]; aspirin 81 mg Oral TbEC 1 tab ph once daily [Active]; atorvastatin 40 mg Oral tab 1 tab once daily [Active]; Eliquis 2.5 mg Oral tab 1 tab 2 times per day [Active]; furosemide 40 mg Oral tab 1 tab once daily [Active]; gabapentin 100 mg Oral cap [Active]; levothyroxine 50 mcg tab 1 tab once daily [Active]; metoprolol tartrate 50 mg Oral tab 1 tab 2 times per day [Active]; spironolactone 25 mg Oral tab 1 tab 2 times per day [Active]; - PMHx: 11:03 Atrial Fib; CVA; High Cholesterol; Hypertension; Hypothyroidism; ph - PSHx: 11:03 IVC Filter; ph - Immunization history:: Adult Immunizations unknown. - Social history:: Smoking status: unknown. - Family history:: not pertinent. - Ebola Screening: : No symptoms or risks identified at this time. - Hospitalizations: : No recent hospitalization is reported. ROS: 10:50 Constitutional: Negative for fever, chills, and weight loss, Eyes: Negative for injury, rn pain, redness, and discharge, Neck: Negative for injury, pain, and swelling, Cardiovascular: + edema, + chest pain Respiratory: + sob Abdomen/GI: Negative for abdominal pain, nausea, vomiting, diarrhea, and constipation, Back: Negative for injury and pain, MS/Extremity: Negative for injury and deformity, Skin: Negative for injury, rash, and discoloration, Neuro: + generalized weakness Exam: 10:50 Constitutional: This is a well developed, well nourished patient who is awake, alert, rn and in no acute distress. Head/Face: Normocephalic, atraumatic. ENT: MMM Cardiovascular: Irregularly irregular, no murmur Respiratory: + mild tachypnea with diminished breath sounds bialteral base, no wheezing Abdomen/GI: soft, non-tender MS/ Extremity: Pulses equal, no cyanosis. 1+ edema bilateral lower ext Neuro: Awake and alert, GCS 15, oriented to person, place, time, and situation. Cranial nerves II-XII grossly intact. Motor strength 5/5 in all extremities. Sensory grossly intact. Cerebellar exam normal. 11:49 ECG was reviewed by the Attending Physician. rn Vital Signs: 10:57 BP 120 / 85; Pulse 122; Resp 20; Temp 97.7(TE); Pulse Ox 100% on R/A; Weight 95.25 kg; ph 12:31 BP 107 / 67; Pulse 102; Resp 20; Pulse Ox 99% on R/A; ph 13:30 BP 114 / 94; Pulse 102; Resp 18; Pulse Ox 99% on R/A; ph 14:30 BP 95 / 77; Pulse 104; Resp 16; Temp 97.5(TE); Pulse Ox 98% on R/A; ph 15:30 BP 93 / 78; Pulse 104; Resp 18; Pulse Ox 98% ; sv 16:30 BP 90 / 72; Pulse 98; Resp 22; Pulse Ox 100% ; sv 17:37 BP 90 / 63; Pulse 118; Resp 20; Pulse Ox 99% ; sv 18:30 BP 96 / 63; Pulse 106; Resp 18; Pulse Ox 99% ; sv MDM: 10:48 Patient medically screened. rn 13:10 Differential diagnosis: pulmonary edema, CHF, Afib with RVR, dehydration. Data rn reviewed: vital signs, nurses notes, lab test result(s), EKG, radiologic studies, CT scan, plain films, and as a result, I will admit patient. Counseling: I had a detailed discussion with the patient and/or guardian regarding: the historical points, exam findings, and any diagnostic results supporting the discharge/admit diagnosis, lab results, radiology results. Response to treatment: the patient's symptoms have mildly improved after treatment, and as a result, I will admit patient. ED course: Pt with dyspnea and chest pain, has known CAD, improved rate of Afib here with oral metoprolol, reports still having left sided chest pain and dyspnea, no oxygen requirement but + mild tachypnea. Trop neg. Admitted to Dr. Gonsalez for further care. Patient denies abd pain, CT abdomen ordered for vomiting, shows possible diverticulitis, will hold abx given story not consistent with diverticulitis at this point.. 10/27 10:54 Order name: Hepatic Function; Complete Time: 11:43 10/27 10:54 Order name: Blood Culture Adult (2) 10/27 10:54 Order name: BMP; Complete Time: 11:43 10/27 10:54 Order name: CBC with Diff; Complete Time: 11:43 10/27 10:54 Order name: NT PRO-BNP; Complete Time: 11:43 10/27 10:54 Order name: PT-INR; Complete Time: 11:43 10/27 10:54 Order name: Ptt, Activated; Complete Time: 11:43 10/27 10:54 Order name: Troponin (emerg Dept Use Only); Complete Time: 11:43 10/27 13:44 Order name: Thyroid Stimulating Hormone; Complete Time: 15:29 [facility] 10/27 16:11 Order name: Urinalysis [facility] 10/27 16:11 Order name: CBC with Automated Diff [facility] 10/27 16:11 Order name: CBC with Automated Diff [facility] 10/27 16:11 Order name: CBC with Automated Diff [facility] 10/27 16:11 Order name: CBC with Automated Diff [facility] 10/27 10:54 Order name: XRAY CXR (1 view); Complete Time: 12:21 10/27 10:54 Order name: EKG; Complete Time: 10:54 10/27 10:54 Order name: Cardiac monitoring; Complete Time: 10:55 rn 10/27 11:44 Order name: CT Abd/Pelvis - Without Contrast; Complete Time: 12:21 rn 10/27 13:44 Order name: CONS Physician Consult [facility] 10/27 13:44 Order name: Heart Healthy [facility] 10/27 13:44 Order name: Echo with Doppler [facility] 10/27 16:11 Order name: Comprehensive Metabolic Panel [facility] 10/27 16:11 Order name: Comprehensive Metabolic Panel [facility] 10/27 16:11 Order name: Comprehensive Metabolic Panel [facility] 10/27 16:11 Order name: Comprehensive Metabolic Panel [facility] 10/27 16:11 Order name: Chest Pa And Lat (2 Views) [facility] 10/27 16:11 Order name: Chest Pa And Lat (2 Views) [facility] 10/27 10:54 Order name: EKG - Nurse/Tech; Complete Time: 10:55 rn 10/27 10:54 Order name: IV Saline Lock; Complete Time: 11:12 rn 10/27 10:54 Order name: Labs collected and sent; Complete Time: 11:12 rn 10/27 10:54 Order name: O2 Per Protocol; Complete Time: 10:55 rn 10/27 10:54 Order name: O2 Sat Monitoring; Complete Time: 10:55 rn Administered Medications: 11:31 Drug: Metoprolol 25 mg Route: PO; ph 11:31 Drug: Zofran 4 mg Route: IVP; Site: right antecubital; ph Disposition: 10/27/18 13:14 Hospitalization ordered by Sabina Gonsalez for Inpatient Admission. Preliminary diagnosis are Chest pain, unspecified, Dyspnea, unspecified, Unspecified atrial fibrillation. - Bed requested for Telemetry/MedSurg (Inpatient). - Status is Inpatient Admission. ak1 - Condition is Stable. - Problem is new. - Symptoms are unchanged. UTI on Admission? No Signatures: Dispatcher [employer] [facility] Araseli Muniz Roman, MD MD rn Krenek, Amber, RN RN ak1 Kalyn Ruff, RICCO RN ph Jose Song RN RN mg2 Corrections: (The following items were deleted from the chart) 11:48 11:18 Abdomen Pelvis W Con+CT.RAD.BRZ ordered. [facility] 14:33 13:14 Hospitalization Ordered by Sabina Gonsalez MD for Inpatient Admission. Preliminary bd diagnosis is Chest pain, unspecified; Dyspnea, unspecified; Unspecified atrial fibrillation. Bed requested for Telemetry/MedSurg (Inpatient). Status is Inpatient Admission. Condition is Stable. Problem is new. Symptoms are unchanged. UTI on Admission? No. rn 21:10 14:33 10/27/2018 13:14 Hospitalization Ordered by Sabina Gonsalez MD for Inpatient mg2 Admission. Preliminary diagnosis is Chest pain, unspecified; Dyspnea, unspecified; Unspecified atrial fibrillation. Bed requested for [facility] ER HOLD. Status is Inpatient Admission. Condition is Stable. Problem is new. Symptoms are unchanged. UTI on Admission? No. bd 22:28 21:10 10/27/2018 13:14 Hospitalization Ordered by Sabina Gonsalez MD for Inpatient ak1 Admission. Preliminary diagnosis is Chest pain, unspecified; Dyspnea, unspecified; Unspecified atrial fibrillation. Bed requested for Telemetry/MedSurg (Inpatient). Status is Inpatient Admission. Condition is Stable. Problem is new. Symptoms are unchanged. UTI on Admission? No. mg2
[2018-10-27] MEDS: ENOXAPARIN 40 MG/0.4 ML SQ SCH (14:00)
--- NOTE | 2018-10-27 15:28 | EKG ---
Test Date: 2018-10-27 Test Time: 10:58:50 Customer Engagement Representative: SARIKA MEASUREMENT RESULTS: Intervals: Rate: 127 LA: QRSD: 100 QT: 302 QTc: 438 [place]: P: LA: QRS: -17 T: 125 INTERPRETIVE STATEMENTS: Atrial fibrillation with rapid ventricular response with premature ventricular or aberrantly conducted complexes Cannot rule out Anterior infarct, age undetermined Abnormal ECG Compared to ECG 11/21/2017 10:47:40 Ventricular premature complex(es) now present Myocardial infarct finding now present Left ventricular hypertrophy no longer present T-wave abnormality no longer present Prolonged QT interval no longer present Electronically Signed On 10-27-18 15:27:47 CDT by Eduardo Rocha
--- NOTE | 2018-10-27 16:01 | ECHO ---
HEIGHT: ft in WEIGHT: lb oz DATE OF STUDY: 10/27/[address]: Sabina Gonsalez MD 2-DIMENSIONAL: YES M.MODE: YES DOPPLER: YES COLOR FLOW: YES TDS: NO PORTABLE: YES DEFINITY: NO BUBBLE STUDY: NO DIAGNOSIS: CONGESTIVE HEART FAILURE EXACERBATION CARDIAC HISTORY: CATHERIZATION: SURGERY: PROSTHETIC VALVE: PACEMAKER: MEASUREMENTS (cm) DIASTOLIC (NORMALS) SYSTOLIC (NORMALS) IVSd 1.1 (0.6-1.2) LA Diam 4.9 (1.9-4.0) LVEF 26% LVIDd 5.6 (3.5-5.7) LVIDs 4.9 (2.0-3.5) %FS 12% LVPWd 1.0 (0.6-1.2) Ao Diam 3.2 (2.0-3.7) 2 DIMENSIONAL ASSESSMENT: RIGHT ATRIUM: DILATED LEFT ATRIUM: DILATED RIGHT VENTRICLE: DILATED LEFT VENTRICLE: DILATED TRICUSPID VALVE: NORMAL MITRAL VALVE: PULMONIC VALVE: NORMAL AORTIC VALVE: SLCEROSIS PERICARDIAL EFFUSION: NONE AORTIC ROOT: NORMAL LEFT VENTRICULAR WALL MOTION: SEVERE GLOBAL HYPOKINESIS. DOPPLER/COLOR FLOW: MILD AORTIC REGURGITATION, TRICUSPID REGURGITATION. MILD-MODERATE MITRAL REGURGITATION. ESTIMATED RIGHT VENTRICULAR SYSTOLIC PRESSURE 45MMHG (MILD PULMONARY HYPERTENSION). COMMENTS: 4 CHAMBER DILATED. SEVERELY DEPRESSED LEFT VENTRICULAR EJECTION FRACTION. AORTIC SCLEROSIS WITH NO STENOSIS. MILD AORTIC REGURGITATION AND TRICUSPID REGURGITATION. MILD MODERATE MITRAL REGURGITATION. MILD PULMONARY HYPERTENSION. TECHNOLOGIST: DOMONIQUE WALLIS [facility]
[2018-10-27] MEDS: FUROSEMIDE 40 MG/4 ML VIAL IV SCH (17:00)
[2018-10-27] MEDS ORDERED: FUROSEMIDE 40 MG/4 ML VIAL ONE (17:41)
[2018-10-27] MEDS ORDERED: ENOXAPARIN 40 MG/0.4 ML SQ ONE (17:42)
--- NOTE | 2018-10-27 18:11 | P.HP ---
Certification for Inpatient Patient admitted to: Inpatient With expected LOS: >2 Midnights Patient will require the following post-hospital care: None Practitioner: I am a practitioner with admitting privileges, knowledge of patient current condition, hospital course, and medical plan of care. Services: Services provided to patient in accordance with Admission requirements found in Title 42 Section 412.3 of the Code of Federal Regulations Patient History Date of Service: 10/27/18 Primary Care Provider: Dr Yanez Reason for admission: SOB History of Present Illness: 73-year-old male with past medical history of CAD, AFib, hypertension, hyperlipidemia, if obstructive sleep apnea, congestive heart failure who presented to the ED complaining of having some shortness of breath. Patient stated that he has been having shortness of breath at rest and with light activity. The symptoms started about yesterday and has got progressively worse. Patient also complained of having chest pain associated with shortness of breath. Nonproductive cough is was also reported. Patient denies having any fever chills nausea vomiting or any other associated symptoms. Patient has been to the hospital previously and has been noncompliant with his medication in the past. In the ER patient had lab work and imaging done was found to have acute respiratory failure secondary to CHF exacerbation and thus was admitted for further workup. Allergies No Allergy Information Allergy (Uncoded 08/29/17 08:39) Unknown No Known Allergies Allergy (Uncoded 12/16/16 17:47) Unknown Unable to obtain Allergy (Uncoded 09/29/16 00:20) Unknown Home Medications: Atorvastatin Calcium [Lipitor] 40 mg PO BEDTIME 08/29/17 Levothyroxine Sodium 50 mcg PO DAILY 08/29/17 Spironolactone [Aldactone*] 25 mg PO DAILY 08/29/17 Sodium Chloride Tab [Sodium Chloride*] 1 gm PO BIDWM #60 tab 09/04/17 Aspirin [Aspirin EC 81 MG] 1 tab PO DAILY 11/19/17 Furosemide [Lasix] 20 mg PO DAILY 11/19/17 Metoprolol Succinate [Toprol Xl] 25 mg PO BID 11/19/17 Apixaban [Eliquis] 5 mg PO BID 10/27/18 - Past Medical/Surgical History Diabetic: No -: HI -: HYPERLIPIDEMIA -: HTN -: Atrial fibrillation -: History all of presumed sleep apnea -: DVT -: mild stroke -: cyst in the scrotal area. -: HEART STENT X4 -: IVC filter placement - Family History Father -: Cancer Brother -: Cancer - Social History Alcohol use: No CD- Drugs: No Caffeine use: Yes Review of Systems 10-point ROS is otherwise unremarkable Physical Examination - Vital Signs Blood Pressure: 103/73 Pulse: 110 - Physical Exam General: Alert, Oriented x3, Mild distress Neck: JVD distended Respiratory: Clear to auscultation bilaterally, Normal air movement Cardiovascular: Normal S1 S2, Edema, Abnormal S4 Gastrointestinal: Normal bowel sounds, No tenderness Musculoskeletal: No tenderness Integumentary: No rashes Neurological: Normal speech, Normal tone Lymphatics: No axilla or inguinal lymphadenopathy - Studies Laboratory Data (last 24 hrs) 10/27/18 11:10: PT 17.4 H, INR 1.50, APTT 32.3 10/27/18 11:10: WBC 6.3, Hgb 13.5 L, Hct 41.3, Plt Count 173 10/27/18 11:10: Sodium 138, Potassium 3.8, BUN 19 H, Creatinine 1.58 H, Glucose 115 H, Total Bilirubin 2.3 H, AST 18, ALT 65, Alkaline Phosphatase 92 Assessment and Plan - Problems (Diagnosis) (1) Acute respiratory failure Current Visit: Yes Status: Acute Plan: Acute respiratory failure most likely secondary to bilateral pleural effusion along with CHF exacerbation -currently on nasal cannula will wean as tolerated -started on IV Lasix here in the hospital -will restart home medication of spironolactone as well along with beta-jose c -cardiology consulted appreciated recommendations at this time -will monitor patient closely here in the hospital Qualifiers: Respiratory failure complication: hypoxia Qualified Code(s): J96.01 - Acute respiratory failure with hypoxia (2) Atrial fibrillation Onset Date: 12/18/16 Current Visit: No Status: Chronic Plan: Patient initially with AFib with RVR was given p.o. 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 Appreciated recommendations at this time -four-chamber dilated cardiomyopathy with ejection fraction of less than 20%. - Patient is currently status post biventricular defibrillator placement -will monitor patient closely here in the hospital (4) CAD (coronary artery disease) Onset Date: 11/23/17 Current Visit: No Status: Chronic Qualifiers: Coronary Disease-Associated Artery/Lesion type: [place] artery [place] vs. transplanted heart: [place] heart Associated angina: with stable angina Qualified Code(s): I25.118 - Atherosclerotic heart disease of [place] coronary artery with other forms of angina pectoris (5) Chronic renal disease Current Visit: No Status: Chronic Plan: Monitor closely Qualifiers: Chronic kidney disease stage: stage 3 (moderate) Qualified Code(s): N18.3 - Chronic kidney disease, stage 3 (moderate) (6) Hypertension Current Visit: No Status: Chronic Qualifiers: Hypertension type: essential hypertension (7) Hypothyroidism Current Visit: No Status: Chronic Qualifiers: Hypothyroidism type: acquired Qualified Code(s): E03.9 - Hypothyroidism, unspecified (8) Obstructive sleep apnea Current Visit: No Status: Suspected Discharge Plan: Home Plan to discharge in: Greater than 2 days - Advance Directives Does patient have a Living Will: No Does patient have a Durable POA for Healthcare: No - Code Status/Comfort Care Code Status Assessed: Yes Critical Care: Yes
[2018-10-27 19:57] VITALS: TEMP 97.8
[2018-10-27] MEDS ORDERED: ATORVASTATIN 40 MG TAB PO SCH (21:00)
[2018-10-27 22:47] VITALS: BMI 33.0
[2018-10-27 22:52] VITALS: BP 109/73
[2018-10-27] MEDS ORDERED: POTASSIUM CL SA 10 MEQ TAB PO ONE (22:55)
[2018-10-27] MEDS: METOPROLOL XL 25 MG TAB PO SCH (23:27)
[2018-10-27] MEDS: APIXABAN 5 MG TABLET PO SCH (23:28)
[2018-10-27] MEDS ORDERED: ONDANSETRON 4 MG/2 ML VIAL IV PRN (23:45)
[2018-10-28 03:21] LABS: Urine Appearance CLEAR; Urine Blood NEGATIVE (NEG); Urine Color DK YELLOW; Urine Glucose NEGATIVE (NEG); Urine Protein NEGATIVE (NEG); Urine Specific Gravity 1.015 (1.005-1.030)
[2018-10-28 04:09] LABS: Urine Bilirubin NEGATIVE (NEG); Urine Microscopic Reflex ORDER UMIC
[2018-10-28 04:14] LABS: Urine Bacteria <20 /HPF (NONE SEEN); Urine Culture Reflex Order REFLEXED; Urine RBC NONE SEEN /HPF (NONE SEEN)
[2018-10-28] MEDS: LEVOTHYROXINE SOD 0.05 MG TABLET PO SCH ×2 (05:11→05:16)
--- NOTE | 2018-10-28 07:30 | P.PN ---
Date of Service: 10/27/18 Patient was wanting to leave. 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 Explained because of his current respiratory status it would be best if he allowed us to treat him in the hospital and at discharge follow with his identification and records commander. He is agreeable to stay at this time.
[2018-10-28] MEDS: METOPROLOL XL 25 MG TAB PO SCH (09:00)
[2018-10-28] MEDS ORDERED: ASPIRIN EC 81 MG TAB PO SCH (09:00)
[2018-10-28] MEDS: APIXABAN 5 MG TABLET PO SCH (09:00)
[2018-10-28] MEDS: FUROSEMIDE 40 MG/4 ML VIAL IV SCH (09:00)
[2018-10-28] MEDS ORDERED: SPIRONOLACTONE 25 MG TABLET PO SCH (09:00)
[2018-10-28] MEDS: ENOXAPARIN 40 MG/0.4 ML SQ SCH (09:00)
[2018-10-28 11:44] VITALS: O2SAT 99
--- NOTE | 2018-10-28 12:39 | P.PN ---
Subjective Date of Service: 10/28/18 Primary Care Provider: Dr Yanez Chief Complaint: SOB Patient seen and examined at bedside with RN. Chart reviewed. Patient appears to be very grumpy this morning states that he is not wanting to be here in his refusing to wear his cardiac tele refusing to get his vital signs done and refusing all his medications at this time. Patient was advised educated extensively regarding the need for the above-mentioned therapy along with medications to improve his current respiratory distress. Patient stated that he is not interested and wants to just sleep today. Patient was also notified regarding the need to continue his Lasix. Patient stated that he would like to go to [facility] where his doctor is. Patient was advised that we will attempt with the transfer however he stated that he does not want to be transferred he just wants to leave the hospital and go see his validation manager. Patient was advised that he will be needing to leave AMA however stated that just get out of the room and let me sleep in the room I am not signing any paperwork. Review of Systems 10-point ROS is otherwise unremarkable Physical Examination - Vital Signs Temperature: 97.8 F Blood Pressure: 109/73 Pulse: 100 Respirations: 18 Pulse Ox (%): 97 - Physical Exam General: Alert, In no apparent distress HEENT: Atraumatic, PERRLA, EOMI Neck: Supple, JVD not distended Respiratory: Normal air movement, Crackles/rales Cardiovascular: Regular rate/rhythm, Normal S1 S2 Gastrointestinal: Normal bowel sounds, No tenderness Musculoskeletal: No tenderness Integumentary: No rashes Neurological: Normal speech, Normal tone, Normal affect Lymphatics: No axilla or inguinal lymphadenopathy - Studies Medications List Reviewed: Yes Assessment And Plan - Current Problems (Diagnosis) (1) Acute respiratory failure Current Visit: Yes Status: Acute Plan: Acute respiratory failure most likely secondary to bilateral pleural effusion along with CHF exacerbation -currently on nasal cannula will wean as tolerated -on IV Lasix here in the hospital. Will encourage to take the medication here in the hospital at this time -also currently on spironolactone and beta-jose c -cardiology consulted appreciated recommendations at this time -will monitor patient closely here in the hospital Qualifiers: Respiratory failure complication: hypoxia Qualified Code(s): J96.01 - Acute respiratory failure with hypoxia (2) Atrial fibrillation Onset Date: 12/18/16 Current Visit: No Status: Chronic Plan: Patient initially with AFib with RVR was given p.o. 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 Appreciated recommendations at this time -four-chamber dilated cardiomyopathy with ejection fraction of less than 20%. -will monitor patient closely here in the hospital (4) CAD (coronary artery disease) Onset Date: 11/23/17 Current Visit: No Status: Chronic Qualifiers: Coronary Disease-Associated Artery/Lesion type: [place] artery [place] vs. transplanted heart: [place] heart Associated angina: with stable angina Qualified Code(s): I25.118 - Atherosclerotic heart disease of [place] coronary artery with other forms of angina pectoris (5) Chronic renal disease Current Visit: No Status: Chronic Qualifiers: Chronic kidney disease stage: stage 3 (moderate) Qualified Code(s): N18.3 - Chronic kidney disease, stage 3 (moderate) (6) Hypertension Current Visit: No Status: Chronic Qualifiers: Hypertension type: essential hypertension (7) Hypothyroidism Current Visit: No Status: Chronic Qualifiers: Hypothyroidism type: acquired Qualified Code(s): E03.9 - Hypothyroidism, unspecified (8) Obstructive sleep apnea Current Visit: No Status: Suspected - Plan Pending clinical improvement at this time. Patient educated extensively regarding the need to take medication has agreed to take medications x1 here in the hospital. Will monitor him closely. Education continuously while here in the hospital Discharge Plan: Home Plan to discharge in: Greater than 2 days - Code Status/Comfort Care Code Status Assessed: Yes Critical Care: No
--- NOTE | 2018-10-28 12:45 | CON ---
Date of Consultation: 10/28/2018 The patient was admitted to Dr. Gonsalez's service on 10/27/2018. I saw the patient on 10/28/2018. Reason For Consultation: Respiratory failure. History Of Present Illness: Mr. Lassiter is a 73-year-old, has a known history of congestive heart fail ure, coronary artery disease status post stent, has a history of atrial fibrillation, CVA, IVC filter , hypertension, hypothyroidism, dyslipidemia as well as sleep apnea. He came in with congestive hear t failure. He has PND, orthopnea, pedal edema. No palpitations or syncope. No chest pain. Mr. Lassiter is a patient of Dr. Harrison. Review of Systems: Negative. Social History: Negative. Family History: Noncontributory. Medications: At home, include amiodarone, Synthroid, Neurontin, metoprolol, Aldactone, aspirin, Lipi tor, Eliquis, and Lasix. Physical Examination: Vital Signs: Stable. He was in sinus rhythm. He was afebrile. General: He is alert, oriented x3. HEENT: Exam was negative. Neck: His neck was supple without any JVD, thyromegaly, lymphadenopathy or bruit. Chest: Revealed bilateral rales. Cardiac: Exam revealed atrial fibrillation with rapid ventricular response. Abdomen: His abdomen was benign. Extremities: Revealed no clubbing, cyanosis, or edema. Diagnostic Data: He has ejection fraction of 26% with . Impression And Plan: 1.[place] systolic congestive heart failure exacerbation. 2.Atrial fibrillation, rapid ventricular response. 3.Renal insufficiency, stage 3. 4.Hypothyroidism. 5.Neuropathy. 6.History of cerebrovascular accident. 7.History of coronary artery disease, status post stent. 8.History of IVC filter. 9.Hypertension. 10.Dyslipidemia. 11.Sleep apnea. Mr. Lassiter presently is on amiodarone, aspirin, Lipitor, Eliquis, Lasix, Synthroid, Neurontin, metopro lol, and Aldactone. I wonder that come he has not had a defibrillator before and I will discuss that further with Dr. Harrison. He may be a good candidate for Entresto. Apparently, he had been placed on Eliquis before for atrial fibrillation, but did not want to take it because of the cost. He is st able today. We will continue to diurese him. I will discuss the case further with Dr. Harrison, but I think he should be able to go home in the next day or 2. JULIO CESAR/KATELYN Voice ID: [id number] Report ID: [id number]
--- NOTE | 2018-10-28 16:13 | P.DS ---
Admission Date: 10/27/18 Discharge Date: 10/28/18 Primary Care Provider: Dr Yanez Disposition: AMA-LEFT AGAINST MEDICAL ADVIC Reason for Admission: SOB - Problems (1) Acute respiratory failure Status: Acute Qualifiers: Respiratory failure complication: hypoxia Qualified Code(s): J96.01 - Acute respiratory failure with hypoxia (2) Atrial fibrillation Onset Date: 12/18/16 Status: Chronic Qualifiers: Atrial fibrillation type: chronic Qualified Code(s): I48.2 - Chronic atrial fibrillation (3) Acute combined systolic (congestive) and diastolic (congestive) heart failure Onset Date: 11/23/17 Status: Acute (4) CAD (coronary artery disease) Onset Date: 11/23/17 Status: Chronic Qualifiers: Coronary Disease-Associated Artery/Lesion type: [place] artery [place] vs. transplanted heart: [place] heart Associated angina: with stable angina Qualified Code(s): I25.118 - Atherosclerotic heart disease of [place] coronary artery with other forms of angina pectoris (5) Chronic renal disease Status: Chronic Qualifiers: Chronic kidney disease stage: stage 3 (moderate) Qualified Code(s): N18.3 - Chronic kidney disease, stage 3 (moderate) (6) Hypertension Status: Chronic Qualifiers: Hypertension type: essential hypertension (7) Hypothyroidism Status: Chronic Qualifiers: Hypothyroidism type: acquired Qualified Code(s): E03.9 - Hypothyroidism, unspecified (8) Obstructive sleep apnea Status: Suspected Brief History of Present Illness: 73-year-old male with past medical history of CAD, AFib, hypertension, hyperlipidemia, if obstructive sleep apnea, congestive heart failure who presented to the ED complaining of having some shortness of breath. Patient stated that he has been having shortness of breath at rest and with light activity. The symptoms started about yesterday and has got progressively worse. Patient also complained of having chest pain associated with shortness of breath. Nonproductive cough is was also reported. Patient denies having any fever chills nausea vomiting or any other associated symptoms. Patient has been to the hospital previously and has been noncompliant with his medication in the past. In the ER patient had lab work and imaging done was found to have acute respiratory failure secondary to CHF exacerbation and thus was admitted for further workup. Hospital Course: Patient left AMA Vital Signs/Physical Exam: Temp Pulse Resp BP Pulse Ox 97.8 F 100 H 18 109/73 97 10/28/18 12:39 10/28/18 12:39 10/28/18 12:39 10/28/18 12:39 10/28/18 12:39 General: Alert, In no apparent distress HEENT: Atraumatic, PERRLA, EOMI Neck: Supple, JVD not distended Respiratory: Clear to auscultation bilaterally, Normal air movement Cardiovascular: Regular rate/rhythm, Normal S1 S2 Gastrointestinal: Normal bowel sounds, No tenderness Musculoskeletal: No tenderness Integumentary: No rashes Neurological: Normal speech, Normal tone, Normal affect Lymphatics: No axilla or inguinal lymphadenopathy Laboratory Data at Discharge: WBC 6.3 K/uL (4.3-10.9) 10/27/18 11:10 Hgb 13.5 g/dL (13.6-17.9) L 10/27/18 11:10 Hct 41.3 % (39.6-49.0) 10/27/18 11:10 Plt Count 173 K/uL (152-406) 10/27/18 11:10 PT 17.4 SECONDS (9.5-12.5) H 10/27/18 11:10 INR 1.50 10/27/18 11:10 APTT 32.3 SECONDS (24.3-36.9) 10/27/18 11:10 Sodium 138 mmol/L (136-145) 10/27/18 11:10 Potassium 3.8 mmol/L (3.5-5.1) 10/27/18 11:10 BUN 19 mg/dL (7-18) H 10/27/18 11:10 Creatinine 1.58 mg/dL (0.55-1.3) H 10/27/18 11:10 Glucose 115 mg/dL (74-106) H 10/27/18 11:10 Phosphorus Cancelled 10/28/18 05:00 Magnesium Cancelled 10/28/18 05:00 Total Bilirubin 2.3 mg/dL (0.2-1.0) H 10/27/18 11:10 AST 18 U/L (15-37) 10/27/18 11:10 ALT 65 U/L (12-78) 10/27/18 11:10 Alkaline Phosphatase 92 U/L (45-117) 10/27/18 11:10 Home Medications: Atorvastatin Calcium [Lipitor] 40 mg PO BEDTIME 08/29/17 Levothyroxine Sodium 50 mcg PO DAILY 08/29/17 Spironolactone [Aldactone*] 25 mg PO DAILY 08/29/17 Sodium Chloride Tab [Sodium Chloride*] 1 gm PO BIDWM #60 tab 09/04/17 Aspirin [Aspirin EC 81 MG] 1 tab PO DAILY 11/19/17 Furosemide [Lasix] 20 mg PO DAILY 11/19/17 Metoprolol Succinate [Toprol Xl] 25 mg PO BID 11/19/17 Apixaban [Eliquis] 5 mg PO BID 10/27/18
== END 2018-10-28 12:45 | disposition left against medical advice (07) | DRG 291 ==
LOC: ER 10:49 → ERHOLD 13:42 → 4TH 21:35
PROVIDERS: ADMIT Family Medicine; ATTEND Family Medicine
DX: I13.0 Hypertensive heart and chronic kidney disease with heart failure and stage 1 through stage 4 chronic kidney disease, or unspecified chronic kidney disease (principal); I50.43 Acute on chronic combined systolic (congestive) and diastolic (congestive) heart failure; J96.01 Acute respiratory failure with hypoxia; N18.3 Chronic kidney disease, stage 3 (moderate); I48.2 Chronic atrial fibrillation; I42.9 Cardiomyopathy, unspecified; I25.10 Atherosclerotic heart disease of native coronary artery without angina pectoris; Z91.14 Patient's other noncompliance with medication regimen; G47.33 Obstructive sleep apnea (adult) (pediatric); E03.9 Hypothyroidism, unspecified; I25.2 Old myocardial infarction; Z95.810 Presence of automatic (implantable) cardiac defibrillator; Z95.5 Presence of coronary angioplasty implant and graft
CPT/HCPCS: 36415; 71045; 74176; 80048; 80076; 81003; 81015; 83880; 84443; 84484; 85025; 85610; 85730; 87040; 87086; 87088; 87205; 93005; 93306; 96374; 99285; J1650; J1940; J2405

== ENCOUNTER 2018-11-14 11:20 | Emergency (ER) | payer OTHER, BC ==
--- OUTSIDE RECORDS SUMMARY | 2018-11-14 11:22 | XMS REPORT | Clinical Summary ---
:1945 Author Organization [facility] Address [address] [place] [address] Care Team Providers Name Role Phone Scot [...] Not on file Implants Implanted Type Area Sales Team Member Device Shelf Model / Identifier Expiration Serial / Date Lot [facility] [place] 04/09/2019 [id number] / Implanted: Qty: 1 on 12/10/2016 by Vidal Dunbar MD [employer] / [id number] [employer] [place] 05/23/2015 [id number] / Implanted: Qty: 1 on 12/12/2014 [employer] / [id number] Results Not on fileafter 11/13/2017 Insurance Payer Benefit Plan / Subscriber ID Type Phone Address Group MEDICARE MEDICARE A B xxxxxxxxxx Medicare BLUE CROSS/BLUE [place]DEMNITY [place] xxxxxxxxxxxx [facility] [phone] [address] [place] [address] Advance Directives For more information, please contact:[address] [phone] Code Status Date Activated Date Inactivated Comments [...]
--- OUTSIDE RECORDS SUMMARY | 2018-11-14 11:25 | XMS REPORT ---
:1945 [facility] [address] [place] [id number] Care Team Providers Name Role Phone BOLA [...] Abs) 0 x10 Complete Blood Count with [id number] 08:55:06 Test Item Value Reference Range Comments [...] XN) IPF (test code=IPF) 0 % Automated [id number] 08:55:06 Test Item Value Reference Range Comments Neutro Auto (test code=Neutro Auto) 75.6 % 36.0-70.0 Lymph Auto (test code=Lymph Auto) 15.4 % 12.0-44.0 Hunt Auto (test code=Hunt Auto) 6.1 % 0.0-11.0 Eos, Auto (test code=Eos, Auto) 1.8 % 0.0-7.0 Basophil Auto (test code=Basophil Auto) 0.8 % 0.0-2.0 Neutro Absolute (test code=Neutro Absolute) 6.0 x10 1.6-7.4 Lymph Absolute (test code=Lymph Absolute) 1.2 x10 0.5-4.6 Hunt Absolute (test code=Hunt Absolute) 0.5 x10 0.0-1.2 Eos Absolute (test code=Eos Absolute) 0.14 x10 0.00-0.74 Baso Absolute (test code=Baso Absolute) 0.06 x10 0.00-0.21 Lipid [id number] 08:06:45 Test Item Value Reference Range Comments Cholesterol Total (test 137 mg/dL 0-200 RISK OF HEART DISEASEPublished code=Cholesterol Total) by [employer] Analyte Optimal Borderline Increased RiskCHOL [...] LDL/HDL Ratio=LDL Calc/HDL Chol Pro B Natriuretic [id number] 08:06:45 Test Item Value Reference Range Comments NT-proBNP (test code=NT-proBNP) 1275 pg/mL 0-124 Comprehensive Metabolic [id number] 08:06:44 Test Item Value Reference Range Comments [...] (test code=A/G Ratio) 1.4 ratio Comprehensive Metabolic [id number] 08:06:44 Test Item Value Reference Range Comments [...] is not provided, and the patient is -[place]wegian, multiply by 1.212. If sex is not [...] the [employer] Kid[employer] Foundation, http://nkdep.nih.gov Comprehensive Metabolic [id number] 08:06:44 Test Item Value Reference Range Comments [...] is not provided, and the patient is -[place]wegian, multiply by 1.212. If sex is not [...] is not provided, and the patient is -[place]wegian, multiply by 1.212. If sex is not [...] Comments WHITE BLOOD CELL COUNT (BEAKER) (test jzrg=146) 7.0 K/ L 3.5-10.5 RED BLOOD CELL COUNT (BEAKER) (test noyn=931) 5.09 M/ L 4.63-6.08 HEMOGLOBIN (BEAKER) (test dhca=035) 12.5 GM/DL 13.7-17.5 HEMATOCRIT (BEAKER) (test trnu=591) 41.6 % 40.1-51.0 MEAN CORPUSCULAR VOLUME (BEAKER) (test omrw=562) 81.7 fL 79.0-92.2 MEAN CORPUSCULAR HEMOGLOBIN (BEAKER) (test 24.6 pg 25.7-32.2 vwec=084) MEAN CORPUSCULAR HEMOGLOBIN CONC (BEAKER) (test 30.0 GM/DL 32.3-36.5 mwii=578) RED CELL DISTRIBUTION WIDTH (BEAKER) (test 21.0 % 11.6-14.4 pdca=014) PLATELET COUNT (BEAKER) (test tzfb=764) 218 K/CU MM 150-450 MEAN PLATELET VOLUME (BEAKER) (test lasp=726) 10.8 fL 9.4-12.4 NUCLEATED RED BLOOD CELLS (BEAKER) (test 0 /100 WBC 0-0 varv=036) BASIC METABOLIC [id number] 12:20:00 Test Item Value Reference Range Comments SODIUM (BEAKER) (test 142 meq/L 136-145 cvym=844) POTASSIUM (BEAKER) (test 4.5 meq/L 3.5-5.1 agkd=897) CHLORIDE (BEAKER) (test 106 meq/L 98-107 xuyt=151) CO2 (BEAKER) (test 28 meq/L 22-29 esjz=675) BLOOD UREA NITROGEN 14 mg/dL 7-21 (BEAKER) (test saox=185) CREATININE (BEAKER) (test 1.45 mg/dL 0.57-1.25 jsgc=056) GLUCOSE RANDOM (BEAKER) 99 mg/dL 70-105 (test wrxf=322) CALCIUM (BEAKER) (test 8.9 mg/dL 8.4-10.2 rdok=597) EGFR (BEAKER) (test 48 mL/min/1.73 sq m ESTIMATED GFR IS NOT brud=3132) ACCURATE CREATININE CLEARANCE IN PREDICTING GLOMERULAR FILTRATION RATE. ESTIMATED GFR IS NOT APPLICABLE FOR DIALYSIS PATIENTS. [id number] 12:12:00 Test Item Value Reference Range Comments PROTIME (BEAKER) (test vcgu=466) 30.3 seconds 11.7-14.7 INR (BEAKER) (test osxt=917) 2.9 <=5.9 PARTIAL THROMBOPLASTIN TIME (BEAKER) (test 41.5 seconds 22.5-36.0 ixbh=988) RECOMMENDED COUMADIN/WARFARIN INR THERAPY RANGESSTANDARD DOSE: 2.0 - 3.0 Includes: PROPHYLAXIS forvenous thrombosis, systemic embolization; TREATMENT for venous thrombosis and/or pulmonary embolus.HIGH RISK: Target INR is 2.5-3.5 for patients with mechanical heart valves.CBC W/PLT COUNT & AUTO [id number] 17:54:00 Test Item Value Reference Range Comments WHITE BLOOD CELL COUNT (BEAKER) (test jarx=990) 6.3 K/ L 3.5-10.5 RED BLOOD CELL COUNT (BEAKER) (test fggy=397) 3.84 M/ L 4.63-6.08 HEMOGLOBIN (BEAKER) (test qwff=643) 9.6 GM/DL 13.7-17.5 HEMATOCRIT (BEAKER) (test dltr=253) 31.6 % 40.1-51.0 MEAN CORPUSCULAR VOLUME (BEAKER) (test yifc=330) 82.3 fL 79.0-92.2 MEAN CORPUSCULAR HEMOGLOBIN (BEAKER) (test 25.0 pg 25.7-32.2 tnlo=317) MEAN CORPUSCULAR HEMOGLOBIN CONC (BEAKER) (test 30.4 GM/DL 32.3-36.5 xdek=636) RED CELL DISTRIBUTION WIDTH (BEAKER) (test 18.0 % 11.6-14.4 eehj=660) PLATELET COUNT (BEAKER) (test dwgv=971) 176 K/CU MM 150-450 MEAN PLATELET VOLUME (BEAKER) (test pttg=976) 10.1 fL 9.4-12.4 NUCLEATED RED BLOOD CELLS (BEAKER) (test 0 /100 WBC 0-0 zeyi=524) NEUTROPHILS RELATIVE PERCENT (BEAKER) (test 72 % flzw=816) LYMPHOCYTES RELATIVE PERCENT (BEAKER) (test 15 % dtld=159) MONOCYTES RELATIVE PERCENT (BEAKER) (test 10 % evcu=100) EOSINOPHILS RELATIVE PERCENT (BEAKER) (test 2 % qpiu=916) BASOPHILS RELATIVE PERCENT (BEAKER) (test 1 % vtbl=110) NEUTROPHILS ABSOLUTE COUNT (BEAKER) (test 4.56 K/ L 1.78-5.38 rnsa=048) LYMPHOCYTES ABSOLUTE COUNT (BEAKER) (test 0.96 K/ L 1.32-3.57 filb=321) MONOCYTES ABSOLUTE COUNT (BEAKER) (test 0.60 K/ L 0.30-0.82 qceq=995) EOSINOPHILS ABSOLUTE COUNT (BEAKER) (test 0.14 K/ L 0.04-0.54 leml=703) BASOPHILS ABSOLUTE COUNT (BEAKER) (test 0.05 K/ L 0.01-0.08 vxyc=795) IMMATURE GRANULOCYTES-RELATIVE PERCENT (BEAKER) 0 % 0-1 (test fzfq=7423) RAD, CHEST, 1 VIEW, NON [id number] 11:49:00Reason for exam:->SOBShould this be performed at the bedside?->YesFINAL REPORT Chest one view compared to February 15, 2013 Discussion: Bilateral lung granulomas and mediastinal calcified nodes are noted. Heart size normal. No focal infiltrate or convincing cardiac failure. No effusion or pneumothorax. Signed: Yandel Dukeabbe Verified Date/Time: 12/11/2016 11:49:16 Reading Location: [facility] Radiology Reading Room BASIC METABOLIC [id number] 04:31: 00 Test Item Value Reference Range Comments SODIUM (BEAKER) (test 141 meq/L 136-145 cqhj=276) POTASSIUM (BEAKER) (test 3.8 meq/L 3.5-5.1 xfdr=220) CHLORIDE (BEAKER) (test 108 meq/L 98-107 luiz=109) CO2 (BEAKER) (test 24 meq/L 22-29 sawd=136) BLOOD UREA NITROGEN 13 mg/dL 7-21 (BEAKER) (test bzvw=118) CREATININE (BEAKER) (test 1.33 mg/dL 0.57-1.25 dzai=663) GLUCOSE RANDOM (BEAKER) 106 mg/dL 70-105 (test cesz=412) CALCIUM (BEAKER) (test 8.2 mg/dL 8.4-10.2 nobe=669) EGFR (BEAKER) (test 53 mL/min/1.73 sq m ESTIMATED GFR IS NOT uqup=6887) ACCURATE CREATININE CLEARANCE IN PREDICTING GLOMERULAR FILTRATION RATE. ESTIMATED GFR IS NOT APPLICABLE FOR DIALYSIS PATIENTS. PROTHROMBIN [id number] 04:22:00 Test Item Value Reference Range Comments PROTIME (BEAKER) (test nlcn=838) 15.9 seconds 11.7-14.7 INR (BEAKER) (test uhvi=681) 1.3 <=5.9 RECOMMENDED COUMADIN/WARFARIN INR THERAPY RANGESSTANDARD DOSE: 2.0 - 3.0 Includes: PROPHYLAXIS forvenous thrombosis, systemic embolization; TREATMENT for venous thrombosis and/or pulmonary embolus.HIGH RISK: Target INR is 2.5-3.5 for patients with mechanical heart valves.While on warfarin.CBC (HEMOGRAM ONLY) 2016-12-11 04:21:00 Test Item Value Reference Range Comments WHITE BLOOD CELL COUNT (BEAKER) (test usys=395) 6.0 K/ L 3.5-10.5 RED BLOOD CELL COUNT (BEAKER) (test gdog=740) 3.25 M/ L 4.63-6.08 HEMOGLOBIN (BEAKER) (test qftq=896) 7.6 GM/DL 13.7-17.5 HEMATOCRIT (BEAKER) (test gajb=439) 26.5 % 40.1-51.0 MEAN CORPUSCULAR VOLUME (BEAKER) (test zqcw=164) 81.5 fL 79.0-92.2 MEAN CORPUSCULAR HEMOGLOBIN (BEAKER) (test 23.4 pg 25.7-32.2 pbzx=744) MEAN CORPUSCULAR HEMOGLOBIN CONC (BEAKER) (test 28.7 GM/DL 32.3-36.5 hzja=524) RED CELL DISTRIBUTION WIDTH (BEAKER) (test 18.0 % 11.6-14.4 smvf=645) PLATELET COUNT (BEAKER) (test sgsp=858) 172 K/CU MM 150-450 MEAN PLATELET VOLUME (BEAKER) (test wbjm=944) 11.3 fL 9.4-12.4 NUCLEATED RED BLOOD CELLS (BEAKER) (test 0 /100 WBC 0-0 njsw=229) PROTHROMBIN [id number] 21:03:00 Test Item Value Reference Range Comments PROTIME (BEAKER) (test rrkt=910) 15.9 seconds 11.7-14.7 INR (BEAKER) (test pdft=004) 1.3 <=5.9 RECOMMENDED COUMADIN/WARFARIN INR THERAPY RANGESSTANDARD DOSE: 2.0 - 3.0 Includes: PROPHYLAXIS forvenous thrombosis, systemic embolization; TREATMENT for venous thrombosis and/or pulmonary embolus.HIGH RISK: Target INR is 2.5-3.5 for patients with mechanical heart valves.[id number] 13:06:00 Test Item Value Reference Range Comments ACTIVATED CLOTTING TIME 131 sec TESTED AT [facility] [address] (BEAKER) (test fryg=965) [facility] [address] [id number] 12:52:00 Test Item Value Reference Range Comments ACTIVATED CLOTTING TIME 274 sec TESTED AT [facility] [address] (BEAKER) (test jwqf=446) [place] [id number] 10:29:00 Test Item Value Reference Range Comments MAGNESIUM (BEAKER) (test xhwt=941) 2.1 mg/dL 1.6-2.6 BASIC METABOLIC [id number] 10:29:00 Test Item Value Reference Range Comments SODIUM (BEAKER) (test 143 meq/L 136-145 akvv=827) POTASSIUM (BEAKER) (test 3.5 meq/L 3.5-5.1 alvg=881) CHLORIDE (BEAKER) (test 106 meq/L 98-107 msci=894) CO2 (BEAKER) (test 29 meq/L 22-29 qikw=740) BLOOD UREA NITROGEN 12 mg/dL 7-21 (BEAKER) (test ljhk=296) CREATININE (BEAKER) (test 1.47 mg/dL 0.57-1.25 rcgg=614) GLUCOSE RANDOM (BEAKER) 95 mg/dL 70-105 (test gwtb=349) CALCIUM (BEAKER) (test 8.7 mg/dL 8.4-10.2 ifgj=732) EGFR (BEAKER) (test 47 mL/min/1.73 sq m ESTIMATED GFR IS NOT jykz=7989) ACCURATE CREATININE CLEARANCE IN PREDICTING GLOMERULAR FILTRATION RATE. ESTIMATED GFR IS NOT APPLICABLE FOR DIALYSIS PATIENTS. CBC W/PLT COUNT & AUTO [id number] 10:04:00 Test Item Value Reference Range Comments WHITE BLOOD CELL COUNT (BEAKER) (test otqs=917) 6.5 K/ L 3.5-10.5 RED BLOOD CELL COUNT (BEAKER) (test gphi=147) 3.74 M/ L 4.63-6.08 HEMOGLOBIN (BEAKER) (test osfd=301) 8.6 GM/DL 13.7-17.5 HEMATOCRIT (BEAKER) (test wtbg=156) 30.1 % 40.1-51.0 MEAN CORPUSCULAR VOLUME (BEAKER) (test rnzr=741) 80.5 fL 79.0-92.2 MEAN CORPUSCULAR HEMOGLOBIN (BEAKER) (test 23.0 pg 25.7-32.2 vtle=692) MEAN CORPUSCULAR HEMOGLOBIN CONC (BEAKER) (test 28.6 GM/DL 32.3-36.5 zwyb=123) RED CELL DISTRIBUTION WIDTH (BEAKER) (test 17.8 % 11.6-14.4 llqk=123) PLATELET COUNT (BEAKER) (test qalo=944) 225 K/CU MM 150-450 MEAN PLATELET VOLUME (BEAKER) (test fseh=877) 10.9 fL 9.4-12.4 NUCLEATED RED BLOOD CELLS (BEAKER) (test 0 /100 WBC 0-0 ycxb=081) NEUTROPHILS RELATIVE PERCENT (BEAKER) (test 71 % sjef=992) LYMPHOCYTES RELATIVE PERCENT (BEAKER) (test 19 % tbes=513) MONOCYTES RELATIVE PERCENT (BEAKER) (test 7 % sqhc=483) EOSINOPHILS RELATIVE PERCENT (BEAKER) (test 2 % ctyw=678) BASOPHILS RELATIVE PERCENT (BEAKER) (test 1 % xkng=263) NEUTROPHILS ABSOLUTE COUNT (BEAKER) (test 4.56 K/ L 1.78-5.38 bbyx=485) LYMPHOCYTES ABSOLUTE COUNT (BEAKER) (test 1.25 K/ L 1.32-3.57 vtip=046) MONOCYTES ABSOLUTE COUNT (BEAKER) (test 0.47 K/ L 0.30-0.82 kslb=025) EOSINOPHILS ABSOLUTE COUNT (BEAKER) (test 0.11 K/ L 0.04-0.54 hqwb=130) BASOPHILS ABSOLUTE COUNT (BEAKER) (test 0.05 K/ L 0.01-0.08 gaks=743) IMMATURE GRANULOCYTES-RELATIVE PERCENT (BEAKER) 0 % 0-1 (test kbwt=2554) BASIC METABOLIC [id number] 13:40:00 Test Item Value Reference Range Comments SODIUM (BEAKER) (test 140 meq/L 136-145 xlbe=323) POTASSIUM (BEAKER) (test 3.4 meq/L 3.5-5.1 ddrk=008) CHLORIDE (BEAKER) (test 107 meq/L 98-107 larp=485) CO2 (BEAKER) (test 24 meq/L 22-29 dnna=923) BLOOD UREA NITROGEN 15 mg/dL 7-21 (BEAKER) (test pkuv=732) CREATININE (BEAKER) (test 1.39 mg/dL 0.57-1.25 iadg=850) GLUCOSE RANDOM (BEAKER) 114 mg/dL 70-105 (test lifw=371) CALCIUM (BEAKER) (test 8.7 mg/dL 8.4-10.2 lxvy=552) EGFR (BEAKER) (test 50 mL/min/1.73 sq m ESTIMATED GFR IS NOT vhsh=4039) ACCURATE CREATININE CLEARANCE IN PREDICTING GLOMERULAR FILTRATION RATE. ESTIMATED GFR IS NOT APPLICABLE FOR DIALYSIS PATIENTS. COMPREHENSIVE METABOLIC [id number] 14:02:00 Test Item Value Reference Range Comments TOTAL PROTEIN (BEAKER) 7.2 gm/dL 6.0-8.3 (test pvcf=035) ALBUMIN (BEAKER) (test 3.7 g/dL 3.5-5.0 ltdx=1439) ALKALINE PHOSPHATASE 88 U/L 40-150 (BEAKER) (test oxkk=029) BILIRUBIN TOTAL (BEAKER) 0.8 mg/dL 0.2-1.2 (test ocav=592) SODIUM (BEAKER) (test 142 meq/L 136-145 bolc=871) POTASSIUM (BEAKER) (test 4.7 meq/L 3.5-5.1 nkxv=666) CHLORIDE (BEAKER) (test 109 meq/L 98-107 qajn=492) CO2 (BEAKER) (test 24 meq/L 22-29 laix=321) BLOOD UREA NITROGEN 12 mg/dL 7-21 (BEAKER) (test ztfd=253) CREATININE (BEAKER) (test 1.33 mg/dL 0.57-1.25 lxbs=389) GLUCOSE RANDOM (BEAKER) 92 mg/dL 70-105 (test sthy=560) CALCIUM (BEAKER) (test 9.0 mg/dL 8.4-10.2 gwuo=555) AST (SGOT) (BEAKER) (test 17 U/L 5-34 djyg=773) ALT (SGPT) (BEAKER) (test 22 U/L 6-55 glko=745) EGFR (BEAKER) (test 53 mL/min/1.73 sq m ESTIMATED GFR IS NOT ibxw=7545) ACCURATE CREATININE CLEARANCE IN PREDICTING GLOMERULAR FILTRATION RATE. ESTIMATED GFR IS NOT APPLICABLE FOR DIALYSIS PATIENTS. PROTHROMBIN TIME/[id number] 13:39:00 Test Item Value Reference Range Comments PROTIME (BEAKER) (test hfmu=237) 15.2 seconds 11.7-14.7 INR (BEAKER) (test zbge=203) 1.2 <=5.9 RECOMMENDED COUMADIN/WARFARIN INR THERAPY RANGESSTANDARD DOSE: 2.0 - 3.0 Includes: PROPHYLAXIS forvenous thrombosis, systemic embolization; TREATMENT for venous thrombosis and/or pulmonary embolus.HIGH RISK: Target INR is 2.5-3.5 for patients with mechanical heart valves.CBC W/PLT COUNT & AUTO [id number] 13:26:00 Test Item Value Reference Range Comments WHITE BLOOD CELL COUNT (BEAKER) (test dmad=332) 6.1 K/ L 3.5-10.5 RED BLOOD CELL COUNT (BEAKER) (test juft=080) 4.02 M/ L 4.63-6.08 HEMOGLOBIN (BEAKER) (test xwis=572) 9.5 GM/DL 13.7-17.5 HEMATOCRIT (BEAKER) (test jjza=431) 33.9 % 40.1-51.0 MEAN CORPUSCULAR VOLUME (BEAKER) (test heol=192) 84.3 fL 79.0-92.2 MEAN CORPUSCULAR HEMOGLOBIN (BEAKER) (test 23.6 pg 25.7-32.2 vzhb=660) MEAN CORPUSCULAR HEMOGLOBIN CONC (BEAKER) (test 28.0 GM/DL 32.3-36.5 dwej=110) RED CELL DISTRIBUTION WIDTH (BEAKER) (test 17.3 % 11.6-14.4 avfr=471) PLATELET COUNT (BEAKER) (test jutw=466) 192 K/CU MM 150-450 MEAN PLATELET VOLUME (BEAKER) (test puqs=712) 11.1 fL 9.4-12.4 NUCLEATED RED BLOOD CELLS (BEAKER) (test 0 /100 WBC 0-0 ziav=454) NEUTROPHILS RELATIVE PERCENT (BEAKER) (test 70 % nfcr=149) LYMPHOCYTES RELATIVE PERCENT (BEAKER) (test 20 % xbpl=224) MONOCYTES RELATIVE PERCENT (BEAKER) (test 8 % lkwy=470) EOSINOPHILS RELATIVE PERCENT (BEAKER) (test 2 % vusg=800) BASOPHILS RELATIVE PERCENT (BEAKER) (test 0 % hhxm=280) NEUTROPHILS ABSOLUTE COUNT (BEAKER) (test 4.26 K/ L 1.78-5.38 aqvq=888) LYMPHOCYTES ABSOLUTE COUNT (BEAKER) (test 1.22 K/ L 1.32-3.57 ucjk=582) MONOCYTES ABSOLUTE COUNT (BEAKER) (test 0.49 K/ L 0.30-0.82 oexw=388) EOSINOPHILS ABSOLUTE COUNT (BEAKER) (test 0.12 K/ L 0.04-0.54 sxlo=117) BASOPHILS ABSOLUTE COUNT (BEAKER) (test 0.02 K/ L 0.01-0.08 wrsm=986) IMMATURE GRANULOCYTES-RELATIVE PERCENT (BEAKER) 0 % 0-1 (test xnhz=9498) CBC W/PLT COUNT & AUTO [id number] 07:51:00 Test Item Value Reference Range Comments WHITE BLOOD CELL COUNT (BEAKER) (test kslj=959) 6.1 K/ L 4.0-10.0 RED BLOOD CELL COUNT (BEAKER) (test otdl=445) 2.60 M/ L 4.20-5.80 HEMOGLOBIN (BEAKER) (test tckk=041) 7.7 GM/DL 13.0-16.8 HEMATOCRIT (BEAKER) (test uzxm=624) 23.8 % 40.0-50.0 MEAN CORPUSCULAR VOLUME (BEAKER) (test rgds=392) 91.5 fL 82.0-98.0 MEAN CORPUSCULAR HEMOGLOBIN (BEAKER) (test 29.7 pg 27.0-33.0 bnqf=029) MEAN CORPUSCULAR HEMOGLOBIN CONC (BEAKER) (test 32.4 GM/DL 32.0-36.0 zjrd=314) RED CELL DISTRIBUTION WIDTH (BEAKER) (test 16.9 % 10.3-14.2 vgnn=091) PLATELET COUNT (BEAKER) (test uxxg=150) 172 K/CU MM 150-430 MEAN PLATELET VOLUME (BEAKER) (test lqwo=199) 8.7 fL 6.5-10.5 NUCLEATED RED BLOOD CELLS (BEAKER) (test 0 /100 WBC 0-0 lgse=238) NEUTROPHILS RELATIVE PERCENT (BEAKER) (test 74 % vqab=767) LYMPHOCYTES RELATIVE PERCENT (BEAKER) (test 15 % jlcf=887) MONOCYTES RELATIVE PERCENT (BEAKER) (test 9 % cyae=376) EOSINOPHILS RELATIVE PERCENT (BEAKER) (test 2 % lrcf=780) BASOPHILS RELATIVE PERCENT (BEAKER) (test 0 % bljl=583) NEUTROPHILS ABSOLUTE COUNT (BEAKER) (test 4.50 K/ L 1.80-8.00 olgs=583) LYMPHOCYTES ABSOLUTE COUNT (BEAKER) (test 0.89 K/ L 1.48-4.50 qksj=589) MONOCYTES ABSOLUTE COUNT (BEAKER) (test 0.53 K/ L 0.00-1.30 xoqh=575) EOSINOPHILS ABSOLUTE COUNT (BEAKER) (test 0.13 K/ L 0.00-0.50 wucr=306) BASOPHILS ABSOLUTE COUNT (BEAKER) (test 0.01 K/ L 0.00-0.20 dshk=960) [id number] 07:48:00 Test Item Value Reference Range Comments MAGNESIUM (BEAKER) (test 1.9 mg/dL 1.6-2.6 Specimen slightly hemolyzed omov=840) [id number] 07:48:00 Test Item Value Reference Range Comments PHOSPHORUS (BEAKER) (test 3.8 mg/dL 2.3-4.7 Specimen slightly hemolyzed daoy=277) BASIC METABOLIC [id number] 07:48:00 Test Item Value Reference Range Comments SODIUM (BEAKER) (test 137 meq/L 136-145 pabv=434) POTASSIUM (BEAKER) (test 4.1 meq/L 3.5-5.1 Specimen slightly bzvj=674) hemolyzed CHLORIDE (BEAKER) (test 105 meq/L 98-107 lpny=127) CO2 (BEAKER) (test 25 meq/L 22-29 isyr=605) BLOOD UREA NITROGEN 14 mg/dL 7-21 (BEAKER) (test gdfg=158) CREATININE (BEAKER) (test 1.30 mg/dL 0.57-1.25 Specimen slightly dbtj=675) hemolyzed GLUCOSE RANDOM (BEAKER) 102 mg/dL 70-105 (test grhp=962) CALCIUM (BEAKER) (test 8.1 mg/dL 8.4-10.2 trqt=785) EGFR (BEAKER) (test 54 mL/min/1.73 sq m ESTIMATED GFR IS NOT iaaf=5860) ACCURATE CREATININE CLEARANCE IN PREDICTING GLOMERULAR FILTRATION RATE. ESTIMATED GFR IS NOT APPLICABLE FOR DIALYSIS PATIENTS. CBC W/PLT COUNT & AUTO [id number] 07:00:00 Test Item Value Reference Range Comments WHITE BLOOD CELL COUNT (BEAKER) (test ufdk=274) 6.6 K/ L 4.0-10.0 RED BLOOD CELL COUNT (BEAKER) (test jabd=197) 2.63 M/ L 4.20-5.80 HEMOGLOBIN (BEAKER) (test tymv=277) 7.7 GM/DL 13.0-16.8 HEMATOCRIT (BEAKER) (test kznt=506) 24.0 % 40.0-50.0 MEAN CORPUSCULAR VOLUME (BEAKER) (test lqbh=936) 91.5 fL 82.0-98.0 MEAN CORPUSCULAR HEMOGLOBIN (BEAKER) (test 29.3 pg 27.0-33.0 brmc=410) MEAN CORPUSCULAR HEMOGLOBIN CONC (BEAKER) (test 32.1 GM/DL 32.0-36.0 gtkq=690) RED CELL DISTRIBUTION WIDTH (BEAKER) (test 17.2 % 10.3-14.2 podi=245) PLATELET COUNT (BEAKER) (test mezi=121) 184 K/CU MM 150-430 MEAN PLATELET VOLUME (BEAKER) (test uamw=202) 8.6 fL 6.5-10.5 NUCLEATED RED BLOOD CELLS (BEAKER) (test 0 /100 WBC 0-0 cdlf=143) NEUTROPHILS RELATIVE PERCENT (BEAKER) (test 70 % aqwq=971) LYMPHOCYTES RELATIVE PERCENT (BEAKER) (test 21 % riqf=665) MONOCYTES RELATIVE PERCENT (BEAKER) (test 7 % mwdv=712) EOSINOPHILS RELATIVE PERCENT (BEAKER) (test 2 % urqq=821) BASOPHILS RELATIVE PERCENT (BEAKER) (test 0 % dean=399) NEUTROPHILS ABSOLUTE COUNT (BEAKER) (test 4.58 K/ L 1.80-8.00 mowu=574) LYMPHOCYTES ABSOLUTE COUNT (BEAKER) (test 1.40 K/ L 1.48-4.50 iaor=083) MONOCYTES ABSOLUTE COUNT (BEAKER) (test 0.46 K/ L 0.00-1.30 mnad=604) EOSINOPHILS ABSOLUTE COUNT (BEAKER) (test 0.11 K/ L 0.00-0.50 bscq=957) BASOPHILS ABSOLUTE COUNT (BEAKER) (test 0.01 K/ L 0.00-0.20 wszd=004) [id number] 06:57:00 Test Item Value Reference Range Comments PHOSPHORUS (BEAKER) (test fmzq=102) 4.3 mg/dL 2.3-4.7 [id number] 06:57:00 Test Item Value Reference Range Comments MAGNESIUM (BEAKER) (test spgs=728) 2.0 mg/dL 1.6-2.6 BASIC METABOLIC [id number] 06:57:00 Test Item Value Reference Range Comments SODIUM (BEAKER) (test 139 meq/L 136-145 nrdy=630) POTASSIUM (BEAKER) (test 4.3 meq/L 3.5-5.1 cimh=824) CHLORIDE (BEAKER) (test 108 meq/L 98-107 wdrl=897) CO2 (BEAKER) (test 25 meq/L 22-29 pqcg=688) BLOOD UREA NITROGEN 13 mg/dL 7-21 (BEAKER) (test bkjg=493) CREATININE (BEAKER) (test 1.34 mg/dL 0.57-1.25 jbnz=291) GLUCOSE RANDOM (BEAKER) 93 mg/dL 70-105 (test hdou=384) CALCIUM (BEAKER) (test 8.3 mg/dL 8.4-10.2 hdjf=042) EGFR (BEAKER) (test 52 mL/min/1.73 sq m ESTIMATED GFR IS NOT uwnk=1825) ACCURATE CREATININE CLEARANCE IN PREDICTING GLOMERULAR FILTRATION RATE. ESTIMATED GFR IS NOT APPLICABLE FOR DIALYSIS PATIENTS. [id number] 06:47:00 Test Item Value Reference Range Comments PHOSPHORUS (BEAKER) (test qjkx=357) 3.0 mg/dL 2.3-4.7 [id number] 06:47:00 Test Item Value Reference Range Comments MAGNESIUM (BEAKER) (test jcnr=836) 1.9 mg/dL 1.6-2.6 BASIC METABOLIC [id number] 06:47:00 Test Item Value Reference Range Comments SODIUM (BEAKER) (test 141 meq/L 136-145 uvvt=346) POTASSIUM (BEAKER) (test 4.3 meq/L 3.5-5.1 wals=876) CHLORIDE (BEAKER) (test 109 meq/L 98-107 vmcg=262) CO2 (BEAKER) (test 25 meq/L 22-29 gymu=798) BLOOD UREA NITROGEN 13 mg/dL 7-21 (BEAKER) (test osoh=259) CREATININE (BEAKER) (test 1.14 mg/dL 0.57-1.25 ydla=349) GLUCOSE RANDOM (BEAKER) 90 mg/dL 70-105 (test agdh=357) CALCIUM (BEAKER) (test 8.4 mg/dL 8.4-10.2 cfcv=671) EGFR (BEAKER) (test 63 mL/min/1.73 sq m ESTIMATED GFR IS NOT mnoj=2084) ACCURATE CREATININE CLEARANCE IN PREDICTING GLOMERULAR FILTRATION RATE. ESTIMATED GFR IS NOT APPLICABLE FOR DIALYSIS PATIENTS. CBC W/PLT COUNT & AUTO [id number] 06:42:00 Test Item Value Reference Range Comments WHITE BLOOD CELL COUNT (BEAKER) (test vaqw=222) 6.5 K/ L 4.0-10.0 RED BLOOD CELL COUNT (BEAKER) (test ckaw=723) 2.63 M/ L 4.20-5.80 HEMOGLOBIN (BEAKER) (test poeq=601) 8.0 GM/DL 13.0-16.8 HEMATOCRIT (BEAKER) (test biex=168) 24.6 % 40.0-50.0 MEAN CORPUSCULAR VOLUME (BEAKER) (test cdpi=838) 93.5 fL 82.0-98.0 MEAN CORPUSCULAR HEMOGLOBIN (BEAKER) (test 30.2 pg 27.0-33.0 ihul=720) MEAN CORPUSCULAR HEMOGLOBIN CONC (BEAKER) (test 32.4 GM/DL 32.0-36.0 ztgq=526) RED CELL DISTRIBUTION WIDTH (BEAKER) (test 16.2 % 10.3-14.2 efvy=652) PLATELET COUNT (BEAKER) (test buye=406) 195 K/CU MM 150-430 MEAN PLATELET VOLUME (BEAKER) (test etzt=624) 8.5 fL 6.5-10.5 NUCLEATED RED BLOOD CELLS (BEAKER) (test 0 /100 WBC 0-0 jxdj=802) NEUTROPHILS RELATIVE PERCENT (BEAKER) (test 70 % lyuy=568) LYMPHOCYTES RELATIVE PERCENT (BEAKER) (test 19 % bcjc=685) MONOCYTES RELATIVE PERCENT (BEAKER) (test 8 % nmek=992) EOSINOPHILS RELATIVE PERCENT (BEAKER) (test 2 % rdai=356) BASOPHILS RELATIVE PERCENT (BEAKER) (test 1 % grwg=294) NEUTROPHILS ABSOLUTE COUNT (BEAKER) (test 4.52 K/ L 1.80-8.00 gxow=205) LYMPHOCYTES ABSOLUTE COUNT (BEAKER) (test 1.26 K/ L 1.48-4.50 tkbs=910) MONOCYTES ABSOLUTE COUNT (BEAKER) (test 0.53 K/ L 0.00-1.30 vyzt=666) EOSINOPHILS ABSOLUTE COUNT (BEAKER) (test 0.14 K/ L 0.00-0.50 hrvn=430) BASOPHILS ABSOLUTE COUNT (BEAKER) (test 0.04 K/ L 0.00-0.20 qsji=134) 0.00CBC W/PLT COUNT & AUTO [id number] 07:36:00 Test Item Value Reference Range Comments WHITE BLOOD CELL COUNT (BEAKER) (test dzis=029) 5.4 K/ L 4.0-10.0 RED BLOOD CELL COUNT (BEAKER) (test lxxy=399) 2.55 M/ L 4.20-5.80 HEMOGLOBIN (BEAKER) (test ohyk=155) 7.6 GM/DL 13.0-16.8 HEMATOCRIT (BEAKER) (test jdbh=334) 23.6 % 40.0-50.0 MEAN CORPUSCULAR VOLUME (BEAKER) (test qgct=204) 92.8 fL 82.0-98.0 MEAN CORPUSCULAR HEMOGLOBIN (BEAKER) (test 29.8 pg 27.0-33.0 ogxr=065) MEAN CORPUSCULAR HEMOGLOBIN CONC (BEAKER) (test 32.1 GM/DL 32.0-36.0 edix=933) RED CELL DISTRIBUTION WIDTH (BEAKER) (test 16.2 % 10.3-14.2 uavc=611) PLATELET COUNT (BEAKER) (test skgf=286) 182 K/CU MM 150-430 MEAN PLATELET VOLUME (BEAKER) (test uhkc=531) 8.6 fL 6.5-10.5 NUCLEATED RED BLOOD CELLS (BEAKER) (test 0 /100 WBC 0-0 zibd=901) NEUTROPHILS RELATIVE PERCENT (BEAKER) (test 66 % tljd=866) LYMPHOCYTES RELATIVE PERCENT (BEAKER) (test 24 % irdi=366) MONOCYTES RELATIVE PERCENT (BEAKER) (test 7 % axdn=715) EOSINOPHILS RELATIVE PERCENT (BEAKER) (test 3 % hxrx=593) BASOPHILS RELATIVE PERCENT (BEAKER) (test 1 % ngeg=884) NEUTROPHILS ABSOLUTE COUNT (BEAKER) (test 3.51 K/ L 1.80-8.00 anuz=462) LYMPHOCYTES ABSOLUTE COUNT (BEAKER) (test 1.29 K/ L 1.48-4.50 fqro=736) MONOCYTES ABSOLUTE COUNT (BEAKER) (test 0.37 K/ L 0.00-1.30 kgxe=659) EOSINOPHILS ABSOLUTE COUNT (BEAKER) (test 0.15 K/ L 0.00-0.50 rlxa=958) BASOPHILS ABSOLUTE COUNT (BEAKER) (test 0.04 K/ L 0.00-0.20 uweh=885) [id number] 06:57:00 Test Item Value Reference Range Comments PHOSPHORUS (BEAKER) (test goki=927) 3.4 mg/dL 2.3-4.7 [id number] 06:57:00 Test Item Value Reference Range Comments MAGNESIUM (BEAKER) (test jfto=265) 1.8 mg/dL 1.6-2.6 BASIC METABOLIC [id number] 06:57:00 Test Item Value Reference Range Comments SODIUM (BEAKER) (test 138 meq/L 136-145 tpos=051) POTASSIUM (BEAKER) (test 3.6 meq/L 3.5-5.1 mjgu=788) CHLORIDE (BEAKER) (test 107 meq/L 98-107 imem=349) CO2 (BEAKER) (test 25 meq/L 22-29 nrpq=397) BLOOD UREA NITROGEN 18 mg/dL 7-21 (BEAKER) (test bwnh=682) CREATININE (BEAKER) (test 1.18 mg/dL 0.57-1.25 dwex=583) GLUCOSE RANDOM (BEAKER) 86 mg/dL 70-105 (test rqho=149) CALCIUM (BEAKER) (test 8.0 mg/dL 8.4-10.2 ihii=567) EGFR (BEAKER) (test 61 mL/min/1.73 sq m ESTIMATED GFR IS NOT hnot=0067) ACCURATE CREATININE CLEARANCE IN PREDICTING GLOMERULAR FILTRATION RATE. ESTIMATED GFR IS NOT APPLICABLE FOR DIALYSIS PATIENTS. VITAMIN B12 AND [id number] 19:40:00 Test Item Value Reference Range Comments VITAMIN B12 (BEAKER) (test rkcb=907) 346 pg/mL 213-816 FOLATE (BEAKER) (test bcud=222) 7.9 ng/mL >=7.0 Effective 02/14/2014: Folate Reference Range ChangeNew: >=7.0 Previous: & gt;=5.4CBC W/PLT COUNT & AUTO [id number] 07:29:00 Test Item Value Reference Range Comments WHITE BLOOD CELL COUNT (BEAKER) (test voiv=054) 5.8 K/ L 4.0-10.0 RED BLOOD CELL COUNT (BEAKER) (test dktu=443) 2.27 M/ L 4.20-5.80 HEMOGLOBIN (BEAKER) (test gkeo=264) 6.8 GM/DL 13.0-16.8 HEMATOCRIT (BEAKER) (test qbbr=462) 21.7 % 40.0-50.0 MEAN CORPUSCULAR VOLUME (BEAKER) (test nrmv=015) 95.6 fL 82.0-98.0 MEAN CORPUSCULAR HEMOGLOBIN (BEAKER) (test 29.9 pg 27.0-33.0 dcea=198) MEAN CORPUSCULAR HEMOGLOBIN CONC (BEAKER) (test 31.3 GM/DL 32.0-36.0 mlkg=898) RED CELL DISTRIBUTION WIDTH (BEAKER) (test 15.6 % 10.3-14.2 uqtm=752) PLATELET COUNT (BEAKER) (test fdku=755) 184 K/CU MM 150-430 MEAN PLATELET VOLUME (BEAKER) (test kasg=741) 8.5 fL 6.5-10.5 NUCLEATED RED BLOOD CELLS (BEAKER) (test 0 /100 WBC 0-0 eqqa=813) NEUTROPHILS RELATIVE PERCENT (BEAKER) (test 62 % pyeb=233) LYMPHOCYTES RELATIVE PERCENT (BEAKER) (test 25 % jbcu=452) MONOCYTES RELATIVE PERCENT (BEAKER) (test 10 % urrm=802) EOSINOPHILS RELATIVE PERCENT (BEAKER) (test 3 % oldk=601) BASOPHILS RELATIVE PERCENT (BEAKER) (test 1 % slde=150) NEUTROPHILS ABSOLUTE COUNT (BEAKER) (test 3.59 K/ L 1.80-8.00 ztyh=291) LYMPHOCYTES ABSOLUTE COUNT (BEAKER) (test 1.44 K/ L 1.48-4.50 ukdz=704) MONOCYTES ABSOLUTE COUNT (BEAKER) (test 0.61 K/ L 0.00-1.30 mdzo=871) EOSINOPHILS ABSOLUTE COUNT (BEAKER) (test 0.17 K/ L 0.00-0.50 ohij=898) BASOPHILS ABSOLUTE COUNT (BEAKER) (test 0.04 K/ L 0.00-0.20 hnwk=789) [id number] 06:56:00 Test Item Value Reference Range Comments PHOSPHORUS (BEAKER) (test nhfk=785) 3.8 mg/dL 2.3-4.7 [id number] 06:56:00 Test Item Value Reference Range Comments MAGNESIUM (BEAKER) (test ozwv=653) 1.9 mg/dL 1.6-2.6 BASIC METABOLIC [id number] 06:56:00 Test Item Value Reference Range Comments SODIUM (BEAKER) (test 141 meq/L 136-145 ftpw=618) POTASSIUM (BEAKER) (test 3.3 meq/L 3.5-5.1 udtd=790) CHLORIDE (BEAKER) (test 106 meq/L 98-107 tujl=321) CO2 (BEAKER) (test 26 meq/L 22-29 jifm=759) BLOOD UREA NITROGEN 16 mg/dL 7-21 (BEAKER) (test hxgf=396) CREATININE (BEAKER) (test 1.32 mg/dL 0.57-1.25 fgpc=823) GLUCOSE RANDOM (BEAKER) 77 mg/dL 70-105 (test pjcv=753) CALCIUM (BEAKER) (test 8.1 mg/dL 8.4-10.2 syfq=553) EGFR (BEAKER) (test 53 mL/min/1.73 sq m ESTIMATED GFR IS NOT eawb=7400) ACCURATE CREATININE CLEARANCE IN PREDICTING GLOMERULAR FILTRATION RATE. ESTIMATED GFR IS NOT APPLICABLE FOR DIALYSIS PATIENTS. SEDIMENTATION [id number] 09:54:00 Test Item Value Reference Range Comments SEDIMENTATION RATE, ERYTHROCYTE (BEAKER) (test 38 mm/HR 0-40 lcur=145) CBC W/PLT COUNT & AUTO [id number] 07:58:00 Test Item Value Reference Range Comments WHITE BLOOD CELL COUNT (BEAKER) (test ukmg=019) 5.7 K/ L 4.0-10.0 RED BLOOD CELL COUNT (BEAKER) (test qgwf=833) 2.40 M/ L 4.20-5.80 HEMOGLOBIN (BEAKER) (test jizc=566) 7.5 GM/DL 13.0-16.8 HEMATOCRIT (BEAKER) (test tdea=182) 22.9 % 40.0-50.0 MEAN CORPUSCULAR VOLUME (BEAKER) (test zgfs=646) 95.4 fL 82.0-98.0 MEAN CORPUSCULAR HEMOGLOBIN (BEAKER) (test 31.2 pg 27.0-33.0 oahg=270) MEAN CORPUSCULAR HEMOGLOBIN CONC (BEAKER) (test 32.7 GM/DL 32.0-36.0 paav=187) RED CELL DISTRIBUTION WIDTH (BEAKER) (test 15.9 % 10.3-14.2 tdfp=934) PLATELET COUNT (BEAKER) (test iftk=656) 182 K/CU MM 150-430 MEAN PLATELET VOLUME (BEAKER) (test lyqo=017) 8.3 fL 6.5-10.5 NUCLEATED RED BLOOD CELLS (BEAKER) (test 0 /100 WBC 0-0 vsue=848) NEUTROPHILS RELATIVE PERCENT (BEAKER) (test 71 % bldb=333) LYMPHOCYTES RELATIVE PERCENT (BEAKER) (test 17 % frzg=476) MONOCYTES RELATIVE PERCENT (BEAKER) (test 9 % zroc=284) EOSINOPHILS RELATIVE PERCENT (BEAKER) (test 3 % dian=388) BASOPHILS RELATIVE PERCENT (BEAKER) (test 1 % gryb=067) NEUTROPHILS ABSOLUTE COUNT (BEAKER) (test 4.00 K/ L 1.80-8.00 yunx=571) LYMPHOCYTES ABSOLUTE COUNT (BEAKER) (test 0.96 K/ L 1.48-4.50 flpt=618) MONOCYTES ABSOLUTE COUNT (BEAKER) (test 0.51 K/ L 0.00-1.30 mfvw=551) EOSINOPHILS ABSOLUTE COUNT (BEAKER) (test 0.15 K/ L 0.00-0.50 gtvu=461) BASOPHILS ABSOLUTE COUNT (BEAKER) (test 0.03 K/ L 0.00-0.20 scnd=473) [id number] 07:38:00 Test Item Value Reference Range Comments PHOSPHORUS (BEAKER) (test ccje=650) 3.2 mg/dL 2.3-4.7 [id number] 07:38:00 Test Item Value Reference Range Comments MAGNESIUM (BEAKER) (test yewa=067) 1.7 mg/dL 1.6-2.6 BASIC METABOLIC [id number] 07:38:00 Test Item Value Reference Range Comments SODIUM (BEAKER) (test 138 meq/L 136-145 ftot=581) POTASSIUM (BEAKER) (test 3.5 meq/L 3.5-5.1 dlpz=166) CHLORIDE (BEAKER) (test 104 meq/L 98-107 hmwf=852) CO2 (BEAKER) (test 25 meq/L 22-29 ydls=664) BLOOD UREA NITROGEN 12 mg/dL 7-21 (BEAKER) (test lqna=259) CREATININE (BEAKER) (test 1.30 mg/dL 0.57-1.25 uryc=663) GLUCOSE RANDOM (BEAKER) 85 mg/dL 70-105 (test ijht=469) CALCIUM (BEAKER) (test 8.1 mg/dL 8.4-10.2 cgdr=997) EGFR (BEAKER) (test 54 mL/min/1.73 sq m ESTIMATED GFR IS NOT zauc=8415) ACCURATE CREATININE CLEARANCE IN PREDICTING GLOMERULAR FILTRATION RATE. ESTIMATED GFR IS NOT APPLICABLE FOR DIALYSIS PATIENTS. C-REACTIVE [id number] 07:38:00 Test Item Value Reference Range Comments C-REACTIVE PROTEIN (BEAKER) (test hyqt=980) 1.01 mg/dL 0.00-0.50 CBC W/PLT COUNT & AUTO [id number] 08:08:00 Test Item Value Reference Range Comments WHITE BLOOD CELL COUNT (BEAKER) (test jszh=405) 6.3 K/ L 4.0-10.0 RED BLOOD CELL COUNT (BEAKER) (test djjy=391) 2.44 M/ L 4.20-5.80 HEMOGLOBIN (BEAKER) (test ntjd=488) 7.4 GM/DL 13.0-16.8 HEMATOCRIT (BEAKER) (test ozna=887) 23.2 % 40.0-50.0 MEAN CORPUSCULAR VOLUME (BEAKER) (test ybxb=105) 95.1 fL 82.0-98.0 MEAN CORPUSCULAR HEMOGLOBIN (BEAKER) (test 30.2 pg 27.0-33.0 lidx=789) MEAN CORPUSCULAR HEMOGLOBIN CONC (BEAKER) (test 31.8 GM/DL 32.0-36.0 apdo=734) RED CELL DISTRIBUTION WIDTH (BEAKER) (test 15.7 % 10.3-14.2 crco=193) PLATELET COUNT (BEAKER) (test jsfl=054) 193 K/CU MM 150-430 MEAN PLATELET VOLUME (BEAKER) (test wgfq=784) 8.3 fL 6.5-10.5 NUCLEATED RED BLOOD CELLS (BEAKER) (test 0 /100 WBC 0-0 qckm=230) NEUTROPHILS RELATIVE PERCENT (BEAKER) (test 75 % mtsn=666) LYMPHOCYTES RELATIVE PERCENT (BEAKER) (test 15 % uocm=132) MONOCYTES RELATIVE PERCENT (BEAKER) (test 7 % nfpu=504) EOSINOPHILS RELATIVE PERCENT (BEAKER) (test 2 % jpku=096) BASOPHILS RELATIVE PERCENT (BEAKER) (test 0 % btpu=010) NEUTROPHILS ABSOLUTE COUNT (BEAKER) (test 4.68 K/ L 1.80-8.00 gqzr=568) LYMPHOCYTES ABSOLUTE COUNT (BEAKER) (test 0.96 K/ L 1.48-4.50 pxyp=859) MONOCYTES ABSOLUTE COUNT (BEAKER) (test 0.46 K/ L 0.00-1.30 waes=977) EOSINOPHILS ABSOLUTE COUNT (BEAKER) (test 0.14 K/ L 0.00-0.50 ixmn=194) BASOPHILS ABSOLUTE COUNT (BEAKER) (test 0.02 K/ L 0.00-0.20 lxgo=570) [id number] 07:08:00 Test Item Value Reference Range Comments PHOSPHORUS (BEAKER) (test ommx=698) 2.3 mg/dL 2.3-4.7 [id number] 07:08:00 Test Item Value Reference Range Comments MAGNESIUM (BEAKER) (test ucwk=118) 1.8 mg/dL 1.6-2.6 BASIC METABOLIC [id number] 07:08:00 Test Item Value Reference Range Comments SODIUM (BEAKER) (test 141 meq/L 136-145 orfi=750) POTASSIUM (BEAKER) (test 3.9 meq/L 3.5-5.1 grgd=819) CHLORIDE (BEAKER) (test 108 meq/L 98-107 xino=918) CO2 (BEAKER) (test 23 meq/L 22-29 fzrk=758) BLOOD UREA NITROGEN 16 mg/dL 7-21 (BEAKER) (test hcjn=998) CREATININE (BEAKER) (test 1.20 mg/dL 0.57-1.25 qebn=980) GLUCOSE RANDOM (BEAKER) 111 mg/dL 70-105 (test bnas=043) CALCIUM (BEAKER) (test 8.4 mg/dL 8.4-10.2 lfjj=917) EGFR (BEAKER) (test 60 mL/min/1.73 sq m ESTIMATED GFR IS NOT utty=0839) ACCURATE CREATININE CLEARANCE IN PREDICTING GLOMERULAR FILTRATION RATE. ESTIMATED GFR IS NOT APPLICABLE FOR DIALYSIS PATIENTS. PERIPHERAL BLOOD SMEAR - PATHOLOGIST [id number] 15:04:00 Test Item Value Reference Range Comments RBC MORPHOLOGY (BEAKER) Anisocytosis (test fyym=5853) RBC MORPHOLOGY (BEAKER) Polychromasia (test wenu=46418) RBC MORPHOLOGY (BEAKER) Poikilocytosis (test fane=83245) WBC MORPHOLOGY (BEAKER) Unremarkable (test lvzs=3791) PLT MORPHOLOGY (BEAKER) Normal morphology (test yfny=8147) PERIPHERAL SMR REVIEW Cell counts confirmed. RBCs (BEAKER) (test show normocytic ogad=5906) normochromic anemia with mild anisopoikilocytosis. No schistocytes are seen. WBCs are unremarkable. Platelets are adequate with rare giant platelets. [id number] Radha Velez, (BEAKER) (test M.D. (electronic signature) amzt=5870) CBC W/PLT COUNT & AUTO [id number] 09:05:00 Test Item Value Reference Range Comments WHITE BLOOD CELL COUNT (BEAKER) (test xsky=218) 7.3 K/ L 4.0-10.0 RED BLOOD CELL COUNT (BEAKER) (test fygj=423) 2.71 M/ L 4.20-5.80 HEMOGLOBIN (BEAKER) (test auqm=638) 8.6 GM/DL 13.0-16.8 HEMATOCRIT (BEAKER) (test fxvx=892) 25.4 % 40.0-50.0 MEAN CORPUSCULAR VOLUME (BEAKER) (test ijpb=992) 93.7 fL 82.0-98.0 MEAN CORPUSCULAR HEMOGLOBIN (BEAKER) (test 31.6 pg 27.0-33.0 etly=594) MEAN CORPUSCULAR HEMOGLOBIN CONC (BEAKER) (test 33.7 GM/DL 32.0-36.0 drxd=313) RED CELL DISTRIBUTION WIDTH (BEAKER) (test 15.4 % 10.3-14.2 pijd=192) PLATELET COUNT (BEAKER) (test xaqc=344) 149 K/CU MM 150-430 MEAN PLATELET VOLUME (BEAKER) (test cyaa=773) 9.0 fL 6.5-10.5 NUCLEATED RED BLOOD CELLS (BEAKER) (test 0 /100 WBC 0-0 yynp=246) NEUTROPHILS RELATIVE PERCENT (BEAKER) (test 66 % lmaq=860) LYMPHOCYTES RELATIVE PERCENT (BEAKER) (test 23 % jumf=174) MONOCYTES RELATIVE PERCENT (BEAKER) (test 8 % eowq=288) EOSINOPHILS RELATIVE PERCENT (BEAKER) (test 2 % dntd=319) BASOPHILS RELATIVE PERCENT (BEAKER) (test 0 % psut=866) NEUTROPHILS ABSOLUTE COUNT (BEAKER) (test 4.81 K/ L 1.80-8.00 mctx=149) LYMPHOCYTES ABSOLUTE COUNT (BEAKER) (test 1.67 K/ L 1.48-4.50 jrqi=591) MONOCYTES ABSOLUTE COUNT (BEAKER) (test 0.59 K/ L 0.00-1.30 ewrp=528) EOSINOPHILS ABSOLUTE COUNT (BEAKER) (test 0.18 K/ L 0.00-0.50 hzyv=051) BASOPHILS ABSOLUTE COUNT (BEAKER) (test 0.02 K/ L 0.00-0.20 nxdn=227) 0.00(MANUAL DIFFERENTIAL)2016-10-01 09:05:00 Test Item Value Reference Range Comments TOTAL COUNTED (BEAKER) (test sjvh=8871) WBC MORPHOLOGY (BEAKER) (test jfkm=137) Normal PLT MORPHOLOGY (BEAKER) (test itfi=201) Normal ANISOCYTOSIS (BEAKER) (test udef=267) 1+ few POLYCHROMATOPHILLIC RBCS(BEAKER) (test qiri=204) 1+ few TEAR DROP CELLS (BEAKER) (test scks=719) 1+ few [id number] 07:22:00 Test Item Value Reference Range Comments MAGNESIUM (BEAKER) (test 2.1 mg/dL 1.6-2.6 Specimen slightly hemolyzed tnnk=577) [id number] 07:22:00 Test Item Value Reference Range Comments PHOSPHORUS (BEAKER) (test 3.3 mg/dL 2.3-4.7 Specimen slightly hemolyzed flfl=229) BASIC METABOLIC [id number] 07:22:00 Test Item Value Reference Range Comments SODIUM (BEAKER) (test 141 meq/L 136-145 bluo=926) POTASSIUM (BEAKER) (test 4.3 meq/L 3.5-5.1 Specimen slightly azif=270) hemolyzed CHLORIDE (BEAKER) (test 109 meq/L 98-107 tkld=760) CO2 (BEAKER) (test 21 meq/L 22-29 dwaz=393) BLOOD UREA NITROGEN 17 mg/dL 7-21 (BEAKER) (test atik=440) CREATININE (BEAKER) (test 1.35 mg/dL 0.57-1.25 Specimen slightly rjeg=061) hemolyzed GLUCOSE RANDOM (BEAKER) 99 mg/dL 70-105 (test yvtf=252) CALCIUM (BEAKER) (test 8.3 mg/dL 8.4-10.2 fyhc=594) EGFR (BEAKER) (test 52 mL/min/1.73 sq m ESTIMATED GFR IS NOT nflp=9323) ACCURATE CREATININE CLEARANCE IN PREDICTING GLOMERULAR FILTRATION RATE. ESTIMATED GFR IS NOT APPLICABLE FOR DIALYSIS PATIENTS. RETICULOCYTE [id number] 07:21:00 Test Item Value Reference Range Comments RETICULOCYTE COUNT PCT (BEAKER) (test oohz=815) 5.8 % 0.4-2.9 CBC W/PLT COUNT & AUTO [id number] 03:48:00 Test Item Value Reference Range Comments WHITE BLOOD CELL COUNT (BEAKER) (test zhzj=051) 6.3 K/ L 4.0-10.0 RED BLOOD CELL COUNT (BEAKER) (test ulnq=768) 2.67 M/ L 4.20-5.80 HEMOGLOBIN (BEAKER) (test yfha=807) 8.4 GM/DL 13.0-16.8 HEMATOCRIT (BEAKER) (test ztfr=065) 24.9 % 40.0-50.0 MEAN CORPUSCULAR VOLUME (BEAKER) (test hvvj=382) 93.3 fL 82.0-98.0 MEAN CORPUSCULAR HEMOGLOBIN (BEAKER) (test 31.6 pg 27.0-33.0 flsn=214) MEAN CORPUSCULAR HEMOGLOBIN CONC (BEAKER) (test 33.9 GM/DL 32.0-36.0 zeqg=832) RED CELL DISTRIBUTION WIDTH (BEAKER) (test 16.6 % 10.3-14.2 csja=281) PLATELET COUNT (BEAKER) (test enfr=445) 183 K/CU MM 150-430 MEAN PLATELET VOLUME (BEAKER) (test wsjg=013) 8.2 fL 6.5-10.5 NUCLEATED RED BLOOD CELLS (BEAKER) (test 0 /100 WBC 0-0 blfu=276) NEUTROPHILS RELATIVE PERCENT (BEAKER) (test 69 % zsrb=931) LYMPHOCYTES RELATIVE PERCENT (BEAKER) (test 18 % jiwb=767) MONOCYTES RELATIVE PERCENT (BEAKER) (test 10 % acyb=868) EOSINOPHILS RELATIVE PERCENT (BEAKER) (test 2 % lrqx=468) BASOPHILS RELATIVE PERCENT (BEAKER) (test 1 % gsev=722) NEUTROPHILS ABSOLUTE COUNT (BEAKER) (test 4.34 K/ L 1.80-8.00 qohq=185) LYMPHOCYTES ABSOLUTE COUNT (BEAKER) (test 1.15 K/ L 1.48-4.50 gyhp=223) MONOCYTES ABSOLUTE COUNT (BEAKER) (test 0.65 K/ L 0.00-1.30 dpfy=353) EOSINOPHILS ABSOLUTE COUNT (BEAKER) (test 0.14 K/ L 0.00-0.50 wbqg=862) BASOPHILS ABSOLUTE COUNT (BEAKER) (test 0.03 K/ L 0.00-0.20 kmex=792) [id number] 18:03:00 Test Item Value Reference Range Comments THYROID STIMULATING HORMONE (BEAKER) (test 2.79 uIU/mL 0.35-4.94 ioxc=416) POCT-GLUCOSE [id number] 17:47:00 Test Item Value Reference Range Comments POC-GLUCOSE METER (BEAKER) 98 mg/dL 70-110 TESTED AT [facility] [address] [facility] (test xoiq=2306) [facility] [address] HEPARIN ASSAY - LOW MOLECULAR [id number] 12:53:00 Test Item Value Reference Range Comments LOVENOX-ANTI 10A (BEAKER) (test czrk=3616) > u/ml 0.60-2.00 Effective 02/04/2016: Reference Range ChangeNew: 0.60-2.00 Previous: 0.60- 1.99Anti-Factor 10A Level(Heparin Assay for Low Molecular Weight Heparin) Monitoring Guidelines: Blood samples should be obtained 4 hours post subcutaneous injection (time of Peak level) Therapeutic Peak Levels: 0.6-1.0 units/mL twice daily enoxaparin 1.0-2.0 units/mL once daily enoxaparinPOCT-GLUCOSE [id number] 11:47:00 Test Item Value Reference Range Comments POC-GLUCOSE METER ([employer]) 103 mg/dL 70-110 TESTED AT [facility] [address] [facility] (test mznd=4489) [facility] [address] PROTHROMBIN TIME/[id number] 11:16:00 Test Item Value Reference Range Comments PROTIME (BEAKER) (test vkeg=471) 28.4 seconds 11.7-14.7 INR (BEAKER) (test joad=617) 2.7 <=5.9 RECOMMENDED COUMADIN/WARFARIN INR THERAPY RANGESSTANDARD DOSE: 2.0 - 3.0 Includes: PROPHYLAXIS forvenous thrombosis, systemic embolization; TREATMENT for venous thrombosis and/or pulmonary embolus.HIGH RISK: Target INR is 2.5-3.5 for patients with mechanical heart valves.[id number] 11:16:00 Test Item Value Reference Range Comments PARTIAL THROMBOPLASTIN TIME (BEAKER) (test 38.8 seconds 22.5-36.0 vbic=730) CREATINE KINASE (CK), TOTAL AND [id number] 10:35:00 Test Item Value Reference Range Comments CREATINE KINASE TOTAL (BEAKER) (test kyzh=996) 35 U/L 29-200 CREATINE KINASE-MB (BEAKER) (test qjnx=496) 0.7 ng/mL 0.0-6.6 CREATINE KINASE-MB INDEX (BEAKER) (test ygdt=026) 2.0 % Effective 02/14/2014: CK-MB Reference Range ChangeNew: 0.0-6.6 Previous: 0.0- 4.9CK-MB Reference Range:<6.7 Normal6.7-10.0 Borderline>10.0 AbnormalTROPONIN [id number] 10:35:00 Test Item Value Reference Range Comments TROPONIN I (BEAKER) (test ljfi=355) 0.01 ng/mL 0.00-0.03 Effective 02/14/2014: Reference Range [...] Reference Range Comments LACTATE DEHYDROGENASE (BEAKER) (test avof=663) 187 U/L 125-220 [id number] 06:53:00 Test Item Value Reference Range Comments HAPTOGLOBIN (BEAKER) (test zgxu=881) 196 mg/dL 14-258 Effective 02/14/2014: Reference Range ChangeNew: 14-258 Previous: 36-195CBC W/ PLT COUNT & AUTO [id number] 05:30:00 Test Item Value Reference Range Comments WHITE BLOOD CELL COUNT (BEAKER) (test xnal=743) 7.1 K/ L 4.0-10.0 RED BLOOD CELL COUNT (BEAKER) (test ymcq=940) 2.22 M/ L 4.20-5.80 HEMOGLOBIN (BEAKER) (test isan=603) 6.9 GM/DL 13.0-16.8 HEMATOCRIT (BEAKER) (test vhfc=562) 20.8 % 40.0-50.0 MEAN CORPUSCULAR VOLUME (BEAKER) (test dcpd=326) 93.9 fL 82.0-98.0 MEAN CORPUSCULAR HEMOGLOBIN (BEAKER) (test 31.2 pg 27.0-33.0 sjgr=693) MEAN CORPUSCULAR HEMOGLOBIN CONC (BEAKER) (test 33.2 GM/DL 32.0-36.0 ltrk=736) RED CELL DISTRIBUTION WIDTH (BEAKER) (test 15.2 % 10.3-14.2 mqmg=266) PLATELET COUNT (BEAKER) (test ibew=479) 184 K/CU MM 150-430 MEAN PLATELET VOLUME (BEAKER) (test mbhl=174) 8.0 fL 6.5-10.5 NUCLEATED RED BLOOD CELLS (BEAKER) (test 0 /100 WBC 0-0 qnvc=570) NEUTROPHILS RELATIVE PERCENT (BEAKER) (test 74 % mwlm=656) LYMPHOCYTES RELATIVE PERCENT (BEAKER) (test 17 % wagi=695) MONOCYTES RELATIVE PERCENT (BEAKER) (test 8 % gcwq=230) EOSINOPHILS RELATIVE PERCENT (BEAKER) (test 1 % pbaa=236) BASOPHILS RELATIVE PERCENT (BEAKER) (test 1 % jufp=164) NEUTROPHILS ABSOLUTE COUNT (BEAKER) (test 5.21 K/ L 1.80-8.00 omym=710) LYMPHOCYTES ABSOLUTE COUNT (BEAKER) (test 1.22 K/ L 1.48-4.50 xkfw=215) MONOCYTES ABSOLUTE COUNT (BEAKER) (test 0.55 K/ L 0.00-1.30 tusm=555) EOSINOPHILS ABSOLUTE COUNT (BEAKER) (test 0.05 K/ L 0.00-0.50 tfkw=531) BASOPHILS ABSOLUTE COUNT (BEAKER) (test 0.04 K/ L 0.00-0.20 ostr=363) [id number] 03:21:00 Test Item Value Reference Range Comments FERRITIN (BEAKER) (test vhdr=929) 15 ng/mL 5-275 Effective 02/14/2014: Reference Range ChangeNew: Male 5-275 Previous: Male 22-322 Female 5-275 Female 10-291VITAMIN B12 AND [id number] 03:21:00 Test Item Value Reference Range Comments VITAMIN B12 (BEAKER) (test ugsd=086) 322 pg/mL 213-816 FOLATE (BEAKER) (test mefw=443) 7.5 ng/mL >=7.0 Effective 02/14/2014: Folate Reference Range ChangeNew: >=7.0 Previous: & gt;=5.4IRON, TIBC, % SAT. (WITHOUT FERRITIN)2016-09-29 02:47:00 Test Item Value Reference Range Comments IRON (BEAKER) (test bqnp=220) 26 ug/dL 40-160 TOTAL IRON BINDING CAPACITY (BEAKER) (test 373 ug/dL 250-450 yqrm=136) IRON % SATURATION (2) (BEAKER) (test acma=7883) 7 % 20-55 [id number] 02:30:00 Test Item Value Reference Range Comments PHOSPHORUS (BEAKER) (test akcv=074) 3.7 mg/dL 2.3-4.7 [id number] 02:30:00 Test Item Value Reference Range Comments MAGNESIUM (BEAKER) (test olli=913) 2.1 mg/dL 1.6-2.6 LACTIC ACID, VENOUS, WHOLE [id number] 02:28:00 Test Item Value Reference Range Comments LACTATE BLOOD VENOUS (2) (BEAKER) (test 1.5 mmol/L 0.5-2.2 igue=5684) Effective 08/01/2015: Units/Reference Range ChangeNew: 0.5-2.2 mmol/L Previous: 5 -20 mg/dLPT/[id number] 02:27:00 Test Item Value Reference Range Comments PROTIME (BEAKER) (test mmsv=654) 34.3 seconds 11.7-14.7 INR (BEAKER) (test gqbo=831) 3.4 <=5.9 PARTIAL THROMBOPLASTIN TIME (BEAKER) (test 33.0 seconds 22.5-36.0 xuzg=319) RECOMMENDED COUMADIN/WARFARIN INR THERAPY RANGESSTANDARD DOSE: 2.0 - 3.0 Includes: PROPHYLAXIS forvenous thrombosis, systemic embolization; TREATMENT for venous thrombosis and/or pulmonary embolus.HIGH RISK: Target INR is 2.5-3.5 for patients with mechanical heart valves.PROTHROMBIN TIME/[id number] 02:26: 00 Test Item Value Reference Range Comments PROTIME (BEAKER) (test klny=627) 34.3 seconds 11.7-14.7 INR (BEAKER) (test rlqv=236) 3.4 <=5.9 RECOMMENDED COUMADIN/WARFARIN INR THERAPY RANGESSTANDARD DOSE: 2.0 - 3.0 Includes: PROPHYLAXIS forvenous thrombosis, systemic embolization; TREATMENT for venous thrombosis and/or pulmonary embolus.HIGH RISK: Target INR is 2.5-3.5 for patients with mechanical heart valves.CREATINE KINASE (CK), TOTAL AND [id number] 02:23:00 Test Item Value Reference Range Comments CREATINE KINASE TOTAL (BEAKER) (test uldh=408) 44 U/L 29-200 CREATINE KINASE-MB (BEAKER) (test mhlb=230) 0.6 ng/mL 0.0-6.6 CREATINE KINASE-MB INDEX (BEAKER) (test abff=168) 1.4 % Effective 02/14/2014: CK-MB Reference Range ChangeNew: 0.0-6.6 Previous: 0.0- 4.9CK-MB Reference Range:<6.7 Normal6.7-10.0 Borderline>10.0 AbnormalTROPONIN [id number] 02:23:00 Test Item Value Reference Range Comments TROPONIN I (BEAKER) (test oylr=780) 0.01 ng/mL 0.00-0.03 Effective 02/14/2014: Reference Range [...] acute neurological disease, and persistent tachyarrhythmia.HEPATIC FUNCTION [id number] 02:17:00 Test Item Value Reference Range Comments TOTAL PROTEIN (BEAKER) (test ialy=700) 6.2 gm/dL 6.0-8.3 ALBUMIN (BEAKER) (test rnek=6132) 3.4 g/dL 3.5-5.0 BILIRUBIN TOTAL (BEAKER) (test cygw=306) 0.8 mg/dL 0.2-1.2 BILIRUBIN DIRECT (BEAKER) (test lqfm=321) 0.4 mg/dL 0.1-0.5 ALKALINE PHOSPHATASE (BEAKER) (test vgxj=603) 64 U/L 40-150 AST (SGOT) (BEAKER) (test xtcc=468) 12 U/L 5-34 ALT (SGPT) (BEAKER) (test ajde=399) 17 U/L 6-55 BASIC METABOLIC [id number] 02:17:00 Test Item Value Reference Range Comments SODIUM (BEAKER) (test 141 meq/L 136-145 dnyd=673) POTASSIUM (BEAKER) (test 3.6 meq/L 3.5-5.1 itxj=904) CHLORIDE (BEAKER) (test 108 meq/L 98-107 yyod=157) CO2 (BEAKER) (test 23 meq/L 22-29 xevc=332) BLOOD UREA NITROGEN 20 mg/dL 7-21 (BEAKER) (test ivue=534) CREATININE (BEAKER) (test 1.37 mg/dL 0.57-1.25 ayxt=161) GLUCOSE RANDOM (BEAKER) 91 mg/dL 70-105 (test bfcg=100) CALCIUM (BEAKER) (test 8.4 mg/dL 8.4-10.2 xszq=159) EGFR (BEAKER) (test 51 mL/min/1.73 sq m ESTIMATED GFR IS NOT nbhl=0265) ACCURATE CREATININE CLEARANCE IN PREDICTING GLOMERULAR FILTRATION RATE. ESTIMATED GFR IS NOT APPLICABLE FOR DIALYSIS PATIENTS. RETICULOCYTE [id number] 02:12:00 Test Item Value Reference Range Comments RETICULOCYTE COUNT PCT (BEAKER) (test vawv=863) 6.2 % 0.4-2.9 CBC W/PLT COUNT & AUTO [id number] 02:10:00 Test Item Value Reference Range Comments WHITE BLOOD CELL COUNT (BEAKER) (test drlp=946) 8.0 K/ L 4.0-10.0 RED BLOOD CELL COUNT (BEAKER) (test sceu=973) 2.35 M/ L 4.20-5.80 HEMOGLOBIN (BEAKER) (test ewnd=164) 7.4 GM/DL 13.0-16.8 HEMATOCRIT (BEAKER) (test adsq=968) 22.2 % 40.0-50.0 MEAN CORPUSCULAR VOLUME (BEAKER) (test kwrd=509) 94.2 fL 82.0-98.0 MEAN CORPUSCULAR HEMOGLOBIN (BEAKER) (test 31.3 pg 27.0-33.0 jbaq=959) MEAN CORPUSCULAR HEMOGLOBIN CONC (BEAKER) (test 33.2 GM/DL 32.0-36.0 qhpf=813) RED CELL DISTRIBUTION WIDTH (BEAKER) (test 15.1 % 10.3-14.2 ifyd=750) PLATELET COUNT (BEAKER) (test qmte=459) 200 K/CU MM 150-430 MEAN PLATELET VOLUME (BEAKER) (test hwau=102) 7.9 fL 6.5-10.5 NUCLEATED RED BLOOD CELLS (BEAKER) (test 0 /100 WBC 0-0 hstx=968) NEUTROPHILS RELATIVE PERCENT (BEAKER) (test 74 % ufjo=669) LYMPHOCYTES RELATIVE PERCENT (BEAKER) (test 18 % yjiq=825) MONOCYTES RELATIVE PERCENT (BEAKER) (test 8 % sfky=419) EOSINOPHILS RELATIVE PERCENT (BEAKER) (test 1 % rprw=838) BASOPHILS RELATIVE PERCENT (BEAKER) (test 0 % wkki=879) NEUTROPHILS ABSOLUTE COUNT (BEAKER) (test 5.88 K/ L 1.80-8.00 vqqv=131) LYMPHOCYTES ABSOLUTE COUNT (BEAKER) (test 1.42 K/ L 1.48-4.50 mluf=464) MONOCYTES ABSOLUTE COUNT (BEAKER) (test 0.62 K/ L 0.00-1.30 kcup=579) EOSINOPHILS ABSOLUTE COUNT (BEAKER) (test 0.05 K/ L 0.00-0.50 samr=388) BASOPHILS ABSOLUTE COUNT (BEAKER) (test 0.02 K/ L 0.00-0.20 vzhl=555)
[2018-11-14] MEDS ORDERED: NA CHLORIDE 0.9% 1,000 ML ONE (11:49)
[2018-11-14 12:01] LABS: Absolute Lymphocytes (CBC) 0.6 K/uL (0.7-4.9); Basophils % 0.1 % (0-1.3); Hematocrit 41.6 % (39.6-49.0); MPV 10.4 fL (7.6-11.3); RBC Red Blood Cell Count 4.52 M/uL (4.33-5.43)
[2018-11-14 12:02] LABS: Protime INR 3.26
[2018-11-14 12:28] LABS: Arterial Blood Carboxyhemoglob 0.9 % (0-1.5); Blood Gas Oxyhemoglobin 96.7 % (94-97); Blood O2 Saturation 98.4 % (92-98.5)
[2018-11-14] MEDS ORDERED: NA CHLORIDE 0.9% 3,000 ML ONE (12:29)
[2018-11-14] MEDS ORDERED: CEFEPIME 2 GM/200 ML BAG IV ONE (12:31)
[2018-11-14 13:16] LABS: Urine Amorphous Sediment 3+ /HPF (NONE SEEN); Urine Bacteria NONE SEEN /HPF (NONE SEEN); Urine Culture Reflex Order NOT NEEDED; Urine Mucus MOD /HPF (NONE SEEN); Urine RBC <5 /HPF (NONE SEEN)
[2018-11-14 13:16] LABS: Urine Blood 3+ (NEG); Urine Glucose NEGATIVE (NEG); Urine Protein 3+ (NEG)
--- NOTE | 2018-11-14 13:21 | RAD REPORT ---
EXAM DESCRIPTION: CT - Head C Spine Cap Wo Con - 11/14/2018 12:40 pm TECHNIQUE: Computed axial tomography of the head and cervical spine was obtained. Coronal and sagitt al reconstruction was performed Computed axial tomography of the chest, abdomen and pelvis was obtained. Contrast was not requested. All CT scans are performed using dose optimization technique as appropriate and may include automated exposure control or mA/KV adjustment according to patient size. CLINICAL HISTORY: Head and neck injury with chest and abdominal pain status post fall COMPARISON: CT head [address] abdomen 2019 FINDINGS: An intracranial bleed is not seen. 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 Course basilar arterial calcification Cerebral atrophy. The ventricles are normal in caliber. An extra-axial fluid collection is not noted. . Fluid within the sinuses/mastoids is not seen. A cervical fracture is not seen. No dislocation is noted. The evaluation of mediastinum, delgado, vessels, solid organs and bowel are limited secondary to the lac k of contrast administration. A mediastinal hematoma is not noted. Small left pleural effusion. Cardiomegaly. A 4.7 centimeter cons olidation left upper lobe. A 3.7 centimeter name right middle lobe opacity is mildly diminished in si ze. Calcified granulomas. The liver,spleen, pancreas, adrenals,kidneys and bladder do not demonstrate a gross traumatic injury. A Suárez catheter is present within the bladder. The gallstone is seen. . IMPRESSION: 1. No acute intracranial abnormality is seen. 2. A cervical fracture is not visualized. If the patient continues have symptoms to suggest intracran ial/spinal cord pathology MRI be recommended 3. No traumatic abnormality involving the chest/abdomen/pelvis. 4. Left upper lobe consolidation probably representing pneumonia the. This should be followed until i t has cleared to exclude a post obstructive process/underlying mass. Name 3.7 centimeter right middle lobe opacity is mildly diminished in size and probably is inflammatory 5. Cholelithiasis
[2018-11-14 13:23] LABS: Barbiturates NEGATIVE (NEGATIVE); Benzodiazepines NEGATIVE (NEGATIVE); Cocaine NEGATIVE (NEGATIVE); METHAMPHETAM NEGATIVE (NEGATIVE); Methadone NEGATIVE (NEGATIVE); Opiates NEGATIVE (NEGATIVE); Phencyclidine NEGATIVE (NEGATIVE); THC Cannibis NEGATIVE (NEGATIVE)
[2018-11-14 13:30] LABS: Albumin 3.2 g/dL (3.4-5.0); Bilirubin Direct 3.8 mg/dL (0-0.2); Bilirubin Total 5.9 mg/dL (0.2-1.0); Magnesium 2.6 mg/dL (1.8-2.4); Potassium 5.1 mmol/L (3.5-5.1); Protein, Total 6.8 g/dL (6.4-8.2); Troponin (Emerg Dept Use Only) 0.53 ng/mL (0.0-0.045)
--- NOTE | 2018-11-14 13:32 | RAD REPORT ---
EXAM DESCRIPTION: Rosemary Single View11/14/2018 12:25 pm CLINICAL HISTORY: Chest pain COMPARISON: September 2018 FINDINGS: The lungs appear clear of acute infiltrate. The heart is moderately enlarged. Calcified t he lung granulomas IMPRESSION: No acute abnormalities displayed
[2018-11-14 13:37] LABS: Anisocytosis 1+; Blood Morphology Comment NOTED (NOT SEEN); Platelet Estimate DECR
[2018-11-14 13:38] LABS: Poikilocytosis SLIGHT
[2018-11-14] MEDS ORDERED: Levofloxacin500mg IV 500 MG/100 ML BAG IV ONE (14:37)
[2018-11-14] MEDS ORDERED: ASPIRIN 81 MG CHEWABLE TABLET ONE (14:37)
[2018-11-14] MEDS ORDERED: Ringers Lactate 1,000 ML IV ONE (14:38)
--- NOTE | 2018-11-14 15:27 | ER ---
Nurse's Notes [facility] Name: Hunter Lassiter Age: 73 yrs Sex: Male : 1945 Arrival Date: 11/14/2018 Time: 11:23 Bed 3 Private MD: Diagnosis: Other sepsis;Cholelithiasis;Pneumonia due to other specified bacteria;Hepatic failure, unspecified;Acute kidney failure Presentation: 11/14 11:17 Presenting complaint: EMS states: found laying on his bathroom floor by family, unknown sv amt of time laying there. Pt normally A\T\O x4, lives along and is currently A\T\O person/place. Blood in stool BP 93/72 HR-Afib 110-160s. Transition of care: patient was not received from another setting of care. Onset of symptoms is unknown. Risk Assessment: Do you want to hurt yourself or someone else? Patient reports no desire to harm self or others. Initial Sepsis Screen: Does the patient meet any 2 criteria? RR > 20 per min. Altered Mental Status. HR > 90 bpm. Yes Does the patient have a suspected source of infection? No. Patient's initial sepsis screen is negative. Care prior to arrival: IV initiated. 20 GA, in the left antecubital area, Glucose check: 108. 11:17 Method Of Arrival: EMS: [facility] sv 11:17 Acuity: TALIB 2 sv Triage Assessment: 11:20 General: Appears in no apparent distress. uncomfortable, unkempt, Behavior is sv cooperative, appropriate for age, Smells of body odor. Pain: Denies pain. Neuro: Level of Consciousness is awake, alert, obeys commands, confused, Oriented to person, place, Moves all extremities. Speech is normal, Facial symmetry appears normal. Cardiovascular: Capillary refill is > 3 seconds is sluggish in bilateral fingers toes Pulses are palpable in right radial artery and left radial artery Rhythm is atrial fibrillation with rapid ventricular response. Respiratory: Airway is patent Respiratory effort is even, unlabored, Respiratory pattern is symmetrical, tachypnea. GI: Abdomen is round. Derm: Skin is fragile, is thin, with poor turgor has skin tears on located on bilateral arms and legs Skin is icteric, jaundiced, pale, Skin temperature is cold mottling noted to the back. Musculoskeletal: Range of motion: intact in all extremities. 11:20 : Swelling noted on scrotum. sv Historical: - Allergies: 11:59 NKA; ss - Home Meds: 12:05 atorvastatin 40 mg Oral tab 1 tab once daily [Active]; Plavix 75 mg Oral tab 1 tab once sv daily [Active]; Eliquis 5 mg oral tab 2 times per day [Active]; metoprolol tartrate 50 mg Oral tab 1 tab 2 times per day [Active]; spironolactone 25 mg Oral tab 1 tab 2 times per day [Active]; - PMHx: 11:59 Atrial Fib; CVA; High Cholesterol; Hypertension; Hypothyroidism; ss - PSHx: 11:59 IVC Filter; ss - Immunization history:: Adult Immunizations unknown. - Social history:: Smoking status: unknown. - Ebola Screening: : Unable to complete screening because patient is disoriented, . Screenin:03 Abuse screen: Denies threats or abuse. Denies injuries from another. Nutritional sv screening: No deficits noted. Tuberculosis screening: No symptoms or risk factors identified. Fall Risk No fall in past 12 months (0 pts). No secondary diagnosis (0 pts). IV access (20 points). Ambulatory Aid- None/Bed Rest/Nurse Assist (0 pts). Gait- Normal/Bed Rest/Wheelchair (0 pts) Mental Status- Overestimates/Forgets Limitations (15 pts.). Total Linn Fall Scale indicates Low Risk Score (25-44 pts). Fall prevention measures have been instituted. Side Rails Up X 2 Placed close to Nursing Station Frequent Obs/Assesments occuring As available Patient and Family Educated on Fall Prevention Program and strategies. 14:54 Patient has been NPO before screening. The patient is alert, able to follow commands. sv The patient does not exhibit slurred or garbled speech The patient is not exhibiting difficulty speaking. The patient does not exhibit difficulty understanding words. The patient is able to swallow own secretions with no drooling or need for suction. Patient tolerated one teaspoon of water. No drooling, immediate coughing, gurgling, or clearing of the throat was noted. The patient tolerated 90mL of water. No drooling, immediate coughing, gurgling, or clearing of the throat was noted. The patient passed the bedside swallow screening. Oral medications may be given as ordered. Contact Physician for further diet orders. Provider notified of bedside swallow screening results: Tony WELSH. Assessment: 12:02 Reassessment: Maria Teresa MILLER at bedside to obtain ABG. sv 12:08 Reassessment: Patient appears in no apparent distress at this time. No changes from sv previously documented assessment. Patient and/or family updated on plan of care and expected duration. Pain level reassessed. 12:59 Reassessment: Patient appears in no apparent distress at this time. No changes from sv previously documented assessment. Patient and/or family updated on plan of care and expected duration. Pain level reassessed. 13:30 Reassessment: Patient appears in no apparent distress at this time. No changes from sv previously documented assessment. Patient and/or family updated on plan of care and expected duration. Pain level reassessed. 14:56 Reassessment: Patient appears in no apparent distress at this time. No changes from sv previously documented assessment. Patient and/or family updated on plan of care and expected duration. Pain level reassessed. 16:00 Reassessment: Patient appears in no apparent distress at this time. No changes from sv previously documented assessment. Patient and/or family updated on plan of care and expected duration. Pain level reassessed. 16:39 Reassessment: Patient appears in no apparent distress at this time. No changes from sv previously documented assessment. Patient and/or family updated on plan of care and expected duration. Pain level reassessed. 17:26 Reassessment: Patient appears in no apparent distress at this time. No changes from sv previously documented assessment. Patient and/or family updated on plan of care and expected duration. Pain level reassessed. 18:07 Reassessment: Report given to Analisa from EMS. sv Vital Signs: 11:25 BP 91 / 72; Pulse 123; Resp 25; Pulse Ox 83% on R/A; Weight 95 kg; sv 11:45 BP 91 / 69; Pulse 126; Resp 23; Pulse Ox 100% on 2 lpm NC; sv 12:45 BP 97 / 80; Pulse 133; Resp 26; Temp 96.6(C); sv 13:45 BP 103 / 81; Pulse 117; Resp 25; Pulse Ox 95% on 2 lpm NC; sv 14:32 BP 90 / 75; Pulse 127; Resp 27; Temp 95.2(C); Pulse Ox 100% on 2 lpm NC; sv 15:00 BP 91 / 79; Pulse 115; Resp 30; Temp 95.2(C); Pulse Ox 98% on 2 lpm NC; sv 16:05 BP 101 / 69; Pulse 122 MON; Resp 22; Temp 95(C); Pulse Ox 96% on 2 lpm NC; sv 16:30 BP 107 / 95; Pulse 122; Resp 23; Pulse Ox 98% on 2 lpm NC; sv 17:01 BP 102 / 78; Pulse 120; Resp 25; Pulse Ox 97% on 2 lpm NC; sv 17:28 BP 113 / 81; Pulse 122; Resp 25; Temp 94.8(C); Pulse Ox 98% on 2 lpm NC; sv 16:05 A fib sv 11:25 Pt placed on O2 \T\ 2L per NC. Waveform inaccurate. sv ED Course: 11:20 legend maker on. Pulse ox on. NIBP on. Bath given. Cleaned of incontinence. Linen sv changed. 11:23 Patient arrived in ED. ss 11:23 Sister Naina Fowler called to leave her number [phone] also says to call if we have eb any questions or concerns with her brother. 11:24 Gene Avilez MD is Attending Physician. gs 11:26 [facility] cp 11:30 Patient has correct armband on for positive identification. Placed in gown. Bed in low sv position. Call light in reach. Side rails up X2. 11:30 Initial lab(s) drawn, by me, sent to lab. First set of blood cultures drawn by me. sv Inserted saline lock: 20 gauge in right antecubital area, using aseptic technique. Blood collected. Flushed right antecubital with 5 ml normal saline. 11:40 EKG done, by ED staff, reviewed by Tony WELSH. jb1 11:43 Ebony Coburn, RN is Primary Nurse. sv 11:45 Second set of blood cultures drawn by me. sv 11:55 Basic Metabolic Panel Sent. sv 11:55 CBC with Diff Sent. sv 11:55 LFT's Sent. sv 11:55 Magnesium Sent. sv 11:55 NT PRO-BNP Sent. sv 11:55 PT-INR Sent. sv 11:59 Triage completed. ss 11:59 Arm band placed on right wrist. ss 12:00 X-ray(s) taken. sv 12:[address] via stretcher. sv 12:13 XRAY Chest (1 view) Sent. sv 12:13 Troponin (emerg Dept Use Only) Sent. sv 12:24 X-ray completed. Portable x-ray completed in exam room. Patient tolerated procedure mh1 well. 12:25 XRAY Chest (1 view) In Process Unspecified. EDMS 12:[address] from [address]. sv 12:40 CT Traumagram (Head C Spine CAP wo con) In Process Unspecified. EDMS 12:41 Sister Naina called again to have us relay the message that she has his wallet and eb valuables from home and that she will be up here shortly. 12:53 Urine collected: Suárez catheter specimen, cloudy, tea colored. jb1 13:44 Lipase Sent. sv 14:05 initiated a transfer with Susan at the [facility] center. eb 14:[address] Roberts the GI tree surgeon helper for [facility] with Tony WELSH for patient eb transfer consultation. 15:33 administrative approval given by Susan Ambrocio RN/ patient has been accepted to [facility] 7 south2 Bed 7217/ Dr. Valladares Has accepted the patient in transfer/ Report to be called to [phone]. 17:22 No provider procedures requiring assistance completed. Patient transferred, IV remains sv in place. intact. Administered Medications: Discontinued: NS 0.9% 500 ml IV at 500 bolus once Discontinued: NS 0.9% 1000 ml IV at 1 bolus Per protocol; 1000 mL bolus 11:54 Drug: NS 0.9% 500 ml Route: IV; Rate: 500 bolus; Site: right antecubital; sv 12:08 Drug: NS 0.9% 1000 ml Route: IV; Rate: 1 bolus; Site: right antecubital; sv 12:08 Drug: NS 0.9% (30 ml/kg) 30 ml/kg Route: IV; Rate: bolus; Site: right antecubital; sv 14:00 Follow up: Response: No adverse reaction; IV Status: Completed infusion; IV Intake: sv 3500ml ; Tony WELSH wanted 3500 mls to be given. 12:59 Drug: Cefepime 2 grams Route: IVPB; Rate: 200 ml/hr; Infused Over: 30 mins; Site: left sv antecubital; 13:30 Follow up: Response: No adverse reaction; IV Status: Completed infusion; IV Intake: sv 200ml 14:56 Drug: Lactated Ringers Solution 1000 ml {Note: placed on warm fluid warmer.} Route: IV; sv Rate: 1000 bolus; Site: right antecubital; 15:30 Follow up: Response: No adverse reaction; IV Status: Completed infusion; IV Intake: sv 1000ml 14:56 Drug: Aspirin Chewable Tablet 324 mg Route: PO; sv 15:05 Follow up: Response: No adverse reaction sv 14:57 Drug: LevaQUIN 500 mg {Note: placed on warm fluid warmer.} Volume: 100 ml; Route: IVPB; sv Infused Over: 60 mins; Site: right antecubital; 16:00 Follow up: Response: No adverse reaction; IV Status: Completed infusion; IV Intake: sv 100ml 14:57 CANCELLED (Physician Discretion): Aspirin Suppository 300 mg VT once sv 16:39 Drug: vancoMYCIN 1 grams Route: IVPB; Infused Over: 2 hrs; Site: right antecubital; sv 18:09 Follow up: Response: No adverse reaction; IV Status: Infusion continued upon transfer sv Intake: 13:30 IV: 200ml; Total: 200ml. sv 14:00 IV: 3500ml; Total: 3700ml. sv 15:30 IV: 1000ml; Total: 4700ml. sv 16:00 IV: 100ml; Total: 4800ml. sv Output: 14:00 Urine: 30ml (Suárez); Total: 30ml. sv Outcome: 15:25 ER care complete, transfer ordered by . cp 16:15 Transferred by ground EMS to [facility], Transfer form completed. sv X-rays sent w/ patient. Note: Report given to Jean-Paul CHACKO 16:15 Condition: stable 16:15 Instructed on the need for transfer. 18:09 Patient left the ED. sv Signatures: Dispatcher [employer] EDMS Mainor [facility]1 Ebony Coburn RN RN Micki Perea 1 Angelica Nickerson RN RN Tony De La Cruz PA PA cp Gene Avilez MD MD gs Botello, Elizabeth eb Corrections: (The following items were deleted from the chart) 11:20 Presenting complaint: EMS states: Found by family on floor of bathroom covered in ss feces for unknown amount of time, possibly days. Patient is currently A\T\O x1, is usually A\T\O x3, lives alone at home. : 11:20 Transition of care: patient was not received from another setting of care. [facility] 11:20 Onset of symptoms is unknown. [facility] : 11:20 Risk Assessment: Do you want to hurt yourself or someone else? Patient reports no ss desire to harm self or others. : 11:20 Initial Sepsis Screen: [facility] 11:20 Method Of Arrival: EMS: [facility] : 11:20 Acuity: TALIB 2 [facility] 12:28 11:25 BP 91 / 72; Pulse 123bpm; Resp 25bpm; Pulse Ox 83% RA; Pt placed on O2 \T\ 2L per sv NC. Waveform inaccurate.; sv 12:59 12:59 Temp 96.6F Catheter; sv sv 13:20 12:59 BP 97 / 80; Pulse 133bpm; Resp 26bpm; Temp 96.6F Catheter; sv sv 17:24 11:17 Presenting complaint: EMS states: found laying on his bathroom floor by family, sv unknown amt of time laying there. Pt normally A\T\O x4, lives along and is currently A\T\O person/place. Blood in stool BP 93/722 HR-Afib 110-160s. sv
--- NOTE | 2018-11-14 15:28 | EDPHYS ---
Physician Documentation [facility] Name: Hunter Lassiter Age: 73 yrs Sex: Male : 1945 Arrival Date: 11/14/2018 Time: 11:23 Bed 3 Private MD: ED Physician Gene Avilez HPI: 11/14 11:45 This 73 yrs old Male presents to ER via EMS with complaints of Altered Mental cp Status. 11:45 The patient presents with confusion, decreased mental status. Onset: The cp symptoms/episode began/occurred at an unknown time. Possible causes: unknown. Associated signs and symptoms: Pertinent negatives: abdominal pain, chest pain, fever. Current symptoms: In the emergency department the patient's symptoms are unchanged from the initial presentation, despite EMS interventions. Patient's baseline: Neuro: alert and fully oriented, Speech: normal, The patient has a previous history of CVA. Unable to obtain HPI due to altered mental status. Patient resides alone and was found by neighbor on ground in home. EMS reports unknown down time and last contact with neighbor was 3 days ago. Historical: - Allergies: 11:59 NKA; ss - Home Meds: 12:05 atorvastatin 40 mg Oral tab 1 tab once daily [Active]; Plavix 75 mg Oral tab 1 tab once sv daily [Active]; Eliquis 5 mg oral tab 2 times per day [Active]; metoprolol tartrate 50 mg Oral tab 1 tab 2 times per day [Active]; spironolactone 25 mg Oral tab 1 tab 2 times per day [Active]; - PMHx: 11:59 Atrial Fib; CVA; High Cholesterol; Hypertension; Hypothyroidism; ss - PSHx: 11:59 IVC Filter; ss - Immunization history:: Adult Immunizations unknown. - Social history:: Smoking status: unknown. - Ebola Screening: : Unable to complete screening because patient is disoriented, . ROS: 11:45 Constitutional: Negative for fever. cp 11:45 Cardiovascular: Negative for chest pain. cp 11:45 Abdomen/GI: Negative for abdominal pain. 11:45 Neuro: Positive for altered mental status. 11:45 Unable to obtain ROS due to altered mental status. Exam: 11:45 ECG was reviewed by the Attending Physician. cp 11:50 Constitutional: The patient appears alert, awake, non-diaphoretic, non-toxic, well cp developed, well nourished, in obvious distress, mildly distressed, obviously ill, unkempt. 11:50 Head/Face: Normocephalic, atraumatic. cp 11:50 Eyes: Periorbital structures: appear normal, Pupils: equal, round, and reactive to light and accomodation, Conjunctiva: normal, no exudate, no injection, Sclera: icterus, is present, Lids and lashes: appear normal, bilaterally. 11:50 ENT: External ear(s): are unremarkable, Ear canal(s): are normal, clear, TM's: bulging, is not appreciated, bilaterally, dullness, bilaterally, erythema, is not appreciated, bilaterally, Nose: is normal, Mouth: Lips: dry, Oral mucosa: dry, Posterior pharynx: is normal, airway is patent, no erythema, no exudate. 11:50 Neck: C-spine: vertebral tenderness, is not appreciated, crepitus, is not appreciated, ROM/movement: is normal, is supple, no range of motions limitations, no meningismus, no nuchal rigidity. 11:50 Chest/axilla: Inspection: normal, Palpation: is normal, no crepitus, no tenderness. 11:50 Cardiovascular: Rate: tachycardic, Rhythm: irregularly irregular, Pulses: Pulses are 2+ in right radial artery and left radial artery. Edema: is not appreciated, JVD: is not appreciated. 11:50 Respiratory: the patient does not display signs of respiratory distress, Respirations: normal, no use of accessory muscles, no retractions, no splinting, no tachypnea, labored breathing, is not present, Breath sounds: are clear throughout, no decreased breath sounds, no stridor, no wheezing. 11:50 Abdomen/GI: Inspection: abdomen appears normal, Bowel sounds: active, all quadrants, Palpation: abdomen is soft and non-tender, in all quadrants. 11:50 Back: pain, is absent, vertebral tenderness, is not appreciated. 11:50 Musculoskeletal/extremity: Exam is negative for deformity, injury. 11:50 Skin: Appearance: Color: jaundiced, diaphoresis is not appreciated, cellulitis, is not appreciated. 11:50 Neuro: Orientation: to person, Mentation: confused, unable to follow commands, Motor: moves all fours. Vital Signs: 11:25 BP 91 / 72; Pulse 123; Resp 25; Pulse Ox 83% on R/A; Weight 95 kg; sv 11:45 BP 91 / 69; Pulse 126; Resp 23; Pulse Ox 100% on 2 lpm NC; sv 12:45 BP 97 / 80; Pulse 133; Resp 26; Temp 96.6(C); sv 13:45 BP 103 / 81; Pulse 117; Resp 25; Pulse Ox 95% on 2 lpm NC; sv 14:32 BP 90 / 75; Pulse 127; Resp 27; Temp 95.2(C); Pulse Ox 100% on 2 lpm NC; sv 15:00 BP 91 / 79; Pulse 115; Resp 30; Temp 95.2(C); Pulse Ox 98% on 2 lpm NC; sv 16:05 BP 101 / 69; Pulse 122 MON; Resp 22; Temp 95(C); Pulse Ox 96% on 2 lpm NC; sv 16:30 BP 107 / 95; Pulse 122; Resp 23; Pulse Ox 98% on 2 lpm NC; sv 17:01 BP 102 / 78; Pulse 120; Resp 25; Pulse Ox 97% on 2 lpm NC; sv 17:28 BP 113 / 81; Pulse 122; Resp 25; Temp 94.8(C); Pulse Ox 98% on 2 lpm NC; sv 16:05 A fib sv 11:25 Pt placed on O2 \T\ 2L per NC. Waveform inaccurate. sv MDM: 11:28 Patient medically screened. cp 12:00 Differential Diagnosis: CVA, electrolyte abnormality, alcohol intoxication, cp intracranial bleed, pneumonia, seizure, sepsis, UTI, volume depletion. 14:35 Data reviewed: vital signs, nurses notes, lab test result(s), EKG, radiologic studies, cp CT scan, plain films, I have discussed the patient's presentation/case with the attending Emergency Department Physician;. 14:35 Test interpretation: by ED physician or midlevel provider: ECG, plain radiologic cp studies. Response to treatment: the patient's symptoms have mildly improved after treatment. 14:35 Physician consultation: was contacted at 14:30, regarding consult, patient's condition, cp DR Roberts, GI physician \T\[facility], for consult with concern for elevated liver enzymes and cholelithiasis. Discussed need for GI consult with plan to admit to hospital services of [facility]. Dr Roberts concerned most emergent issue is severe sepsis and GI would not be needed but I express concern from hospitalist services at our facility would like GI services to be available. 11/14 11:40 Order name: Basic Metabolic Panel 11/14 11:40 Order name: CBC with Diff 11/14 11:40 Order name: LFT's cp 11/14 11:40 Order name: Magnesium cp 11/14 11:40 Order name: NT PRO-BNP cp 11/14 11:40 Order name: PT-INR cp 11/14 11:40 Order name: Troponin (emerg Dept Use Only) cp 11/14 11:40 Order name: AMMONIA; Complete Time: 12:16 cp 11/14 11:40 Order name: Lactate; Complete Time: 12:19 cp 11/14 12:19 Interpretation: Abnormal: LAC 11.5. cp 11/14 11:40 Order name: Procalcitonin; Complete Time: 13:00 cp 11/14 13:00 Interpretation: Normal except: Procalcitonin 3.61. cp 11/14 11:40 Order name: Blood Culture Adult (2) 11/14 11:40 Order name: Urine Microscopic Only; Complete Time: 13:33 cp 11/14 11:40 Order name: CPK; Complete Time: 14:28 cp 11/14 11:42 Order name: Basic Metabolic Panel; Complete Time: 14:28 EDMS 11/14 14:33 Interpretation: Normal except: CL 108; CO2 9; GLUC 66; BUN 47; CRE 3.55; GFR 17; CA 8.4.cp 11/14 11:42 Order name: CBC with Automated Diff; Complete Time: 13:56 EDMS 11/14 13:00 Interpretation: Normal except: WBC 15.3; HGB 13.0; MCV 92.0; MCHC 31.2; PLT 114; RDW cp 21.4; INESSA% 90.8; LYM% 4.0; NEUT A 13.9; LYMA 0.6. 11/14 11:42 Order name: Liver (Hepatic) Function; Complete Time: 14:28 EDMS 11/14 14:33 Interpretation: Normal except: ALT 2445; BILIT 5.9; BILID 3.8; ALB 3.2; GLOB 3.6; A/G cp 0.9; AST 7969. 11/14 11:42 Order name: Magnesium; Complete Time: 14:28 EDMS 11/14 11:42 Order name: NT PRO-BNP; Complete Time: 14:28 EDMS 11/14 11:42 Order name: Protime (+INR); Complete Time: 12:16 EDMS 18 13:00 Interpretation: Abnormal: PT 36.8. cp 11/14 11:42 Order name: Troponin (Emerg Dept Use Only); Complete Time: 14:28 EDMS 11/14 11:54 Order name: ABG; Complete Time: 13:00 cp 18 12:16 Order name: ETOH Level; Complete Time: 13:33 cp 18 12:16 Order name: UDS; Complete Time: 13:33 cp 18 12:16 Order name: Tylenol Level; Complete Time: 13:33 cp 18 12:16 Order name: Asprin; Complete Time: 13:33 cp 18 12:54 Order name: Urine Dipstick--Ancillary (enter results); Complete Time: 13:33 eb 18 13:34 Order name: Lipase; Complete Time: 14:28 EDMS 18 13:36 Order name: Manual Differential; Complete Time: 13:56 EDMS 18 14:45 Order name: Glucose, Ancillary Testing; Complete Time: 15:21 EDMS 18 11:40 Order name: XRAY Chest (1 view); Complete Time: 13:34 cp 18 11:40 Order name: EKG; Complete Time: 11:43 cp 11/14 11:40 Order name: Cardiac monitoring; Complete Time: 11:55 cp 18 11:40 Order name: EKG - Nurse/Tech; Complete Time: 11:55 cp 18 11:40 Order name: IV Saline Lock; Complete Time: 11:55 cp 18 11:40 Order name: Labs collected and sent; Complete Time: 11:55 cp 18 11:40 Order name: O2 Per Protocol; Complete Time: 11:55 cp 18 11:40 Order name: O2 Sat Monitoring; Complete Time: 11:55 cp 18 11:40 Order name: CT Traumagram (Head C Spine CAP wo con); Complete Time: 13:33 cp 18 11:43 Order name: Jose Armando; Complete Time: 11:54 cp EC:45 Rate is 124 beats/min. Rhythm is irregularly irregular. QRS interval is prolonged at cp 106 msec. QT interval is normal. T waves are Inverted in lead aVL. Interpreted by me. Reviewed by me. Administered Medications: Discontinued: NS 0.9% 500 ml IV at 500 bolus once Discontinued: NS 0.9% 1000 ml IV at 1 bolus Per protocol; 1000 mL bolus 11:54 Drug: NS 0.9% 500 ml Route: IV; Rate: 500 bolus; Site: right antecubital; sv 12:08 Drug: NS 0.9% 1000 ml Route: IV; Rate: 1 bolus; Site: right antecubital; sv 12:08 Drug: NS 0.9% (30 ml/kg) 30 ml/kg Route: IV; Rate: bolus; Site: right antecubital; sv 14:00 Follow up: Response: No adverse reaction; IV Status: Completed infusion; IV Intake: sv 3500ml ; Tony WELSH wanted 3500 mls to be given. 12:59 Drug: Cefepime 2 grams Route: IVPB; Rate: 200 ml/hr; Infused Over: 30 mins; Site: left sv antecubital; 13:30 Follow up: Response: No adverse reaction; IV Status: Completed infusion; IV Intake: sv 200ml 14:56 Drug: Lactated Ringers Solution 1000 ml {Note: placed on warm fluid warmer.} Route: IV; sv Rate: 1000 bolus; Site: right antecubital; 15:30 Follow up: Response: No adverse reaction; IV Status: Completed infusion; IV Intake: sv 1000ml 14:56 Drug: Aspirin Chewable Tablet 324 mg Route: PO; sv 15:05 Follow up: Response: No adverse reaction sv 14:57 Drug: LevaQUIN 500 mg {Note: placed on warm fluid warmer.} Volume: 100 ml; Route: IVPB; sv Infused Over: 60 mins; Site: right antecubital; 16:00 Follow up: Response: No adverse reaction; IV Status: Completed infusion; IV Intake: sv 100ml 14:57 CANCELLED (Physician Discretion): Aspirin Suppository 300 mg DC once sv 16:39 Drug: vancoMYCIN 1 grams Route: IVPB; Infused Over: 2 hrs; Site: right antecubital; sv 18:09 Follow up: Response: No adverse reaction; IV Status: Infusion continued upon transfer sv Disposition: 11/14/18 15:25 Transfer ordered to [facility]. Diagnosis are Other sepsis, Cholelithiasis, Pneumonia due to other specified bacteria, Hepatic failure, unspecified, Acute kidney failure. - Reason for transfer: Higher level of care. - Accepting physician is DR Valladares. - Condition is Critical. - Problem is new. - Symptoms have improved. Addendum: 11/16/2018 15:24 Co-signature as Attending Physician, Gene Avilez MD. g s Signatures: Dispatcher [employer] EDMS Ebony Coburn RN RN Angelica Nickerson RN RN ss Tony De La Cruz, BLAISE PA Gene Avilez MD MD Corrections: (The following items were deleted from the chart) 11/14 11:43 11:40 Suárez ordered. cp cp 14:07 13:34 LIPASE+C.LAB.BRZ ordered. EDMS EDMS 14:33 14:33 Normal except: CL 108; CO2 9; GLUC 66; BUN 47; CRE 3.55; GFR 17. cp cp 14:57 13:38 Aspirin Suppository 300 mg DC once ordered. cp sv 14:57 14:56 Aspirin Suppository 300 mg DC once ordered. [facility] 18:09 15:25 11/14/2018 15:25 Transfer ordered to [facility]. Diagnosis is sv Other sepsis; Cholelithiasis; Pneumonia due to other specified bacteria; Hepatic failure, unspecified; Acute kidney failure. Reason for transfer: Higher level of care. Accepting physician is DR Valladares. Condition is Critical. Problem is new. Symptoms have improved. cp
[2018-11-14] MEDS ORDERED: VANCOMYCIN 1.75 GM in NA CHLORIDE 0.9% 500 ML IVPB ONE (17:00)
[2018-11-14 18:58] VITALS: BP 113/81; TEMP 94.8; O2SAT 98
--- NOTE | 2018-11-15 07:54 | EKG ---
Test Date: 2018-11-14 Test Time: 11:36:37 Computer Programming Professor: FLAKO MEASUREMENT RESULTS: Intervals: Rate: 124 HI: QRSD: 106 QT: 322 QTc: 462 [place]: P: HI: QRS: -30 T: 112 INTERPRETIVE STATEMENTS: Atrial fibrillation with rapid ventricular response Left axis deviation Nonspecific T wave abnormality Abnormal ECG Compared to ECG 10/27/2018 10:58:50 Left-axis deviation now present T-wave abnormality now present Ventricular premature complex(es) no longer present Myocardial infarct finding no longer present Electronically Signed On 11-15-18 07:53:15 CDT by Eduardo Rocha
== END 2018-11-14 18:09 | disposition short-term general hospital (02) ==
LOC: ER 11:20
DX: A41.89 Other specified sepsis (principal); K80.20 Calculus of gallbladder without cholecystitis without obstruction; J15.8 Pneumonia due to other specified bacteria; K72.90 Hepatic failure, unspecified without coma; N17.9 Acute kidney failure, unspecified; I10 Essential (primary) hypertension; E03.9 Hypothyroidism, unspecified; E78.00 Pure hypercholesterolemia, unspecified; I48.91 Unspecified atrial fibrillation; Z86.73 Personal history of transient ischemic attack (TIA), and cerebral infarction without residual deficits; Z79.01 Long term (current) use of anticoagulants
CPT/HCPCS: 93005; 87040 ×2; 85025; 80048; 36415; 80320; 82140; 83735; 82550; 80329 ×2; 85610; 82962; 80076; 80307 ×8; 83605 ×2; 84484; 83690; 84145; 83880; 70450; 71250; 72125; 71045; 82805; J0692; J7030 ×2; 81003; 81015; 96365; 96367